=== PATIENT | female | born 2000 | race Caucasian/White ===

== ENCOUNTER 2022-02-21 13:29 | Emergency (ER) | payer MEDICAID, SELFPAY ==
[2022-02-21 13:38] VITALS: BP 136/75; PULSE 92; RESP 16; TEMP 36.8; O2SAT 99
[2022-02-21 14:15] LABS: Add Urine Microscopic? NO; Appearance Urine Clear (Clear); Bilirubin Urine Negative (Negative); Blood Urine Negative (Negative); Color Urine Yellow (Yellow); Glucose Urine UA Negative (Negative); Ketones Urine Negative (Negative); Leukocyte Esterase Ur Negative LEU/UL (Negative); Nitrate Urine Negative (Negative); Protein Urine Negative (Negative); Specific Grav Ur 1.011 (1.001-1.035); Urobilinogen Urine Negative mg/dL (<2.0)
--- NOTE | 2022-02-21 14:42 | ED.FEMALEGU ---
HPI - Female Genitourinary General Chief complaint: Urogenital-Female Stated complaint: UTI? Time Seen by Provider: 02/21/22 13:44 History of Present Illness HPI Narrative: 21-year-old female presents to the emergency room complaints of dysuria that has been present for 1 week. Denies any suprapubic pain or low back pain. Has not seen a body else for the symptoms. Denies fever. No nausea vomiting diarrhea or constipation. No concerns over STDs. Denies any vaginal discharge vaginal bleeding. Related Data Home Medications Medication Instructions Recorded Confirmed medroxyprogesterone 150 mg/mL mg IM 02/21/22 02/21/22 intramuscular suspension sumatriptan succinate 50 mg tablet mg PO 02/21/22 Allergies Allergy/AdvReac Type Severity Reaction Status Date / Time Penicillins Allergy Unknown Difficulty Verified 02/21/22 13:51 Breathing Review of Systems Review of Systems: CONSTITUTIONAL: Denies fever, chills, or sweats. EYES: Denies visual changes, redness, or discharge. ENT: Denies rhinorrhea, congestion, sore throat, or otalgia. CARDIOVASCULAR: Denies chest pain, palpitations, or edema. RESPIRATORY: Denies cough or dyspnea. GASTROINTESTINAL: Denies abdominal pain, nausea, vomiting, or diarrhea. GENITOURINARY: Reports dysuria SKIN: Denies rash or itching. MUSCULOSKELETAL: Denies back pain, joint pain, or myalgia. NEUROLOGIC: Denies headache, numbness, dizziness, or weakness. PSYCHIATRIC: Denies anxiety or depression. Exam Narrative: GENERAL: Well-appearing, well-nourished, no physical limitations, and in no acute distress. HEAD: Normocephalic, atraumatic. EYES: Conjunctivae normal, PERRLA and EOMI. CHEST: Clear to auscultation. No respiratory distress. No wheezes rales or rhonchi. No tenderness. HEART: Regular rate and rhythm. No murmur heard. Normal peripheral pulses. ABDOMEN: Soft, nontender, nondistended, normal active bowel sounds. BACK: No CVA tenderness EXTREMITIES: Normal range of motion. No edema. No clubbing or cyanosis SKIN: Warm, dry, no rash. No noted wounds NEURO: No focal deficits. Alert and oriented x3. MAEW. CN's II-XI intact bilaterally, normal gait PSYCH: Cooperative. Normal mood and affect. Course Vital Signs Vital signs: Vital Signs Temperature 36.8 C 02/21/22 13:38 Pulse Rate 92 02/21/22 13:38 Respiratory Rate 16 02/21/22 13:38 Blood Pressure 136/75 02/21/22 13:38 Pulse Oximetry 99 02/21/22 13:38 Temperature 36.8 C 02/21/22 13:38 Pulse Rate 92 02/21/22 13:38 Respiratory Rate 16 02/21/22 13:38 Blood Pressure 136/75 02/21/22 13:38 Pulse Oximetry 99 02/21/22 13:38 MDM - Female Genitourinary Lab Data Labs: Lab Results 02/21/22 Range/Units 13:51 Urine Color Yellow (Yellow) Urine Appearance Clear (Clear) Urine pH 5.0 (5.0-9.0) Ur Specific [place] 1.011 (1.001-1.035) Urine Protein Negative (Negative) mg/dL Urine Glucose (UA) Negative (Negative) mg/dL Urine Ketones Negative (Negative) mg/dL Ur Blood (Man) Negative (Negative) Urine Nitrate Negative (Negative) Urine Bilirubin Negative (Negative) Urine Urobilinogen Negative (<2.0) mg/dL Leukocyte Esterase Rfl Negative (Negative) NICK/UL UCG Bedside Result Negative Reference Range: Negative Urine Characteristics Cloudy Discharge Plan Discharge Clinical Impression: Dysuria Patient Disposition: Home, Self-Care Condition: Stable Instructions: Antibiotic Form, Dysuria (ED) Prescriptions: No Action sumatriptan succinate 50 mg tablet PO medroxyprogesterone 150 mg/mL suspension IM Follow-up/Referrals: Lan Valle MD [Primary Care Provider] - Stand Alone Forms: Work/School Release IP Time of Disposition: 14:44
== END 2022-02-21 15:02 | disposition home or self-care (01) ==
PROVIDERS: Emergency Provider Nurse Practitioner Family; PCP Pediatrics
DX: R30.0 Dysuria (principal)
CPT/HCPCS: 81003; 81025; 99283

== ENCOUNTER 2022-06-21 18:43 | Emergency (ER) | payer MEDICAID, SELFPAY ==
[2022-06-21 19:08] VITALS: BP 154/89; PULSE 90; RESP 18; TEMP 37.2; O2SAT 100
[2022-06-21 19:48] LABS: Beta HCG Quantitative < 2.39 mIU/ML
--- NOTE | 2022-06-21 19:51 | ED.GENADULT ---
HPI - General Adult General Chief complaint: Unspecified Stated complaint: requesting beta quant - positive pregnanct test Time Seen by Provider: 06/21/22 18:51 History of Present Illness HPI narrative: 21-year-old female presented the emergency room requesting blood work to confirm . Patient states that she took 5 tests at home earlier today and 2 of them showed a faint line and testing positive. Patient is concerned because she is scheduled to have Depo shot on Friday. Related Data Home Medications Medication Instructions Recorded Confirmed medroxyprogesterone 150 mg/mL mg IM 02/21/22 02/21/22 intramuscular suspension sumatriptan succinate 50 mg tablet mg PO 02/21/22 Allergies Allergy/AdvReac Type Severity Reaction Status Date / Time Penicillins Allergy Unknown Difficulty Verified 06/21/22 18:44 Breathing Review of Systems Review of Systems: CONSTITUTIONAL: Denies fever, chills, or sweats. EYES: Denies visual changes, redness, or discharge. ENT: Denies rhinorrhea, congestion, sore throat, or otalgia. CARDIOVASCULAR: Denies chest pain, palpitations, or edema. RESPIRATORY: Denies cough or dyspnea. GASTROINTESTINAL: Denies abdominal pain, nausea, vomiting, or diarrhea. GENITOURINARY: Denies dysuria or hematuria. SKIN: Denies rash or itching. MUSCULOSKELETAL: Denies back pain, joint pain, or myalgia. NEUROLOGIC: Denies headache, numbness, dizziness, or weakness. PSYCHIATRIC: Denies anxiety or depression. Exam Narrative: GENERAL: Well-appearing, well-nourished, no physical limitations, and in no acute distress. HEAD: Normocephalic, atraumatic. EYES: Conjunctivae normal, PERRLA and EOMI. CHEST: Clear to auscultation. No respiratory distress. No wheezes rales or rhonchi. HEART: Regular rate and rhythm. No murmur heard. Normal peripheral pulses. ABDOMEN: Soft, nontender, nondistended, normal active bowel sounds. EXTREMITIES: Normal range of motion. No edema. No clubbing or cyanosis SKIN: Warm, dry, no rash. No noted wounds NEURO: No focal deficits. Alert and oriented x3. MAEW. CN's II-XI intact bilaterally, normal gait PSYCH: Cooperative. Normal mood and affect. Course Vital Signs Vital signs: Vital Signs Temperature 37.2 C 06/21/22 19:08 Pulse Rate 90 06/21/22 19:08 Respiratory Rate 18 06/21/22 19:08 Blood Pressure 154/89 H 06/21/22 19:08 Pulse Oximetry 100 06/21/22 19:08 Oxygen Delivery Room Air 06/21/22 19:08 Temperature 37.2 C 06/21/22 19:08 Pulse Rate 90 06/21/22 19:08 Respiratory Rate 18 06/21/22 19:08 Blood Pressure 154/89 H 06/21/22 19:08 Pulse Oximetry 100 06/21/22 19:08 Oxygen Delivery Room Air 06/21/22 19:08 Medical Decision Making Vital Signs Vital Signs: Vital Signs Temperature 37.2 C 06/21/22 19:08 Pulse Rate 90 06/21/22 19:08 Respiratory Rate 18 06/21/22 19:08 Blood Pressure 154/89 H 06/21/22 19:08 Pulse Oximetry 100 06/21/22 19:08 Oxygen Delivery Room Air 06/21/22 19:08 Temperature 37.2 C 06/21/22 19:08 Pulse Rate 90 06/21/22 19:08 Respiratory Rate 18 06/21/22 19:08 Blood Pressure 154/89 H 06/21/22 19:08 Pulse Oximetry 100 06/21/22 19:08 Oxygen Delivery Room Air 06/21/22 19:08 Lab Data Labs: Lab Results 06/21/22 Range/Units 19:09 Beta HCG, Quant < 2.39 mIU/ML Discharge Plan Discharge Clinical Impression: Encounter for test with result negative Patient Disposition: Home, Self-Care Condition: Stable Instructions: Antibiotic Form Additional Instructions: Your beta-hCG level is 2.93, which indicates a negative test. Prescriptions: No Action sumatriptan succinate 50 mg tablet PO medroxyprogesterone 150 mg/mL suspension IM Follow-up/Referrals: Lan Valle MD [Primary Care Provider] - Time of Disposition: 19:51
== END 2022-06-21 19:59 | disposition home or self-care (01) ==
LOC: ANHED 19:56
PROVIDERS: Emergency Provider Nurse Practitioner Family
DX: Z32.02 Encounter for pregnancy test, result negative (principal)
CPT/HCPCS: 36415; 84702; 99283

== ENCOUNTER 2022-09-29 00:02 | Emergency (ER) | payer MEDICAID, SELFPAY ==
--- NOTE | ~2022-09-29 | CT_ITS ---
EXAMINATION: CT abdomen pelvis w con INDICATION: Nausea and vomiting TECHNIQUE: Computed tomographic images of the abdomen and pelvis were obtained after the administrati on of 100 cc of Omnipaque 350 intravenous contrast. The dose-length product (DLP) was 282.16 mGy-cm. Automated exposure control and iterative reconstruction technique were employed. COMPARISON: None available FINDINGS: Minimal dependent atelectasis is present in the lung bases. The heart size is normal. The g allbladder is surgically absent. The spleen, pancreas, liver, and adrenal glands are normal. The kidn eys are unremarkable. No pathologically enlarged abdominal or pelvic lymph nodes are identified. No f ree intraperitoneal gas or evidence of bowel obstruction. There is mild enlargement of the base of th e appendix with normal appearing mid and distal appendix. There is no surrounding fat stranding. IMPRESSION: 1. Mild enlargement of the base of the appendix with normal appearing mid and distal appendix and no associated fat stranding. Finding could reflect normal variant versus early appendicitis. Reviewed, dictated and finalized at location [facility]. IMPRESSION: 1. Mild enlargement of the base of the appendix with normal appearing mid and d istal appendix and no associated fat stranding. Finding could reflect normal va riant versus early appendicitis.
[2022-09-29 00:04] VITALS: BP 133/88; PULSE 87; RESP 19; TEMP 36.7; O2SAT 100
[2022-09-29 01:09] LABS: Basophils Percent Auto 0.4 % (0.2-1.2); Hematocrit 41.7 % (37.0-47.0); Hemoglobin 14.5 g/dL (12.0-15.0); Immature Granulocyte Absolute 0.04 K/mm3 (0.00-0.031); Immature Granulocyte Percent A 0.5 % (0-0.5); Lymphocytes Absolute Auto 0.83 K/mm3 (0.9-3.2); Mean Corpuscular HGB Conc 34.8 g/dl (32-36); Mean Corpuscular Hemoglobin 29.9 pg (26-34); Mean Platelet Volume 11.2 fl (7.4-10.4); Monocytes Absolute Auto 0.5 K/mm3 (0.1-0.6); Monocytes Percent Auto 6.5 % (2.6-8.5); Neutrophils Absolute Auto 6.8 K/mm3 (1.3-6.7); Neutrophils Percent Auto 82.6 % (45.5-73.1); Platelet Count Result 237 k/mm3 (150-375); Red Blood Count 4.85 M/mm3 (4.2-5.4); Red Cell Distribution Width 12.4 % (11.5-14.5); White Blood Count 8.3 K/mm3 (4.5-10.0)
--- NOTE | 2022-09-29 01:09 | PC.NURSE ---
Pt unable to provide urine sample at this time
[2022-09-29 01:24] LABS: Alanine Aminotransferase 58 U/L (6-35); Albumin Level 5.1 g/dL (3.5-5.1); Alkaline Phosphatase 107 U/L (38-126); Anion Gap 12 mmol/L (8-16); Aspartate Amino Transferase 38 U/L (14-36); Bilirubin,Total 1.7 mg/dL (0.2-1.3); Blood Urea Nitrogen 11 mg/dL (7-17); Calcium 9.7 mg/dL (8.4-10.2); Carbon Dioxide 20 mmol/L (22-30); Chloride 108 mmol/L (98-107); Estimated CRCL calculation 87 ml/min; Estimated Glomerular Filt Rate > 60; Glucose 149 mg/dL (65-110); Lipase 52 U/L (23-300); Sodium 140 mmol/L (137-145)
[2022-09-29] MEDS: ONDANSETRON INJ 4 MG/2 ML VIAL IV PUSH ×3 (01:42→06:47)
[2022-09-29] MEDS: MORPHINE SULFATE (*CRX) 4 MG/ML INJ IV PUSH ×2 (01:42→04:10)
[2022-09-29] MEDS: SODIUM CHLORIDE 0.9% IV 1,000 ML 999 ML IV CONT ×2 (01:42→02:58)
[2022-09-29] MEDS: PANTOPRAZOLE SODIUM IV 40 MG VIAL IV PUSH (01:42)
--- NOTE | 2022-09-29 02:04 | ED.NAVMDI ---
HPI - Nausea/Vomiting/Diarrhea General Chief complaint: Nausea/Vomiting/Diarrhea <NICOLETTE Drummond Last Filed: 09/29/22 03:49> Stated complaint: n/v <NICOLETTE Drummond Last Filed: 09/29/22 03:49> Time Seen by Provider: 09/29/22 00:53 <NICOLETTE Drummond Last Filed: 09/29/22 03:49> Source: patient <NICOLETTE Drummond Last Filed: 09/29/22 03:49> Mode of arrival: ambulatory <NICOLETTE Drummond Last Filed: 09/29/22 03:49> Limitations: no limitations <NICOLETTE Drummond Last Filed: 09/29/22 03:49> History of Present Illness HPI Narrative: Patient is a 21-year-old female who presents to the ED with report of nausea and vomiting. Patient reports she felt fine Friday and Friday morning, but became nauseous around noon on Friday. She developed vomiting and reported having numerous episodes of emesis. She also reports having diffuse abdominal pain, worse in her lower abdomen. She denies any bad food exposure, fevers, diarrhea, constipation, rectal bleeding, melena, hematemesis, urinary symptoms, cough or cold symptoms, family members with similar symptoms. Patient has not taken anything for symptoms. Unable to keep anything down. <NICOLETTE Drummond Last Filed: 09/29/22 03:49> Related Data Home medications: Home Medications Medication Instructions Recorded Confirmed medroxyprogesterone 150 mg/mL mg IM 02/21/22 02/21/22 intramuscular suspension sumatriptan succinate 50 mg tablet mg PO 02/21/22 <NICOLETTE Drummond Last Filed: 09/29/22 03:49> Allergies/Adverse reactions: Allergies Allergy/AdvReac Type Severity Reaction Status Date / Time Penicillins Allergy Unknown Difficulty Verified 09/29/22 00:02 Breathing <NICOLETTE Drummond Last Filed: 09/29/22 03:49> Review of Systems Review of Systems: CONSTITUTIONAL: Denies fever, chills, or sweats. ENT: Denies rhinorrhea, congestion, sore throat. CARDIOVASCULAR: Denies chest pain. RESPIRATORY: Denies cough or dyspnea. GASTROINTESTINAL: See HPI. GENITOURINARY: Denies dysuria or hematuria. <Ashleigh Da Silva PA-C - Last Filed: 09/29/22 03:49> All systems reviewed & are unremarkable except as noted in HPI and below <Ashleigh Da Silva PA-C - Last Filed: 09/29/22 03:49> PMFSH Past Medical History Medical History: Medical History (Updated 09/29/22 @ 03:29 by Ashleigh Da Silva PA-C) No pertinent past medical history <Ashleigh Da Silva PA-C - Last Filed: 09/29/22 03:49> Surgical History Surgical History: Surgical History (Updated 09/29/22 @ 02:07 by Ashleigh Da Silva PA-C) History of cholecystectomy <Ashleigh Da Silva PA-C - Last Filed: 09/29/22 03:49> Social History Social History: Social History (Updated 09/29/22 @ 02:07 by Ashleigh Da Silva PA-C) Smoking status: Never smoker <Ashleigh Da Silva PA-C - Last Filed: 09/29/22 03:49> Exam Narrative: GENERAL: Mildly ill appearing, well-nourished, non-toxic, in no acute distress. HEAD: Normocephalic, atraumatic. NECK: Supple. No adenopathy, no masses. RESPIRATORY: Airway patent, respirations nonlabored. Clear to auscultation bilaterally, no rales, rhonchi, wheezing. CARDIOVASCULAR: Regular rate and rhythm without murmurs, rubs, or gallops. Radial pulses 2+ and equal bilaterally. ABDOMINAL: Soft, diffuse tenderness throughout abdomen, worst in epigastric region and right lower quadrant, nondistended, no hepatosplenomegaly. Normoactive BS. MUSCULOSKELETAL: Moves all extremities. Strength/ROM intact without gross deformities. SKIN: Warm, dry, slightly pale appearing. No rashes. NEURO: A&O X3. Speech clear. Cranial nerves II-XII grossly intact. Steady gait. No ataxic movements. PSYCHIATRIC: Appropriate mood and affect. Normal interaction. <Ashleigh Da Silva PA-C - Last Filed: 09/29/22 03:49> Course [employer]
[2022-09-29 02:42] VITALS: BP 108/64; PULSE 81; RESP 14; O2SAT 100
[2022-09-29 03:07] LABS: Appearance Urine Clear (Clear); Bilirubin Urine Negative (Negative); Blood Urine Negative (Negative); Color Urine Yellow (Yellow); Glucose Urine UA Negative (Negative); Ketones Urine 2+ mg/dL (Negative); Leukocyte Esterase Ur Negative LEU/UL (Negative); Nitrate Urine Negative (Negative); Protein Urine Negative (Negative); Urobilinogen Urine 0.2 mg/dL (<2.0); pH Urine 7.5 (5.0-9.0)
[2022-09-29 03:33] LABS: Specific Grav Ur 1.094 (1.001-1.035)
[2022-09-29 03:34] LABS: Add Urine Microscopic? NO
[2022-09-29 04:15] VITALS: BP 131/80; PULSE 97; RESP 16; O2SAT 100
[2022-09-29 06:39] VITALS: BP 123/82; PULSE 99; RESP 18; O2SAT 100
== END 2022-09-29 07:30 | disposition home or self-care (01) ==
PROVIDERS: Emergency Provider Emergency Medicine
DX: R11.2 Nausea with vomiting, unspecified (principal)
CPT/HCPCS: 36415; 74177; 80053; 81003; 81025; 83690; 85025; 96361; 96374; 96375; 96376; 99284; C9113; J2270; J2405; J7030; Q9967

== ENCOUNTER 2022-10-02 10:00 | Emergency (ER) | payer MEDICAID, SELFPAY ==
--- NOTE | ~2022-10-02 | CT_ITS ---
EXAMINATION: CT abdomen pelvis w con DATE: 10/02/2022 13:24 INDICATION: Postoperative abdominal pain since appendectomy 2 days ago. Vomiting. TECHNIQUE: Computed tomography (CT) of the abdomen and pelvis was performed with 100 CC Omnipaque 350 intravenous contrast. Automated exposure control and iterative reconstruction technique were employe d. Exam dose: 296.68 mGy-cm total exam DLP. COMPARISON: September 29, 2022 CT abdomen pelvis FINDINGS: Slight dependent left lower lobe atelectasis. The lung bases are otherwise clear. Normal heart size. No pericardial or pleural effusion. Status post cholecystectomy. The common bile duct and intrahepatic bile ducts appear of normal calibe r postcholecystectomy. No hepatic, splenic, pancreatic, and adrenal or renal space-occupying mass lesion is detected. No urinary tract calculus or hydroureteronephrosis. The urinary bladder, uterus and ovaries appear un remarkable. There is mild free fluid in the posterior cul-de-sac and right adnexal area. Status post appendectomy. There are some nondilated fluid containing small bowel segments with occasi onal small bowel air-fluid levels, which may represent mild postoperative adynamic ileus. No bowel ob struction or intraperitoneal free air is evident. Normal caliber of the abdominal aorta. No intraperitoneal or retroperitoneal or pelvic mass lesion or adenopathy. Included skeletal structures are unremarkable. IMPRESSION: Probable mild postoperative adynamic ileus Status post cholecystectomy and appendectomy Mild free fluid in the right adnexal area and posterior cul-de-sac, possibly postoperative or physiol ogic Reviewed, dictated and finalized at [facility]. Reviewed, dictated and finalized at location [facility]. IMPRESSION: Probable mild postoperative adynamic ileus Status post cholecystectomy and appendectomy Mild free fluid in the right adnexal area and posterior cul-de-sac, possibly po stoperative or physiologic
--- NOTE | ~2022-10-02 | US_ITS ---
US pelvic complete DATE: 10/02/2022 13:45 INDICATION: Pelvic pain TECHNIQUE: Real-time imaging via transabdominal approach only. The patient declined transvaginal exam ination. COMPARISON: 10/02/2022 CT abdomen pelvis FINDINGS: The uterus measures approximately 5.6 cm height, 2.7 cm anteroposterior dimension. The cent ral endometrial echo complex measures approximately 3.6 mm AP dimension, normal. The adnexal areas are not visualized due to bowel. IMPRESSION: Limited examination. Normal appearing uterus Reviewed, dictated and finalized at [facility]. Reviewed, dictated and finalized at location [facility].
[2022-10-02 10:15] VITALS: BP 115/71; PULSE 55; RESP 18; TEMP 36.3; O2SAT 100
[2022-10-02 10:36] LABS: Basophils Percent Auto 0.4 % (0.2-1.2); Eosinophils Percent Auto 0.5 % (0-4.4); Hematocrit 38.3 % (37.0-47.0); Hemoglobin 13.1 g/dL (12.0-15.0); Immature Granulocyte Absolute 0.04 K/mm3 (0.00-0.031); Immature Granulocyte Percent A 0.5 % (0-0.5); Lymphocytes Absolute Auto 2.13 K/mm3 (0.9-3.2); Lymphocytes Percent Auto 27.1 % (18.3-44.2); Mean Corpuscular HGB Conc 34.2 g/dl (32-36); Mean Corpuscular Hemoglobin 30.7 pg (26-34); Mean Corpuscular Volume 89.7 fl (80-100); Monocytes Absolute Auto 0.6 K/mm3 (0.1-0.6); Monocytes Percent Auto 7.4 % (2.6-8.5); Neutrophils Percent Auto 64.1 % (45.5-73.1); Platelet Count Result 217 k/mm3 (150-375); Red Blood Count 4.27 M/mm3 (4.2-5.4); Red Cell Distribution Width 12.6 % (11.5-14.5); White Blood Count 7.9 K/mm3 (4.5-10.0)
[2022-10-02 10:59] LABS: Alanine Aminotransferase 138 U/L (6-35); Albumin Level 4.1 g/dL (3.5-5.1); Alkaline Phosphatase 77 U/L (38-126); Anion Gap 7 mmol/L (8-16); Aspartate Amino Transferase 58 U/L (14-36); Bilirubin,Total 0.8 mg/dL (0.2-1.3); Blood Urea Nitrogen 7 mg/dL (7-17); Calcium 8.2 mg/dL (8.4-10.2); Carbon Dioxide 25 mmol/L (22-30); Chloride 105 mmol/L (98-107); Estimated CRCL calculation 87 ml/min; Estimated Glomerular Filt Rate > 60; Glucose 116 mg/dL (65-110); Lipase 82 U/L (23-300); Potassium 3.2 mmol/L (3.4-5.0); Sodium 137 mmol/L (137-145)
[2022-10-02] MEDS: SODIUM CHLORIDE 0.9% IV 1,000 ML 999 ML IV CONT (11:43)
[2022-10-02] MEDS: PROMETHAZINE HCL 25 MG/ML AMPUL 12.5 MG IV PUSH (11:44)
[2022-10-02] MEDS: MORPHINE SULFATE (*CRX) 4 MG/ML INJ IV PUSH (11:45)
[2022-10-02 12:00] VITALS: BP 122/89; PULSE 61; RESP 18; TEMP 36.9; O2SAT 100
[2022-10-02 12:00] LABS: Appearance Urine Cloudy (Clear); Bacteria Urine None Seen /hpf; Bilirubin Urine Negative (Negative); Blood Urine Trace (Negative); Color Urine Yellow (Yellow); Glucose Urine UA Negative (Negative); Ketones Urine Negative (Negative); Leukocyte Esterase Ur 3+ LEU/UL (Negative); Need Manual Microscopic Reviewed; Nitrate Urine Negative (Negative); Non Pathogenic Casts 0-2; Protein Urine Negative (Negative); RBC Urine 0-2 /hpf (0-2); Squamous Epithelial Cell Urine Moderate /hpf (Few); Urobilinogen Urine 0.2 mg/dL (<2.0); WBC Urine 21-50 /hpf; pH Urine 6.5 (5.0-9.0)
[2022-10-02 12:04] LABS: Add Urine Microscopic? YES
[2022-10-02 12:27] VITALS: TEMP 36.9
[2022-10-02 13:56] VITALS: BP 127/78; PULSE 61; RESP 18; O2SAT 100
--- NOTE | 2022-10-02 14:30 | PC.NURSE ---
Dr. Villa made aware of pt emesis episode at this time. No verbal orders received.
[2022-10-02] MEDS: ONDANSETRON INJ 4 MG/2 ML VIAL IV PUSH (14:36)
--- NOTE | 2022-10-02 15:54 | ED.GENADULT ---
HPI - General Adult General Chief complaint: Abdominal Pain Stated complaint: vomiting Time Seen by Provider: 10/02/22 10:50 History of Present Illness HPI narrative: Patient is a 22-year-old female who presents ER with lower abdominal pain. Began this morning. Suprapubic. Worse with physical movement and with attempting to urinate. Patient underwent laparoscopic appendectomy 2 days ago. No fevers or chills or sweats. Was relatively pain-free yesterday. No dysuria fevers or chills or sweats. She is passing gas but has not had a bowel movement since before her surgery. Related Data Home Medications Medication Instructions Recorded Confirmed medroxyprogesterone 150 mg/mL mg IM 02/21/22 02/21/22 intramuscular suspension sumatriptan succinate 50 mg tablet mg PO 02/21/22 Allergies Allergy/AdvReac Type Severity Reaction Status Date / Time Penicillins Allergy Unknown Difficulty Verified 09/29/22 00:02 Breathing Review of Systems Review of Systems: All systems reviewed & are unremarkable except as noted in HPI and below Constitutional: Constitutional: Denies chills, Denies fatigue and Denies fever(s) ENT: Denies nasal congestion and Denies sore throat Cardiovascular: Cardiovascular: Denies chest pain, Denies rapid heart rate and Denies radiating jaw, neck or arm pain Gastrointestinal: Gastrointestinal: Reports abdominal pain, Denies nausea and Denies vomiting PMFSH Past Medical History Medical History (Updated 10/02/22 @ 15:59 by Shivam Villa MD) Migraine No pertinent past medical history Surgical History Surgical History History of cholecystectomy Family History Family History Other No pertinent family history Social History Social History Smoking status: Never smoker Alcohol intake: never Substance use: never Exam Narrative: GENERAL: Comfortable-appearing, well-nourished, and in no acute distress. HEAD: Normocephalic, atraumatic. ENT: Mucous membranes moist. CHEST: Clear to auscultation. No respiratory distress. HEART: Regular rate and rhythm. Normal peripheral pulses. ABDOMEN: Soft, nontender, nondistended, normal active bowel sounds. Well-healing surgical sites. EXTREMITIES: Normal range of motion. No edema. SKIN: Warm, dry, no rash. NEURO: Alert and oriented x3. PSYCH: Normal mood and affect. Course Course Emergency Course: Discussed case with Dr. Andrews. Recommends stool softeners as well as antibiotics for the urine. He will follow patient up in clinic. Patient requests oral antiemetics that are not Zofran and are not dissolvable. She will be prescribed promethazine. She is tolerating oral intake at this time. She will be discharged home. Vital Signs Vital signs: Vital Signs Temperature 97.3 F L 10/02/22 10:15 Pulse Rate 55 L 10/02/22 10:15 Respiratory Rate 18 10/02/22 10:15 Blood Pressure 115/71 10/02/22 10:15 Pulse Oximetry 100 10/02/22 10:15 Oxygen Delivery Room Air 10/02/22 10:15 Temperature 98.5 F 10/02/22 12:27 Pulse Rate 68 10/02/22 16:12 Respiratory Rate 18 10/02/22 16:12 Blood Pressure 117/71 10/02/22 16:12 Pulse Oximetry 99 10/02/22 16:12 Oxygen Delivery Room Air 10/02/22 10:15 Medical Decision Making Vital Signs Vital Signs: Vital Signs Temperature 97.3 F L 10/02/22 10:15 Pulse Rate 55 L 10/02/22 10:15 Respiratory Rate 18 10/02/22 10:15 Blood Pressure 115/71 10/02/22 10:15 Pulse Oximetry 100 10/02/22 10:15 Oxygen Delivery Room Air 10/02/22 10:15 Temperature 98.5 F 10/02/22 12:27 Pulse Rate 68 10/02/22 16:12 Respiratory Rate 18 10/02/22 16:12 Blood Pressure 117/71 10/02/22 16:12 Pulse Oximetry 99 10/02/22 16:12 Oxygen Delivery Room Air 10/02/22 10:15 Lab Data 10/02/22 10:3
[2022-10-02 16:12] VITALS: BP 117/71; PULSE 68; RESP 18; O2SAT 99
== END 2022-10-02 16:13 | disposition home or self-care (01) ==
PROVIDERS: Emergency Provider Emergency Medicine
DX: K91.89 Other postprocedural complications and disorders of digestive system (principal); K56.7 Ileus, unspecified; N39.0 Urinary tract infection, site not specified; Z90.49 Acquired absence of other specified parts of digestive tract
CPT/HCPCS: 36415; 74177; 76856; 80053; 81001; 83690; 85025; 87086; 87088; 96361; 96374; 96375; 99284; J2270; J2405; J2550; J7030; Q9967

== ENCOUNTER 2023-02-27 09:46 | Emergency (ER) | payer OTHER, SELFPAY ==
--- NOTE | 2023-02-27 09:56 | ED.URI ---
HPI - URI/Sore Throat General Chief Complaint: Upper Respiratory Infection Stated Complaint: Cough,Congestion,Bilateral Ear Irritation,Headache Time Seen by Provider: 02/27/23 10:01 Source: patient, RN notes reviewed and old records reviewed Mode of arrival: ambulatory Limitations: no limitations History of Present Illness HPI Narrative: 22 year old female who [facility] with complaints of nasal congestion and drainage, facial pressure,migraine headache, ear pain and feeling off balance for one week duration. Patient reports that she has also had some productive cough. Patient denies any known fevers, chills or body aches. Patient reports that she has been taking Benadryl and Bell for her symptoms.Patient reports that she did home COVID test which was negative and her work wants her to have strep and flu before returning to work. MD elicited complaint: cough, sore throat, rhinorrhea, nasal congestion and sinus pain Onset (ago): week(s) (7) Able to tolerate fluids by mouth: Yes Treatments prior to arrival: other (Bell and Benadryl) Related Data Allergies Allergy/AdvReac Type Severity Reaction Status Date / Time Penicillins Allergy Unknown Difficulty Verified 02/27/23 10:01 Breathing Review of Systems Review of Systems: CONSTITUTIONAL: Denies malaise, chills, sweats, or fever. EYES: Denies visual changes, redness, or discharge. ENT: Reports rhinorrhea, congestion, sinus pain, otalgia and sore throat. CARDIOVASCULAR: Denies chest pain, palpitations, or edema. RESPIRATORY: Reports cough.? Denies dyspnea. GASTROINTESTINAL: Denies abdominal pain, nausea, vomiting, diarrhea SKIN: Denies rash or itching. MUSCULOSKELETAL: Denies myalgia. NEUROLOGIC: Positive headache. All systems reviewed & are unremarkable except as noted in HPI and below PMFSH Past Medical History Medical History (Updated 02/27/23 @ 10:39 by Ifeoma Aguero NP) Migraine Surgical History Surgical History History of cholecystectomy History of laparoscopic appendectomy 09/30/2022 Family History Family History Other No pertinent family history Social History Social History (Updated 02/27/23 @ 10:40 by Ifeoma Aguero NP) Smoking status: Never smoker Alcohol intake: never Substance use: never Gender identity (if verbalized by the patient): Female Comments At time of signature, agree with nursing past medical, surgical, social and family history. There is no relevant family history pertinent to the presenting complaint Exam Narrative: GENERAL: Well-appearing, well-nourished, and in no acute distress. HEAD: Normocephalic EYES: PERRLA, conjunctivae clear ENT: Nares clear, turbinates edematous and erythematous, clear discharge.facial pressure and frontal headache. Mucous membranes moist. TM pearly woodard with dull light reflex bilaterally; no tragal tenderness. Oropharynx erythematous without lesions. Tonsils not enlarged and without exudate, no drooling, no hoarseness, no trismus, uvula midline. NECK: Supple. No lymphadenopathy CHEST: Clear to auscultation, breath sounds equal. No wheezing, rhonchi, rales, or stridor. No respiratory distress, speaks in full sentences.SAO2 100% on room air HEART: Regular rate and rhythm. No murmur heard. SKIN: Warm, dry, no rash. NEURO: Alert and oriented x3. PSYCH: Normal mood and affect Course Course Emergency Course: Patient is aware of diagnosis, understands and agrees to treatment plan.? Anticipatory guidance given.? Patient agrees to follow-up as directed and is aware of reasons to seek care at the emergency department. Portions of this record may have been created with voice recognition software Level of Care: Express Care Visit Vital Signs Vital signs: Vital Signs Oxygen Delivery Room Air 02/27/23 09:53 Te
[2023-02-27 10:00] VITALS: BP 122/74; PULSE 87; RESP 18; TEMP 36.5; O2SAT 100
[2023-02-27 10:02] VITALS: BP 122/74; PULSE 87; RESP 18; TEMP 36.5; O2SAT 100
== END 2023-02-27 10:25 | disposition home or self-care (01) ==
PROVIDERS: Emergency Provider Registered Nurse
DX: J32.9 Chronic sinusitis, unspecified (principal)
CPT/HCPCS: 87081; 87804; 87880; 99213; G0463

== ENCOUNTER 2023-09-17 12:11 | Emergency (ER) | payer OTHER, SELFPAY ==
--- NOTE | ~2023-09-17 | CT_ITS ---
EXAMINATION: CT abdomen pelvis w con DATE: 09/17/2023 13:47 INDICATION: Abdominal pain, nausea, vomiting, diarrhea. TECHNIQUE: Computed tomography (CT) of the abdomen and pelvis was performed with 100 cc Omnipaque 350 intravenous contrast. Automated exposure control and iterative reconstruction technique were employe d. Exam dose: 228.98 mGy-cm total exam DLP. COMPARISON: 10/02/2022 CT abdomen pelvis FINDINGS: The lung bases are clear. Normal heart size. No pericardial or pleural effusion. Status post cholecystectomy. No bile duct or pancreatic duct dilatation. The liver, spleen, pancreas, adrenal glands and kidneys are unremarkable. Normal caliber of the abdominal aorta. No intraperitoneal or retroperitoneal or pelvic mass lesion o r lymphadenopathy or ascites. No evidence of appendicitis. The colon is evacuated. There is mucosal enhancement of the distal smal l bowel and right colon suggesting infectious or inflammatory change. No bowel obstruction or intrap eritoneal free air. Uterus and adnexal areas are unremarkable. The urinary bladder is evacuated. Small fat containing umbilical hernia. Included skeletal structures are unremarkable. IMPRESSION: Status post cholecystectomy Mucosal enhancement at the distal small bowel and right colon suggesting infectious or inflammatory c hange No bowel obstruction or free air Reviewed, dictated and finalized at [facility]. Reviewed, dictated and finalized at [facility]. IMPRESSION: Status post cholecystectomy Mucosal enhancement at the distal small bowel and right colon suggesting infect ious or inflammatory change No bowel obstruction or free air
[2023-09-17 12:15] VITALS: BP 137/70; PULSE 74; RESP 20; TEMP 36.8; O2SAT 100
[2023-09-17 12:26] LABS: Basophils Percent Auto 0.2 % (0.2-1.2); Hematocrit 43.7 % (37.0-47.0); Hemoglobin 15.2 g/dL (12.0-15.0); Immature Granulocyte Percent A 0.5 % (0-0.5); Lymphocytes Absolute Auto 1.19 K/mm3 (0.9-3.2); Lymphocytes Percent Auto 6.2 % (18.3-44.2); Mean Corpuscular HGB Conc 34.8 g/dl (32-36); Mean Corpuscular Hemoglobin 30.1 pg (26-34); Mean Corpuscular Volume 86.5 fl (80-100); Mean Platelet Volume 11.1 fl (7.4-10.4); Neutrophils Absolute Auto 16.9 K/mm3 (1.3-6.7); Neutrophils Percent Auto 88.1 % (45.5-73.1); Platelet Count Result 264 k/mm3 (150-375); Red Blood Count 5.05 M/mm3 (4.2-5.4); Red Cell Distribution Width 11.8 % (11.5-14.5); White Blood Count 19.1 K/mm3 (4.5-10.0)
[2023-09-17 12:37] LABS: Alanine Aminotransferase 62 U/L (6-35); Albumin Level 4.9 g/dL (3.5-5.1); Alkaline Phosphatase 102 U/L (38-126); Anion Gap 9 mmol/L (4-12); Aspartate Amino Transferase 52 U/L (14-36); Bilirubin,Total 1.7 mg/dL (0.2-1.3); Blood Urea Nitrogen 11 mg/dL (7-17); Calcium 10.2 mg/dL (8.4-10.2); Carbon Dioxide 22 mmol/L (22-30); Chloride 109 mmol/L (98-107); Estimated CRCL calculation 100 ml/min; Estimated Glomerular Filt Rate > 60; Glucose 158 mg/dL (65-110); Lipase 46 U/L (23-300); Potassium 3.5 mmol/L (3.4-5.0); Sodium 140 mmol/L (137-145)
[2023-09-17] MEDS: ONDANSETRON INJ 4 MG/2 ML VIAL IV PUSH (13:21)
[2023-09-17] MEDS: KETOROLAC 30 MG/ML VIAL (*BKC) IV PUSH (13:21)
[2023-09-17] MEDS: DICYCLOMINE HCL INJ 20 MG/2 ML VIAL IM (13:21)
[2023-09-17] MEDS: SODIUM CHLORIDE 0.9% IV 1,000 ML 999 ML IV CONT ×2 (13:21→14:59)
[2023-09-17] MEDS: FAMOTIDINE 20 MG/2 ML VIAL IV PUSH (13:21)
--- NOTE | 2023-09-17 13:23 | ED.GENADULT ---
HPI - General Adult General Chief complaint: Nausea/Vomiting/Diarrhea Stated complaint: nausea/vomiting Time Seen by Provider: 09/17/23 12:23 History of Present Illness HPI narrative: Rosibel Tinajero is a 22 y/o female who presents today with reports of having nausea/vomiting / abdominal pain that started 2 days ago. She states that she also started to have diarrhea today. No known fevers States she hasn't kept anything down the past two days and has been vomiting bile Related Data Allergies Allergy/AdvReac Type Severity Reaction Status Date / Time Penicillins Allergy Unknown Difficulty Verified 09/17/23 13:20 Breathing Review of Systems Review of Systems: CONSTITUTIONAL: Denies fever, chills, or sweats. EYES: Denies visual changes, redness, or discharge. ENT: Denies rhinorrhea, congestion, sore throat, or otalgia. CARDIOVASCULAR: Denies chest pain, palpitations, or edema. RESPIRATORY: Denies cough or dyspnea. GASTROINTESTINAL: Reports abdominal pain, + nausea, vomiting, and diarrhea. GENITOURINARY: Denies dysuria or hematuria. SKIN: Denies rash or itching. MUSCULOSKELETAL: Denies back pain, joint pain, or myalgia. NEUROLOGIC: Denies headache, numbness, dizziness, or weakness. PSYCHIATRIC: Denies anxiety or depression. [facility] Past Medical History Medical History Migraine Surgical History Surgical History History of cholecystectomy History of laparoscopic appendectomy 09/30/2022 Family History Family History Other No pertinent family history Social History Social History Smoking status: Never smoker Alcohol intake: never Substance use: never Gender identity (if verbalized by the patient): Female Exam Narrative: GENERAL: Well-appearing, well-nourished, and in no acute distress. HEAD: Normocephalic, atraumatic. EYES: PERRLA and EOMI. ENT: Nares clear, no rhinorrhea or epistaxis. Mucous membranes moist. Oropharynx without tonsillar hypertrophy exudate or other lesions. Bilateral TMs pearly woodard non bulging NECK: Supple. No adenopathy or masses. No carotid bruits or JVD CHEST: Clear to auscultation. No respiratory distress. No wheezes rales or rhonchi HEART: Regular rate and rhythm. No murmur heard. Normal peripheral pulses. ABDOMEN: Soft, nondistended, normal active bowel sounds generalized abdominal pain with palpation EXTREMITIES: Normal range of motion. No edema. SKIN: Warm, dry, no rash. NEURO: No focal deficits. Alert and oriented x3. PSYCH: Normal mood and affect. Course Vital Signs Vital signs: Vital Signs Temperature 36.8 C 09/17/23 12:15 Pulse Rate 74 09/17/23 12:15 Respiratory Rate 20 09/17/23 12:15 Blood Pressure 137/70 09/17/23 12:15 Pulse Oximetry 100 09/17/23 12:15 Oxygen Delivery Room Air 09/17/23 12:15 Temperature 36.8 C 09/17/23 12:15 Pulse Rate 59 L 09/17/23 15:33 Respiratory Rate 16 09/17/23 15:33 Blood Pressure 101/65 09/17/23 15:33 Pulse Oximetry 100 09/17/23 15:33 Oxygen Delivery Room Air 09/17/23 12:15 Medical Decision Making MDM Narrative Medical decision making narrative: 22 y/o female who presents with two days of nausea/vomiting /abdominal cramping pain no fever/chills Reports she is on Depo and unsure LMP hx of cholecystectomy and appendectomy Denies changes to urine Last BM was today and diarrhea plan to check labs/ urine/ urine preg/ CT abdom/pelv while treating her with IV fluids/ Zofran/ famotidine/ and dicyclomine CBC + Leukocytosis of 19.1 CMP Ast 52, ALT 62 total bili 1.[address]- Status post cholecystectomy Mucosal enhancement at the distal small bowel and right colon suggesting infectious or inflammatory change No bowel obstruction or free air With the CT
[2023-09-17 13:48] LABS: Appearance Urine Clear (Clear); Bacteria Urine 1+ /hpf; Bilirubin Urine 1+ (Negative); Blood Urine Negative (Negative); Color Urine Dark Yellow (Yellow); Glucose Urine UA Trace mg/dL (Negative); Ketones Urine 4+ mg/dL (Negative); Leukocyte Esterase Ur Trace LEU/UL (Negative); Nitrate Urine Negative (Negative); Non Pathogenic Casts 0-2; Protein Urine 1+ mg/dL (Negative); RBC Urine 0-2 /hpf (0-2); Squamous Epithelial Cell Urine Few /hpf (Few); WBC Urine 0-5 /hpf (0-3)
[2023-09-17 13:51] LABS: Add Urine Microscopic? YES
[2023-09-17] MEDS: MORPHINE SULFATE (*CRX) 2 MG/ML INJ IV PUSH (14:25)
[2023-09-17] MEDS: diphenhydrAMINE HCl INJ 50 MG/ML VIAL 25 MG IV PUSH (14:59)
[2023-09-17] MEDS: PROCHLORPERAZINE EDISYLATE 10 MG/2 ML VIAL IV PUSH (14:59)
[2023-09-17] MEDS: METOCLOPRAMIDE HCL INJ 10 MG/2 ML VIAL IV PUSH (15:32)
[2023-09-17 15:33] VITALS: BP 101/65; PULSE 59; RESP 16; O2SAT 100
== END 2023-09-17 17:31 | disposition home or self-care (01) ==
PROVIDERS: Student in an Organized Health Care Education/Training Program; Emergency Provider Nurse Practitioner Family
DX: K52.9 Noninfective gastroenteritis and colitis, unspecified (principal)
CPT/HCPCS: 36415; 74177; 80053; 81001; 81025; 83690; 85025; 96361; 96372; 96374; 96375; 99284; J0500; J0780; J1200; J1885; J2270; J2405; J2765; J7030; Q9967

== ENCOUNTER 2023-09-18 10:22 | Emergency (ER) | payer OTHER, SELFPAY ==
[2023-09-18 10:27] VITALS: BP 138/80; PULSE 64; RESP 17; TEMP 36.7; O2SAT 98
[2023-09-18] MEDS: SODIUM CHLORIDE 0.9% IV 1,000 ML 999 ML IV CONT (11:19)
[2023-09-18] MEDS: ONDANSETRON INJ 4 MG/2 ML VIAL IV PUSH (11:19)
[2023-09-18 11:38] LABS: Basophils Percent Auto 0.3 % (0.2-1.2); Eosinophils Percent Auto 0.1 % (0-4.4); Hematocrit 38.8 % (37.0-47.0); Hemoglobin 13.1 g/dL (12.0-15.0); Immature Granulocyte Absolute 0.03 K/mm3 (0.00-0.031); Immature Granulocyte Percent A 0.3 % (0-0.5); Lymphocytes Absolute Auto 2.55 K/mm3 (0.9-3.2); Lymphocytes Percent Auto 24.5 % (18.3-44.2); Mean Corpuscular HGB Conc 33.8 g/dl (32-36); Mean Corpuscular Hemoglobin 29.4 pg (26-34); Mean Corpuscular Volume 87.2 fl (80-100); Mean Platelet Volume 11.6 fl (7.4-10.4); Monocytes Absolute Auto 0.9 K/mm3 (0.1-0.6); Monocytes Percent Auto 8.5 % (2.6-8.5); Neutrophils Absolute Auto 6.9 K/mm3 (1.3-6.7); Neutrophils Percent Auto 66.3 % (45.5-73.1); Platelet Count Result 229 k/mm3 (150-375); Red Blood Count 4.45 M/mm3 (4.2-5.4); Red Cell Distribution Width 11.8 % (11.5-14.5); White Blood Count 10.4 K/mm3 (4.5-10.0)
[2023-09-18 11:52] LABS: Alanine Aminotransferase 51 U/L (6-35); Albumin Level 4.4 g/dL (3.5-5.1); Alkaline Phosphatase 87 U/L (38-126); Anion Gap 10 mmol/L (4-12); Aspartate Amino Transferase 37 U/L (14-36); Bilirubin,Total 2.2 mg/dL (0.2-1.3); Blood Urea Nitrogen 8 mg/dL (7-17); Calcium 9.6 mg/dL (8.4-10.2); Carbon Dioxide 20 mmol/L (22-30); Chloride 109 mmol/L (98-107); Estimated CRCL calculation 100 ml/min; Estimated Glomerular Filt Rate > 60; Glucose 109 mg/dL (65-110); Lipase 84 U/L (23-300); Potassium 3.1 mmol/L (3.4-5.0); Sodium 139 mmol/L (137-145)
[2023-09-18] MEDS: METOCLOPRAMIDE HCL INJ 10 MG/2 ML VIAL IV PUSH (12:36)
--- NOTE | 2023-09-18 12:53 | ED.GENADULT ---
HPI - General Adult General Chief complaint: Nausea/Vomiting/Diarrhea Stated complaint: n/v Time Seen by Provider: 09/18/23 10:32 History of Present Illness HPI narrative: patient is a 22-year-old female who presents ER 1 day after being evaluated for abdominal pain and nausea vomiting. Yesterday she was diagnosed with colitis after having CT scan. The pharmacy has not yet filled her medications so she was unable to pick them up. She has continued to have vomiting and return here for treatment. Abdominal pain is cramping and worse with vomiting. No blood in stool. No loss of consciousness. Related Data Allergies Allergy/AdvReac Type Severity Reaction Status Date / Time Penicillins Allergy Unknown Difficulty Verified 09/18/23 10:30 Breathing Review of Systems Review of Systems: All systems reviewed & are unremarkable except as noted in HPI and below Constitutional: Constitutional: Reports fatigue and Reports weakness ENT: Reports system reviewed and no additional complaints, except as documented Cardiovascular: Cardiovascular: Reports no additional cardiovascular complaints Respiratory: Respiratory: Reports no additional respiratory complaints Gastrointestinal: Gastrointestinal: Reports abdominal pain, Reports nausea and Reports vomiting Genitourinary: Genitourinary: Reports no additional female genitourinary complaints [facility] Past Medical History Medical History Migraine Surgical History Surgical History History of cholecystectomy History of laparoscopic appendectomy 09/30/2022 Family History Family History Other No pertinent family history Social History Social History Smoking status: Never smoker Alcohol intake: never Substance use: never Gender identity (if verbalized by the patient): Female Exam Narrative: GENERAL: Fatigued-appearing, well-nourished, and in no acute distress. HEAD: Normocephalic, atraumatic. ENT: Mucous membranes moist. NECK: Supple. CHEST: Clear to auscultation. No respiratory distress. HEART: Regular rate and rhythm. Normal peripheral pulses. ABDOMEN: Soft, nontender, nondistended. EXTREMITIES: Normal range of motion. No edema. SKIN: Warm, dry, no rash. NEURO: Alert and oriented x3. PSYCH: Normal mood and affect. Course Course Emergency Course: Patient treated with Zofran and metoclopramide. She wanted some pain medication so I gave her Bentyl but she declined so we changed course and gave Toradol. white blood cell count improved from yesterday. Vital Signs Vital signs: Vital Signs Temperature 98.0 F 09/18/23 10:27 Pulse Rate 64 09/18/23 10:27 Respiratory Rate 17 09/18/23 10:27 Blood Pressure 138/80 09/18/23 10:27 Pulse Oximetry 98 09/18/23 10:27 Oxygen Delivery Room Air 09/18/23 10:27 Temperature 98.0 F 09/18/23 10:27 Pulse Rate 64 09/18/23 10:27 Respiratory Rate 17 09/18/23 10:27 Blood Pressure 138/80 09/18/23 10:27 Pulse Oximetry 98 09/18/23 10:27 Oxygen Delivery Room Air 09/18/23 10:27 Medical Decision Making Vital Signs Vital Signs: Vital Signs Temperature 98.0 F 09/18/23 10:27 Pulse Rate 64 09/18/23 10:27 Respiratory Rate 17 09/18/23 10:27 Blood Pressure 138/80 09/18/23 10:27 Pulse Oximetry 98 09/18/23 10:27 Oxygen Delivery Room Air 09/18/23 10:27 Temperature 98.0 F 09/18/23 10:27 Pulse Rate 64 09/18/23 10:27 Respiratory Rate 17 09/18/23 10:27 Blood Pressure 138/80 09/18/23 10:27 Pulse Oximetry 98 09/18/23 10:27 Oxygen Delivery Room Air 09/18/23 10:27 Lab Data 09/18/23 11:18 09/18/23 11:18 Labs: Lab Results 09/18/23 Range/Units 11:18 WBC 10.4 H (4.5-10.0) K/mm3 RBC 4.45
[2023-09-18] MEDS: KETOROLAC 30 MG/ML VIAL (*BKC) IV PUSH (13:10)
[2023-09-18 13:52] VITALS: BP 128/72; PULSE 75; RESP 16; O2SAT 98
== END 2023-09-18 13:53 | disposition home or self-care (01) ==
PROVIDERS: Emergency Provider Emergency Medicine
DX: K52.9 Noninfective gastroenteritis and colitis, unspecified (principal); Z90.49 Acquired absence of other specified parts of digestive tract
CPT/HCPCS: 36415; 80053; 83690; 85025; 96361; 96374; 96375; 99284; J1885; J2405; J2765; J7030

== ENCOUNTER 2023-09-18 23:57 | Emergency (ER) | payer OTHER, SELFPAY ==
[2023-09-19 00:04] VITALS: BP 136/79; PULSE 57; RESP 16; TEMP 36.6; O2SAT 98
[2023-09-19 00:31] LABS: Basophils Percent Auto 0.2 % (0.2-1.2); Eosinophils Percent Auto 0.1 % (0-4.4); Hematocrit 36.4 % (37.0-47.0); Hemoglobin 12.7 g/dL (12.0-15.0); Immature Granulocyte Absolute 0.04 K/mm3 (0.00-0.031); Immature Granulocyte Percent A 0.5 % (0-0.5); Lymphocytes Absolute Auto 2.51 K/mm3 (0.9-3.2); Lymphocytes Percent Auto 30.4 % (18.3-44.2); Mean Corpuscular HGB Conc 34.9 g/dl (32-36); Mean Corpuscular Hemoglobin 29.9 pg (26-34); Mean Corpuscular Volume 85.6 fl (80-100); Mean Platelet Volume 11.2 fl (7.4-10.4); Monocytes Absolute Auto 0.7 K/mm3 (0.1-0.6); Monocytes Percent Auto 8.1 % (2.6-8.5); Neutrophils Percent Auto 60.7 % (45.5-73.1); Platelet Count Result 215 k/mm3 (150-375); Red Blood Count 4.25 M/mm3 (4.2-5.4); Red Cell Distribution Width 11.9 % (11.5-14.5); White Blood Count 8.3 K/mm3 (4.5-10.0)
[2023-09-19 00:42] LABS: Alanine Aminotransferase 53 U/L (6-35); Albumin Level 4.3 g/dL (3.5-5.1); Alkaline Phosphatase 84 U/L (38-126); Anion Gap 9 mmol/L (4-12); Aspartate Amino Transferase 35 U/L (14-36); Bilirubin,Total 1.9 mg/dL (0.2-1.3); Blood Urea Nitrogen 8 mg/dL (7-17); Calcium 9.6 mg/dL (8.4-10.2); Carbon Dioxide 20 mmol/L (22-30); Chloride 108 mmol/L (98-107); Estimated CRCL calculation 100 ml/min; Estimated Glomerular Filt Rate > 60; Glucose 120 mg/dL (65-110); Lipase 89 U/L (23-300); Potassium 3.8 mmol/L (3.4-5.0); Sodium 137 mmol/L (137-145)
--- NOTE | 2023-09-19 00:50 | ED.ABDPAIN ---
HPI - Abdominal Pain General Chief Complaint: Abdominal Pain <NICOLETTE Judge Last Filed: 09/19/23 04:09> Stated Complaint: abd pain <NICOLETTE Judge Last Filed: 09/19/23 04:09> Time Seen by Provider: 09/19/23 00:43 <NICOLETTE Judge Last Filed: 09/19/23 04:09> Source: patient <NICOLETTE Judge Last Filed: 09/19/23 04:09> Mode of arrival: ambulatory <NICOLETTE Judge Last Filed: 09/19/23 04:09> Limitations: no limitations <NICOLETTE Judge Last Filed: 09/19/23 04:09> History of Present Illness HPI narrative: This is a 22-year-old female that presents to the emergency department for abdominal pain, nausea and vomiting. Reports several similar episodes. Reports this has been an ongoing problem for her for many years. She has seen GI doctors for this and was told it is in her head . Reports she will have episodes where she has intractable nausea and vomiting for several days in a row. She has been having trouble with nausea and vomiting for the last 4 days. Reports some associated epigastric discomfort. Denies fevers. <NICOLETTE Judge Last Filed: 09/19/23 04:09> Related Data Home Medications: Home Medications Medication Instructions Recorded Confirmed No Home Medications 09/19/23 09/19/23 <NICOLETTE Judge Last Filed: 09/19/23 04:09> Allergies/Adverse Reactions: Allergies Allergy/AdvReac Type Severity Reaction Status Date / Time Penicillins Allergy Unknown Difficulty Verified 09/18/23 10:30 Breathing <NICOLETTE Judge Last Filed: 09/19/23 04:09> Review of Systems Review of Systems: CONSTITUTIONAL: Denies fever GASTROINTESTINAL: Report abdominal pain, nausea, vomiting, and diarrhea. GENITOURINARY: Denies dysuria <NICOLETTE Judge Last Filed: 09/19/23 04:09> All systems reviewed & are unremarkable except as noted in HPI and below <Amy Chavez PA-C - Last Filed: 09/19/23 04:09> PMFSH Past Medical History Medical History: Medical History Migraine <NICOLETTE Judge Last Filed: 09/19/23 04:09> Surgical History Surgical History: Surgical History History of cholecystectomy History of laparoscopic appendectomy 09/30/2022 <Amy Chavez PA-C - Last Filed: 09/19/23 04:09> Family History Family History: Family History Other No pertinent family history <NICOLETTE Judge Last Filed: 09/19/23 04:09> Social History Social History: Social History Smoking status: Never smoker Alcohol intake: never Substance use: never Substance use type: marijuana Last use: 09/15/23 Do You Feel Safe in your Home?: Yes Lack of Transportation: No Lack of Food: Never True Current Housing: I Have Housing Concerned About Future Housing: No Difficulty Paying Gas/Electric Bills: No Difficulty Paying for Meds: No Currently Unemployed: No Education: Grade School Difficulty w/ Childcare or Family Care: No Gender identity (if verbalized by the patient): Female Spiritual care concerns: No <NICOLETTE Judge Last Filed: 09/19/23 04:09> Exam Narrative: GENERAL: Well-appearing, well-nourished, and in no acute distress. HEAD: Normocephalic, atraumatic. EYES: EOMI. CHEST: Clear to auscultation. No respiratory distress. No wheezes rales or rhonchi HEART: Regular rate and rhythm. No murmur heard. Normal peripheral pulses. ABDOMEN: Soft, nondistended, normal active bowel sounds. Mild tenderness to palpation in the epigastrium, without guarding EXTREMITIES: Normal range of motion. No edema. SKIN: Warm, dry, no rash. NEURO: No focal deficits. Alert and oriented x3. PSYCH: Normal mood and affect
[2023-09-19] MEDS: SODIUM CHLORIDE 0.9% IV 1,000 ML 999 ML IV CONT ×2 (00:57→02:40)
[2023-09-19] MEDS: KETOROLAC 15 MG/ML VIAL (*BKC) IV PUSH (00:57)
[2023-09-19] MEDS: PROMETHAZINE HCL 25 MG/ML AMPUL 12.5 MG IV PUSH (00:57)
[2023-09-19] MEDS: FAMOTIDINE 20 MG/2 ML VIAL IV PUSH (00:57)
[2023-09-19 02:00] VITALS: BP 136/84; PULSE 64; RESP 15; O2SAT 100
[2023-09-19] MEDS: HALOPERIDOL LACTATE 5 MG/ML VIAL IM (02:29)
[2023-09-19 02:31] LABS: Appearance Urine Clear (Clear); Bilirubin Urine Negative (Negative); Blood Urine Negative (Negative); Color Urine Yellow (Yellow); Glucose Urine UA Negative (Negative); Ketones Urine 1+ mg/dL (Negative); Leukocyte Esterase Ur Negative LEU/UL (Negative); Nitrate Urine Negative (Negative); Protein Urine Negative (Negative); Specific Grav Ur 1.007 (1.001-1.035); Urobilinogen Urine 0.2 mg/dL (<2.0)
[2023-09-19 02:32] LABS: Add Urine Microscopic? NO
[2023-09-19 04:10] VITALS: BP 120/69; PULSE 72; RESP 14; O2SAT 99
== END 2023-09-19 04:12 | disposition home or self-care (01) ==
PROVIDERS: Emergency Medicine; Emergency Provider Physician Assistant
DX: R11.2 Nausea with vomiting, unspecified (principal); Z90.49 Acquired absence of other specified parts of digestive tract
CPT/HCPCS: 36415; 80053; 81003; 81025; 83690; 85025; 96361; 96372; 96374; 96375; 99284; J1630; J1885; J2550; J7030

== ENCOUNTER 2023-09-19 04:32 | Inpatient (IN) | payer OTHER, SELFPAY ==
[2023-09-19] VITALS (8 sets, daily range): BP systolic 107–135; BP diastolic 59–81; PULSE 50–70; RESP 14–20; TEMP 36.7–37; O2SAT 96–100; BMI 25.6; BMI 25.8
--- NOTE | 2023-09-19 05:01 | ED.GENADULT ---
HPI - General Adult General Chief complaint: Nausea/Vomiting/Diarrhea Stated complaint: vomiting Time Seen by Provider: 09/19/23 04:46 History of Present Illness HPI narrative: Patient is a 22-year-old female who presents to the emergency department this morning for the 3rd time in the past 18 hours for intractable nausea vomiting. Patient was initially seen this morning by 1 of our providers and treated for nausea and vomiting. Blood work was obtained and revealed no acute process. Patient recently had a CT scan Friday which revealed colitis and patient is currently on antibiotics for this colitis. Patient states that she is unable to keep her antibiotics down and returned back to the emergency. She was treated and was tolerating p.o. at this time and discharge, however, patient return back to the emergency department 30 minutes after being discharged due to repeated nausea and vomiting. Patient is currently denying any abdominal pain and states that it does not feel any worse than he did on Friday when she got her CT scan and was diagnosed with colitis. She is currently denying any additional symptoms at this time. Related Data Allergies Allergy/AdvReac Type Severity Reaction Status Date / Time Penicillins Allergy Unknown Difficulty Verified 09/18/23 10:30 Breathing Review of Systems Review of Systems: All systems are reviewed and are negative unless stated otherwise in the HPI. [facility], [facility] Past Medical History Medical History Migraine Surgical History Surgical History History of cholecystectomy History of laparoscopic appendectomy 09/30/2022 Family History Family History Other No pertinent family history Social History Social History Smoking status: Never smoker Alcohol intake: never Substance use: never Gender identity (if verbalized by the patient): Female Exam Narrative: General: Alert, awake, afebrile, in no acute distress. HEENT: PERRL, no rhinorrhea, no post nasal drip, oropharynx clear. Neck: Trachea midline, no JVD, no lymphadenopathy. Cardiovascular: Regular rate and rhythm, no murmurs, rubs or gallops, no peripheral edema. Respiratory: Clear to auscultation bilaterally, no tachypnea, no wheezing, no rhonchi, no rubs, no respiratory distress. Abdomen: Soft, nontender, nondistended, no rebound, no guarding, no peritoneal signs. Musculoskeletal: No joint swelling or deformity, normal muscle tone. Skin: No rashes or petechia, no signs of infection. Psychiatric: Alert and oriented, normal behavior and judgment for situation. Neurological: Alert and oriented to person, place, and time. Follows all commands. No focal deficits, speech is clear and fluent. Course Vital Signs Vital signs: Vital Signs Temperature 98.6 F 09/19/23 04:35 Pulse Rate 63 09/19/23 04:35 Respiratory Rate 20 09/19/23 04:35 Blood Pressure 120/70 09/19/23 04:35 Pulse Oximetry 96 09/19/23 04:35 Oxygen Delivery Room Air 09/19/23 04:35 Temperature 98.6 F 09/19/23 04:35 Pulse Rate 70 09/19/23 04:58 Respiratory Rate 16 09/19/23 04:58 Blood Pressure 114/59 L 09/19/23 04:58 Pulse Oximetry 99 09/19/23 04:58 Oxygen Delivery Room Air 09/19/23 04:35 Medical Decision Making MDM Narrative Medical decision making narrative: The patient was evaluated by myself in the emergency department. History is obtained from patient who is an independent historian and physical exam was performed. External medical records were reviewed at this time. IV was established and pertinent tests were ordered. Patient was administered 10 mg IV Reglan and 50 mg of IV Benadryl and started on maintenance fluids at a rate of 150 cc per hour. Blood work from earlier today was revi
--- NOTE | 2023-09-19 05:02 | PM.IMHP ---
H&P: HPI History of Present Illness Date/Time: 09/19/23 05:02 Chief Complaint: Nausea vomiting Narrative: This is a 22-year-old female that presents to the emergency department for abdominal pain, nausea and vomiting.? Reports several similar episodes.? Reports this has been an ongoing problem for her for many years.? She has seen GI doctors for this and was told it is in her head .? Reports she will have episodes where she has intractable nausea and vomiting for several days in a row.? She has been having trouble with nausea and vomiting for the last 4 days. Patient denies any fever chills. Also has history of substance abuse Review of Systems Review of Systems: Has vomiting. No diarrhea No double vision no blurry vision. No difficulty hearing or sinus complaints. No chest pain shortness of breath fever palpitation dizziness ankle swelling. No coughing wheezing chills. No nausea constipation diarrhea abdominal pain reflux. No urgency frequency of urination. No hematuria. No skin rash eczema. No anxiety depression difficulty sleeping. No bleeding gums enlarged glands. No muscle ache back pain joint stiffness. No loss of strength numbness headache tremor or loss of memory. PMFSH Past Medical History Medical History Migraine Surgical History Surgical History History of cholecystectomy History of laparoscopic appendectomy 09/30/2022 Family History Family History Other No pertinent family history Social History Social History Smoking status: Never smoker Alcohol intake: never Substance use: never Gender identity (if verbalized by the patient): Female Meds Home Medications and Allergies Home Medications Medication Instructions Recorded Confirmed Type cephalexin 500 mg capsule 500 mg PO Q8H #21 caps 02/27/23 Rx ciprofloxacin HCl 500 mg tablet 500 mg PO Q12H #14 tabs 09/17/23 Rx dicyclomine 10 mg capsule 10 mg PO TID PRN abdominal pain 09/17/23 Rx #20 caps metronidazole 500 mg tablet 500 mg PO Q12H #14 tabs 09/17/23 Rx ondansetron 4 mg disintegrating 4 mg PO Q6H PRN nausea and 09/17/23 Rx tablet vomiting #14 tabs prochlorperazine maleate 10 mg 10 mg PO Q6H PRN nausea and 09/17/23 Rx tablet (Compazine) vomiting #14 tabs promethazine 12.5 mg tablet 12.5 mg PO Q6H PRN nausea and 09/19/23 Rx vomiting #10 tabs Allergies Allergy/AdvReac Type Severity Reaction Status Date / Time Penicillins Allergy Unknown Difficulty Verified 09/18/23 10:30 Breathing Vital Signs Vital Signs - 24 hr 09/19/23 04:35 09/19/23 04:58 Temperature 37.0 C Pulse Rate 63 70 Respiratory Rate 20 16 Blood Pressure 120/70 114/59 L Pulse Oximetry 96 99 Oxygen Delivery Room Air Exam Narrative: GENERAL: Well appearing, no acute distress. HEAD: Normocephalic, atraumatic. NECK: Supple. No adenopathy, no masses. RESPIRATORY: respirations nonlabored. , no rales, wheezing. CARDIOVASCULAR: Regular rate and rhythm without murmurs, . Peripheral pulses 2+ and equal bilaterally. ABDOMINAL: Soft, nontender, nondistended, no hepatosplenomegaly. Normoactive BS. MUSCULOSKELETAL: no Epigastric and no hypochondrial tenderness SKIN: Warm, dry, NEURO: A&O X3. Moves all extremities Assessment and Plan Assessment and plan (1) Nausea and vomiting: Qualifiers: Vomiting type: unspecified Qualified Code(s): R11.2 - Nausea with vomiting, unspecified Code(s): R11.2 - Nausea with vomiting, unspecified Status: Acute Assessment and Plan: Start with IV fluid resuscitation. Will start Zofran and start clear liquid diet. Recent use of antibiotics for colitis continue to monitor for any C diff. Monitor electrolyt
[2023-09-19] MEDS: diphenhydrAMINE HCl INJ 50 MG/ML VIAL IV PUSH (05:03)
[2023-09-19] MEDS: METOCLOPRAMIDE HCL INJ 10 MG/2 ML VIAL IV PUSH ×3 (05:03→23:35)
[2023-09-19] MEDS: SODIUM CHLORIDE 0.9% IV 1,000 ML 150 ML IV CONT (05:04)
[2023-09-19 05:05] LABS: Basophils Percent Auto 0.3 % (0.2-1.2); Hematocrit 34.7 % (37.0-47.0); Hemoglobin 11.6 g/dL (12.0-15.0); Immature Granulocyte Absolute 0.02 K/mm3 (0.00-0.031); Immature Granulocyte Percent A 0.3 % (0-0.5); Lymphocytes Absolute Auto 1.99 K/mm3 (0.9-3.2); Lymphocytes Percent Auto 26.7 % (18.3-44.2); Mean Corpuscular HGB Conc 33.4 g/dl (32-36); Mean Corpuscular Hemoglobin 29.4 pg (26-34); Mean Corpuscular Volume 87.8 fl (80-100); Mean Platelet Volume 11.5 fl (7.4-10.4); Monocytes Absolute Auto 0.6 K/mm3 (0.1-0.6); Monocytes Percent Auto 7.8 % (2.6-8.5); Neutrophils Absolute Auto 4.9 K/mm3 (1.3-6.7); Neutrophils Percent Auto 64.9 % (45.5-73.1); Platelet Count Result 182 k/mm3 (150-375); Red Blood Count 3.95 M/mm3 (4.2-5.4); Red Cell Distribution Width 11.5 % (11.5-14.5); White Blood Count 7.5 K/mm3 (4.5-10.0)
[2023-09-19] MEDS: DEXTROSE 5%/0.45% SOD CHL 1,000 ML 100 ML IV CONT (05:10)
[2023-09-19 05:19] LABS: Alanine Aminotransferase 49 U/L (6-35); Albumin Level 3.8 g/dL (3.5-5.1); Alkaline Phosphatase 75 U/L (38-126); Anion Gap 7 mmol/L (4-12); Aspartate Amino Transferase 30 U/L (14-36); Bilirubin,Total 1.5 mg/dL (0.2-1.3); Blood Urea Nitrogen 5 mg/dL (7-17); Calcium 8.5 mg/dL (8.4-10.2); Carbon Dioxide 19 mmol/L (22-30); Chloride 112 mmol/L (98-107); Estimated CRCL calculation 100 ml/min; Estimated Glomerular Filt Rate > 60; Glucose 120 mg/dL (65-110); Lipase 91 U/L (23-300); Potassium 3.4 mmol/L (3.4-5.0); Sodium 138 mmol/L (137-145)
--- NOTE | 2023-09-19 06:23 | ADMGEN ---
This patient, Rosibel Tinajero, was admitted to [facility] Surg Room 324-01. Patient/family oriented to hospital policies and general routines including ID bracelet, bed and alarms, visiting hours, pain management, procedures, bathroom and other care routines, personal items, smoking policy, room service/diet, and visiting hours. Information on how to activate the Rapid Response Team has been discussed. Patient/Family are encouraged to report perceived risks to care and to ask questions if they do not understand what they are told or what they should do.
[2023-09-19] MEDS: PANTOPRAZOLE SODIUM IV 40 MG VIAL IV PUSH ×2 (07:25→20:47)
--- NOTE | 2023-09-19 07:53 | P.PNIM_ITS ---
Subjective Date/time seen: 09/19/23 07:53 Interval history: Admission: Medical Record Objective Data Vital Signs Vital Signs: Vital Signs - 24 hr 09/19/23 04:35 09/19/23 04:58 09/19/23 05:05 Temperature 98.6 F Pulse Rate 63 70 50 L Respiratory Rate 20 16 16 Blood Pressure 120/70 114/59 L 115/81 Pulse Oximetry 96 99 99 Oxygen Delivery Room Air 09/19/23 06:05 Temperature 98.3 F Pulse Rate 54 L Respiratory Rate 16 Blood Pressure 135/80 Pulse Oximetry 100 Oxygen Delivery Intake/Output Intake/Output: Intake & Output 09/16/23 09/17/23 09/18/23 09/19/23 23:59 23:59 23:59 23:59 Intake Total 75 Balance 75 Meds/Results Medications: Active Medications Generic Name Dose Route Start Last Admin Trade Name Freq PRN Reason Stop Dose Admin Dextrose/Sodium Chloride 1,000 mls @ 100 mls/hr 09/19/23 07:35 Dextrose 5% Sodium Chloride 0.9% IV CONT .Q10H CECILE Metronidazole 500 mg in 100 mls @ 100 mls/hr 09/19/23 08:00 Flagyl 500 Mg/Iso Soln 100 Ml IVPB Q6HR CECILE Levofloxacin/Dextrose 750 mg in 150 mls @ 100 mls/hr 09/19/23 08:00 Levaquin 750 Mg/D5w 150 Ml IVPB Q24H CECILE Metoclopramide HCl 10 mg 09/19/23 12:00 Metoclopramide Hcl Inj 10 Mg/2 Ml Vial IV PUSH Q6HR CECILE Ondansetron HCl 4 mg 09/19/23 05:00 Ondansetron Inj 4 Mg/2 Ml Vial IV PUSH Q6H PRN Nausea And Vomiting Pantoprazole Sodium 40 mg 09/19/23 09:00 09/19/23 07:25 Pantoprazole Sodium Iv 40 Mg Vial IV PUSH 40 mg Q12HR CECILE Administration Labs Labs: Laboratory Results - last 24 hr 09/19/23 04:57 WBC 7.5 RBC 3.95 L Hgb 11.6 L Hct 34.7 L MCV 87.8 MCH 29.4 MCHC 33.4 RDW 11.5 Plt Count 182 MPV 11.5 H Immature Gran % (Auto) 0.3 Neut % (Auto) 64.9 Lymph % (Auto) 26.7 [place] % (Auto) 7.8 Eos % (Auto) 0.0 Baso % (Auto) 0.3 Lymph # (Auto) 1.99 [place] # (Auto) 0.6 Eos # (Auto) 0.0 Baso # (Auto) 0.0 Abs Immat Gran (auto) 0.02 Absolute Neuts (auto) 4.9 Absolute Nucleated RBC 0.000 Nucleated RBC % 0.0 Sodium 138 Potassium 3.4 Chloride 112 H Carbon Dioxide 19 L Anion Gap 7 BUN 5 L Creatinine 0.60 L Estim Creat Clear Calc 100 Estimated GFR > 60 Glucose 120 H Calcium 8.5 Total Bilirubin 1.5 H AST 30 ALT 49 H Alkaline Phosphatase 75 Total Protein 6.0 L Albumin 3.8 Lipase 91
[2023-09-19] MEDS: LORazepam INJ (*CRX) 2 MG/ML VIAL 1 MG IV PUSH ×3 (08:05→20:47)
[2023-09-19] MEDS: DEXTROSE 5%/0.9% SOD CHL 1,000 ML 100 ML IV CONT ×2 (08:08→23:35)
[2023-09-19] MEDS: metroNIDAZOLE 500 MG/ISO 100ML 500 MG/100 ML BAG 100 MG IVPB ×4 (08:12→23:35)
[2023-09-19] MEDS: levoFLOXacin 750 MG/D5W 150 ML 750 MG/150 ML BAG 100 MG IVPB (09:27)
[2023-09-19 09:58] LABS: Amphetamine Screen Urine Negative (Negative); Barbiturate Screen Urine Negative (Negative); Benzodiazepines Screen Urine Negative (Negative); Cannabinoid Screen Urine Positive (Negative); Cocaine Screen Urine Negative (Negative); Methadone Screen Urine Negative (Negative); Opiate Screen Urine Negative (Negative); Phencyclidine Screen Urine Negative (Negative)
[2023-09-19 11:10] LABS: Hemoglobin A1C 4.9 % (<5.7)
[2023-09-19] MEDS: ONDANSETRON INJ 4 MG/2 ML VIAL IV PUSH ×2 (11:35→17:10)
--- NOTE | 2023-09-19 13:01 | PC.NURSE ---
0800 Patient c/o nausea and sharp abd pain. Angela Jolly notified, new orders received.
--- NOTE | 2023-09-19 13:02 | PC.NURSE ---
Patient still c/o nausea after zofran and reglan give. Angela Jolly notified. No new orders
--- NOTE | 2023-09-19 15:03 | PM.IMPN ---
Progress Note: A&P Assessment and Plan (1) Cannabis hyperemesis syndrome concurrent with and due to cannabis abuse: Code(s): F12.188 - Cannabis abuse with other cannabis-induced disorder Status: Acute (2) Intractable nausea and vomiting: Code(s): R11.2 - Nausea with vomiting, unspecified Status: Acute (3) Cyclic vomiting syndrome: Code(s): R11.15 - Cyclical vomiting syndrome unrelated to migraine Status: Acute (4) Cannabis abuse: Code(s): F12.10 - Cannabis abuse, uncomplicated Status: Acute Plan Cyclic vomiting likely secondary to cannabis induced hyperemesis IV fluids GI consult Zofran and Reglan Ativan as needed Clear liquids as tolerated will advance diet PPI b.i.d. Encourage THC cessation Bentyl Colitis IV fluids Levofloxacin/Flagyl Antiemetics GI consult Patient likely needs EGD and possible gastroparesis testing once infectious processes cleared PPI BID Cannabis induced hyperemesis Encourage immediate cessation Code status: Full code per patient DVT prophylaxis: Lovenox Stress ulcer prophylaxis: Protonix 40 daily PT/OT notes: Ambulatory Disposition: Patient admitted for cyclic vomiting still unable to tolerate per orally and will continue admission on the medical unit with a consult to GI will need further testing outpatient once infectious process cleared. Time Spent With Patient Time with patient: 15 - 25 minutes Subjective Date/time seen: 09/19/23 15:03 Interval history: Admission: Medical Record Nausea vomiting Narrative: This is a 22-year-old female that presents to the emergency department for abdominal pain, nausea and vomiting.? Reports several similar episodes.? Reports this has been an ongoing problem for her for many years.? She has seen GI doctors for this and was told it is in her head .? Reports she will have episodes where she has intractable nausea and vomiting for several days in a row.? She has been having trouble with nausea and vomiting for the last 4 days.? Patient denies any fever chills.? Also has history of substance abuse 4/5: Patient continues to have severe to moderate N/V unrelieved with antiemtics patient did report she has history of episodes of intractable nausea and vomiting but has yet to see a GI physician. Patient was positive for THC so possibly this is cannabis induced hyperemesis however patient states she has had these episodes since she was 11. Patient's previous CT showed possible colitis right colon And distal small bowel. Patient was prescribed p.o. antibiotic therapy however return to the emergency department because she states she is unable to tolerate any oral intake. Patient likely needs further testing such as EGD possible gastroparesis testing once Infectious process resolved. Review of Systems Review of Systems: All systems reviewed & are unremarkable except as noted in HPI and below Exam Narrative: Physical Exam: GENERAL: Alert and oriented x 3. No acute distress. Well-nourished. EYES: EOMI. No scleral icterus. PERRLA. HEENT: Moist mucous membranes. LUNGS: Clear to auscultation bilaterally. No accessory muscle use. CARDIOVASCULAR: Regular rate and rhythm. No murmur. No JVD. S1-S2 ABDOMEN: Soft, mild tenderness and non-distended. No palpable masses. EXTREMITIES: No edema. Non-tender SKIN: No rashes or lesions. Skin warm, dry. NEUROLOGIC: No focal neurological deficits. CN II-XII grossly intact PSYCHIATRIC: Appropriate mood and affect. Good judgement and insight. No visual or auditory hallucinations. No suicidal or homicidal ideation. Objective Data Vital Signs Vital Signs: Vital Signs - 24 hr 09/19/23 04:35 09/19/23 04:58 09/19/23 05:05 Temperature 98.6 F Pulse Rate 63 70 50 L Respiratory Rate 20 16 16 Blood Pressure 120/70 114/59 L 115/81 Pulse Oximetry 96 99 99 Oxygen Delivery Room Air 09/19/23 06:05 09/19/23 08
[2023-09-19] MEDS: DICYCLOMINE HCL 10 MG CAPSULE 20 MG PO ×2 (17:10→20:46)
[2023-09-20 05:46] LABS: Alanine Aminotransferase 89 U/L (6-35); Albumin Level 3.8 g/dL (3.5-5.1); Alkaline Phosphatase 71 U/L (38-126); Anion Gap 5 mmol/L (4-12); Aspartate Amino Transferase 52 U/L (14-36); Bilirubin,Total 1.5 mg/dL (0.2-1.3); Calcium 8.8 mg/dL (8.4-10.2); Carbon Dioxide 23 mmol/L (22-30); Chloride 110 mmol/L (98-107); Estimated CRCL calculation 87 ml/min; Estimated Glomerular Filt Rate > 60; Glucose 104 mg/dL (65-110); Sodium 138 mmol/L (137-145)
[2023-09-20 05:53] LABS: Blood Urea Nitrogen < 2 mg/dL (7-17)
[2023-09-20 06:00] VITALS: BP 114/70; PULSE 88; RESP 14; TEMP 36.8; O2SAT 98
[2023-09-20] MEDS: metroNIDAZOLE 500 MG/ISO 100ML 500 MG/100 ML BAG 100 MG IVPB ×4 (06:12→23:16)
[2023-09-20] MEDS: METOCLOPRAMIDE HCL INJ 10 MG/2 ML VIAL IV PUSH ×4 (06:12→23:17)
[2023-09-20 08:30] VITALS: BP 123/76; PULSE 75; RESP 12; TEMP 36.6; O2SAT 99
[2023-09-20] MEDS: ONDANSETRON INJ 4 MG/2 ML VIAL IV PUSH ×2 (08:32→21:08)
[2023-09-20] MEDS: levoFLOXacin 750 MG/D5W 150 ML 750 MG/150 ML BAG 100 MG IVPB (08:36)
[2023-09-20] MEDS: PANTOPRAZOLE SODIUM IV 40 MG VIAL IV PUSH ×2 (08:36→20:38)
[2023-09-20] MEDS: LORazepam INJ (*CRX) 2 MG/ML VIAL 1 MG IV PUSH (08:54)
[2023-09-20] MEDS: DICYCLOMINE HCL 10 MG CAPSULE 20 MG PO ×4 (10:30→20:37)
[2023-09-20] MEDS: POTASSIUM CHLORIDE INJ 40 MEQ in SODIUM CHLORIDE 0.9% IV 500 ML 100 MEQ IVPB (10:30)
[2023-09-20 10:54] LABS: Hepatitis B Surface Antigen Negative (Negative)
[2023-09-20 10:59] LABS: HAV RESULT Negative (Negative); Hepatitis B Core IgM Result Negative (Negative)
[2023-09-20 11:11] LABS: Hepatitis C Virus Antibody Negative (Negative)
--- NOTE | 2023-09-20 12:54 | WPDGICN ---
Assessment and Plan Assessment and plan (1) Cyclic vomiting syndrome: Code(s): R11.15 - Cyclical vomiting syndrome unrelated to migraine Status: Acute Assessment and Plan: probably associated to cannabis use supportive care, fluids, antiemetics will add elavil as prophylaxis diet only as tolerated she had egd in the past, consider to repeat as outpatient (2) Cannabis abuse: Code(s): F12.10 - Cannabis abuse, uncomplicated Status: Acute Assessment and Plan: needs to stop using (3) Abdominal pain: Code(s): R10.9 - Unspecified abdominal pain Status: Acute (4) Colitis: Code(s): K52.9 - Noninfective gastroenteritis and colitis, unspecified Status: Acute Assessment and Plan: ? colitis on abx, probably can discontinue now no BM for 3 days (5) Leukocytosis: Code(s): D72.829 - Elevated white blood cell count, unspecified Status: Acute Assessment and Plan: resolved GI Consult Note Consult date/time: 09/20/23 12:54 Reason for consult: cyclic vomiting, abdominal pain HPI: Rosibel Tinajero is a 22 year old female who has been having spells of N/V since 8th grade, sometimes 2-4 times a year that will last several days. She has been smoking marijuana for last 5 years, whenever she gets sick she takes hot showers. In between episodes she is doing as usual, she normally does not take meds and is healthy. She had appy and cholecystectomy but those procedures did not help to stop her episodes. Had EGD in the past, never colonoscopy. This time with n/v since Friday, she came to ER and sent home with some meds but still unable to keep food. Initially had loose stools but no has not had any BM for 3 days, no fever or chills, also some abdominal pain. CT scan showed possible inflammation small bowel and right colon, started empirically on abx. WBC was 19k, back down to normal now. Review of Systems Constitutional: Constitutional: Denies chills Eyes: Eyes: Denies blurry vision ENT: Reports Normal hearing present Cardiovascular: Cardiovascular: Denies chest pain and Denies dyspnea Respiratory: Respiratory: Denies dyspnea Gastrointestinal: Gastrointestinal: Reports abdominal pain, Reports nausea and Reports vomiting Genitourinary: Genitourinary: Denies dysuria Musculoskeletal: Musculoskeletal: Denies neck pain Integumentary/Breasts: Skin/Breast: Denies dry skin Neurologic: Reports Normal hearing present, Denies headache(s) and Denies weakness Psychiatric: Psychiatric: Reports anxiety Endocrine: Endocrine: Denies change in body appearance Hematologic/Lymphatic: Hematologic/Lymphatic: Denies easy bleeding Allergic/Immunologic: Allergic/Immunologic: Denies urticaria PMFSH Past Medical History Medical History (Updated 09/20/23 @ 12:59 by Martínez Fernandez MD) Abdominal pain Leukocytosis Migraine Surgical History Surgical History History of cholecystectomy History of laparoscopic appendectomy 09/30/2022 Family History Family History Other No pertinent family history Social History Social History Smoking status: Never smoker Alcohol intake: never Substance use: never Substance use type: marijuana Last use: 09/15/23 Do You Feel Safe in your Home?: Yes Lack of Transportation: No Lack of Food: Never True Current Housing: I Have Housing Concerned About Future Housing: No Difficulty Paying Gas/Electric Bills: No Difficulty Paying for Meds: No Currently Unemployed: No Education: Grade School Difficulty w/ Childcare or Family Care: No Gender identity (if verbalized by the patient): Female Spiritual care concerns: No Meds Home Medications and Allergies Home Medications Medication Instructions Recorded Conf
--- NOTE | 2023-09-20 12:54 | PM.IMPN ---
Progress Note: A&P Assessment and Plan (1) Cannabis hyperemesis syndrome concurrent with and due to cannabis abuse: Code(s): F12.188 - Cannabis abuse with other cannabis-induced disorder Status: Acute (2) Intractable nausea and vomiting: Code(s): R11.2 - Nausea with vomiting, unspecified Status: Acute (3) Cyclic vomiting syndrome: Code(s): R11.15 - Cyclical vomiting syndrome unrelated to migraine Status: Acute (4) Cannabis abuse: Code(s): F12.10 - Cannabis abuse, uncomplicated Status: Acute (5) Hypokalemia: Code(s): E87.6 - Hypokalemia Status: Acute (6) Elevated liver enzymes: Code(s): R74.8 - Abnormal levels of other serum enzymes Status: Acute Plan Cyclic vomiting likely secondary to cannabis induced hyperemesis IV fluids GI consult Zofran and Reglan Ativan as needed Clear liquids as tolerated will advance diet PPI b.i.d. Encourage THC cessation Bentyl Colitis IV fluids Levofloxacin/Flagyl Antiemetics GI consult Patient likely needs EGD and possible gastroparesis testing once infectious processes cleared PPI BID Hypokalemia 3.0 replenished still vomiting monitor and replenish as needed Cannabis induced hyperemesis Encourage immediate cessation Antiemetics Ativan as needed Bentyl IV fluids Elevated liver enzymes Hepatitis panel negative Likely medication induced Continue to monitor Code status: Full code per patient DVT prophylaxis: Lovenox Stress ulcer prophylaxis: Protonix 40 BID PT/OT notes: Ambulatory Disposition: Patient admitted for cyclic vomiting still unable to tolerate per orally and will continue admission on the medical unit with a consult to GI will need further testing outpatient once infectious process cleared. Time Spent With Patient Time with patient: 15 - 25 minutes Subjective Date/time seen: 09/20/23 12:54 Interval history: Admission: Medical Record Nausea vomiting Narrative: This is a 22-year-old female that presents to the emergency department for abdominal pain, nausea and vomiting.? Reports several similar episodes.? Reports this has been an ongoing problem for her for many years.? She has seen GI doctors for this and was told it is in her head .? Reports she will have episodes where she has intractable nausea and vomiting for several days in a row.? She has been having trouble with nausea and vomiting for the last 4 days.? Patient denies any fever chills.? Also has history of substance abuse 09/18: Patient continues to have severe to moderate N/V unrelieved with antiemtics patient did report she has history of episodes of intractable nausea and vomiting but has yet to see a GI physician. Patient was positive for THC so possibly this is cannabis induced hyperemesis however patient states she has had these episodes since she was 11. Patient's previous CT showed possible colitis right colon And distal small bowel. Patient was prescribed p.o. antibiotic therapy however return to the emergency department because she states she is unable to tolerate any oral intake. Patient likely needs further testing such as EGD possible gastroparesis testing once Infectious process resolved. 09/19: Patient still reporting severe abdominal pain with continued nausea and vomiting still hypokalemic will replenish, liver enzymes are elevated hepatitis panel negative. Reinforce the need for immediate cannabis cessation . Review of Systems Review of Systems: All systems reviewed & are unremarkable except as noted in HPI and below Exam Narrative: Physical Exam: GENERAL: Alert and oriented x 3. No acute distress. Well-nourished. EYES: EOMI. No scleral icterus. PERRLA. HEENT: Moist mucous membranes. LUNGS: Clear to auscultation bilaterally. No accessory muscle use. CARDIOVASCULAR: Regular rate and rhythm. No murmur. No JVD. S1-S2 ABDOMEN: Soft, mild t
[2023-09-20 13:40] VITALS: BP 121/83; PULSE 54; RESP 12; TEMP 36.3; O2SAT 99
[2023-09-20 15:45] LABS: Influenza A QL RT-PCR Negative (Negative); Influenza B QL RT-PCR Negative (Negative); RSV RNA, RT-PCR Negative (Negative); SARS-CoV-2 RNA PCR Negative (Negative)
[2023-09-20] MEDS: DEXTROSE 5%/0.9% SOD CHL 1,000 ML 100 ML IV CONT (19:34)
[2023-09-20] MEDS: AMITRIPTYLINE HCL 10 MG TABLET PO (20:37)
[2023-09-20 21:15] VITALS: BP 125/80; PULSE 108; RESP 16; TEMP 37.2; O2SAT 99
[2023-09-20] MEDS: HYDROmorphone HCL INJ (*CRX) 1 MG/ML SYR 0.5 MG IV PUSH (23:29)
[2023-09-21 04:41] VITALS: BP 109/68; PULSE 82; RESP 16; TEMP 36.6; O2SAT 99
[2023-09-21] MEDS: METOCLOPRAMIDE HCL INJ 10 MG/2 ML VIAL IV PUSH ×3 (05:22→17:32)
[2023-09-21] MEDS: metroNIDAZOLE 500 MG/ISO 100ML 500 MG/100 ML BAG 100 MG IVPB ×3 (05:22→17:35)
[2023-09-21] MEDS: HYDROmorphone HCL INJ (*CRX) 1 MG/ML SYR 0.5 MG IV PUSH ×3 (06:03→20:41)
[2023-09-21 06:22] LABS: Hematocrit 41.6 % (37.0-47.0); Hemoglobin 14.4 g/dL (12.0-15.0); Mean Corpuscular HGB Conc 34.6 g/dl (32-36); Mean Corpuscular Hemoglobin 29.8 pg (26-34); Mean Platelet Volume 11.5 fl (7.4-10.4); Platelet Count Result 225 k/mm3 (150-375); Red Blood Count 4.84 M/mm3 (4.2-5.4); Red Cell Distribution Width 11.7 % (11.5-14.5); White Blood Count 8.9 K/mm3 (4.5-10.0)
[2023-09-21] MEDS: DEXTROSE 5%/0.9% SOD CHL 1,000 ML 100 ML IV CONT ×2 (06:26→20:33)
[2023-09-21 06:32] LABS: Alanine Aminotransferase 101 U/L (6-35); Albumin Level 4.3 g/dL (3.5-5.1); Alkaline Phosphatase 81 U/L (38-126); Anion Gap 7 mmol/L (4-12); Aspartate Amino Transferase 54 U/L (14-36); Bilirubin,Total 1.6 mg/dL (0.2-1.3); Blood Urea Nitrogen 3 mg/dL (7-17); Calcium 9.4 mg/dL (8.4-10.2); Carbon Dioxide 25 mmol/L (22-30); Chloride 106 mmol/L (98-107); Estimated CRCL calculation 77 ml/min; Estimated Glomerular Filt Rate > 60; Glucose 93 mg/dL (65-110); Magnesium 1.9 mg/dL (1.6-2.3); Sodium 138 mmol/L (137-145)
[2023-09-21] MEDS: LORazepam INJ (*CRX) 2 MG/ML VIAL 1 MG IV PUSH ×3 (06:33→20:41)
--- NOTE | 2023-09-21 08:09 | PM.IMPN ---
Progress Note: A&P Assessment and Plan (1) Cannabis hyperemesis syndrome concurrent with and due to cannabis abuse: Code(s): F12.188 - Cannabis abuse with other cannabis-induced disorder Status: Acute (2) Intractable nausea and vomiting: Code(s): R11.2 - Nausea with vomiting, unspecified Status: Acute (3) Cyclic vomiting syndrome: Code(s): R11.15 - Cyclical vomiting syndrome unrelated to migraine Status: Acute (4) Cannabis abuse: Code(s): F12.10 - Cannabis abuse, uncomplicated Status: Acute (5) Hypokalemia: Code(s): E87.6 - Hypokalemia Status: Acute (6) Elevated liver enzymes: Code(s): R74.8 - Abnormal levels of other serum enzymes Status: Acute Plan Cyclic vomiting likely secondary to cannabis induced hyperemesis IV fluids GI consult Zofran and Reglan Ativan as needed Clear liquids as tolerated will advance diet PPI b.i.d. Encourage THC cessation Bentyl Amitriptyline Colitis IV fluids Levofloxacin/Flagyl Antiemetics GI consult Patient likely needs EGD and possible gastroparesis testing once infectious processes cleared PPI BID Hypokalemia 3.0 replenished still vomiting monitor and replenish as needed Cannabis induced hyperemesis Encourage immediate cessation Antiemetics Ativan as needed Bentyl IV fluids Elevated liver enzymes Hepatitis panel negative Likely medication induced Continue to monitor Code status: Full code per patient DVT prophylaxis: Lovenox Stress ulcer prophylaxis: Protonix 40 BID PT/OT notes: Ambulatory Disposition: Patient admitted for cyclic vomiting still unable to tolerate per orally and will continue admission on the medical unit with a consult to GI will need further testing outpatient once infectious process cleared. Subjective Date/time seen: 09/21/23 08:09 Interval history: Admission: Medical Record Nausea vomiting Narrative: This is a 22-year-old female that presents to the emergency department for abdominal pain, nausea and vomiting.? Reports several similar episodes.? Reports this has been an ongoing problem for her for many years.? She has seen GI doctors for this and was told it is in her head .? Reports she will have episodes where she has intractable nausea and vomiting for several days in a row.? She has been having trouble with nausea and vomiting for the last 4 days.? Patient denies any fever chills.? Also has history of substance abuse 4/5: Patient continues to have severe to moderate N/V unrelieved with antiemtics patient did report she has history of episodes of intractable nausea and vomiting but has yet to see a GI physician. Patient was positive for THC so possibly this is cannabis induced hyperemesis however patient states she has had these episodes since she was 11. Patient's previous CT showed possible colitis right colon And distal small bowel. Patient was prescribed p.o. antibiotic therapy however return to the emergency department because she states she is unable to tolerate any oral intake. Patient likely needs further testing such as EGD possible gastroparesis testing once Infectious process resolved. 09/19: Patient still reporting severe abdominal pain with continued nausea and vomiting still hypokalemic will replenish, liver enzymes are elevated hepatitis panel negative. Reinforce the need for immediate cannabis cessation . 09/20: Patient reports N/V improving vomiting episodes x 2. GI added amitriptyline will advance diet as tolerated can hopefully discharge home tomorrow. Review of Systems Review of Systems: All systems reviewed & are unremarkable except as noted in HPI and below Exam Narrative: Physical Exam: GENERAL: Alert and oriented x 3. No acute distress. Well-nourished. EYES: EOMI. No scleral icterus. PERRLA. HEENT: Moist mucous membranes. LUNGS: Clear to auscultation bilaterally
[2023-09-21] MEDS: DICYCLOMINE HCL 10 MG CAPSULE 20 MG PO ×4 (08:49→20:33)
[2023-09-21] MEDS: ONDANSETRON INJ 4 MG/2 ML VIAL IV PUSH (08:49)
[2023-09-21] MEDS: PANTOPRAZOLE SODIUM IV 40 MG VIAL IV PUSH ×2 (08:49→20:33)
[2023-09-21] MEDS: levoFLOXacin 750 MG/D5W 150 ML 750 MG/150 ML BAG 100 MG IVPB (08:50)
[2023-09-21 13:52] VITALS: BP 133/78; PULSE 58; RESP 18; TEMP 36.2; O2SAT 100
--- NOTE | 2023-09-21 17:14 | WPDGIPROGNO ---
Progress Note: A&P Assessment and Plan (1) Cyclic vomiting syndrome: Code(s): R11.15 - Cyclical vomiting syndrome unrelated to migraine Status: Acute Assessment and Plan: still some nausea started on elavil as prophylaxis (2) Leukocytosis: Code(s): D72.829 - Elevated white blood cell count, unspecified Status: Acute Assessment and Plan: resolved on abx for possible colitis but no diarrhea, ok to discontinue (3) Abdominal pain: Code(s): R10.9 - Unspecified abdominal pain Status: Acute Assessment and Plan: probably egd as outpatient (4) Cannabis abuse: Code(s): F12.10 - Cannabis abuse, uncomplicated Status: Acute (5) Hypokalemia: Code(s): E87.6 - Hypokalemia Status: Acute Assessment and Plan: repleting (6) Elevated liver enzymes: Code(s): R74.8 - Abnormal levels of other serum enzymes Status: Acute Assessment and Plan: CT scan s/p jayde, normal bile duct size hepatitis panel negative (7) History of cholecystectomy: Code(s): Z90.49 - Acquired absence of other specified parts of digestive tract Status: Acute Subjective Date/time seen: 09/21/23 17:14 Interval history: still with nausea but no vomiting Review of Systems Review of Systems: All systems reviewed & are unremarkable except as noted in HPI and below Exam Const: General: comfortable and no acute distress HENMT: Face/Nose/Sinus: Normal nares present Eyes: General: appearance normal, both eyes and all related structures Neck: Neck: supple Resp: Auscultation: clear to auscultation bilaterally Cardio: Rate: regular rate Rhythm: regular rhythm GI: Inspection: non-distended GI Palp: Yes Soft to palpation and Yes Tenderness to palpation present (GI) (mild ttp, no rebound) Auscultation: normal bowel sounds Skin: General skin exam: normal color Neuro: Speech: normal speech Motor exam (neuro): 5/5 motor strength present throughout Extrem: General: normal to inspection Psych: Mental Status: mental status grossly normal Objective Data Vital Signs Vital Signs: Vital Signs - 24 hr 09/20/23 21:15 09/21/23 04:41 09/21/23 13:52 Temperature 99.0 F 97.9 F 97.2 F L Pulse Rate 108 H 82 58 L Respiratory Rate 16 16 18 Blood Pressure 125/80 109/68 133/78 Pulse Oximetry 99 99 100 Intake/Output Intake/Output: Intake & Output 09/18/23 09/19/23 09/20/23 09/21/23 23:59 23:59 23:59 23:59 Intake Total 1525 2007.1 2980 Output Total 1400 200 Balance 125 1807.1 2980 Meds/Results Medications: Active Medications Generic Name Dose Route Start Last Admin Trade Name Freq PRN Reason Stop Dose Admin Amitriptyline HCl 10 mg 09/20/23 21:00 09/20/23 20:37 Amitriptyline Hcl 10 Mg Tablet PO 10 mg HS CECILE Administration Dicyclomine HCl 20 mg 09/19/23 17:00 09/21/23 13:02 Dicyclomine Hcl 10 Mg Capsule PO 20 mg QID CECILE Administration Hydromorphone HCl 0.5 mg 09/20/23 12:54 09/21/23 06:03 Hydromorphone Hcl Inj (*Crx) 1 Mg/Ml Syr IV PUSH 0.5 mg Q3H PRN Administration Pain Rated 7-10 Dextrose/Sodium Chloride 1,000 mls @ 100 mls/hr 09/19/23 07:35 09/21/23 15:10 Dextrose 5% Sodium Chloride 0.9% IV CONT 100 mls/hr .Q10H CECILE Infusion Metronidazole 500 mg in 100 mls @ 100 mls/hr 09/19/23 08:00 09/21/23 13:48 Flagyl 500 Mg/Iso Soln 100 Ml IVPB Infused Q6HR CECILE Infusion Levofloxacin/Dextrose 750 mg in 150 mls @ 100 mls/hr 09/19/23 08:00 09/21/23 10:20 Levaquin 750 Mg/D5w 150 Ml IVPB Infused Q24H CECILE Infusion Lorazepam 1 mg 09/20/23 12:54 09/21/23 15:09 Lorazepam Inj (*Crx) 2 Mg/Ml Vial IV PUSH 1 mg Q4HR PRN Administration Nausea Metoclopramide HCl 10 mg 09/19/23 12:00 09/21/23 12:49 Metoclopramide Hcl Inj 10 Mg/2 Ml Vial IV PUSH 10 mg Q6HR CECILE Administration Ondansetron HCl 4 mg 09/19/23 05:00 09/21/23 08:49 Ondansetron
[2023-09-21 20:00] VITALS: PULSE 78; RESP 16; O2SAT 99
[2023-09-21 20:30] VITALS: BP 116/73; PULSE 78; RESP 16; TEMP 36.6; O2SAT 99
[2023-09-21] MEDS: AMITRIPTYLINE HCL 10 MG TABLET PO (20:33)
[2023-09-22] MEDS: metroNIDAZOLE 500 MG/ISO 100ML 500 MG/100 ML BAG 100 MG IVPB ×4 (00:55→23:31)
[2023-09-22] MEDS: METOCLOPRAMIDE HCL INJ 10 MG/2 ML VIAL IV PUSH ×5 (00:55→23:31)
[2023-09-22 04:27] VITALS: BP 114/73; PULSE 83; RESP 16; TEMP 36.6; O2SAT 99
[2023-09-22] MEDS: HYDROmorphone HCL INJ (*CRX) 1 MG/ML SYR 0.5 MG IV PUSH ×4 (05:41→21:06)
[2023-09-22] MEDS: DEXTROSE 5%/0.9% SOD CHL 1,000 ML 100 ML IV CONT (05:46)
[2023-09-22 06:27] LABS: Hematocrit 39.3 % (37.0-47.0); Hemoglobin 13.4 g/dL (12.0-15.0); Mean Corpuscular HGB Conc 34.1 g/dl (32-36); Mean Corpuscular Hemoglobin 29.3 pg (26-34); Mean Platelet Volume 11.8 fl (7.4-10.4); Platelet Count Result 219 k/mm3 (150-375); Red Blood Count 4.57 M/mm3 (4.2-5.4); Red Cell Distribution Width 11.9 % (11.5-14.5); White Blood Count 8.5 K/mm3 (4.5-10.0)
[2023-09-22] MEDS: LORazepam INJ (*CRX) 2 MG/ML VIAL 1 MG IV PUSH ×2 (06:30→21:06)
[2023-09-22 06:57] LABS: Alanine Aminotransferase 87 U/L (6-35); Albumin Level 3.7 g/dL (3.5-5.1); Alkaline Phosphatase 71 U/L (38-126); Anion Gap 5 mmol/L (4-12); Aspartate Amino Transferase 40 U/L (14-36); Blood Urea Nitrogen 2 mg/dL (7-17); Carbon Dioxide 24 mmol/L (22-30); Chloride 108 mmol/L (98-107); Estimated CRCL calculation 87 ml/min; Estimated Glomerular Filt Rate > 60; Glucose 100 mg/dL (65-110); Magnesium 1.8 mg/dL (1.6-2.3); Potassium 2.8 mmol/L (3.4-5.0); Sodium 137 mmol/L (137-145)
[2023-09-22 07:54] VITALS: PULSE 83; RESP 16; O2SAT 99
[2023-09-22] MEDS: DICYCLOMINE HCL 10 MG CAPSULE 20 MG PO ×4 (09:18→21:07)
[2023-09-22] MEDS: POTASSIUM CHLORIDE 20 MEQ ER TABLET 40 MEQ PO (09:18)
[2023-09-22] MEDS: PANTOPRAZOLE SODIUM IV 40 MG VIAL IV PUSH ×2 (09:23→21:06)
[2023-09-22] MEDS: levoFLOXacin 750 MG/D5W 150 ML 750 MG/150 ML BAG 100 MG IVPB (10:02)
[2023-09-22] MEDS: POTASSIUM CHLORIDE INJ 40 MEQ in SODIUM CHLORIDE 0.9% IV 500 ML 130 MEQ IVPB (11:38)
--- NOTE | 2023-09-22 13:42 | PM.IMPN ---
Progress Note: A&P Assessment and Plan (1) Cannabis hyperemesis syndrome concurrent with and due to cannabis abuse: Code(s): F12.188 - Cannabis abuse with other cannabis-induced disorder Status: Acute (2) Intractable nausea and vomiting: Code(s): R11.2 - Nausea with vomiting, unspecified Status: Acute (3) Cyclic vomiting syndrome: Code(s): R11.15 - Cyclical vomiting syndrome unrelated to migraine Status: Acute (4) Cannabis abuse: Code(s): F12.10 - Cannabis abuse, uncomplicated Status: Acute (5) Hypokalemia: Code(s): E87.6 - Hypokalemia Status: Acute (6) Elevated liver enzymes: Code(s): R74.8 - Abnormal levels of other serum enzymes Status: Acute Plan Cyclic vomiting likely secondary to cannabis induced hyperemesis IV fluids GI consult Zofran and Reglan Ativan as needed Clear liquids as tolerated will advance diet PPI b.i.d. Encourage THC cessation Bentyl Amitriptyline Colitis IV fluids Levofloxacin/Flagyl Antiemetics GI consult Patient likely needs EGD and possible gastroparesis testing once infectious processes cleared PPI BID Hypokalemia 3.0 replenished still vomiting monitor and replenish as needed 8: 2.8 replenished with 80 meq f/U bmp Cannabis induced hyperemesis Encourage immediate cessation Antiemetics Ativan as needed Bentyl IV fluids Elevated liver enzymes Hepatitis panel negative Likely medication induced Continue to monitor Code status: Full code per patient DVT prophylaxis: Lovenox Stress ulcer prophylaxis: Protonix 40 BID PT/OT notes: Ambulatory Disposition: Patient admitted for cyclic vomiting still unable to tolerate per orally and will continue admission on the medical unit with a consult to GI will need further testing outpatient once infectious process cleared. Time Spent With Patient Time with patient: 15 - 25 minutes Subjective Date/time seen: 09/22/23 13:42 Interval history: Admission: Medical Record Nausea vomiting Narrative: This is a 22-year-old female that presents to the emergency department for abdominal pain, nausea and vomiting.? Reports several similar episodes.? Reports this has been an ongoing problem for her for many years.? She has seen GI doctors for this and was told it is in her head .? Reports she will have episodes where she has intractable nausea and vomiting for several days in a row.? She has been having trouble with nausea and vomiting for the last 4 days.? Patient denies any fever chills.? Also has history of substance abuse 4: Patient continues to have severe to moderate N/V unrelieved with antiemtics patient did report she has history of episodes of intractable nausea and vomiting but has yet to see a GI physician. Patient was positive for THC so possibly this is cannabis induced hyperemesis however patient states she has had these episodes since she was 11. Patient's previous CT showed possible colitis right colon And distal small bowel. Patient was prescribed p.o. antibiotic therapy however return to the emergency department because she states she is unable to tolerate any oral intake. Patient likely needs further testing such as EGD possible gastroparesis testing once Infectious process resolved. 09/19: Patient still reporting severe abdominal pain with continued nausea and vomiting still hypokalemic will replenish, liver enzymes are elevated hepatitis panel negative. Reinforce the need for immediate cannabis cessation . 09/20: Patient reports N/V improving vomiting episodes x 2. GI added amitriptyline will advance diet as tolerated can hopefully discharge home tomorrow. 09/21: Patient still unable to tolerate oral intake was extremely tearful and anxious on assessment. K+ 2.8 today will replenish. Review of Systems Review of Systems: All systems reviewed & are unremarkable except as noted in H
[2023-09-22 14:00] VITALS: BP 109/81; PULSE 68; RESP 20; TEMP 36.2; O2SAT 100
[2023-09-22 14:05] LABS: Anion Gap 7 mmol/L (4-12); Calcium 9.2 mg/dL (8.4-10.2); Carbon Dioxide 25 mmol/L (22-30); Chloride 106 mmol/L (98-107); Estimated CRCL calculation 100 ml/min; Estimated Glomerular Filt Rate > 60; Glucose 95 mg/dL (65-110); Potassium 4.1 mmol/L (3.4-5.0); Sodium 138 mmol/L (137-145)
[2023-09-22 14:07] LABS: Blood Urea Nitrogen < 2 mg/dL (7-17)
[2023-09-22] MEDS: KETOROLAC 30 MG/ML VIAL (*BKC) IV PUSH (15:24)
--- NOTE | 2023-09-22 16:16 | WPDGIPROGNO ---
Progress Note: A&P Assessment and Plan (1) Cyclic vomiting syndrome: Code(s): R11.15 - Cyclical vomiting syndrome unrelated to migraine Status: Acute Assessment and Plan: still some nausea started on elavil as prophylaxis still poor appetite if no significant improvement we probably can do EGD during this hospitalization (had one about 2 years ago), also underwent cholecystectomy (2) Leukocytosis: Code(s): D72.829 - Elevated white blood cell count, unspecified Status: Acute Assessment and Plan: resolved on abx for possible colitis but no diarrhea (3) Abdominal pain: Code(s): R10.9 - Unspecified abdominal pain Status: Acute (4) Cannabis abuse: Code(s): F12.10 - Cannabis abuse, uncomplicated Status: Acute (5) Hypokalemia: Code(s): E87.6 - Hypokalemia Status: Acute Assessment and Plan: repleting (6) Elevated liver enzymes: Code(s): R74.8 - Abnormal levels of other serum enzymes Status: Acute Assessment and Plan: CT scan s/p jayde, normal bile duct size hepatitis panel negative normalization of bilirubin (7) History of cholecystectomy: Code(s): Z90.49 - Acquired absence of other specified parts of digestive tract Status: Acute Subjective Date/time seen: 09/22/23 16:16 Interval history: still with nausea and abdominal discomfort Review of Systems Review of Systems: All systems reviewed & are unremarkable except as noted in HPI and below Exam Const: General: comfortable and no acute distress HENMT: Face/Nose/Sinus: Normal nares present Eyes: General: appearance normal, both eyes and all related structures Neck: Neck: supple Resp: Auscultation: clear to auscultation bilaterally Cardio: Rate: regular rate Rhythm: regular rhythm GI: Inspection: non-distended GI Palp: Yes Soft to palpation and Yes Tenderness to palpation present (GI) (mild ttp, no rebound) Auscultation: normal bowel sounds Skin: General skin exam: normal color Neuro: Speech: normal speech Motor exam (neuro): 5/5 motor strength present throughout Extrem: General: normal to inspection Psych: Mental Status: mental status grossly normal Objective Data Vital Signs Vital Signs: Vital Signs - 24 hr 09/21/23 20:30 09/21/23 20:00 09/22/23 04:27 Temperature 97.8 F 97.9 F Pulse Rate 78 78 83 Respiratory Rate 16 16 16 Blood Pressure 116/73 114/73 Pulse Oximetry 99 99 99 Oxygen Delivery Room Air 09/22/23 07:54 09/22/23 14:00 Temperature 97.1 F L Pulse Rate 83 68 Respiratory Rate 16 20 Blood Pressure 109/81 Pulse Oximetry 99 100 Oxygen Delivery Room Air Intake/Output Intake/Output: Intake & Output 09/19/23 09/20/23 09/21/23 09/22/23 23:59 23:59 23:59 23:59 Intake Total 1525 2007.1 3660 1389.7 Output Total 1400 200 Balance 125 1807.1 3660 1389.7 Meds/Results Medications: Active Medications Generic Name Dose Route Start Last Admin Trade Name Freq PRN Reason Stop Dose Admin Amitriptyline HCl 10 mg 09/20/23 21:00 09/21/23 20:33 Amitriptyline Hcl 10 Mg Tablet PO 10 mg HS CECILE Administration Dicyclomine HCl 20 mg 09/19/23 17:00 09/22/23 12:58 Dicyclomine Hcl 10 Mg Capsule PO 20 mg QID CECILE Administration Hydromorphone HCl 0.5 mg 09/20/23 12:54 09/22/23 09:17 Hydromorphone Hcl Inj (*Crx) 1 Mg/Ml Syr IV PUSH 0.5 mg Q3H PRN Administration Pain Rated 7-10 Metronidazole 500 mg in 100 mls @ 100 mls/hr 09/19/23 08:00 09/22/23 15:25 Flagyl 500 Mg/Iso Soln 100 Ml IVPB 100 mls/hr Q6HR CECILE Administration Levofloxacin/Dextrose 750 mg in 150 mls @ 100 mls/hr 09/19/23 08:00 09/22/23 11:32 Levaquin 750 Mg/D5w 150 Ml IVPB Infused Q24H CECILE Infusion Lorazepam 1 mg 09/20/23 12:54 09/22/23 06:30 Lorazepam Inj (*Crx) 2 Mg/Ml Vial IV PUSH 1 mg Q4HR PRN Administration Nausea Metoclopramide HCl 10 mg 09/19/23 12:00 09/22/23
[2023-09-22] MEDS: ONDANSETRON INJ 4 MG/2 ML VIAL IV PUSH (21:06)
[2023-09-22] MEDS: AMITRIPTYLINE HCL 10 MG TABLET PO (21:07)
[2023-09-22 21:20] VITALS: BP 115/77; PULSE 85; RESP 16; TEMP 36.7; O2SAT 99
[2023-09-23] MEDS: metroNIDAZOLE 500 MG/ISO 100ML 500 MG/100 ML BAG 100 MG IVPB (05:57)
[2023-09-23] MEDS: METOCLOPRAMIDE HCL INJ 10 MG/2 ML VIAL IV PUSH (05:57)
[2023-09-23 06:00] VITALS: BP 123/66; PULSE 100; RESP 16; TEMP 36.3; O2SAT 98
[2023-09-23 06:29] LABS: Hematocrit 38.7 % (37.0-47.0); Hemoglobin 13.1 g/dL (12.0-15.0); Mean Corpuscular HGB Conc 33.9 g/dl (32-36); Mean Corpuscular Hemoglobin 29.4 pg (26-34); Mean Platelet Volume 11.5 fl (7.4-10.4); Platelet Count Result 206 k/mm3 (150-375); Red Blood Count 4.45 M/mm3 (4.2-5.4); Red Cell Distribution Width 11.9 % (11.5-14.5); White Blood Count 7.3 K/mm3 (4.5-10.0)
[2023-09-23 06:50] LABS: Alanine Aminotransferase 76 U/L (6-35); Albumin Level 3.9 g/dL (3.5-5.1); Alkaline Phosphatase 66 U/L (38-126); Anion Gap 8 mmol/L (4-12); Aspartate Amino Transferase 38 U/L (14-36); Bilirubin,Total 0.9 mg/dL (0.2-1.3); Blood Urea Nitrogen 4 mg/dL (7-17); Calcium 9.2 mg/dL (8.4-10.2); Carbon Dioxide 22 mmol/L (22-30); Chloride 108 mmol/L (98-107); Estimated CRCL calculation 87 ml/min; Estimated Glomerular Filt Rate > 60; Glucose 98 mg/dL (65-110); Magnesium 1.9 mg/dL (1.6-2.3); Potassium 3.3 mmol/L (3.4-5.0); Sodium 138 mmol/L (137-145)
[2023-09-23] MEDS: HYDROmorphone HCL INJ (*CRX) 1 MG/ML SYR 0.5 MG IV PUSH (08:34)
[2023-09-23] MEDS: DICYCLOMINE HCL 10 MG CAPSULE 20 MG PO (08:35)
[2023-09-23] MEDS: levoFLOXacin 750 MG/D5W 150 ML 750 MG/150 ML BAG 150 MG IVPB (08:35)
[2023-09-23] MEDS: ONDANSETRON INJ 4 MG/2 ML VIAL IV PUSH (08:35)
[2023-09-23] MEDS: PANTOPRAZOLE SODIUM IV 40 MG VIAL IV PUSH (08:35)
[2023-09-23] MEDS: HALOPERIDOL LACTATE 5 MG/ML VIAL IV PUSH (08:52)
--- NOTE | 2023-09-23 09:14 | PM.IMPN ---
Progress Note: A&P Assessment and Plan (1) Cannabis hyperemesis syndrome concurrent with and due to cannabis abuse: Code(s): F12.188 - Cannabis abuse with other cannabis-induced disorder Status: Acute (2) Intractable nausea and vomiting: Code(s): R11.2 - Nausea with vomiting, unspecified Status: Acute (3) Cyclic vomiting syndrome: Code(s): R11.15 - Cyclical vomiting syndrome unrelated to migraine Status: Acute (4) Cannabis abuse: Code(s): F12.10 - Cannabis abuse, uncomplicated Status: Acute (5) Hypokalemia: Code(s): E87.6 - Hypokalemia Status: Acute (6) Elevated liver enzymes: Code(s): R74.8 - Abnormal levels of other serum enzymes Status: Acute Plan Cyclic vomiting likely secondary to cannabis induced hyperemesis IV fluids GI consult Zofran and Reglan Ativan as needed Clear liquids as tolerated will advance diet PPI b.i.d. Encourage THC cessation Bentyl Amitriptyline Colitis IV fluids Levofloxacin/Flagyl Antiemetics GI consult Patient likely needs EGD and possible gastroparesis testing once infectious processes cleared PPI BID Hypokalemia 3.0 replenished still vomiting monitor and replenish as needed 09/21: 2.8 replenished with 80 meq f/U bmp Cannabis induced hyperemesis Encourage immediate cessation Antiemetics Ativan as needed Bentyl IV fluids 09/22: Still no real improvement will trial Haldol Elevated liver enzymes Hepatitis panel negative Likely medication induced Continue to monitor Code status: Full code per patient DVT prophylaxis: Lovenox Stress ulcer prophylaxis: Protonix 40 BID PT/OT notes: Ambulatory Disposition: Patient admitted for cyclic vomiting still unable to tolerate per orally and will continue admission on the medical unit with a consult to GI will need further testing outpatient once infectious process cleared. Time Spent With Patient Time with patient: 15 - 25 minutes Subjective Date/time seen: 09/23/23 09:14 Interval history: Admission: Medical Record Nausea vomiting Narrative: This is a 22-year-old female that presents to the emergency department for abdominal pain, nausea and vomiting.? Reports several similar episodes.? Reports this has been an ongoing problem for her for many years.? She has seen GI doctors for this and was told it is in her head .? Reports she will have episodes where she has intractable nausea and vomiting for several days in a row.? She has been having trouble with nausea and vomiting for the last 4 days.? Patient denies any fever chills.? Also has history of substance abuse 09/18: Patient continues to have severe to moderate N/V unrelieved with antiemtics patient did report she has history of episodes of intractable nausea and vomiting but has yet to see a GI physician. Patient was positive for THC so possibly this is cannabis induced hyperemesis however patient states she has had these episodes since she was 11. Patient's previous CT showed possible colitis right colon And distal small bowel. Patient was prescribed p.o. antibiotic therapy however return to the emergency department because she states she is unable to tolerate any oral intake. Patient likely needs further testing such as EGD possible gastroparesis testing once Infectious process resolved. 6: Patient still reporting severe abdominal pain with continued nausea and vomiting still hypokalemic will replenish, liver enzymes are elevated hepatitis panel negative. Reinforce the need for immediate cannabis cessation . 09/20: Patient reports N/V improving vomiting episodes x 2. GI added amitriptyline will advance diet as tolerated can hopefully discharge home tomorrow. 09/21: Patient still unable to tolerate oral intake was extremely tearful and anxious on assessment. K+ 2.8 today will replenish. 09/22: Patient continues with N/V with even with curren
--- NOTE | 2023-09-23 11:42 | PM.DS ---
DS: Admitting Diagnosis Discharge Date 09/23/2023 Admitting Diagnosis Cyclic vomiting syndrome DS: Discharge Diagnosis Discharge Diagnosis (1) Cannabis hyperemesis syndrome concurrent with and due to cannabis abuse: Code(s): F12.188 - Cannabis abuse with other cannabis-induced disorder Status: Acute (2) Intractable nausea and vomiting: Code(s): R11.2 - Nausea with vomiting, unspecified Status: Acute (3) Cyclic vomiting syndrome: Code(s): R11.15 - Cyclical vomiting syndrome unrelated to migraine Status: Acute (4) Cannabis abuse: Code(s): F12.10 - Cannabis abuse, uncomplicated Status: Acute (5) Hypokalemia: Code(s): E87.6 - Hypokalemia Status: Acute (6) Elevated liver enzymes: Code(s): R74.8 - Abnormal levels of other serum enzymes Status: Acute Plan Cyclic vomiting likely secondary to cannabis induced hyperemesis IV fluids GI consult Zofran and Reglan Ativan as needed Clear liquids as tolerated will advance diet PPI b.i.d. Encourage THC cessation Bentyl Amitriptyline Colitis IV fluids Levofloxacin/Flagyl Antiemetics GI consult Patient likely needs EGD and possible gastroparesis testing once infectious processes cleared PPI BID Hypokalemia 3.0 replenished still vomiting monitor and replenish as needed 09/21: 2.8 replenished with 80 meq f/U bmp Cannabis induced hyperemesis Encourage immediate cessation Antiemetics Ativan as needed Bentyl IV fluids 09/22: Still no real improvement will trial Haldol Elevated liver enzymes Hepatitis panel negative Likely medication induced Continue to monitor Disposition: Patient discharged to home with family will have follow-up with GI and primary once established DS: Summary Hospital Course Reason for hospitalization: Cyclic vomiting syndrome Hospital Course: Admission: Medical Record Nausea vomiting Narrative: This is a 22-year-old female that presents to the emergency department for abdominal pain, nausea and vomiting.? Reports several similar episodes.? Reports this has been an ongoing problem for her for many years.? She has seen GI doctors for this and was told it is in her head .? Reports she will have episodes where she has intractable nausea and vomiting for several days in a row.? She has been having trouble with nausea and vomiting for the last 4 days.? Patient denies any fever chills.? Also has history of substance abuse /5: Patient continues to have severe? to moderate N/V unrelieved with antiemtics patient did report she has history of episodes of intractable nausea and vomiting but has yet to see a GI physician.? Patient was positive for THC so possibly this is cannabis induced hyperemesis however patient states she has had these episodes since she was 11.? Patient's previous CT showed possible colitis right colon And distal small bowel.? Patient was prescribed p.o. antibiotic therapy however return to the emergency department because she states she is unable to tolerate any oral intake. Patient likely needs further testing such as EGD possible gastroparesis testing once Infectious process resolved. 09/19: Patient still reporting severe abdominal pain with continued nausea and vomiting still hypokalemic will replenish, liver enzymes are elevated hepatitis panel negative.? Reinforce the need for immediate cannabis cessation . 09/20: Patient reports N/V improving vomiting episodes x 2.? GI added amitriptyline will advance diet as tolerated can hopefully discharge home tomorrow. 09/21: Patient still unable to tolerate oral intake was extremely tearful and anxious on assessment.? K+ 2.8 today will replenish.? 09/22: DISCHARGED Gave one dose haldol with relief from symptoms was able to tolerate oral intake without N/V and reports overall improvement requesting to go home. Patient discharged home with family will need follow-up with GI a
== END 2023-09-23 11:53 | disposition home or self-care (01) | DRG 249 ==
LOC: ANHED 05:14 → ANH3MEDSUR 05:33
PROVIDERS: Admitting Provider Internal Medicine; Emergency Provider Emergency Medicine; Visit Provider Nurse Practitioner Family
DX: R11.2 Nausea with vomiting, unspecified (principal); F12.10 Cannabis abuse, uncomplicated; K52.9 Noninfective gastroenteritis and colitis, unspecified; E87.6 Hypokalemia; R74.8 Abnormal levels of other serum enzymes; D72.829 Elevated white blood cell count, unspecified; Z90.49 Acquired absence of other specified parts of digestive tract
CPT/HCPCS: 36415; 80048; 80053; 80074; 80307; 81003; 81025; 83036; 83690; 83735; 85025; 85027; 87637; 96361; 96372; 96374; 96375; 99285; A9270; C9113; G0378; J1170; J1200; J1630; J1836; J1885; J1956; J2060; J2405; J2550; J2765; J3480; J7030; J7040; J7042

== ENCOUNTER 2023-11-04 07:35 | Outpatient (CLI) | payer OTHER, SELFPAY ==
--- NOTE | ~2023-11-04 | NM_ITS ---
EXAM: NM gastric emptying study DATE: 11/04/2023 12:36 INDICATION: Gastroesophageal reflux disease. TECHNIQUE: A gastric emptying study was performed using the methodology of Maryann SOW, et al. J Nucl Med 2007; 48:568-572. The patient was given a meal consisting of 2 scrambled eggs labeled with 0.998 mCi Tc-99m sulfur colloid, 2 slices of toast, two packages of jam, and approximately 120 mL of water . Simultaneous anterior and posterior 1-min images of the abdomen were obtained with the patient supi ne at multiple time points over a total period of 4 hours. The geometric mean of anterior and posteri or views was determined, and the percentage retention was calculated for each time point. COMPARISON: CT abdomen and pelvis 09/17/2023 FINDINGS: Gastric retention of the radiotracer-labeled meal was 83%, 43%, and 2% at the 1-hour, 2-ho ur, and 4-hour time points, respectively. With this technique, apparent rapid gastric emptying is sug gested by <30% gastric retention at 1 hour. Delayed gastric emptying is defined by gastric retention of >90% at 1 hour, >60% retention at 2 hours, or >10% retention at 4 hours. IMPRESSION: 1. Normal gastric emptying. Reviewed, dictated and finalized at location A. IMPRESSION: 1. Normal gastric emptying.
== END 2023-11-04 07:36 | disposition home or self-care (01) ==
LOC: ANHIMG 07:36
PROVIDERS: PCP Nurse Practitioner Family; Visit Provider Nurse Practitioner Family
DX: K21.9 Gastro-esophageal reflux disease without esophagitis (principal)
CPT/HCPCS: 78264; A9541

== ENCOUNTER 2023-12-11 11:26 | Outpatient (CLI) | payer OTHER, SELFPAY ==
[2023-12-11 12:08] LABS: Alanine Aminotransferase 21 U/L (6-35); Albumin Level 4.7 g/dL (3.5-5.1); Alkaline Phosphatase 87 U/L (38-126); Aspartate Amino Transferase 29 U/L (14-36); Bilirubin,Total 1.1 mg/dL (0.2-1.3); CRP < 0.5 mg/dL (<1.0)
[2023-12-15 13:54] LABS: Immunoglobulin A 104 mg/dL (47-310); TTG IGA AB <1.0 U/mL
== END 2023-12-11 11:27 | disposition home or self-care (01) ==
LOC: ANHLAB 11:27
PROVIDERS: PCP Nurse Practitioner Family; Visit Provider Nurse Practitioner Family
DX: R79.89 Other specified abnormal findings of blood chemistry (principal); Z86.2 Personal history of diseases of the blood and blood-forming organs and certain disorders involving the immune mechanism
CPT/HCPCS: 36415; 80076; 82784; 86140; 86364

== ENCOUNTER 2024-08-15 18:31 | Emergency (ER) | payer OTHER, SELFPAY ==
[2024-08-15 18:42] VITALS: BP 107/73; PULSE 93; RESP 20; TEMP 36.4; O2SAT 100
[2024-08-15 19:11] LABS: Basophils Absolute Auto 0.1 K/mm3 (0.0-0.1); Basophils Percent Auto 0.3 % (0.2-1.2); Eosinophils Percent Auto 0.2 % (0-4.4); Hematocrit 43.7 % (37.0-47.0); Hemoglobin 15.4 g/dL (12.0-15.0); Immature Granulocyte Absolute 0.06 K/mm3 (0.00-0.031); Immature Granulocyte Percent A 0.4 % (0-0.5); Lymphocytes Absolute Auto 1.97 K/mm3 (0.9-3.2); Mean Corpuscular HGB Conc 35.2 g/dl (32-36); Mean Corpuscular Hemoglobin 29.8 pg (26-34); Mean Corpuscular Volume 84.7 fl (80-100); Mean Platelet Volume 11.5 fl (7.4-10.4); Monocytes Absolute Auto 0.8 K/mm3 (0.1-0.6); Monocytes Percent Auto 4.8 % (2.6-8.5); Neutrophils Absolute Auto 13.5 K/mm3 (1.3-6.7); Neutrophils Percent Auto 82.3 % (45.5-73.1); Platelet Count Result 264 k/mm3 (150-375); Red Blood Count 5.16 M/mm3 (4.2-5.4); Red Cell Distribution Width 12.1 % (11.5-14.5); White Blood Count 16.4 K/mm3 (4.5-10.0)
[2024-08-15 19:22] LABS: Alanine Aminotransferase 27 U/L (6-35); Alkaline Phosphatase 141 U/L (38-126); Anion Gap 15 mmol/L (4-12); Aspartate Amino Transferase 27 U/L (14-36); Bilirubin,Total 1.2 mg/dL (0.2-1.3); Blood Urea Nitrogen 7 mg/dL (7-17); Calcium 9.7 mg/dL (8.4-10.2); Carbon Dioxide 21 mmol/L (22-30); Chloride 105 mmol/L (98-107); Estimated CRCL calculation 107 ml/min; Estimated Glomerular Filt Rate > 60; Glucose 119 mg/dL (65-110); Lipase 58 U/L (23-300); Potassium 3.4 mmol/L (3.4-5.0); Sodium 141 mmol/L (137-145)
[2024-08-15] MEDS: PROCHLORPERAZINE EDISYLATE 10 MG/2 ML VIAL IV PUSH (19:51)
[2024-08-15] MEDS: SODIUM CHLORIDE 0.9% IV 1,000 ML 999 ML IV CONT (19:51)
[2024-08-15] MEDS: MORPHINE SULFATE (*CRX) 4 MG/ML INJ IV PUSH (19:51)
[2024-08-15] MEDS: diphenhydrAMINE HCl INJ 50 MG/ML VIAL 25 MG IV PUSH (19:52)
--- NOTE | 2024-08-15 20:33 | ED.GENADULT ---
HPI - General Adult General Chief complaint: Abdominal Pain Stated complaint: abd pain Time Seen by Provider: 08/15/24 19:26 History of Present Illness HPI narrative: Per patient 23-year-old female presents emergency department chief complaint of abdominal pain nausea vomiting and diarrhea. The patient has prior history of GI related symptoms reports no fever reports that she has had her gallbladder removed and her appendix removed. Patient states that she has had no fever reports that her abdomen is aching throughout Related Data Allergies Allergy/AdvReac Type Severity Reaction Status Date / Time Penicillins Allergy Unknown Difficulty Verified 08/15/24 18:44 Breathing Review of Systems Review of Systems: A 10 system review of systems was completed on the patient and is negative except for what is stated in the HPI. Nursing and ancillary documentation was reviewed. PMFSH Past Medical History Medical History Family history of bipolar disorder Anxiety Leukocytosis Abdominal pain Migraine Surgical History Surgical History History of laparoscopic appendectomy 09/30/2022 History of cholecystectomy Family History Family History Father Hypertension Depression Mother Depression Grandparent Cancer Hypertension Thyroid disorder Heart disease Other No pertinent family history Social History Social History Social History: Patient is very confident filling out medical forms. 05/07/24 Smoking status: Current every day smoker Tobacco type: e-cigarettes/vaping Alcohol intake: current Alcohol use details: Social Substance use: former Substance use type: marijuana Last use: 09/15/23 Do You Feel Safe in your Home?: Yes Lack of Transportation: No Lack of Food: Never True Current Housing: I Have Housing Concerned About Future Housing: No Difficulty Paying Gas/Electric Bills: No Difficulty Paying for Meds: No Currently Unemployed: No Education: Grade School Difficulty w/ Childcare or Family Care: No Living arrangements: with family Occupation/Education: occupation Additional occupation/education comments: [employer] Gender identity (if verbalized by the patient): Female Spiritual care concerns: No Exam Narrative: GENERAL: Well-appearing, well-nourished, and in mild acute distress. HEAD: Normocephalic, atraumatic. EYES: PERRLA and EOMI. ENT: Nares clear, no rhinorrhea or epistaxis. Mucous membranes moist. NECK: Supple. CHEST: Clear to auscultation. No respiratory distress. HEART: Regular rate and rhythm. No murmur heard. Normal peripheral pulses. ABDOMEN: Soft, diffusely tender to palpation, nondistended, normal active bowel sounds. EXTREMITIES: Normal range of motion. No edema. SKIN: Warm, dry, no rash. NEURO: No focal deficits. Alert and oriented x3. PSYCH: Normal mood and affect. Course Vital Signs Vital signs: Vital Signs Temperature 36.4 C L 08/15/24 18:42 Pulse Rate 93 08/15/24 18:42 Respiratory Rate 20 08/15/24 18:42 Blood Pressure 107/73 08/15/24 18:42 Pulse Oximetry 100 08/15/24 18:42 Temperature 36.5 C 08/15/24 20:52 Pulse Rate 66 08/15/24 20:52 Respiratory Rate 18 08/15/24 20:52 Blood Pressure 112/61 08/15/24 20:52 Pulse Oximetry 98 08/15/24 20:52 Medical Decision Making MDM Narrative Medical decision making narrative: Usual diagnosis intra-abdominal infection diverticulitis, colitis UTI pyelonephritis Laboratory studies were obtained on the patient white count of 16.4 electrolytes are within normal limits urinalysis showed 4+ ketones CT scan of the abdomen pelvis showed no acute abnormality Patient received IV fluids and antiemetics and is feeling better Vital Signs Vital Signs: Vital Signs Temperature 36.4 C L 08/15/24 18:42 Pulse Rate 93 08/15/24 18:42 Respiratory Rate 20 08/15/24 18:42 Blood Pressure 107/73 08/15/24 18:42 Pulse Oximetry 100 08/15/24 18:42 Temperature 36.5 C 08/15/24 20:52 Pulse Rate 66 08/15/24 20:52 Respiratory Rate 18 08/15/24 20:52 Blood Pressure 112/61 08/15/24 20:52 Pulse Oximetry 98 08/15/24 20:52 Lab Data 08/15/24 19:06 08/15/24 19:06 Labs: Lab Results 08/15/24 08/15/24 08/15/24 Range/Units 19:06 20:47 20:49 WBC 16.4 H (4.5-10.0) K/mm3 RBC 5.16 (4.2-5.4) M/mm3 Hgb 15.4 H (12.0-15.0) g/dL Hct 43.7 (37.0-47.0) % MCV 84.7 (80-100) fl MCH 29.8 (26-34) pg MCHC 35.2 (32-36) g/dl RDW 12.1 (11.5-14.5) % Plt Count 264 (150-375) k/mm3 MPV 11.5 H (7.4-10.4) fl Immature Gran % (Auto) 0.4 (0-0.5) % Neut % (Auto) 82.3 H (45.5-73.1) % Lymph % (Auto) 12.0 L (18.3-44.2) % [place] % (Auto) 4.8 (2.6-8.5) % Eos % (Auto) 0.2 (0-4.4) % Baso % (Auto) 0.3 (0.2-1.2) % Lymph # (Auto) 1.97 (0.9-3.2) K/mm3 [place] # (Auto) 0.8 H (0.1-0.6) K/mm3 Eos # (Auto) 0.0 (0-0.3) K/mm3 Baso # (Auto) 0.1 (0.0-0.1) K/mm3 Abs Immat Gran (auto) 0.06 H (0.00-0.031) K/mm3 Absolute Neuts (auto) 13.5 H (1.3-6.7) K/mm3 Absolute Nucleated RBC 0.000 (0.0-0.012) K/mm3 Nucleated RBC % 0.0 (0.0-0.2) % Sodium 141 (137-145) mmol/L Potassium 3.4 (3.4-5.0) mmol/L Chloride 105 (98-107) mmol/L Carbon Dioxide 21 L (22-30) mmol/L Anion Gap 15 H (4-12) mmol/L BUN 7 (7-17) mg/dL Creatinine 0.66 L (0.7-1.0) mg/dL Estim Creat Clear Calc 107 ml/min Estimated GFR > 60 (59 - ) Glucose 119 H (65-110) mg/dL Calcium 9.7 (8.4-10.2) mg/dL Total Bilirubin 1.2 (0.2-1.3) mg/dL AST 27 (14-36) U/L ALT 27 (6-35) U/L Alkaline Phosphatase 141 H (38-126) U/L Total Protein 8.0 (6.3-8.2) g/dL Albumin 5.0 (3.5-5.1) g/dL Lipase 58 (23-300) U/L Urine Color Yellow (Yellow) Urine Appearance Turbid H (Clear) Urine pH 8.0 (5.0-9.0) Ur Specific [place] 1.028 (1.001-1.035) Urine Protein Trace (Negative) mg/dL Urine Glucose (UA) Negative (Negative) mg/dL Urine Ketones 4+ H (Negative) mg/dL Ur Blood (Man) Negative (Negative) Urine Nitrate Negative (Negative) Urine Bilirubin Negative (Negative) Urine Urobilinogen 1.0 (<2.0) mg/dL Add Ur Microanalysis Reviewed Leukocyte Esterase Rfl Negative (Negative) NICK/UL Urine RBC 6-10 H (0-2) /hpf Urine WBC 0-5 (0-3) /hpf Ur Squamous Epith Cells Occasional (Few) /hpf Urine Bacteria 1+ H /hpf Urine Casts 0-2 POC Urine HCG, Qual Negative (Negative) Discharge Plan Discharge Clinical Impression: Abdominal pain, Nausea vomiting and diarrhea Patient Disposition: Home, Self-Care Condition: Stable Instructions: Antibiotic Form, Acute Nausea and Vomiting (ED), Abdominal Pain (ED) Patient Language: Tajik Prescriptions: New promethazine 25 mg suppository 25 mg RECTAL Q6H PRN (Reason: nausea and vomiting) Qty: 12 0RF No Action ondansetron 4 mg tablet,disintegrating 4 mg PO Q6H PRN (Reason: nausea and vomiting) Qty: 30 0RF sumatriptan succinate 50 mg tablet See Rx Instructions PO .COMPLEX Qty: 10 4RF Rx Instructions: take 1 tab at onset of headache; if no relief may repeat 1 tab after at least 2 hrs; max = 4 tabs/24 hr PO omeprazole 40 mg capsule,delayed release(DR/EC) See Rx Instructions .ROUTE .COMPLEX Qty: 30 0RF Dose Instruction: TAKE 1 CAPSULE BY MOUTH DAILY Rx Instructions: TAKE 1 CAPSULE BY MOUTH DAILY duloxetine [Cymbalta] 60 mg capsule,delayed release(DR/EC) 60 mg PO DAILY Qty: 90 1RF amitriptyline 10 mg tablet 10 mg PO QHS Qty: 90 0RF Follow-up/Referrals: Jaelyn Mccormack APRN [Primary Care Provider] - Time of Disposition: 23:00
[2024-08-15 20:51] LABS: BEDSIDEPREGUCG Negative (Negative)
[2024-08-15 20:52] VITALS: BP 112/61; PULSE 66; RESP 18; TEMP 36.5; O2SAT 98
[2024-08-15 21:10] LABS: Add Urine Microscopic? YES; Appearance Urine Turbid (Clear); Bacteria Urine 1+ /hpf; Bilirubin Urine Negative (Negative); Blood Urine Negative (Negative); Color Urine Yellow (Yellow); Glucose Urine UA Negative (Negative); Ketones Urine 4+ mg/dL (Negative); Leukocyte Esterase Ur Negative LEU/UL (Negative); Need Manual Microscopic Reviewed; Nitrate Urine Negative (Negative); Non Pathogenic Casts 0-2; Protein Urine Trace mg/dL (Negative); Specific Grav Ur 1.028 (1.001-1.035); Squamous Epithelial Cell Urine Occasional /hpf (Few); WBC Urine 0-5 /hpf (0-3)
[2024-08-15 23:07] VITALS: BP 121/61; PULSE 62; RESP 14; O2SAT 100
== END 2024-08-15 23:07 | disposition home or self-care (01) ==
PROVIDERS: Emergency Medicine; Emergency Provider Emergency Medicine; PCP Nurse Practitioner Family
DX: R11.2 Nausea with vomiting, unspecified (principal); R19.7 Diarrhea, unspecified; R10.9 Unspecified abdominal pain; F41.9 Anxiety disorder, unspecified; F17.290 Nicotine dependence, other tobacco product, uncomplicated; Z90.49 Acquired absence of other specified parts of digestive tract; Z79.899 Other long term (current) drug therapy
CPT/HCPCS: 36415; 74177; 80053; 81001; 81025; 83690; 85025; 96361; 96374; 96375; 99284; J0780; J1200; J2270; J7030; Q9967

== ENCOUNTER 2024-08-25 09:11 | Emergency (ER) | payer OTHER, SELFPAY ==
--- NOTE | 2024-08-25 09:17 | ED_ITS ---
HPI - URI/Sore Throat General Chief Complaint: Upper Respiratory Infection Stated Complaint: sore throat/vomited Time Seen by Provider: 08/25/24 09:40 Source: patient Mode of arrival: ambulatory Limitations: no limitations History of Present Illness HPI Narrative: Rosibel is a 23-year-old female patient presenting to the clinic today with complaints of sore throat, nasal congestion, cough, nausea, and vomiting x2. She reports symptoms started 2 days ago however she vomited twice this morning. No fevers, chills, or body aches. Denies any chest pain or shortness of breath. MD elicited complaint: sore throat and nasal congestion Related Data Allergies Allergy/AdvReac Type Severity Reaction Status Date / Time Penicillins AdvReac Intermediate Difficulty Verified 08/25/24 09:28 Breathing Review of Systems Review of Systems: Pertinent positives per HPI. Patient denies any fever, chills, rash, headache, visual changes, dizziness, shortness of breath, chest pain, palpitations, diarrhea, constipation, abdominal pain, or any urinary issues. PMFSH Past Medical History Medical History Family history of bipolar disorder Anxiety Leukocytosis Abdominal pain Migraine Surgical History Surgical History History of laparoscopic appendectomy 09/30/2022 History of cholecystectomy Family History Family History Father Hypertension Depression Mother Depression Grandparent Cancer Hypertension Thyroid disorder Heart disease Other No pertinent family history Social History Social History Social History: Patient is very confident filling out medical forms. 05/07/24 Smoking status: Current every day smoker Tobacco type: e-cigarettes/vaping Alcohol intake: current Alcohol use details: Social Substance use: former Substance use type: marijuana Last use: 09/15/23 Do You Feel Safe in your Home?: Yes Lack of Transportation: No Lack of Food: Never True Current Housing: I Have Housing Concerned About Future Housing: No Difficulty Paying Gas/Electric Bills: No Difficulty Paying for Meds: No Currently Unemployed: No Education: Grade School Difficulty w/ Childcare or Family Care: No Living arrangements: with family Occupation/Education: occupation Additional occupation/education comments: [employer] Gender identity (if verbalized by the patient): Female Spiritual care concerns: No Comments At the time of my signature, I reviewed and agree with the nursing past medical, surgical, social, and family history. There is no relevant family history pertinent to the patient complaint. Exam Narrative: General: Well-developed, well nourished, in no apparent distress Head: Normocephalic, atraumatic Eyes: Pupils equally round and reactive to light bilaterally, EOM intact, sclera and conjunctive clear, no discharge, lids normal Ears: TMs intact and clear, ear canals clear, no drainage, grossly hearing normal. Nose: Nares patent, clear nasal discharge, no inflammation, no sinus tenderness. Mouth: Oral pharynx without lesions or masses, good dentition, MMM. Neck: Supple, trachea midline, no enlargement of anterior or posterior cervical nodes, no thyroid masses or goiter palpable. Cardio: Regular rate and rhythm, s1 and s2 normal, no murmur appreciated. Resp: Clear to auscultation bilaterally, no rhonchi, rales, wheezing or rubs Course Course Emergency Course: Portions of this record may have been created with voice recognition software. Level of Care: Express Care Visit Vital Signs Vital signs: Vital Signs Temperature 36.4 C L 08/25/24 09:51 Pulse Rate 78 08/25/24 09:51 Respiratory Rate 17 08/25/24 09:51 Blood Pressure 115/62 08/25/24 09:51 Pulse Oximetry 100 08/25/24 09:51 Oxygen Delivery Room Air 08/25/24 09:51 Temperature 36.4 C L 08/25/24 09:51 Pulse Rate 78 08/25/24 09:51 Respiratory Rate 17 08/25/24 09:51 Blood Pressure 115/62 08/25/24 09:51 Pulse Oximetry 100 08/25/24 09:51 Oxygen Delivery Room Air 08/25/24 09:51 Vital signs reviewed MDM - URI/Sore Throat MDM Narrative Medical decision making narrative: At the time of visit patient is resting comfortably on the exam table. Patient appears to be nontoxic. Labs: COVID, influenza, and strep test were all performed. COVID and influenza testing was negative. Strep test was negative. We will send for culture. Plan: I suspect patient has URI with cough and pharyngitis. Supportive measures were discussed with the patient and they voiced understanding discharge instructions and agrees to treatment plan. Return precautions reviewed Differential Diagnosis Differential diagnosis: Likely upper respiratory infection, otitis media, sinusitis, viral infection, bronchitis, influenza, pharyngitis and other (COVID) Lab Data Labs: Lab Results 08/25/24 Range/Units 09:41 POC Grp A Strep Screen Negative (Negative) Discharge Plan Discharge Clinical Impression: Acute viral syndrome URI (upper respiratory infection) Qualifiers: URI type: unspecified URI Qualified Code(s): J06.9 - Acute upper respiratory infection, unspecified Pharyngitis Qualifiers: Pharyngitis/tonsillitis etiology: unspecified etiology Qualified Code(s): J02.9 - Acute pharyngitis, unspecified Patient Disposition: Home, Self-Care Condition: Stable Instructions: Antibiotic Form, Pharyngitis (ED), Viral Syndrome (ED), Cold Symptoms (ED) Additional Instructions: COVID, influenza, and strep test were all negative in the clinic today. Increase fluids and stay well hydrated Tylenol/motrin for pain/fever Flonase and OTC antihistamines as directed Vicks vapor rub to open sinuses Sinus rinses for congestion Cepacol spray, cough drops, throat lozenges, warm tea with honey/lemon, gargle salt water to soothe throat BRAT diet for diarrhea Clear liquids x 24 hours then advance as tolerated for nausea/vomiting Go to the ED if you develop a worsening in your condition- high fever not controlled by Tylenol or Motrin, dehydration, weakness, lethargy, shortness of breath, or chest pain. Follow up with your PCP in 3-5 days if symptoms persist. Patient Language: Citizen Of [place] Prescriptions: No Action ondansetron 4 mg tablet,disintegrating 4 mg PO Q6H PRN (Reason: nausea and vomiting) Qty: 30 0RF promethazine 25 mg suppository 25 mg RECTAL Q6H PRN (Reason: nausea and vomiting) Qty: 12 0RF sumatriptan succinate 50 mg tablet See Rx Instructions PO .COMPLEX Qty: 10 4RF Rx Instructions: take 1 tab at onset of headache; if no relief may repeat 1 tab after at least 2 hrs; max = 4 tabs/24 hr PO omeprazole 40 mg capsule,delayed release(DR/EC) See Rx Instructions .ROUTE .COMPLEX Qty: 30 0RF Dose Instruction: TAKE 1 CAPSULE BY MOUTH DAILY Rx Instructions: TAKE 1 CAPSULE BY MOUTH DAILY duloxetine [Cymbalta] 60 mg capsule,delayed release(DR/EC) 60 mg PO DAILY Qty: 90 1RF amitriptyline 10 mg tablet 10 mg PO QHS Qty: 90 0RF Follow-up/Referrals: Jaelyn Mccormack APRN [Primary Care Provider] - Stand Alone Forms: Work/School Release IP Time of Disposition: 09:55 Quality NIHSS Nursing Documentation ED NIHSS nursing documentation: reviewed/agree
[2024-08-25 09:42] LABS: EDSTREPNEGPOS1 Negative (Negative)
--- OUTSIDE RECORDS SUMMARY | 2024-08-25 09:49 | XMS_ITS | Data Portability ---
Author Organization [facility] [place] Address [address] [place] [address] [address] Assessment Encounter Date Assessment Date Assessment LastModified by Organization Details LastModified Time 07/15/2024 07/15/2024 Greater than 30 minutes was spent in total between discussion with the patient, examination, and coordination of care. [email or web address] Not available 07/19/2024 22:55:15 Plan of Treatment Reminders Order Date Submit Date Provider Last Modified By Organization Details Last Modified Time Details Appointments None recorded. Lab test, urine 2024 025 [email or web address] [place], [address], [address], [place], [address], 5 14:54:30 test, urine 2023 024 [email or web address] [place], [address], [address], [place], [address], 4 10:57:18 Referral None recorded. Procedures None recorded. Surgeries None recorded. Imaging None recorded. Medication Orders Depo-Cone Baker Machine a 150 mg/mL intramuscul ar syringe 2024 025 [email or web address] Not available 5 19:07:25 Depo-Cone Baker Machine a 150 mg/mL intramuscul ar syringe 2023 024 [email or web address] Not available 5 09:35:29 Depo-Cone Baker Machine a 150 mg/mL intramuscul ar syringe 2023 024 [email or web address] Not available 09:35:29 Depo-Cone Baker Machine a 150 mg/mL intramuscul ar suspension 2023 024 [email or web address] Not available 09:35:44 Patient TargetsNo targets recorded. Patient InstructionsNo instructions recorded. Reason for Referral None Reported. Results Created Date Observation Date Name Description Value Unit Range Abnormal Flag Note LastModifiedBy Organization Detail LastModifiedTime 08/13/19 24 08/13/2023 pregn brayan test, urine HCG negati ve Not Available [place] [address], [place], [address], 08/13/2023 10:56:58 08/13/19 24 08/13/2023 urina lysis , dipst ick Blood trace Not Available [place] [address], [place], [address], 08/13/2023 10:41:02 08/13/19 24 08/13/2023 urina lysis , dipst ick Appearance clear Not Available [facility] tushar [address], [place], [address], 08/13/2023 10:41:02 08/13/19 24 08/13/2023 urina lysis , dipst ick Color pale yellow Not Available [place] [address], [place], [address], 08/13/2023 10:41:02 08/13/19 24 08/13/2023 pregn brayan test, urine HCG negati ve Not Available [place] [address], [place], [address], 08/13/2023 10:40:35 Result Notes None recorded. Procedures Surgical History Date Name Laterality Status Provider Name and Address Organization Details Recorded Time 023 Date of Last Pap Smear completed Tita Skinner [facility] 07/15/2024 09:36:12 Appendectomy completed Martha Hernandez [facility] 03/11/2023 10:29:39 cholecystectomy completed Martha Hernandez [facility] 03/11/2023 10:29:52 Imaging Results None recorded. Procedure Notes None recorded. Medical Equipment None Reported. Allergies Allergen ID Allergen Name Allergen Category Reaction Reaction Severity Criticality Documentation Date Start Date Code Code System Note Provider Name and Address Organization Details Recorded Time Product containin g penicilli n (product) medicatio n Not available Not available Not available 03/11/2023 [id number] SNOMED Martha wu [facility] 10:27:27 Medications Name Sig Start Date Stop Date Status Note LastModified by Organization Details LastModified Time doxepin 25 mg capsule TAKE 1 CAPSULE BY MOUTH DAILY 07/15 completed Not Available Not Available Not Available promethazin e 12.5 mg tablet TAKE 1 TABLET BY MOUTH EVERY 6 HOURS NEEDED FOR NAUSEA OR VOMITING 07/15 completed Not Available Not Available Not Available sumatriptan 50 mg tablet 07/15 completed Not Available Not Available Not Available metronidazo le 500 mg tablet TAKE 1 TABLET BY MOUTH EVERY 12 HOURS 07/15 completed Not Available Not Available Not Available prochlorper azine maleate 10 mg tablet TAKE 1 TABLET BY MOUTH EVERY 6 HOURS NEEDED FOR NAUSEA OR VOMITING 07/15 completed Not Available Not Available Not Available ciprofloxac in 500 mg tablet TAKE 1 TABLET BY MOUTH EVERY 12 HOURS 07/15 completed Not Available Not Available Not Available omeprazole 40 mg capsule,del ayed release TAKE 1 CAPSULE BY MOUTH DAILY active Not Available Not Available No t Available amitriptyli ne 10 mg tablet TAKE 1 TABLET BY MOUTH EVERY DAY AT BEDTIME active Not Available Not Available No t Available cephalexin 500 mg capsule TAKE 1 CAPSULE BY MOUTH EVERY 8 HOURS 03/11 completed Not Available Not Available Not Available ondansetron 4 mg disintegrat ing tablet DISSOLVE 1 TABLET ON THE TONGUE EVERY 6 HOURS NEEDED FOR NAUSEA OR VOMITING 07/15 completed Not Available Not Available Not Available medroxyprog esterone 150 mg/mL intramuscul ar suspension ADMINISTE R 1 ML IN THE MUSCLE EVERY 3 MONTHS 07/15 completed Not Available Not Available Not Available dicyclomine 10 mg capsule TAKE 1 CAPSULE BY MOUTH THREE TIMES DAILY NEEDED FOR ABDOMINAL PAIN active Not Available Not Available No t Available medroxyprog esterone 150 mg/mL intramuscul ar syringe ADMINISTE R 1 ML IN THE MUSCLE EVERY 3 MONTHS active Not Available Not Available No t Available duloxetine 30 mg capsule,del ayed release TAKE 1 CAPSULE BY MOUTH DAILY 07/15 completed Not Available Not Available Not Available duloxetine 60 mg capsule,del ayed release TAKE 1 CAPSULE BY MOUTH DAILY 07/15 completed Not Available Not Available Not Available Vitals Date Recorded Body height Body mass index (BMI) Body weight Systolic blood pressure Diastolic blood pressure Provider Name and Address Organization Details Last Updated DateTime 08/13/2023 157.48 cm 25.6 kg/m2 83399.93 g 117 mm[Hg] 76 mm[Hg] Miri [facility] 4 10:31:14 Date Recorded Body height Provider Name an d Address Organization Details Last Updated DateTime 10/30/2023 157.48 cm [facility] 10/30/2023 09:29:51 Date Recorded Body height Body mass index (BMI) Body weight Systolic blood pressure Diastolic blood pressure Provider Name and Address Organization Details Last Updated DateTime 07/15/2024 157.48 cm 26.7 kg/m2 62465.49 g 128 mm[Hg] 81 mm[Hg] Tita Skinner [facility] 5 09:34:54 Date Recorded Body height Body mass index (BMI) Body weight Systolic blood pressure Diastolic blood pressure Provider Name and Address Organization Details Last Updated DateTime 08/13/2024 157.48 cm 26.5 kg/m2 98147.89 g 120 mm[Hg] 78 mm[Hg] Renetta Wetzel [facility] 5 14:49:40 Social History Question Answer Notes LastModified by Organizat ion Details LastModified Time Tobacco Smoking Status Never Smoker Martha Hernandez [facility] 03/11/2023 10:29:21 What Is Your Level Of Alcohol Consumption? Occasional Information not available 03/11/2023 How Many Years Have You Consumed Alcohol? 3 [email or web address] Information not available 07/15/2024 Are You Blind Or Do You Have Difficulty Seeing? No Information n ot available 03/11/2023 What Is Your Level Of Caffeine Consumption? Occasional [email or web address] Information not available 07/15/2024 How Much Tobacco Do You Chew? None [email or web address] Information not available 07/15/2024 In The 14 Days Before Symptom Onset, Have You Had Close Contact With A Laboratory-confirm ed COVID-19 While That Case Was Ill? No Information n ot available 07/15/2024 In The 14 Days Before Symptom Onset, Have You Had Close Contact With A Person Who Is Under Investigation For COVID-19 While That Person Was Ill? No [email or web address] Information not available 07/15/2024 Have You Been To An Area Known To Be High Risk For COVID-19? No [email or web address] Information not available 07/15/2024 Are You Deaf Or Do You Have Serious Difficulty Hearing? No Information not available 03/11/2023 Which Illicit Or Recreational Drugs Have You Used? Marijuana Information not available 03/11/2023 What Is The Highest Grade Or Level Of School You Have Completed Or The Highest Degree You Have Received? [id number] [email or web address] Information not available 07/15/2024 Are There Any Guns Present In Your Home? No [email or web address] Information not available 07/15/2024 Do You Use Protection During Sex? No Information not available 07/15/2024 Do You Use Your Seat Belt Or Car Seat Routinely? Yes [email or web address] Information not available 07/15/2024 Do You Have Smoke And Carbon Monoxide Detectors In Your Home? Yes [email or web address] Information not available 07/15/2024 How Much Tobacco Do You Smoke? No [email or web address] Information not available 07/15/2024 Do You Feel Stressed (tense, Restless, Nervous, Or Anxious, Or Unable To Sleep At Night)? [id number] [email or web address] Information not available 07/15/2024 Do You Use Any Illicit Or Recreational Drugs? Yes Information not available 03/11/2023 Do You Use Sunscreen Routinely? Yes [email or web address] Information not available 07/15/2024 Have You Used IV Drugs? No [email or web address] Information not available 07/15/2024 Sex: Unknown Functional Status Question Answer Note LastModified by Organizat ion Details LastModified Time Do you have difficulty walking or climbing stairs? No Information not available 03/11/2023 Are you able to walk? [email or web address] Information not available 03/11/2023 Are you able to care for yourself? Yes Information not available 03/11/2023 Do you have difficulty dressing or bathing? No Information not available 03/11/2023 What is your exercise level? Occasional [email or web address] Information not available 07/15/2024 Mental Status None recorded. Family History Relationship Description Onset Age of this Age Resolved Age Notes LastModified by Organization Details LastModified Time Maternal Grandmother Malignant tumor of breast [email or web address] Not available 02/15 10:28:37 Maternal Grandmother Malignant tumor of lung [email or web address] Not available 02/15 10:28:47 Maternal Aunt Malignant tumor of ovary [email or web address] Not available 02/15 10:28:58 Medical History Condition Response Allergies (Food, seasonal, environmental ) N Other N Drug/Latex Allergies/Reactions N Blood Transfusion N Breast Cancer N Dermatologic Disorders N Lung Disease N Defects or Inherited Disease N Breast Problem N Gestational Diabetes N Hematologic disorders N Anesthesia Complications N History of STI N Deep Vein Thrombosis N Polycystic ovary syndrome N Anxiety Disorder N Autoimmune disease N Arthritis N Polyps N Infertility N Acid Reflux (GERD) N History of abnormal pap N Cancer N Varicosities N Stroke N Neurologic/Epilepsy N Endometriosis N High Cholesterol N Fibromyalgia N Headaches N Kidney Disease N Heart Problems N Thyroid Problems N Kidney or Bladder Problems N GI Problems N Eating Disorder N Anemia N Art (IVF or FET) N Psychiatric Illness N Ovarian Cancer N Diabetes N Pulmonary (TB, Asthma) N Hepatitis/Liver Disease N No Past Medical History N Eczema N Urinary Tract Infection N Abuse/Domestic Violence N Asthma N Trauma/Violence N Depression/ depression N Heart Disease N Pre-Eclampsia N Hypertension N Osteoporosis N Thrombophilias N Gynecological History Statement/Question Response Abnormal Pap N Flow Light Date of LMP 06/21/2023 N Was last menstrual period normal N STIs/STDs N HPV Vaccine N Duration of Flow (days) 5 Current Control Method Depo-Cone Baker Machine a Are cycles usually normal N Sexually Active? Y Menses Monthly N Age of first menstrual cycle 13 Date of Last Pap Smear 03/11/2023 Sexual Problems? N Desired Control Method None LMP Approximate N Obstetrics History GPAL:G 0 P 0 0 0 0 Past Encounters Encounter ID Performer Location Encounter Start Date Encounter Closed Date Diagnosis/Indication Diagnosis SNOMED-CT Code Diagnosis ICD10 Code Diagnosis Note [id number] NELLIE Khoury [place] [address] [address] 03/11/2023 10:06:00 03/11/2023 10:55:35 Gynecologic examination [id number] Z01.419 Take Calcium with Vitamin D daily if not receiving in daily diet. It is strongly advised to have an annual flu shot and up can obtain at most pharmacies . If you have not had a TDap shot in the last 10 years you should obtain one as well. Discussed with patient & provided with informatio n regarding Gardisil vaccine to prevent the 4 strains for HPV that cause cervical cancer if under age 26. Encourage safe sexual practices, to use condoms and limit partners if not already in a monogamous relationsh ip. Do monthly self breast exams. Have mammogram yearly or every other year depending on family history. BRCA testing is now available for patients with strong genetic history of female cancer. If interested contact the office. Engage in daily exercise of low impact aerobic exercise 45-60 minutes 4-5 times weekly. Avoid tobacco and illicit drugs as well as using moderation with alcohol intake less than 1-2 8 oz beverages daily. This lifestyle behavior pattern will lead to less health conditions and longer life span. If BMI greater than 25 weight watchers or dietary consult advised. Patient received above instructio ns, and questions have been answered. If you have any questions please call or respond to this email. Patient was made aware of the patient portal and may obtain a paper copy of today's plan if desired. Juan Davide would like to restart DMPAr/b/a reviewed with ptrx sentprimar y pap collectedS TI testing declinedwi ll have bhcg collected today, RTC for injection tomorrow Contracept ion care management 219962452 Z30.9 Depo-Prove ra is a female hormonal method of control. It s very effective in preventing . Depo-Prove ra contains a synthetic (man-made) form of the hormone progestero ne, called depo medroxypro gesterone acetate (DMPA). The Depo-Prove ra injection gives 3 months protectio n against . You should get one injection every 3 months (13 weeks) to get the best protection against . It s safe to get your injection up to 3 weeks earlier if you can t get your next injection in exactly 13 weeks. Condoms or other secondary BC method is advised for at least the first 4wks.Possi ble SE's include: Mood changes, AUB, Dizziness, H/A's, bloating, loss of menstrual cycle, weight gain approx 5#'s every year for the first 3yrs.Does not prevent against STD's.Typi patito use only 6 out of every 100 women will become .P erfect use only 1 out of every 100 women will become .I t is recommende d for Depo to be initiated at least 2yrs after you have started your menstrual cycle to protect bone health as there is a risk of bone density loss. This is usually reversible once this medication is stopped.Wh ile on this medication recommend increasing calcium in diet & taking calcium 1300mg-180 0mg daily along with shannan D daily to prevent bone loss along with regular exercise. There is less of a risk of bone loss after age 18yo.After 3-5yrs use it may be recommende d to complete a dexa scan.This can be discussed with your healthcare provider. [id number] NELLIE Khoury [place] [address] [address] 03/12/2023 09:56:47 03/12/2023 10:28:22 Contraception care management [id number] Z30.9 Depo-Prove ra is a female hormonal method of control. It s very effective in preventing . Depo-Prove ra contains a synthetic (man-made) form of the hormone progestero ne, called depo medroxypro gesterone acetate (DMPA). The Depo-Prove ra injection gives 3 months protectio n against . You should get one injection every 3 months (13 weeks) to get the best protection against . It s safe to get your injection up to 3 weeks earlier if you can t get your next injection in exactly 13 weeks. Condoms or other secondary BC method is advised for at least the first 4wks.Possi ble SE's include: Mood changes, AUB, Dizziness, H/A's, bloating, loss of menstrual cycle, weight gain approx 5#'s every year for the first 3yrs.Does not prevent against STD's.Typi patito use only 6 out of every 100 women will become .P erfect use only 1 out of every 100 women will become .I t is recommende d for Depo to be initiated at least 2yrs after you have started your menstrual cycle to protect bone health as there is a risk of bone density loss. This is usually reversible once this medication is stopped.Wh ile on this medication recommend increasing calcium in diet & taking calcium 1300mg-180 0mg daily along with shannan D daily to prevent bone loss along with regular exercise. There is less of a risk of bone loss after age 18yo.After 3-5yrs use it may be recommende d to complete a dexa scan.This can be discussed with your healthcare provider. [id number] Hallie Reddy [place] [address] [address] 05/28/2023 09:15:05 05/28/2023 14:12:33 Contraception care management [id number] Z30.9 Depo-Prove ra is a female hormonal method of control. It s very effective in preventing . Depo-Prove ra contains a synthetic (man-made) form of the hormone progestero ne, called depo medroxypro gesterone acetate (DMPA). The Depo-Prove ra injection gives 3 months protectio n against . You should get one injection every 3 months (13 weeks) to get the best protection against . It s safe to get your injection up to 3 weeks earlier if you can t get your next injection in exactly 13 weeks. Condoms or other secondary BC method is advised for at least the first 4wks.Possi ble SE's include: Mood changes, AUB, Dizziness, H/A's, bloating, loss of menstrual cycle, weight gain approx 5#'s every year for the first 3yrs.Does not prevent against STD's.Typi patito use only 6 out of every 100 women will become .P erfect use only 1 out of every 100 women will become .I t is recommende d for Depo to be initiated at least 2yrs after you have started your menstrual cycle to protect bone health as there is a risk of bone density loss. This is usually reversible once this medication is stopped.[facility] on this medication recommend increasing calcium in diet & taking calcium 1300mg-180 0mg daily along with shannan D daily to prevent bone loss along with regular exercise. There is less of a risk of bone loss after age 18yo.After 3-5yrs use it may be recommende d to complete a dexa scan.This can be discussed with your healthcare provider. [id number] Miri Gonzalez [place] [address],[place] [address] 08/13/2023 10:20:30 08/13/2023 10:58:20 Contraception care management [id number] Z30.9 Discussed common SE of irregular/ unschedule d periods when starting DMPA, which should regulate out over time. She likes depo and desires to continue with this methodgc/c t/trich testing sentwe agreed for her to continue to monitor bleeding - if irregulari ties persist return to clinic for further evaluation , precaution s reviewed Time spent in visit is a total of 20mins with at least 50% of visit consisting of counseling and review of plan of care. [id number] Lynne Leal CARMEN [place] [address],[place] [address] 10/30/2023 09:14:37 10/30/2023 10:37:31 Contraception care management [id number] Z30.9 [id number] Tita Brody [place] [address],[place] [address] 01/15/2024 10:48:30 01/15/2024 10:59:12 Contraception care management [id number] Z30.9 [id number] JOCELYNN COSTA MD [place] [address] [address] 07/15/2024 09:13:36 07/20/2024 02:47:30 Upper abdominal pain [id number] R10.10 - patient reports constant upper abdominal pain across both quadrants and midline- no relation to menstrual cycles- has had workup with GI, no causes found- no improvemen t with depo menstrual suppressio n- discussed typical pathophysi ology of endometrio sis, as well as usual symptom profile- discussed that patient's pain is not typical endometrio sis pain, given upper abdominal symptoms without any pelvic symptoms or relation to menstrual cycle- discussed endometrio sis treatments including hormonal control, medication such as Orlissa or MyFembree, or diagnostic laparoscop y- would recommend further evaluation with GI given current symptoms- patients voices understand ing [id number] Renetta Wetzel [place] [address] [address] 08/13/2024 14:31:45 08/13/2024 14:55:57 Contraception care management [id number] Z30.9 Health Concerns Section Related Observation LastModified by Organization Detai ls LastModified Time None Recorded Concern Status LastModified by Organization Details LastModified Time None Recorded Advance Directives Directive None Recorded Payers Encounter Date Sequence Insurance Name Policy Number Policy Cortes Covered Member ID Cortes Member ID Guarantor Name 08/13/2023 1 [facility] ON OR AFTER 12/14/20 (MEDICAID REPLACEMENT - HMO) Rosibel Lior [id number] [place]ibel [place] 10/30/2023 1 [facility] - [facility] ON OR AFTER 20 (MEDICAID REPLACEMENT - HMO) [place]ibel [place] [id number] Rosibel Lior 01/15/2024 1 [facility] - DOS ON OR AFTER 20 (MEDICAID REPLACEMENT - HMO) [place]ibel [place] [id number] Rosibel Lior 07/15/2024 1 [facility] - DOS ON OR AFTER 20 (MEDICAID REPLACEMENT - HMO) [place]ibel [place] [id number] Rosibel [place] 08/13/2024 1 [facility] - DOS ON OR AFTER 20 (MEDICAID REPLACEMENT - HMO) Rosibel Tinajero [id number] Rosibel [place] Notes Date Note Type Note Provider Name and Address Organization Details Recorded Time 08/13/2023 text/html 22yo [id number] for f/u on DMPArestarted DMPA for BC on 03/11/23no bleeding with DMPA until recently, had 3 weeks of light bleeding. No bleeding todayno new partnersneg discharge, odors, itchingneg pelvic painneg n/v/fpap UTD - 03/11/2023, normal Miri Gonzalez [facility] [place] [facility] 08/13/2023 11:06:15 07/15/2024 text/html Patient presents for evaluation of abdominal pain. She reports the pain has been present since 7th grade. The pain is daily, in the upper abdomen. The pain is sometimes so severe that she vomits. It is usually in the morning, regardless of meals. She also has it sometimes at night. It gradually worsens and last for 30 min to all day. She was previously on depo, last injection in March. She has been seen by GI. She has had a CT scan, swallow study, barium XR, endoscopy. She has also had an appendectomy (2019) and cholecystectomy (2017) with no relief. No mention of endometriosis or other pelvic abnormalities on op note. She has a family hx of endometriosis and PCOS. Denies worsening pain during her menses or heavy menstrual bleeding prior to starting depo. Has not yet had resumption of menses after depo injection. No pelvic pain. No dyspareunia. JOCELYNN COSTA MD [address], [place], [address], [facility] 07/19/2024 22:55:24 OBGyn Episode No OBEpisode recorded.
[2024-08-25 09:51] VITALS: BP 115/62; PULSE 78; RESP 17; TEMP 36.4; O2SAT 100
[2024-08-25 10:08] LABS: EDCOVIDSCREEN Negative (Negative); EDINFLUASCREEN Negative (Negative); EDINFLUBSCREEN Negative (Negative)
== END 2024-08-25 10:00 | disposition home or self-care (01) ==
PROVIDERS: Emergency Provider Nurse Practitioner Family; PCP Nurse Practitioner Family
DX: B34.9 Viral infection, unspecified (principal); J06.9 Acute upper respiratory infection, unspecified; J02.9 Acute pharyngitis, unspecified; Z20.822 Contact with and (suspected) exposure to COVID-19; F17.290 Nicotine dependence, other tobacco product, uncomplicated; F41.9 Anxiety disorder, unspecified
CPT/HCPCS: 87081; 87426; 87804; 87880; 99213; G0463

== ENCOUNTER 2024-09-05 12:00 | Emergency (ER) | payer OTHER, SELFPAY ==
--- NOTE | ~2024-09-05 | CT_ITS ---
EXAMINATION: CT abdomen pelvis w con DATE: 09/05/2024 14:45 INDICATION: Diffuse abdominal pain TECHNIQUE: Computed tomography (CT) of the abdomen and pelvis was performed with 100 CC Omnipaque 350 intravenous contrast. Automated exposure control and iterative reconstruction technique were employe d. Exam dose: 225.40 mGy-cm total exam DLP. COMPARISON: 08/15/2024 CT abdomen pelvis 09/17/2023 CT abdomen pelvis 10/02/2022 CT abdomen pelvis FINDINGS: The lung bases are clear. Or consolidation. Normal heart size. No pericardial or pleural ef fusion. Status post cholecystectomy. No bile duct or pancreatic duct dilatation. Normal splenic size. No hepatic, splenic, pancreatic, adrenal or renal space occupying mass lesion. No urinary tract calculus or hydroureteronephrosis. Normal caliber of the abdominal aorta. No intraperitoneal or retroperitoneal or pelvic mass lesion or adenopathy or ascites. Status post appendectomy. No bowel obstruction, bowel wall thickening, pneumatosis or intraperitoneal free air. Included skeletal structures are unremarkable. IMPRESSION: Status post cholecystectomy and appendectomy No significant abnormality Reviewed, dictated and finalized at [facility]. Reviewed, dictated and finalized at [facility].
--- OUTSIDE RECORDS SUMMARY | 2024-09-05 12:02 | XMS_ITS | Data Portability ---
Author Organization [facility] [place] Address [address] [place] [place] [address] [place] [address] Assessment Encounter Date Assessment Date Assessment LastModified by Organization Details LastModified Time 07/15/2024 07/15/2024 Greater than 30 minutes was spent in total between discussion with the patient, examination, and coordination of care. [email or web address] Not available 07/19/2024 22:55:15 Plan of Treatment Reminders Order Date Submit Date Provider Last Modified By Organization Details Last Modified Time Details Appointments None recorded. Lab test, urine 2024 025 [email or web address] [place], [address], [address], [place], [address], 5 14:54:30 test, urine 2023 024 [email or web address] [place], [address], [address], [place], [address], 4 10:57:18 Referral None recorded. Procedures None recorded. Surgeries None recorded. Imaging None recorded. Medication Orders Depo-Audio Video Technician a 150 mg/mL intramuscul ar syringe 2024 025 [email or web address] Not available 5 19:07:25 Depo-Audio Video Technician a 150 mg/mL intramuscul ar syringe 2023 024 [email or web address] Not available 5 09:35:29 Depo-Audio Video Technician a 150 mg/mL intramuscul ar syringe 2023 024 [email or web address] Not available 09:35:29 Depo-Audio Video Technician a 150 mg/mL intramuscul ar suspension 2023 024 [email or web address] Not available 09:35:44 Patient TargetsNo targets recorded. Patient InstructionsNo instructions recorded. Reason for Referral None Reported. Results Created Date Observation Date Name Description Value Unit Range Abnormal Flag Note LastModifiedBy Organization Detail LastModifiedTime 08/13/19 24 08/13/2023 pregn brayan test, urine HCG negati ve Not Available [facility] [address], [place], [address], 08/13/2023 10:56:58 08/13/19 24 08/13/2023 urina lysis , dipst ick Blood trace Not Available [facility] [address], [place], [address], 08/13/2023 10:41:02 08/13/19 24 08/13/2023 urina lysis , dipst ick Appearance clear Not Available [facility] [email or web address] [address], [place], [address], 08/13/2023 10:41:02 08/13/19 24 08/13/2023 urina lysis , dipst ick Color pale yellow Not Available [facility] [place] [address], [place], [address], 08/13/2023 10:41:02 08/13/19 24 08/13/2023 pregn brayan test, urine HCG negati ve Not Available [facility] [address], [place], [address], 08/13/2023 10:40:35 Result Notes None recorded. Procedures Surgical History Date Name Laterality Status Provider Name and Address Organization Details Recorded Time 023 Date of Last Pap Smear completed Tita Skinner [facility] 07/15/2024 09:36:12 Appendectomy completed Martha Hernandez [facility] 03/11/2023 10:29:39 cholecystectomy completed Martha Hernandez [facility] 03/11/2023 10:29:52 Imaging Results None recorded. Procedure Notes None recorded. Medical Equipment None Reported. Allergies Allergen ID Allergen Name Allergen Category Reaction Reaction Severity Criticality Documentation Date Start Date Code Code System Note Provider Name and Address Organization Details Recorded Time Product containin g penicilli n (product) medicatio n Not available Not available Not available 03/11/2023 [id number] SNOMED Martha wu [facility] 10:27:27 Medications Name Sig Start Date [...] Updated DateTime 08/13/2023 157.48 cm 25.6 kg/m2 97860.93 g 117 mm[Hg] 76 mm[Hg] Miri [facility] 4 10:31:14 Date Recorded Body height Provider Name an d Address Organization Details Last Updated DateTime 10/30/2023 157.48 cm [facility] 10/30/2023 09:29:51 Date Recorded Body height Body mass index (BMI) Body weight Systolic blood pressure Diastolic blood pressure Provider Name and Address Organization Details Last Updated DateTime 07/15/2024 157.48 cm 26.7 kg/m2 48557.49 g 128 mm[Hg] 81 mm[Hg] Tita Skinner [facility] 5 09:34:54 Date Recorded Body height Body mass index (BMI) Body weight Systolic blood pressure Diastolic blood pressure Provider Name and Address Organization Details Last Updated DateTime 08/13/2024 157.48 cm 26.5 kg/m2 88654.89 g 120 mm[Hg] 78 mm[Hg] Renetta Wetzel [facility] 5 14:49:40 Social History Question Answer Notes LastModified by Organizat ion Details LastModified Time Tobacco Smoking Status Never Smoker Martha Hernandez [facility] 03/11/2023 10:29:21 What Is Your Level Of Alcohol Consumption? Occasional Information not available 03/11/2023 How Many Years Have You Consumed Alcohol? 3 [email or web address] Information not available 07/15/2024 Are You Blind Or Do You Have Difficulty Seeing? No Information n ot available 03/11/2023 What Is Your Level Of Caffeine Consumption? Occasional [email or web address] Information not available 07/15/2024 How Much Tobacco Do You Chew? None [email or web address] Information not available 07/15/2024 In The 14 Days Before Symptom Onset, Have You Had Close Contact With A Laboratory-confirm ed COVID-19 While That Case Was Ill? No [email or web address] Information n ot available 07/15/2024 In The 14 Days Before Symptom Onset, Have You Had Close Contact With A Person Who Is Under Investigation For COVID-19 While That Person Was Ill? No [email or web address] Information not available 07/15/2024 Have You Been To An Area Known To Be High Risk For COVID-19? No [email or web address] Information not available 07/15/2024 Are You Deaf Or Do You Have Serious Difficulty Hearing? No Information not available 03/11/2023 Which Illicit Or Recreational Drugs Have You Used? Marijuana Information not available 03/11/2023 What Is The Highest Grade Or Level Of School You Have Completed Or The Highest Degree You Have Received? [id number] Information not available 07/15/2024 Are There Any Guns Present In Your Home? No [email or web address] Information not available 07/15/2024 Do You Use Protection During Sex? No [email or web address] Information not available 07/15/2024 Do You Use Your Seat Belt Or Car Seat Routinely? Yes [email or web address] Information not available 07/15/2024 Do You Have Smoke And Carbon Monoxide Detectors In Your Home? Yes [email or web address] Information not available 07/15/2024 How Much Tobacco Do You Smoke? No [email or web address] Information not available 07/15/2024 Do You Feel Stressed (tense, Restless, Nervous, Or Anxious, Or Unable To Sleep At Night)? [id number] [email or web address] Information not available 07/15/2024 Do You Use Any Illicit Or Recreational Drugs? Yes Information not available 03/11/2023 Do You Use Sunscreen Routinely? Yes Information not available 07/15/2024 Have You Used IV Drugs? No [email or web address] Information not available 07/15/2024 Sex: Unknown Functional [...] 03/11/2023 What is your exercise level? Occasional [email or web address] Information not available 07/15/2024 Mental Status None [...] (Food, seasonal, environmental ) N Other N Breast Cancer N Drug/Latex Allergies/Reactions N Blood Transfusion N Dermatologic Disorders N Lung Disease N Defects or Inherited Disease N Breast Problem N Gestational Diabetes N Hematologic disorders N Anesthesia Complications N History of STI N Deep Vein Thrombosis N Polycystic ovary syndrome N Anxiety Disorder N Autoimmune disease N Arthritis N Infertility N Polyps N Acid Reflux (GERD) N History of abnormal pap N Cancer N Stroke N Varicosities N Neurologic/Epilepsy N Endometriosis N High Cholesterol N Headaches N Fibromyalgia N Kidney Disease N Heart Problems N Kidney or Bladder Problems N Thyroid Problems N GI Problems N Eating Disorder [...] of Flow (days) 5 Current Control Method Depo-Audio Video Technician a Are cycles usually normal N Sexually [...] SNOMED-CT Code Diagnosis ICD10 Code Diagnosis Note [id number] NELLIE Khoury [facility] [address] [address] 03/11/2023 10:06:00 03/11/2023 10:55:35 Gynecologic examination [id number] Z01.419 Take Calcium with Vitamin D daily [...] for injection tomorrow Contracept ion care management [id number] Z30.9 Depo-Prove ra is a female hormonal [...] can be discussed with your healthcare provider. [id number] NELLIE Khoury [facility] [address] [address] 03/12/2023 09:56:47 03/12/2023 10:28:22 Contraception care management [id number] Z30.9 Depo-Prove ra is a female hormonal [...] can be discussed with your healthcare provider. [id number] Hallie Reddy [facility] [address] [address] 05/28/2023 09:15:05 05/28/2023 14:12:33 Contraception care management [id number] Z30.9 Depo-Prove ra is a female hormonal [...] is usually reversible once this medication is stopped.[facility] on this medication recommend increasing calcium in diet & taking calcium 1300mg-180 0mg daily along with shannan D daily to prevent bone loss along with regular exercise. There is less of a risk of bone loss after age 18yo.After 3-5yrs use it may be recommende d to complete a dexa scan.This can be discussed with your healthcare provider. [id number] Miri Gonzalez [facility] [address],[place] [address] 08/13/2023 10:20:30 08/13/2023 10:58:20 Contraception care management [id number] Z30.9 Discussed common SE of irregular/ unschedule [...] counseling and review of plan of care. [id number] Lynne Leal CARMEN [facility] [address],[place] [address] 10/30/2023 09:14:37 10/30/2023 10:37:31 Contraception care management [id number] Z30.9 [id number] Tita Brody [facility] [address],[place] [address] 01/15/2024 10:48:30 01/15/2024 10:59:12 Contraception care management [id number] Z30.9 [id number] JOCELYNN COSTA MD [facility] [address] [address] 07/15/2024 09:13:36 07/20/2024 02:47:30 Upper abdominal pain [id number] R10.10 - patient reports constant upper abdominal [...] given current symptoms- patients voices understand ing [id number] Renetta Wetzel [facility] [place] [address] [address] 08/13/2024 14:31:45 08/13/2024 14:55:57 Contraception care management [id number] Z30.9 Health Concerns Section Related Observation LastModified by Organization Detai ls LastModified Time None Recorded Concern Status LastModified by Organization Details LastModified Time None Recorded Advance Directives Directive None Recorded Payers Encounter Date Sequence Insurance Name Policy Number Policy Cortes Covered Member ID Cortes Member ID Guarantor Name 08/13/2023 1 [facility] ON OR AFTER 12/14/20 (MEDICAID REPLACEMENT - HMO) Rosibel Lior [id number] Rosibel Petal 10/30/2023 1 [facility] - DOS ON OR AFTER 20 (MEDICAID REPLACEMENT - HMO) Rosibel Petal [id number] Rosibel Lior 01/15/2024 1 [facility] - DOS ON OR AFTER 20 (MEDICAID REPLACEMENT - HMO) Rosibel Petal [id number] Rosibel Lior 07/15/2024 1 [facility] - DOS ON OR AFTER 20 (MEDICAID REPLACEMENT - HMO) Rosibel Petal [id number] Rosibel Petal 08/13/2024 1 [facility] - DOS ON OR AFTER 20 (MEDICAID REPLACEMENT - HMO) Rosibel Tinajero [id number] Rosibel Tinajero Notes Date Note Type Note Provider Name and Address Organization Details Recorded Time 08/13/2023 text/html 22yo [id number] for f/u on DMPArestarted DMPA for BC on 03/11/23no bleeding with DMPA until recently, had 3 weeks of light bleeding. No bleeding todayno new partnersneg discharge, odors, itchingneg pelvic painneg n/v/fpap UTD - 03/11/2023, normal Miri Gonzalez [facility], [place] - [facility] 08/13/2023 11:06:15 07/15/2024 text/html Patient presents [...] dyspareunia. JOCELYNN COSTA MD [address], [place], [address], [facility] 07/19/2024 22:55:24 OBGyn Episode No OBEpisode recorded.
[2024-09-05 12:23] VITALS: BP 136/94; PULSE 75; RESP 20; TEMP 36.2; O2SAT 100
[2024-09-05 13:10] LABS: Basophils Absolute Auto 0.1 K/mm3 (0.0-0.1); Basophils Percent Auto 0.5 % (0.2-1.2); Eosinophils Absolute Auto 0.1 K/mm3 (0-0.3); Eosinophils Percent Auto 0.3 % (0-4.4); Hematocrit 42.7 % (37.0-47.0); Hemoglobin 15.1 g/dL (12.0-15.0); Immature Granulocyte Absolute 0.05 K/mm3 (0.00-0.031); Immature Granulocyte Percent A 0.3 % (0-0.5); Lymphocytes Absolute Auto 3.67 K/mm3 (0.9-3.2); Lymphocytes Percent Auto 20.8 % (18.3-44.2); Mean Corpuscular HGB Conc 35.4 g/dl (32-36); Mean Corpuscular Volume 84.7 fl (80-100); Monocytes Absolute Auto 1.1 K/mm3 (0.1-0.6); Neutrophils Absolute Auto 12.7 K/mm3 (1.3-6.7); Neutrophils Percent Auto 72.1 % (45.5-73.1); Platelet Count Result 273 k/mm3 (150-375); Red Blood Count 5.04 M/mm3 (4.2-5.4); Red Cell Distribution Width 12.3 % (11.5-14.5); White Blood Count 17.6 K/mm3 (4.5-10.0)
[2024-09-05 13:16] LABS: Alanine Aminotransferase 24 U/L (6-35); Albumin Level 4.9 g/dL (3.5-5.1); Alkaline Phosphatase 144 U/L (38-126); Anion Gap 14 mmol/L (4-12); Aspartate Amino Transferase 26 U/L (14-36); Bilirubin,Total 0.8 mg/dL (0.2-1.3); Blood Urea Nitrogen 7 mg/dL (7-17); Calcium 9.8 mg/dL (8.4-10.2); Carbon Dioxide 21 mmol/L (22-30); Chloride 106 mmol/L (98-107); Estimated CRCL calculation 83 ml/min; Estimated Glomerular Filt Rate > 60; Glucose 146 mg/dL (65-110); Lipase 68 U/L (23-300); Potassium 3.3 mmol/L (3.4-5.0); Sodium 141 mmol/L (137-145)
[2024-09-05 13:44] LABS: Influenza A QL RT-PCR Negative (Negative); Influenza B QL RT-PCR Negative (Negative); RSV RNA, RT-PCR Negative (Negative); SARS-CoV-2 RNA PCR Negative (Negative)
[2024-09-05 13:44] LABS: BEDSIDEPREGUCG Negative (Negative)
[2024-09-05 13:57] LABS: Add Urine Microscopic? YES; Appearance Urine Cloudy (Clear); Bacteria Urine 2+ /hpf; Bilirubin Urine Negative (Negative); Blood Urine Negative (Negative); Calcium Oxalate Crystals Urine Present /hpf; Color Urine Yellow (Yellow); Glucose Urine UA Negative (Negative); Ketones Urine 3+ mg/dL (Negative); Leukocyte Esterase Ur Negative LEU/UL (Negative); Mucus Urine Present /lpf; Nitrate Urine Negative (Negative); Non Pathogenic Casts 0-2; Protein Urine 1+ mg/dL (Negative); RBC Urine 0-2 /hpf (0-2); Squamous Epithelial Cell Urine Moderate /hpf (Few)
[2024-09-05] MEDS: SODIUM CHLORIDE 0.9% IV 1,000 ML 999 ML IV CONT (14:13)
[2024-09-05] MEDS: ONDANSETRON INJ 4 MG/2 ML VIAL IV PUSH (14:13)
--- NOTE | 2024-09-05 14:46 | ED_ITS ---
HPI - General Adult General Chief complaint: Nausea/Vomiting/Diarrhea Stated complaint: n/v since last night Time Seen by Provider: 09/05/24 13:48 History of Present Illness HPI narrative: 23-year-old female present to the emergency department for evaluation for nausea vomiting diarrhea and abdominal pain. Patient reports that the symptoms all started last night. Patient states that she is passing stool and flatus. Patient has prior history of cholecystectomy and appendectomy. Upon arrival emergency department patient is uncomfortable and distressed appearing. Related Data Allergies Allergy/AdvReac Type Severity Reaction Status Date / Time Penicillins AdvReac Intermediate Difficulty Verified 09/05/24 12:03 Breathing Review of Systems 2 Review of Systems: All systems reviewed & are unremarkable except as noted in HPI and below PMFSH Past Medical History Medical History Family history of bipolar disorder Anxiety Leukocytosis Abdominal pain Migraine Surgical History Surgical History History of laparoscopic appendectomy 09/30/2022 History of cholecystectomy Family History Family History Father Hypertension Depression Mother Depression Grandparent Cancer Hypertension Thyroid disorder Heart disease Other No pertinent family history Social History Social History Social History: Patient is very confident filling out medical forms. 05/07/24 Smoking status: Current every day smoker Tobacco type: e-cigarettes/vaping Alcohol intake: current Alcohol use details: Social Substance use: former Substance use type: marijuana Last use: 09/15/23 Do You Feel Safe in your Home?: Yes Lack of Transportation: No Lack of Food: Never True Current Housing: I Have Housing Concerned About Future Housing: No Difficulty Paying Gas/Electric Bills: No Difficulty Paying for Meds: No Currently Unemployed: No Education: Grade School Difficulty w/ Childcare or Family Care: No Living arrangements: with family Occupation/Education: occupation Additional occupation/education comments: [employer] Gender identity (if verbalized by the patient): Female Spiritual care concerns: No Exam 2 Narrative: APPEARANCE: Uncomfortable appearing HEAD: normocephalic, atraumatic. EYES: PERRLA/EOMI, conjunctivae clear. NOSE: Normal no drainage EARS:TMS clear with good light reflex. THROAT: Pharynx clear, no exudate. NECK: Supple. No adenopathy, no masses. RESPIRATORY: Airway patent, respirations nonlabored. Clear to auscultation bilaterally, no rales, rhonchi, wheezing. CARDIOVASCULAR: Regular rate and rhythm without murmurs rubs or gallops. ABDOMINAL: Soft, nontender, nondistended, normal bowel sounds MUSCULOSKELETAL: Moves all extremities. Strength/ROM intact, No edema, No calf tenderness. NEURO: Alert. Cranial nerves II through XII intact. SKIN: Warm, dry. Normal Color Course Vital Signs Vital signs: Vital Signs Temperature 97.1 F L 09/05/24 12:23 Pulse Rate 75 09/05/24 12:23 Respiratory Rate 20 09/05/24 12:23 Blood Pressure 136/94 H 09/05/24 12:23 Pulse Oximetry 100 09/05/24 12:23 Oxygen Delivery Room Air 09/05/24 12:23 Temperature 97.1 F L 09/05/24 12:23 Pulse Rate 53 L 09/05/24 16:05 Respiratory Rate 20 09/05/24 12:23 Blood Pressure 116/71 09/05/24 16:05 Pulse Oximetry 100 09/05/24 12:23 Oxygen Delivery Room Air 09/05/24 12:23 Medical Decision Making [facility] Narrative Medical decision making narrative: 23-year-old female presents emergency department for evaluation for nausea vomiting diarrhea. Patient does have history of cyclic nausea and vomiting has been going on since she was 12. Patient does have history of THC use. Patient states that she has attempted to quit marijuana for periods of time and does not feel that this is related to her marijuana use. Patient does have a leukocytosis of 17.6 but patient states that she often does have a reactive leukocytosis with her nausea and vomiting. Patient's hemoglobin is 15.1. No significant abnormalities on the patient's CMP patient's UA was concerning for urinary tract infection and patient was started on antibiotics. Patient was negative for influenza RSV and for COVID and CT scan showed no explanation for the patient's symptoms. On re-evaluation after IV Toradol, IM Bentyl, IV Phenergan and IV fluids patient states her symptoms have resolved. Patient was educated on the possibility that this is cannabinoid hyperemesis syndrome. Differential Diagnosis Differential Diagnosis: Cannabinoid hyperemesis syndrome, colitis, diverticulitis, urinary tract infection, enteritis, dehydration, nausea vomiting, COVID, RSV, influenza Vital Signs Vital Signs: Vital Signs Temperature 97.1 F L 09/05/24 12:23 Pulse Rate 75 09/05/24 12:23 Respiratory Rate 20 09/05/24 12:23 Blood Pressure 136/94 H 09/05/24 12:23 Pulse Oximetry 100 09/05/24 12:23 Oxygen Delivery Room Air 09/05/24 12:23 Temperature 97.1 F L 09/05/24 12:23 Pulse Rate 53 L 09/05/24 16:05 Respiratory Rate 20 09/05/24 12:23 Blood Pressure 116/71 09/05/24 16:05 Pulse Oximetry 100 09/05/24 12:23 Oxygen Delivery Room Air 09/05/24 12:23 Lab Data Lab results reviewed: Yes I reviewed the patient's lab results. 09/05/24 13:01 09/05/24 13:01 Labs: Lab Results 09/05/24 09/05/24 09/05/24 Range/Units 13:01 13:27 13:44 WBC 17.6 H (4.5-10.0) K/mm3 RBC 5.04 (4.2-5.4) M/mm3 Hgb 15.1 H (12.0-15.0) g/dL Hct 42.7 (37.0-47.0) % MCV 84.7 (80-100) fl MCH 30.0 (26-34) pg MCHC 35.4 (32-36) g/dl RDW 12.3 (11.5-14.5) % Plt Count 273 (150-375) k/mm3 MPV 11.0 H (7.4-10.4) fl Immature Gran % (Auto) 0.3 (0-0.5) % Neut % (Auto) 72.1 (45.5-73.1) % Lymph % (Auto) 20.8 (18.3-44.2) % [place] % (Auto) 6.0 (2.6-8.5) % Eos % (Auto) 0.3 (0-4.4) % Baso % (Auto) 0.5 (0.2-1.2) % Lymph # (Auto) 3.67 H (0.9-3.2) K/mm3 [place] # (Auto) 1.1 H (0.1-0.6) K/mm3 Eos # (Auto) 0.1 (0-0.3) K/mm3 Baso # (Auto) 0.1 (0.0-0.1) K/mm3 Abs Immat Gran (auto) 0.05 H (0.00-0.031) K/mm3 Absolute Neuts (auto) 12.7 H (1.3-6.7) K/mm3 Absolute Nucleated RBC 0.000 (0.0-0.012) K/mm3 Nucleated RBC % 0.0 (0.0-0.2) % Sodium 141 (137-145) mmol/L Potassium 3.3 L (3.4-5.0) mmol/L Chloride 106 (98-107) mmol/L Carbon Dioxide 21 L (22-30) mmol/L Anion Gap 14 H (4-12) mmol/L BUN 7 (7-17) mg/dL Creatinine 0.73 (0.7-1.0) mg/dL Estim Creat Clear Calc 83 ml/min Estimated GFR > 60 (59 - ) Glucose 146 H (65-110) mg/dL Calcium 9.8 (8.4-10.2) mg/dL Total Bilirubin 0.8 (0.2-1.3) mg/dL AST 26 (14-36) U/L ALT 24 (6-35) U/L Alkaline Phosphatase 144 H (38-126) U/L Total Protein 9.0 H (6.3-8.2) g/dL Albumin 4.9 (3.5-5.1) g/dL Lipase 68 (23-300) U/L Urine Color Yellow (Yellow) Urine Appearance Cloudy H (Clear) Urine pH 6.0 (5.0-9.0) Ur Specific [place] 1.030 (1.001-1.035) Urine Protein 1+ H (Negative) mg/dL Urine Glucose (UA) Negative (Negative) mg/dL Urine Ketones 3+ H (Negative) mg/dL Ur Blood (Man) Negative (Negative) Urine Nitrate Negative (Negative) Urine Bilirubin Negative (Negative) Urine Urobilinogen 1.0 (<2.0) mg/dL Leukocyte Esterase Rfl Negative (Negative) NICK/UL Urine RBC 0-2 (0-2) /hpf Urine WBC 6-10 H (0-3) /hpf Ur Squamous Epith Cells Moderate (Few) /hpf Calcium Oxalate Crystal Present (None) /hpf Urine Bacteria 2+ H /hpf Urine Casts 0-2 Urine Mucus Present /lpf POC Urine HCG, Qual Negative (Negative) Influenza A (RT-PCR) Negative (Negative) Influenza B (RT-PCR) Negative (Negative) RSV (RT-PCR) Negative (Negative) SARS-CoV-2 RNA (RT-PCR) Negative (Negative) Imaging Data Radiologist's impression: Impressions Abdomen/Pelvis CT 09/05/24 14:49 IMPRESSION: Status post cholecystectomy and appendectomy No significant abnormality Discharge Plan Discharge Clinical Impression: Cyclic vomiting syndrome, Urinary tract infection Patient Disposition: Home, Self-Care Condition: Stable Instructions: Antibiotic Form, Acute Nausea and Vomiting (ED), Abdominal Pain (ED) Additional Instructions: Phenergan as needed for nausea control. Antibiotic as directed until completed. Have close follow-up with your primary care physician. I do recommend to continue to educate yourself on cannabinoid hyperemesis syndrome. Patient Language: Ghanaian Prescriptions: New promethazine 25 mg tablet 25 mg PO TID PRN (Reason: nausea and vomiting) Qty: 30 0RF cephalexin 500 mg capsule 500 mg PO Q8H 7 Days Qty: 21 0RF No Action ondansetron 4 mg tablet,disintegrating 4 mg PO Q6H PRN (Reason: nausea and vomiting) Qty: 30 0RF promethazine 25 mg suppository 25 mg RECTAL Q6H PRN (Reason: nausea and vomiting) Qty: 12 0RF sumatriptan succinate 50 mg tablet See Rx Instructions PO .COMPLEX Qty: 10 4RF Rx Instructions: take 1 tab at onset of headache; if no relief may repeat 1 tab after at least 2 hrs; max = 4 tabs/24 hr PO omeprazole 40 mg capsule,delayed release(DR/EC) See Rx Instructions .ROUTE .COMPLEX Qty: 30 0RF Dose Instruction: TAKE 1 CAPSULE BY MOUTH DAILY Rx Instructions: TAKE 1 CAPSULE BY MOUTH DAILY duloxetine [Cymbalta] 60 mg capsule,delayed release(DR/EC) 60 mg PO DAILY Qty: 90 1RF amitriptyline 10 mg tablet 10 mg PO QHS Qty: 90 0RF Follow-up/Referrals: Jaelyn Mccormack APRN [Primary Care Provider] -
[2024-09-05] MEDS: HYDROmorphone HCL INJ (*CRX) 1 MG/ML SYR IV PUSH (15:11)
[2024-09-05] MEDS: PROMETHAZINE HCL 25 MG/ML AMPUL 12.5 MG IV PUSH (15:55)
[2024-09-05] MEDS: SODIUM CHLORIDE 0.9% IV 100 ML 250 ML (15:57)
[2024-09-05 16:01] VITALS: BP 112/67; PULSE 55
[2024-09-05 16:04] VITALS: BP 121/74; PULSE 52
[2024-09-05 16:05] VITALS: BP 116/71; PULSE 53
[2024-09-05] MEDS: KETOROLAC 15 MG/ML VIAL (*BKC) IV PUSH (16:28)
[2024-09-05] MEDS: DICYCLOMINE HCL INJ 20 MG/2 ML VIAL IM (16:31)
== END 2024-09-05 17:28 | disposition home or self-care (01) ==
PROVIDERS: Emergency Provider Emergency Medicine; PCP Nurse Practitioner Family
DX: R11.15 Cyclical vomiting syndrome unrelated to migraine (principal); N39.0 Urinary tract infection, site not specified; F17.290 Nicotine dependence, other tobacco product, uncomplicated; Z20.822 Contact with and (suspected) exposure to COVID-19
CPT/HCPCS: 36415; 74177; 80053; 81001; 81025; 83690; 85025; 87637; 96361; 96365; 96372; 96375; 99284; J0500; J0696; J1171; J1885; J2405; J2550; J7030; Q9967

== ENCOUNTER 2024-09-06 06:55 | Emergency (ER) | payer OTHER, SELFPAY ==
[2024-09-06 07:06] VITALS: BP 139/84; PULSE 74; RESP 17; TEMP 36.6; O2SAT 98
[2024-09-06 07:51] LABS: Basophils Absolute Auto 0.1 K/mm3 (0.0-0.1); Basophils Percent Auto 0.4 % (0.2-1.2); Eosinophils Absolute Auto 0.1 K/mm3 (0-0.3); Eosinophils Percent Auto 0.6 % (0-4.4); Hematocrit 39.1 % (37.0-47.0); Hemoglobin 13.4 g/dL (12.0-15.0); Immature Granulocyte Absolute 0.05 K/mm3 (0.00-0.031); Immature Granulocyte Percent A 0.4 % (0-0.5); Lymphocytes Absolute Auto 3.68 K/mm3 (0.9-3.2); Lymphocytes Percent Auto 32.8 % (18.3-44.2); Mean Corpuscular HGB Conc 34.3 g/dl (32-36); Mean Corpuscular Hemoglobin 29.8 pg (26-34); Mean Corpuscular Volume 87.1 fl (80-100); Mean Platelet Volume 11.1 fl (7.4-10.4); Monocytes Percent Auto 8.6 % (2.6-8.5); Neutrophils Absolute Auto 6.4 K/mm3 (1.3-6.7); Neutrophils Percent Auto 57.2 % (45.5-73.1); Platelet Count Result 223 k/mm3 (150-375); Red Blood Count 4.49 M/mm3 (4.2-5.4); Red Cell Distribution Width 12.5 % (11.5-14.5); White Blood Count 11.2 K/mm3 (4.5-10.0)
[2024-09-06 08:04] LABS: Alanine Aminotransferase 21 U/L (6-35); Albumin Level 4.2 g/dL (3.5-5.1); Alkaline Phosphatase 106 U/L (38-126); Anion Gap 10 mmol/L (4-12); Aspartate Amino Transferase 21 U/L (14-36); Bilirubin,Total 0.6 mg/dL (0.2-1.3); Blood Urea Nitrogen 7 mg/dL (7-17); Calcium 8.9 mg/dL (8.4-10.2); Carbon Dioxide 25 mmol/L (22-30); Chloride 106 mmol/L (98-107); Estimated CRCL calculation 72 ml/min; Estimated Glomerular Filt Rate > 60; Glucose 116 mg/dL (65-110); Lipase 147 U/L (23-300); Potassium 3.1 mmol/L (3.4-5.0); Sodium 141 mmol/L (137-145)
[2024-09-06 08:38] LABS: Influenza A QL RT-PCR Negative (Negative); Influenza B QL RT-PCR Negative (Negative); SARS-CoV-2 RNA PCR Negative (Negative)
--- NOTE | 2024-09-06 09:12 | ED_ITS ---
HPI - Nausea/Vomiting/Diarrhea General Chief complaint: Nausea/Vomiting/Diarrhea Stated complaint: vomiting past couple days Time Seen by Provider: 09/06/24 09:04 History of Present Illness HPI Narrative: Patient is a 23-year-old female who presents the ER with belly pain nausea vomiting. She reports she has been experiencing these symptoms for 2-3 days. The symptoms went away and started again this morning. Patient endorses marijuana use but she has not used in the last week or so. She was in this ER for approximately 8 hours yesterday with the same complaints. Patient denies any chest pain, shortness of breath, recent fevers, back pain. She reports her last bowel movement was this morning and it was normal for her. Patient's history includes appendicitis, colitis, and other GI issues. Related Data Allergies Allergy/AdvReac Type Severity Reaction Status Date / Time Penicillins AdvReac Intermediate Difficulty Verified 09/06/24 07:09 Breathing Review of Systems 2 Review of Systems: All systems reviewed & are unremarkable except as noted in HPI and below PMFSH Past Medical History Medical History Family history of bipolar disorder Anxiety Leukocytosis Abdominal pain Migraine Surgical History Surgical History History of laparoscopic appendectomy 09/30/2022 History of cholecystectomy Family History Family History Father Hypertension Depression Mother Depression Grandparent Cancer Hypertension Thyroid disorder Heart disease Other No pertinent family history Social History Social History Social History: Patient is very confident filling out medical forms. 05/07/24 Smoking status: Current every day smoker Tobacco type: e-cigarettes/vaping Alcohol intake: current Alcohol use details: Social Substance use: former Substance use type: marijuana Last use: 09/15/23 Do You Feel Safe in your Home?: Yes Lack of Transportation: No Lack of Food: Never True Current Housing: I Have Housing Concerned About Future Housing: No Difficulty Paying Gas/Electric Bills: No Difficulty Paying for Meds: No Currently Unemployed: No Education: Grade School Difficulty w/ Childcare or Family Care: No Living arrangements: with family Occupation/Education: occupation Additional occupation/education comments: [employer] Gender identity (if verbalized by the patient): Female Spiritual care concerns: No Exam 2 Narrative: GENERAL: Ill appearing, well-nourished, non-toxic, in acute distress (d/t pain). HEAD: Normocephalic, atraumatic. NECK: Supple. No adenopathy, no masses. RESPIRATORY: Airway patent, respirations nonlabored. Clear to auscultation bilaterally, no rales, rhonchi, wheezing. CARDIOVASCULAR: Regular rate and rhythm without murmurs, rubs, or gallops. Peripheral pulses 2+ and equal bilaterally. ABDOMINAL: Soft, tender all four quadrants, nondistended, no hepatosplenomegaly. Normoactive BS. MUSCULOSKELETAL: Moves all extremities. Strength/ROM intact without gross deformities. SKIN: Warm, dry, normal color. No rashes. NEURO: A&O X3. Speech clear. Cranial nerves II-XII intact. No ataxic movements. PSYCHIATRIC: Appropriate mood and affect. Normal interaction. Course Vital Signs Vital signs: Vital Signs Temperature 36.6 C 09/06/24 07:06 Pulse Rate 74 09/06/24 07:06 Respiratory Rate 17 09/06/24 07:06 Blood Pressure 139/84 09/06/24 07:06 Pulse Oximetry 98 09/06/24 07:06 Oxygen Delivery Room Air 09/06/24 07:06 Temperature 36.6 C 09/06/24 07:06 Pulse Rate 86 09/06/24 12:51 Respiratory Rate 18 09/06/24 12:51 Blood Pressure 109/67 09/06/24 12:51 Pulse Oximetry 98 09/06/24 12:51 Oxygen Delivery Room Air 09/06/24 07:06 MDM - Nausea/Vomiting/Diarrhea MDM Narrative Medical decision making narrative: Patient is a 23-year-old female who presents the ER with belly pain nausea vomiting. She reports she has been experiencing these symptoms for 2-3 days. The symptoms went away and started again this morning. Patient endorses marijuana use but she has not used in the last week or so. She was in this ER for approximately 8 hours yesterday with the same complaints. Patient denies any chest pain, shortness of breath, recent fevers, back pain. She reports her last bowel movement was this morning and it was normal for her. Patient's history includes appendicitis, colitis, and other GI issues. Labs Ordered: CMP, seen BC, lipase, COVID/flu/RSV Imaging Ordered: None necessary (patient had a CT scan yesterday) Medications Ordered: Haldol 5 mg IM x2 Diagnosis: Cannabinoid hyperemesis syndrome Patient Education/Shared MDM: Results of lab work shared with patient. She endorses significant improvement following medication administration. Patient strongly advised to maintain hydration status upon discharge and follow-up with her PCP as soon as possible. She will be discharged home with a prescription for capsaicin lotion. Patient strongly advised to refrain from marijuana use. Strict return precautions provided. Patient verbalized understanding is in agreement with plan. Vital signs stable at time of discharge. All questions answered. Differential Diagnosis Differential diagnosis: Likely gastroenteritis, drug-induced nausea and vomiting, dehydration and other (Cannabinoid hyperemesis) Lab Data Attestation: I reviewed the patient's lab results. 09/06/24 07:46 09/06/24 07:46 Labs: Lab Results 09/06/24 09/06/24 09/06/24 Range/Units 07:46 07:54 11:02 WBC 11.2 H (4.5-10.0) K/mm3 RBC 4.49 (4.2-5.4) M/mm3 Hgb 13.4 (12.0-15.0) g/dL Hct 39.1 (37.0-47.0) % MCV 87.1 (80-100) fl MCH 29.8 (26-34) pg MCHC 34.3 (32-36) g/dl RDW 12.5 (11.5-14.5) % Plt Count 223 (150-375) k/mm3 MPV 11.1 H (7.4-10.4) fl Immature Gran % (Auto) 0.4 (0-0.5) % Neut % (Auto) 57.2 (45.5-73.1) % Lymph % (Auto) 32.8 (18.3-44.2) % [place] % (Auto) 8.6 H (2.6-8.5) % Eos % (Auto) 0.6 (0-4.4) % Baso % (Auto) 0.4 (0.2-1.2) % Lymph # (Auto) 3.68 H (0.9-3.2) K/mm3 [place] # (Auto) 1.0 H (0.1-0.6) K/mm3 Eos # (Auto) 0.1 (0-0.3) K/mm3 Baso # (Auto) 0.1 (0.0-0.1) K/mm3 Abs Immat Gran (auto) 0.05 H (0.00-0.031) K/mm3 Absolute Neuts (auto) 6.4 (1.3-6.7) K/mm3 Absolute Nucleated RBC 0.000 (0.0-0.012) K/mm3 Nucleated RBC % 0.0 (0.0-0.2) % Sodium 141 (137-145) mmol/L Potassium 3.1 L (3.4-5.0) mmol/L Chloride 106 (98-107) mmol/L Carbon Dioxide 25 (22-30) mmol/L Anion Gap 10 (4-12) mmol/L BUN 7 (7-17) mg/dL Creatinine 0.85 (0.7-1.0) mg/dL Estim Creat Clear Calc 72 ml/min Estimated GFR > 60 (59 - ) Glucose 116 H (65-110) mg/dL Calcium 8.9 (8.4-10.2) mg/dL Total Bilirubin 0.6 (0.2-1.3) mg/dL AST 21 (14-36) U/L ALT 21 (6-35) U/L Alkaline Phosphatase 106 (38-126) U/L Total Protein 7.0 (6.3-8.2) g/dL Albumin 4.2 (3.5-5.1) g/dL Lipase 147 (23-300) U/L POC Urine HCG, Qual (Negative) Urine Opiates Screen Negative (Negative) Urine Methadone Screen Negative (Negative) Ur Barbiturates Screen Negative (Negative) Ur Phencyclidine Scrn Negative (Negative) Ur Amphetamine Screen Negative (Negative) U Benzodiazepines Scrn Negative (Negative) Urine Cocaine Screen Negative (Negative) U Cannabinoids Screen Positive A (Negative) Influenza A (RT-PCR) Negative (Negative) Influenza B (RT-PCR) Negative (Negative) SARS-CoV-2 RNA (RT-PCR) Negative (Negative) 09/06/24 Range/Units 11:06 WBC (4.5-10.0) K/mm3 RBC (4.2-5.4) M/mm3 Hgb (12.0-15.0) g/dL Hct (37.0-47.0) % MCV (80-100) fl MCH (26-34) pg MCHC (32-36) g/dl RDW (11.5-14.5) % Plt Count (150-375) k/mm3 MPV (7.4-10.4) fl Immature Gran % (Auto) (0-0.5) % Neut % (Auto) (45.5-73.1) % Lymph % (Auto) (18.3-44.2) % [place] % (Auto) (2.6-8.5) % Eos % (Auto) (0-4.4) % Baso % (Auto) (0.2-1.2) % Lymph # (Auto) (0.9-3.2) K/mm3 [place] # (Auto) (0.1-0.6) K/mm3 Eos # (Auto) (0-0.3) K/mm3 Baso # (Auto) (0.0-0.1) K/mm3 Abs Immat Gran (auto) (0.00-0.031) K/mm3 Absolute Neuts (auto) (1.3-6.7) K/mm3 Absolute Nucleated RBC (0.0-0.012) K/mm3 Nucleated RBC % (0.0-0.2) % Sodium (137-145) mmol/L Potassium (3.4-5.0) mmol/L Chloride (98-107) mmol/L Carbon Dioxide (22-30) mmol/L Anion Gap (4-12) mmol/L BUN (7-17) mg/dL Creatinine (0.7-1.0) mg/dL Estim Creat Clear Calc ml/min Estimated GFR (59 - ) Glucose (65-110) mg/dL Calcium (8.4-10.2) mg/dL Total Bilirubin (0.2-1.3) mg/dL AST (14-36) U/L ALT (6-35) U/L Alkaline Phosphatase (38-126) U/L Total Protein (6.3-8.2) g/dL Albumin (3.5-5.1) g/dL Lipase (23-300) U/L POC Urine HCG, Qual Negative (Negative) Urine Opiates Screen (Negative) Urine Methadone Screen (Negative) Ur Barbiturates Screen (Negative) Ur Phencyclidine Scrn (Negative) Ur Amphetamine Screen (Negative) U Benzodiazepines Scrn (Negative) Urine Cocaine Screen (Negative) U Cannabinoids Screen (Negative) Influenza A (RT-PCR) (Negative) Influenza B (RT-PCR) (Negative) SARS-CoV-2 RNA (RT-PCR) (Negative) Discharge Plan Discharge Clinical Impression: Cannabis hyperemesis syndrome concurrent with and due to cannabis abuse, Abdominal pain, Cyclic vomiting syndrome Patient Disposition: Home, Self-Care Condition: Stable Instructions: Antibiotic Form, Dehydration (ED), Acute Nausea and Vomiting (ED), Abdominal Pain (ED) Additional Instructions: Please return to the ER with any worsening symptoms. Follow-up with primary care provider as soon as possible. Take all medications as prescribed, including regularly scheduled medications. Patient Language: Urdu Prescriptions: New capsaicin 0.1 % cream 1 applic topical BID Qty: 56.6 0RF Rx Instructions: do not wash area for at least 30 min after application No Action ondansetron 4 mg tablet,disintegrating 4 mg PO Q6H PRN (Reason: nausea and vomiting) Qty: 30 0RF promethazine 25 mg suppository 25 mg RECTAL Q6H PRN (Reason: nausea and vomiting) Qty: 12 0RF promethazine 25 mg tablet 25 mg PO TID PRN (Reason: nausea and vomiting) Qty: 30 0RF cephalexin 500 mg capsule 500 mg PO Q8H 7 Days Qty: 21 0RF sumatriptan succinate 50 mg tablet See Rx Instructions PO .COMPLEX Qty: 10 4RF Rx Instructions: take 1 tab at onset of headache; if no relief may repeat 1 tab after at least 2 hrs; max = 4 tabs/24 hr PO omeprazole 40 mg capsule,delayed release(DR/EC) See Rx Instructions .ROUTE .COMPLEX Qty: 30 0RF Dose Instruction: TAKE 1 CAPSULE BY MOUTH DAILY Rx Instructions: TAKE 1 CAPSULE BY MOUTH DAILY duloxetine [Cymbalta] 60 mg capsule,delayed release(DR/EC) 60 mg PO DAILY Qty: 90 1RF amitriptyline 10 mg tablet 10 mg PO QHS Qty: 90 0RF Follow-up/Referrals: Jaelyn Mccormack APRN [Primary Care Provider] - Stand Alone Forms: Work/School Release IP Time of Disposition: 12:29
[2024-09-06] MEDS: HALOPERIDOL LACTATE 5 MG/ML VIAL IM ×2 (09:17→10:53)
[2024-09-06 09:22] VITALS: BP 151/100; PULSE 62; RESP 19; O2SAT 100
[2024-09-06 11:07] LABS: BEDSIDEPREGUCG Negative (Negative)
[2024-09-06 11:36] LABS: Amphetamine Screen Urine Negative (Negative); Barbiturate Screen Urine Negative (Negative); Benzodiazepines Screen Urine Negative (Negative); Cannabinoid Screen Urine Positive (Negative); Cocaine Screen Urine Negative (Negative); Methadone Screen Urine Negative (Negative); Opiate Screen Urine Negative (Negative); Phencyclidine Screen Urine Negative (Negative)
[2024-09-06 12:51] VITALS: BP 109/67; PULSE 86; RESP 18; O2SAT 98
== END 2024-09-06 12:52 | disposition home or self-care (01) ==
PROVIDERS: Emergency Medicine; Student in an Organized Health Care Education/Training Program; Emergency Provider Registered Nurse; PCP Nurse Practitioner Family
DX: R11.2 Nausea with vomiting, unspecified (principal); F12.10 Cannabis abuse, uncomplicated; R11.15 Cyclical vomiting syndrome unrelated to migraine; F17.290 Nicotine dependence, other tobacco product, uncomplicated; Z20.822 Contact with and (suspected) exposure to COVID-19
CPT/HCPCS: 36415; 80053; 80307; 81025; 83690; 85025; 87636; 96372; 99283; J1630

== ENCOUNTER 2024-09-07 16:37 | Emergency (ER) | payer OTHER, SELFPAY ==
--- NOTE | ~2024-09-07 | CT_ITS ---
EXAMINATION: CT soft tissue neck w con DATE: 09/07/2024 17:47 INDICATION: Difficulty swallowing, swollen throat TECHNIQUE: Computed tomography (CT) of the neck was performed with 75 mL Omnipaque-350 intravenous co ntrast. Automated exposure control and iterative reconstruction technique were employed. The dose-torres gth product was 428.88 mGy-cm. COMPARISON: None FINDINGS: The thyroid gland is unremarkable. The submandibular and parotid glands are symmetric. Mild bilat eral upper anterior cervical chain lymph node enlargement. There are no masses identified. The mitchell perior mediastinum is unremarkable. The airway is unremarkable. Parapharyngeal and pre-glottic fa t planes are preserved. Normal enhancing neck vessels. The orbits are unremarkable. Volume loss and mucosal thickening in the right maxillary sinus, the remaining aerated spaces are clear. Visual ized lung parenchyma is clear. There is reversal of the normal cervical lordosis. IMPRESSION: Mild bilateral upper anterior cervical chain lymphadenopathy. Reviewed, dictated and finalized at location K.
[2024-09-07 16:41] VITALS: BP 147/92; PULSE 90; RESP 20; TEMP 36.1; O2SAT 100
--- NOTE | 2024-09-07 16:44 | ED.GENADULT ---
HPI - General Adult General Chief complaint: Unspecified <Megan Miller PRE BILLING SPECIALIST - Last Filed: 09/07/24 17:11> Stated complaint: Trouble talking, swallowing-poss allergic reaction <Megan Miller PRE BILLING SPECIALIST - Last Filed: 09/07/24 17:11> Time Seen by Provider: 09/07/24 16:50 <Megan Miller PRE BILLING SPECIALIST - Last Filed: 09/07/24 17:11> Focused HPI: Patient is a 23-year-old female who presents to the ER with complaints of throat swelling and voice changes. She was here yesterday for evaluation for a different complaint. Patient reports she woke up this morning with these new symptoms. She denies any sore throat, recent fevers, abdominal pain or vomiting. Patient's medical history includes a cholecystectomy, appendectomy, and gastroenteritis. She reports she is not having any difficulty with swallowing secretions or difficulty breathing. GENERAL: Well-appearing, well-nourished, and in no acute distress. HEAD: Normocephalic, atraumatic. + palpable cervical lymph nodes, no posterior swollen lymph nodes CHEST: Clear to auscultation. ?No respiratory distress. HEART: Regular rate and rhythm.? NEURO: ?Alert and oriented x3. Patient screened in triage and initial orders placed.? ?Additional care and disposition to be based upon?diagnostic testing and treatment. <Megan Miller PRE BILLING SPECIALIST - Last Filed: 09/07/24 17:11> Focused HPI: Patient is a 23-year-old female who presents to the ER with complaints of jaw pain. She was here yesterday for evaluation for a different complaint. Patient reports she woke up this morning with these new symptoms. She denies any sore throat, recent fevers, abdominal pain or vomiting. Patient's medical history includes a cholecystectomy, appendectomy, and gastroenteritis. She reports she is not having any difficulty with swallowing secretions or difficulty breathing. GENERAL: Well-appearing, well-nourished, and in no acute distress. HEAD: Normocephalic, atraumatic. + palpable cervical lymph nodes, no posterior swollen lymph nodes CHEST: Clear to auscultation. ?No respiratory distress. HEART: Regular rate and rhythm.? NEURO: ?Alert and oriented x3. Patient screened in triage and initial orders placed.? ?Additional care and disposition to be based upon?diagnostic testing and treatment. <Mane Sorenson MD - Last Filed: 09/07/24 22:23> History of Present Illness HPI narrative: I agree with evaluation PI <Mane Sorenson MD - Last Filed: 09/07/24 22:23> Related Data Allergies/adverse reactions: Allergies Allergy/AdvReac Type Severity Reaction Status Date / Time Penicillins AdvReac Intermediate Difficulty Verified 09/06/24 07:09 Breathing <Megan Miller APRN - Last Filed: 09/07/24 17:11> Review of Systems Review of Systems: All systems reviewed & are unremarkable except as noted in HPI and below <Mane Sorenson MD - Last Filed: 09/07/24 22:23> PMFSH Past Medical History Medical History: Medical History Family history of bipolar disorder Anxiety Leukocytosis Abdominal pain Migraine <Megan Miller APRN - Last Filed: 09/07/24 17:11> Surgical History Surgical History: Surgical History History of laparoscopic appendectomy 09/30/2022 History of cholecystectomy <Megan Miller APRN - Last Filed: 09/07/24 17:11> Family History Family History: Family History Father Hypertension Depression Mother Depression Grandparent Cancer Hypertension Thyroid disorder Heart disease Other No pertinent family history <Megan Miller APRN - Last Filed: 09/07/24 17:11> Social History Social History: Social History Social History: Patient is very confident filling out medical forms. 05/07/24 Smoking status: Current every day smoker Tobacco type: e-cigarettes/vaping Alcohol intake: current Alcohol use details: Social Substance use: former Substance use type: marijuana Last use: 09/15/23 Do You Feel Safe in your Home?: Yes Lack of Transportation: No Lack of Food: Never True Current Housing: I Have Housing Concerned About Future Housing: No Difficulty Paying Gas/Electric Bills: No Difficulty Paying for Meds: No Currently Unemployed: No Education: Grade School Difficulty w/ Childcare or Family Care: No Living arrangements: with family Occupation/Education: occupation Additional occupation/education comments: [employer] Gender identity (if verbalized by the patient): Female Spiritual care concerns: No <Megan Miller APRN - Last Filed: 09/07/24 17:11> Exam Narrative: APPEARANCE: Well appearing, no pain, no distress, well-nourished. HEAD: normocephalic, atraumatic. EYES: PERRLA/EOMI, conjunctivae clear. NOSE: Normal no drainage EARS:TMS clear with good light reflex. THROAT: Pharynx clear, no exudate. NECK: Supple. No adenopathy, no masses. RESPIRATORY: Airway patent, respirations nonlabored. Clear to auscultation bilaterally, no rales, rhonchi, wheezing. CARDIOVASCULAR: Regular rate and rhythm without murmurs rubs or gallops. ABDOMINAL: Soft, nontender, nondistended, normal bowel sounds MUSCULOSKELETAL: Moves all extremities. Strength/ROM intact, No edema, No calf tenderness. NEURO: Alert. Cranial nerves II through XII intact. Good gait. Good coordination SKIN: Warm, dry. Normal Color <Mane Sorenson MD - Last Filed: 09/07/24 22:23> Course Vital Signs Vital signs: Vital Signs Temperature 97.0 F L 09/07/24 16:41 Pulse Rate 90 09/07/24 16:41 Respiratory Rate 20 09/07/24 16:41 Blood Pressure 147/92 H 09/07/24 16:41 Pulse Oximetry 100 09/07/24 16:41 Temperature 97.0 F L 09/07/24 16:41 Pulse Rate 84 09/07/24 19:42 Respiratory Rate 16 09/07/24 19:42 Blood Pressure 118/66 09/07/24 19:42 Pulse Oximetry 100 09/07/24 19:42 <Megan Miller APRN - Last Filed: 09/07/24 17:11> Vital Signs Temperature 97.0 F L 09/07/24 16:41 Pulse Rate 90 09/07/24 16:41 Respiratory Rate 20 09/07/24 16:41 Blood Pressure 147/92 H 09/07/24 16:41 Pulse Oximetry 100 09/07/24 16:41 Temperature 97.0 F L 09/07/24 16:41 Pulse Rate 84 09/07/24 19:42 Respiratory Rate 16 09/07/24 19:42 Blood Pressure 118/66 09/07/24 19:42 Pulse Oximetry 100 09/07/24 19:42 <Mane Sorenson MD - Last Filed: 09/07/24 22:23> Medical Decision Making MDM Narrative Medical decision making narrative: 23-year-old female presents emergency department for evaluation for jaw tightness. Patient was treated with IV Ativan and feels her symptoms are resolved. Patient is afebrile with no leukocytosis and hemoglobin of 13.6. Patient did have a low potassium at 3.1 this was replaced orally. Patient was negative for mono influenza COVID RSV and strep. CT soft tissue of the neck shows mild lymphadenopathy Patient does feel improved and is ready for discharge to home. Patient is moving her jaw without difficulty. <Mane Sorenson MD - Last Filed: 09/07/24 22:23> Differential Diagnosis Differential Diagnosis: COVID, RSV influenza, strep, mono, dehydration, anxiety, TMJ, masseter spasm, anxiety <Mane Sorenson MD - Last Filed: 09/07/24 22:23> Vital Signs Vital Signs: Vital Signs Temperature 97.0 F L 09/07/24 16:41 Pulse Rate 90 09/07/24 16:41 Respiratory Rate 20 09/07/24 16:41 Blood Pressure 147/92 H 09/07/24 16:41 Pulse Oximetry 100 09/07/24 16:41 Temperature 97.0 F L 09/07/24 16:41 Pulse Rate 84 09/07/24 19:42 Respiratory Rate 16 09/07/24 19:42 Blood Pressure 118/66 09/07/24 19:42 Pulse Oximetry 100 09/07/24 19:42 <Megan Miller APRN - Last Filed: 09/07/24 17:11> Vital Signs Temperature 97.0 F L 09/07/24 16:41 Pulse Rate 90 09/07/24 16:41 Respiratory Rate 20 09/07/24 16:41 Blood Pressure 147/92 H 09/07/24 16:41 Pulse Oximetry 100 09/07/24 16:41 Temperature 97.0 F L 09/07/24 16:41 Pulse Rate 84 09/07/24 19:42 Respiratory Rate 16 09/07/24 19:42 Blood Pressure 118/66 09/07/24 19:42 Pulse Oximetry 100 09/07/24 19:42 <Mane Sorenson MD - Last Filed: 09/07/24 22:23> Lab Data Lab results reviewed: Yes I reviewed the patient's lab results. <Mane Sorenson MD - Last Filed: 09/07/24 22:23> Result diagrams: 09/07/24 16:57 09/07/24 16:57 <Megan Miller APRN - Last Filed: 09/07/24 17:11> Labs: Lab Results 09/07/24 09/07/24 Range/Units 16:57 18:21 WBC 10.2 H (4.5-10.0) K/mm3 RBC 4.53 (4.2-5.4) M/mm3 Hgb 13.6 (12.0-15.0) g/dL Hct 39.4 (37.0-47.0) % MCV 87.0 (80-100) fl MCH 30.0 (26-34) pg MCHC 34.5 (32-36) g/dl RDW 12.3 (11.5-14.5) % Plt Count 237 (150-375) k/mm3 MPV 11.2 H (7.4-10.4) fl Immature Gran % (Auto) 0.3 (0-0.5) % Neut % (Auto) 55.9 (45.5-73.1) % Lymph % (Auto) 35.9 (18.3-44.2) % [place] % (Auto) 6.9 (2.6-8.5) % Eos % (Auto) 0.5 (0-4.4) % Baso % (Auto) 0.5 (0.2-1.2) % Lymph # (Auto) 3.64 H (0.9-3.2) K/mm3 [place] # (Auto) 0.7 H (0.1-0.6) K/mm3 Eos # (Auto) 0.1 (0-0.3) K/mm3 Baso # (Auto) 0.1 (0.0-0.1) K/mm3 Abs Immat Gran (auto) 0.03 (0.00-0.031) K/mm3 Absolute Neuts (auto) 5.7 (1.3-6.7) K/mm3 Absolute Nucleated RBC 0.000 (0.0-0.012) K/mm3 Nucleated RBC % 0.0 (0.0-0.2) % Sodium 142 (137-145) mmol/L Potassium 3.1 L (3.4-5.0) mmol/L Chloride 104 (98-107) mmol/L Carbon Dioxide 24 (22-30) mmol/L Anion Gap 14 H (4-12) mmol/L BUN 4 L (7-17) mg/dL Creatinine 0.68 L (0.7-1.0) mg/dL Estim Creat Clear Calc 88 ml/min Estimated GFR > 60 (59 - ) Glucose 127 H (65-110) mg/dL Calcium 9.0 (8.4-10.2) mg/dL Total Bilirubin 0.9 (0.2-1.3) mg/dL AST 61 H (14-36) U/L ALT 67 H (6-35) U/L Alkaline Phosphatase 93 (38-126) U/L Total Protein 7.0 (6.3-8.2) g/dL Albumin 4.4 (3.5-5.1) g/dL Monoscreen Negative (Negative) Influenza A (RT-PCR) Negative (Negative) Influenza B (RT-PCR) Negative (Negative) RSV (RT-PCR) Negative (Negative) SARS-CoV-2 RNA (RT-PCR) Negative (Negative) Group A Strep (PCR) Not detected (Negative) <Megan Miller, PRE BILLING SPECIALIST - Last Filed: 09/07/24 17:11> Lab Results 09/07/24 09/07/24 Range/Units 16:57 18:21 WBC 10.2 H (4.5-10.0) K/mm3 RBC 4.53 (4.2-5.4) M/mm3 Hgb 13.6 (12.0-15.0) g/dL Hct 39.4 (37.0-47.0) % MCV 87.0 (80-100) fl MCH 30.0 (26-34) pg MCHC 34.5 (32-36) g/dl RDW 12.3 (11.5-14.5) % Plt Count 237 (150-375) k/mm3 MPV 11.2 H (7.4-10.4) fl Immature Gran % (Auto) 0.3 (0-0.5) % Neut % (Auto) 55.9 (45.5-73.1) % Lymph % (Auto) 35.9 (18.3-44.2) % [place] % (Auto) 6.9 (2.6-8.5) % Eos % (Auto) 0.5 (0-4.4) % Baso % (Auto) 0.5 (0.2-1.2) % Lymph # (Auto) 3.64 H (0.9-3.2) K/mm3 [place] # (Auto) 0.7 H (0.1-0.6) K/mm3 Eos # (Auto) 0.1 (0-0.3) K/mm3 Baso # (Auto) 0.1 (0.0-0.1) K/mm3 Abs Immat Gran (auto) 0.03 (0.00-0.031) K/mm3 Absolute Neuts (auto) 5.7 (1.3-6.7) K/mm3 Absolute Nucleated RBC 0.000 (0.0-0.012) K/mm3 Nucleated RBC % 0.0 (0.0-0.2) % Sodium 142 (137-145) mmol/L Potassium 3.1 L (3.4-5.0) mmol/L Chloride 104 (98-107) mmol/L Carbon Dioxide 24 (22-30) mmol/L Anion Gap 14 H (4-12) mmol/L BUN 4 L (7-17) mg/dL Creatinine 0.68 L (0.7-1.0) mg/dL Estim Creat Clear Calc 88 ml/min Estimated GFR > 60 (59 - ) Glucose 127 H (65-110) mg/dL Calcium 9.0 (8.4-10.2) mg/dL Total Bilirubin 0.9 (0.2-1.3) mg/dL AST 61 H (14-36) U/L ALT 67 H (6-35) U/L Alkaline Phosphatase 93 (38-126) U/L Total Protein 7.0 (6.3-8.2) g/dL Albumin 4.4 (3.5-5.1) g/dL Monoscreen Negative (Negative) Influenza A (RT-PCR) Negative (Negative) Influenza B (RT-PCR) Negative (Negative) RSV (RT-PCR) Negative (Negative) SARS-CoV-2 RNA (RT-PCR) Negative (Negative) Group A Strep (PCR) Not detected (Negative) <Mane Sorenson MD - Last Filed: 09/07/24 22:23> Imaging Data Radiologist's impression: Impressions Soft Tissue Neck CT 09/07/24 17:49 IMPRESSION: Mild bilateral upper anterior cervical chain lymphadenopathy. <Mane Sorenson MD - Last Filed: 09/07/24 22:23> Discharge Plan Discharge Clinical Impression: Jaw pain <Megan Miller APRN - Last Filed: 09/07/24 17:11> Patient Disposition: Home, Self-Care <Megan Miller APRN - Last Filed: 09/07/24 17:11> Condition: Stable <Megan Miller APRN - Last Filed: 09/07/24 17:11> Instructions: Antibiotic Form, Temporomandibular Disorder (ED) <Megan Miller APRN - Last Filed: 09/07/24 17:11> Additional Instructions: Have close follow-up with your primary care physician. <Megan Miller APRN - Last Filed: 09/07/24 17:11> Patient Language: Latvian <Megan Miller APRN - Last Filed: 09/07/24 17:11> Prescriptions: No Action ondansetron 4 mg tablet,disintegrating 4 mg PO Q6H PRN (Reason: nausea and vomiting) Qty: 30 0RF capsaicin 0.1 % cream 1 applic topical BID Qty: 56.6 0RF Rx Instructions: do not wash area for at least 30 min after application promethazine 25 mg suppository 25 mg RECTAL Q6H PRN (Reason: nausea and vomiting) Qty: 12 0RF promethazine 25 mg tablet 25 mg PO TID PRN (Reason: nausea and vomiting) Qty: 30 0RF cephalexin 500 mg capsule 500 mg PO Q8H 7 Days Qty: 21 0RF sumatriptan succinate 50 mg tablet See Rx Instructions PO .COMPLEX Qty: 10 4RF Rx Instructions: take 1 tab at onset of headache; if no relief may repeat 1 tab after at least 2 hrs; max = 4 tabs/24 hr PO omeprazole 40 mg capsule,delayed release(DR/EC) See Rx Instructions .ROUTE .COMPLEX Qty: 30 0RF Dose Instruction: TAKE 1 CAPSULE BY MOUTH DAILY Rx Instructions: TAKE 1 CAPSULE BY MOUTH DAILY duloxetine [Cymbalta] 60 mg capsule,delayed release(DR/EC) 60 mg PO DAILY Qty: 90 1RF amitriptyline 10 mg tablet 10 mg PO QHS Qty: 90 0RF <Megan Miller APRN - Last Filed: 09/07/24 17:11> Follow-up/Referrals: Jaelyn Mccormack APRN [Primary Care Provider] - <Megan Miller APRN - Last Filed: 09/07/24 17:11> Stand Alone Forms: Work/School Release IP <Megan Miller APRN - Last Filed: 09/07/24 17:11>
[2024-09-07 17:05] LABS: Basophils Absolute Auto 0.1 K/mm3 (0.0-0.1); Basophils Percent Auto 0.5 % (0.2-1.2); Eosinophils Absolute Auto 0.1 K/mm3 (0-0.3); Eosinophils Percent Auto 0.5 % (0-4.4); Hematocrit 39.4 % (37.0-47.0); Hemoglobin 13.6 g/dL (12.0-15.0); Immature Granulocyte Absolute 0.03 K/mm3 (0.00-0.031); Immature Granulocyte Percent A 0.3 % (0-0.5); Lymphocytes Absolute Auto 3.64 K/mm3 (0.9-3.2); Lymphocytes Percent Auto 35.9 % (18.3-44.2); Mean Corpuscular HGB Conc 34.5 g/dl (32-36); Mean Platelet Volume 11.2 fl (7.4-10.4); Monocytes Absolute Auto 0.7 K/mm3 (0.1-0.6); Monocytes Percent Auto 6.9 % (2.6-8.5); Neutrophils Absolute Auto 5.7 K/mm3 (1.3-6.7); Neutrophils Percent Auto 55.9 % (45.5-73.1); Platelet Count Result 237 k/mm3 (150-375); Red Blood Count 4.53 M/mm3 (4.2-5.4); Red Cell Distribution Width 12.3 % (11.5-14.5); White Blood Count 10.2 K/mm3 (4.5-10.0)
[2024-09-07 17:10] VITALS: RESP 15; O2SAT 100
[2024-09-07] MEDS: dexAMETHasone SOD PHOS INJ 10 MG/ML 1 ML VIAL IV PUSH (17:12)
[2024-09-07 17:13] LABS: Monoscreen Negative (Negative); Negative Monotest Control Negative (Negative); Positive Monotest Control Positive (Positive)
[2024-09-07 17:14] LABS: Alanine Aminotransferase 67 U/L (6-35); Albumin Level 4.4 g/dL (3.5-5.1); Alkaline Phosphatase 93 U/L (38-126); Anion Gap 14 mmol/L (4-12); Aspartate Amino Transferase 61 U/L (14-36); Bilirubin,Total 0.9 mg/dL (0.2-1.3); Blood Urea Nitrogen 4 mg/dL (7-17); Carbon Dioxide 24 mmol/L (22-30); Chloride 104 mmol/L (98-107); Estimated CRCL calculation 88 ml/min; Estimated Glomerular Filt Rate > 60; Glucose 127 mg/dL (65-110); Potassium 3.1 mmol/L (3.4-5.0); Sodium 142 mmol/L (137-145)
[2024-09-07 17:29] LABS: Strep Group A RT-PCR NOT DETECTED (Negative)
--- NOTE | 2024-09-07 17:39 | PC.NURSE ---
Pt. to CT.
[2024-09-07] MEDS: POTASSIUM CHLORIDE 20 MEQ PACKET (FOR LIQUID) 40 MEQ PO (17:56)
[2024-09-07] MEDS: LORazepam INJ (*CRX) 2 MG/ML VIAL 1 MG IV PUSH (17:57)
--- NOTE | 2024-09-07 18:04 | PC.NURSE ---
Pt. denies any nausea. Pt. able to drink water and swallow with no difficulty. Pt. threw up liquid potassium. Pt. states this is d/t the taste.
--- NOTE | 2024-09-07 18:09 | PC.NURSE ---
Dr. Sorenson notified that liquid potassium was not completed. Verbal order given for potassium tablets.
[2024-09-07] MEDS: POTASSIUM CHLORIDE 20 MEQ ER TABLET 40 MEQ PO (18:16)
--- OUTSIDE RECORDS SUMMARY | 2024-09-07 18:42 | XMS_ITS | Data Portability ---
Author Organization [facility] [place] Address [address] [place] [address] [place] [address] Assessment Encounter Date Assessment Date Assessment LastModified by Organization Details LastModified Time 07/15/2024 07/15/2024 Greater than 30 minutes was spent in total between discussion with the patient, examination, and coordination of care. [email or web address] Not available 07/19/2024 22:55:15 Plan of Treatment Reminders Order Date Submit Date Provider Last Modified By Organization Details Last Modified Time Details Appointments None recorded. Lab test, urine 2024 025 [email or web address] [place], [address], [address], [place], [address], 5 14:54:30 test, urine 2023 024 [email or web address] [place], [address], [address], [place], [address], 4 10:57:18 Referral None recorded. Procedures None recorded. Surgeries None recorded. Imaging None recorded. Medication Orders Depo-Ham Doctor a 150 mg/mL intramuscul ar syringe 2024 025 [email or web address] Not available 5 19:07:25 Depo-Ham Doctor a 150 mg/mL intramuscul ar syringe 2023 024 Not available 5 09:35:29 Depo-Ham Doctor a 150 mg/mL intramuscul ar syringe 2023 024 [email or web address] Not available 09:35:29 Depo-Ham Doctor a 150 mg/mL intramuscul ar suspension 2023 024 [email or web address] Not available 09:35:44 Patient TargetsNo targets recorded. Patient InstructionsNo instructions recorded. Reason for Referral None Reported. Results Created Date Observation Date Name Description Value Unit Range Abnormal Flag Note LastModifiedBy Organization Detail LastModifiedTime 08/13/19 24 08/13/2023 pregn brayan test, urine HCG negati ve Not Available [place] [address], [place], [address], 08/13/2023 10:56:58 08/13/19 24 08/13/2023 urina lysis , dipst ick Blood trace Not Available [place] [address], [place], [address], 08/13/2023 10:41:02 08/13/19 24 08/13/2023 urina lysis , dipst ick Appearance clear Not Available [facility] tushar [address], [place], [address], 08/13/2023 10:41:02 08/13/19 24 08/13/2023 urina lysis , dipst ick Color pale yellow Not Available [place] [address], [place], [address], 08/13/2023 10:41:02 08/13/19 24 08/13/2023 pregn brayan test, urine HCG negati ve Not Available [place] [address], [place], [address], 08/13/2023 10:40:35 Result Notes None recorded. Procedures Surgical History Date Name Laterality Status Provider Name and Address Organization Details Recorded Time 023 Date of Last Pap Smear completed Tita Skinner [facility] 07/15/2024 09:36:12 Appendectomy completed Martha Hernandez [facility] 03/11/2023 10:29:39 cholecystectomy completed Martha Hernandez [facility] 03/11/2023 10:29:52 Imaging Results None recorded. Procedure Notes None recorded. Medical Equipment None Reported. Allergies Allergen ID Allergen Name Allergen Category Reaction Reaction Severity Criticality Documentation Date Start Date Code Code System Note Provider Name and Address Organization Details Recorded Time Product containin g penicilli n (product) medicatio n Not available Not available Not available 03/11/2023 28862 [id number] SNOMED Martha wu [facility] 10:27:27 Medications Name Sig Start Date [...] Updated DateTime 08/13/2023 157.48 cm 25.6 kg/m2 78739.93 g 117 mm[Hg] 76 mm[Hg] Miri [facility] 4 10:31:14 Date Recorded Body height Provider Name an d Address Organization Details Last Updated DateTime 10/30/[address] [facility] 10/30/2023 09:29:51 Date Recorded Body height Body mass index (BMI) Body weight Systolic blood pressure Diastolic blood pressure Provider Name and Address Organization Details Last Updated DateTime 07/15/2024 157.48 cm 26.7 kg/m2 28866.49 g 128 mm[Hg] 81 mm[Hg] Tita Skinner [facility] 5 09:34:54 Date Recorded Body height Body mass index (BMI) Body weight Systolic blood pressure Diastolic blood pressure Provider Name and Address Organization Details Last Updated DateTime 08/13/2024 157.48 cm 26.5 kg/m2 58424.89 g 120 mm[Hg] 78 mm[Hg] Renetta Wetzel [facility] 5 14:49:40 Social History Question Answer Notes LastModified by Organizat ion Details LastModified Time Tobacco Smoking Status Never Smoker Martha Hernandez [facility] 03/11/2023 10:29:21 What Is Your Level Of Alcohol Consumption? Occasional Information not available 03/11/2023 How Many Years Have You Consumed Alcohol? 3 [email or web address] Information not available 07/15/2024 Are You Blind Or Do You Have Difficulty Seeing? No Information n ot available 03/11/2023 What Is Your Level Of Caffeine Consumption? Occasional Information not available 07/15/2024 How Much Tobacco Do You Chew? None [email or web address] Information not available 07/15/2024 In The 14 Days Before Symptom Onset, Have You Had Close Contact With A Laboratory-confirm ed COVID-19 While That Case Was Ill? No [email or web address] Information n ot available 07/15/2024 In The 14 Days Before Symptom Onset, Have You Had Close Contact With A Person Who Is Under Investigation For COVID-19 While That Person Was Ill? No [email or web address] Information not available 07/15/2024 Have You Been To An Area Known To Be High Risk For COVID-19? No Information not available 07/15/2024 Are You Deaf Or Do You Have Serious Difficulty Hearing? No Information not available 03/11/2023 Which Illicit Or Recreational Drugs Have You Used? Marijuana Information not available 03/11/2023 What Is The Highest Grade Or Level Of School You Have Completed Or The Highest Degree You Have Received? [id number] [email or web address] Information not available 07/15/2024 Are There Any Guns Present In Your Home? No Information not available 07/15/2024 Do You Use Protection During Sex? No [email or web address] Information not available 07/15/2024 Do You Use Your Seat Belt Or Car Seat Routinely? Yes Information not available 07/15/2024 Do You Have Smoke And Carbon Monoxide Detectors In Your Home? Yes [email or web address] Information not available 07/15/2024 How Much Tobacco Do You Smoke? No Information not available 07/15/2024 Do You Feel Stressed (tense, Restless, Nervous, Or Anxious, Or Unable To Sleep At Night)? [id number] [email or web address] Information not available 07/15/2024 Do You Use Any Illicit Or Recreational Drugs? Yes Information not available 03/11/2023 Do You Use Sunscreen Routinely? Yes [email or web address] Information not available 07/15/2024 Have You Used IV Drugs? No [email or web address] Information not available 07/15/2024 Sex: Unknown Functional [...] 03/11/2023 What is your exercise level? Occasional [email or web address] Information not available 07/15/2024 Mental Status None [...] of Flow (days) 5 Current Control Method Depo-Ham Doctor a Are cycles usually normal N Sexually [...] SNOMED-CT Code Diagnosis ICD10 Code Diagnosis Note [id number] NELLIE Khoury [place] [address] [address] 03/11/2023 10:06:00 03/11/2023 10:55:35 Gynecologic examination [id number] Z01.419 Take Calcium with Vitamin D daily [...] for injection tomorrow Contracept ion care management [id number] Z30.9 Depo-Prove ra is a female hormonal [...] can be discussed with your healthcare provider. [id number] NELLIE Khoury [place] [address] [address] 03/12/2023 09:56:47 03/12/2023 10:28:22 Contraception care management [id number] Z30.9 Depo-Prove ra is a female hormonal [...] can be discussed with your healthcare provider. [id number] Hallie Reddy [place] [address] [address] 05/28/2023 09:15:05 05/28/2023 14:12:33 Contraception care management [id number] Z30.9 Depo-Prove ra is a female hormonal [...] is usually reversible once this medication is stopped.[facility] on this medication recommend increasing calcium in diet & taking calcium 1300mg-180 0mg daily along with shannan D daily to prevent bone loss along with regular exercise. There is less of a risk of bone loss after age 18yo.After 3-5yrs use it may be recommende d to complete a dexa scan.This can be discussed with your healthcare provider. [id number] Miri Gonzalez [place] [address],[place] [address] 08/13/2023 10:20:30 08/13/2023 10:58:20 Contraception care management [id number] Z30.9 Discussed common SE of irregular/ unschedule [...] counseling and review of plan of care. [id number] Lynne Leal CARMEN [place] [address],[place] [address] 10/30/2023 09:14:37 10/30/2023 10:37:31 Contraception care management 112429751 Z30.9 [id number] Tita Brody [place] [address],[place] [address] 01/15/2024 10:48:30 01/15/2024 10:59:12 Contraception care management [id number] Z30.9 [id number] JOCELYNN COSTA MD [place] [address] [address] 07/15/2024 09:13:36 07/20/2024 02:47:30 Upper abdominal pain [id number] R10.10 - patient reports constant upper abdominal [...] given current symptoms- patients voices understand ing [id number] Renetta Wetzel [place] [address] [address] 08/13/2024 14:31:45 08/13/2024 14:55:57 Contraception care management [id number] Z30.9 Health Concerns Section Related Observation LastModified by Organization Detai ls LastModified Time None Recorded Concern Status LastModified by Organization Details LastModified Time None Recorded Advance Directives Directive None Recorded Payers Encounter Date Sequence Insurance Name Policy Number Policy Cortes Covered Member ID Cortes Member ID Guarantor Name 08/13/2023 1 [facility] ON OR AFTER 12/14/20 (MEDICAID REPLACEMENT - HMO) Rosibel Lior [id number] Rosibel Britton 10/30/2023 1 [facility] - [facility] ON OR AFTER 20 (MEDICAID REPLACEMENT - HMO) Rosibel Britton [id number] Rosibel Lior 01/15/2024 1 [facility] - DOS ON OR AFTER 20 (MEDICAID REPLACEMENT - HMO) Rosibel Britton [id number] Rosibel Lior 07/15/2024 1 [facility] - DOS ON OR AFTER 20 (MEDICAID REPLACEMENT - HMO) Rosibel Britton [id number] Rosibel Britton 08/13/2024 1 [facility] - DOS ON OR AFTER 20 (MEDICAID REPLACEMENT - HMO) Rosibel Tinajero [id number] Rosibel Tinajero Notes Date Note Type Note Provider Name and Address Organization Details Recorded Time 08/13/2023 text/html 22yo [id number] for f/u on DMPArestarted DMPA for BC on 03/11/23no bleeding with DMPA until recently, had 3 weeks of light bleeding. No bleeding todayno new partnersneg discharge, odors, itchingneg pelvic painneg n/v/fpap UTD - 03/11/2023, normal Miri Gonzalez [facility], [place] - [facility] 08/13/2023 11:06:15 07/15/2024 text/html Patient [...] dyspareunia. JOCELYNN COSTA MD [address], [place], [address], [facility] 07/19/2024 22:55:24 OBGyn Episode No OBEpisode recorded.
--- NOTE | 2024-09-07 19:04 | PC.NURSE ---
Pt. requesting d/c. Dr. Sorenson notified.
--- NOTE | 2024-09-07 19:04 | PC.NURSE ---
Pt. states she is feeling a lot better. Full ROM of jaw without pain.
[2024-09-07 19:05] LABS: Influenza A QL RT-PCR Negative (Negative); Influenza B QL RT-PCR Negative (Negative); RSV RNA, RT-PCR Negative (Negative); SARS-CoV-2 RNA PCR Negative (Negative)
[2024-09-07 19:07] VITALS: BP 113/76; PULSE 86; RESP 16; O2SAT 97
[2024-09-07 19:42] VITALS: BP 118/66; PULSE 84; RESP 16; O2SAT 100
== END 2024-09-07 19:43 | disposition home or self-care (01) ==
PROVIDERS: Registered Nurse; Emergency Provider Emergency Medicine; PCP Nurse Practitioner Family
DX: R68.84 Jaw pain (principal); Z20.822 Contact with and (suspected) exposure to COVID-19; F17.290 Nicotine dependence, other tobacco product, uncomplicated; F41.9 Anxiety disorder, unspecified
CPT/HCPCS: 36415; 70491; 80053; 85025; 86308; 87637; 87651; 96374; 96375; 99284; A9270; J1100; J2060; Q9967

== ENCOUNTER 2025-03-26 16:01 | Emergency (ER) | payer OTHER, SELFPAY ==
[2025-03-26 16:04] VITALS: BP 111/92; PULSE 60; RESP 18; TEMP 36.3; O2SAT 100
--- NOTE | 2025-03-26 17:27 | ED.NAVMDI ---
HPI - Nausea/Vomiting/Diarrhea General Chief complaint: Nausea/Vomiting/Diarrhea Stated complaint: N/V since yesterday Time Seen by Provider: 03/26/25 17:09 History of Present Illness HPI Narrative: Patient with history of possible cannabinoid hyperemesis syndrome presents here with nausea vomiting, cannot keep anything down, since yesterday, has some abdominal muscle discomfort from throwing up. Related Data Allergies Allergy/AdvReac Type Severity Reaction Status Date / Time Penicillins AdvReac Intermediate Difficulty Verified 09/06/24 07:09 Breathing Review of Systems Review of Systems: All systems reviewed & are unremarkable except as noted in HPI and below PMFSH Past Medical History Medical History Family history of bipolar disorder Anxiety Leukocytosis Abdominal pain Migraine Surgical History Surgical History History of laparoscopic appendectomy 09/30/2022 History of cholecystectomy Family History Family History Father Hypertension Depression Mother Depression Grandparent Cancer Hypertension Thyroid disorder Heart disease Other No pertinent family history Social History Social History Social History: Patient is very confident filling out medical forms. 05/07/24 Smoking status: Current every day smoker Tobacco type: e-cigarettes/vaping Alcohol intake: current Alcohol use details: Social Substance use: former Substance use type: marijuana Last use: 09/15/23 Do You Feel Safe in your Home?: Yes Lack of Transportation: No Lack of Food: Never True Current Housing: I Have Housing Concerned About Future Housing: No Difficulty Paying Gas/Electric Bills: No Difficulty Paying for Meds: No Currently Unemployed: No Education: Grade School Difficulty w/ Childcare or Family Care: No Living arrangements: with family Occupation/Education: occupation Additional occupation/education comments: [employer] Gender identity (if verbalized by the patient): Female Spiritual care concerns: No Exam Narrative: EXAMINATION OF ORGAN SYSTEMS/BODY AREAS: Constitutional: Vital signs per nursing GENERAL: Tearful and holding emesis bag HEAD: Normal with no signs of head trauma. EYES: EOMI, conjunctiva normal ENT: Hearing grossly intact LUNGS: Nonlabored breathing. HEART: [Regular rate and rhythm] ABD: [Soft], [nontender to palpation] EXT: Normal range of motion SKIN: [No rashes or lesions.] NEURO: [Alert and oriented x 3. No gross focal sensory or strength deficits.] PSYCH: Anxious/tearful affect Course Vital Signs Vital signs: Vital Signs Temperature 97.3 F L 03/26/25 16:04 Pulse Rate 60 03/26/25 16:04 Respiratory Rate 18 03/26/25 16:04 Blood Pressure 111/92 H 03/26/25 16:04 Pulse Oximetry 100 03/26/25 16:04 Oxygen Delivery Room Air 03/26/25 16:04 Temperature 97.3 F L 03/26/25 16:04 Pulse Rate 64 03/26/25 17:37 Respiratory Rate 14 03/26/25 17:37 Blood Pressure 124/75 03/26/25 17:43 Pulse Oximetry 100 03/26/25 17:37 Oxygen Delivery Room Air 03/26/25 16:04 MDM - Nausea/Vomiting/Diarrhea MDM Narrative Medical decision making narrative: Patient with history of possible cannabinoid hyperemesis syndrome presents here with nausea vomiting, cannot keep anything down, since yesterday, has some abdominal muscle discomfort from throwing up. She is tearful and anxious here, abdomen soft nontender, she is very pleasant. Zofran does not work but Compazine does, she is given this and fluids and Protonix. Labs within acceptable limits other than slightly elevated white count I suspect from the throwing up, and ketones I suspect from not eating. On re-evaluation, she feels much better, no longer nauseous, symptoms resolved and she feels ready to go home. I will provide a prescription for Compazine with strict strict return precautions and follow-up her PCP, patient agreeable to this plan. Lab Data 03/26/25 18:03 03/26/25 18:03 Labs: Lab Results 03/26/25 03/26/25 03/26/25 Range/Units 18:03 18:42 18:43 WBC 10.6 H (4.5-10.0) K/mm3 RBC 4.44 (4.2-5.4) M/mm3 Hgb 13.0 (12.0-15.0) g/dL Hct 37.2 (37.0-47.0) % MCV 83.8 (80-100) fl MCH 29.3 (26-34) pg MCHC 34.9 (32-36) g/dl RDW 11.8 (11.5-14.5) % Plt Count 250 (150-375) k/mm3 MPV 11.2 H (7.4-10.4) fl Immature Gran % (Auto) 0.2 (0-0.5) % Neut % (Auto) 89.7 H (45.5-73.1) % Lymph % (Auto) 6.2 L (18.3-44.2) % Nelson % (Auto) 3.8 (2.6-8.5) % Eos % (Auto) 0.0 (0-4.4) % Baso % (Auto) 0.1 L (0.2-1.2) % Lymph # (Auto) 0.66 L (0.9-3.2) K/mm3 Nelson # (Auto) 0.4 (0.1-0.6) K/mm3 Eos # (Auto) 0.0 (0-0.3) K/mm3 Baso # (Auto) 0.0 (0.0-0.1) K/mm3 Abs Immat Gran (auto) 0.02 (0.00-0.031) K/mm3 Absolute Neuts (auto) 9.5 H (1.3-6.7) K/mm3 Absolute Nucleated RBC 0.000 (0.0-0.012) K/mm3 Nucleated RBC % 0.0 (0.0-0.2) % Sodium 136 L (137-145) mmol/L Potassium 3.4 (3.4-5.0) mmol/L Chloride 105 (98-107) mmol/L Carbon Dioxide 20 L (22-30) mmol/L Anion Gap 11 (4-12) mmol/L BUN 9 D (7-17) mg/dL Creatinine 0.62 L (0.7-1.0) mg/dL Estim Creat Clear Calc 95 ml/min Estimated GFR > 60 (59 - ) Glucose 172 H (65-110) mg/dL Calcium 9.5 (8.4-10.2) mg/dL Total Bilirubin 1.9 H (0.2-1.3) mg/dL AST 28 (14-36) U/L ALT 31 (6-35) U/L Alkaline Phosphatase 100 (38-126) U/L Total Protein 7.1 (6.3-8.2) g/dL Albumin 4.4 (3.5-5.1) g/dL Lipase 35 (23-300) U/L Urine Color Yellow (Yellow) Urine Appearance Clear (Clear) Urine pH 6.5 (5.0-9.0) Ur Specific [place] 1.030 (1.001-1.035) Urine Protein Trace (Negative) mg/dL Urine Glucose (UA) 1+ H (Negative) mg/dL Urine Ketones 4+ H (Negative) mg/dL Ur Blood (Man) Trace (Negative) Urine Nitrate Negative (Negative) Urine Bilirubin Negative (Negative) Urine Urobilinogen 1.0 (<2.0) mg/dL Leukocyte Esterase Rfl Negative (Negative) NICK/UL Urine RBC 0-2 (0-2) /hpf Urine WBC 0-5 (0-3) /hpf Ur Squamous Epith Cells Occasional (Few) /hpf Urine Bacteria None seen /hpf Urine Casts 0-2 POC Urine HCG, Qual Negative (Negative) Discharge Plan Discharge Clinical Impression: Nausea & vomiting Patient Disposition: Home Condition: Stable Instructions: Acute Nausea and Vomiting (ED) Additional Instructions: You can try the medications as prescribed, and follow-up with your doctor. If your symptoms return or worsen, you can always return to the emergency room. Patient Language: Telugu Prescriptions: New prochlorperazine maleate [Compazine] 5 mg tablet 5 mg PO Q8H PRN (Reason: nausea and vomiting) Qty: 14 0RF No Action ondansetron 4 mg tablet,disintegrating 4 mg PO Q6H PRN (Reason: nausea and vomiting) Qty: 30 0RF sumatriptan succinate 50 mg tablet See Rx Instructions PO .COMPLEX Qty: 10 4RF Rx Instructions: take 1 tab at onset of headache; if no relief may repeat 1 tab after at least 2 hrs; max = 4 tabs/24 hr PO omeprazole 40 mg capsule,delayed release(DR/EC) See Rx Instructions .ROUTE .COMPLEX Qty: 30 0RF Dose Instruction: TAKE 1 CAPSULE BY MOUTH DAILY Rx Instructions: TAKE 1 CAPSULE BY MOUTH DAILY amitriptyline 10 mg tablet 10 mg PO QHS Qty: 90 0RF Follow-up/Referrals: Jaelyn Mccormack APRN [Primary Care Provider, Family Practice] - 2 Days
[2025-03-26] MEDS: LACTATED RINGERS 1,000 ML 999 ML IV CONT (17:30)
[2025-03-26 17:37] VITALS: PULSE 64; RESP 14; O2SAT 100
[2025-03-26 17:43] VITALS: BP 124/75
[2025-03-26 18:13] LABS: Hematocrit 37.2 % (37.0-47.0); Hemoglobin 13.0 g/dL (12.0-15.0); Immature Granulocyte Percent A 0.2 % (0-0.5); Lymphocytes Absolute Auto 0.66 K/mm3 (0.9-3.2); Mean Corpuscular HGB Conc 34.9 g/dl (32-36); Mean Corpuscular Hemoglobin 29.3 pg (26-34); Mean Corpuscular Volume 83.8 fl (80-100); Nucleated Red Blood Cells Absolute Auto 0.000 K/mm3 (0.0-0.012); Nucleated Red Blood Cells Perc 0.0 % (0.0-0.2); Platelet Count Result 250 k/mm3 (150-375); Red Blood Count 4.44 M/mm3 (4.2-5.4); White Blood Count 10.6 K/mm3 (4.5-10.0)
[2025-03-26 18:25] LABS: Alanine Aminotransferase 31 U/L (6-35); Albumin Level 4.4 g/dL (3.5-5.1); Alkaline Phosphatase 100 U/L (38-126); Anion Gap 11 mmol/L (4-12); Aspartate Amino Transferase 28 U/L (14-36); Bilirubin,Total 1.9 mg/dL (0.2-1.3); Blood Urea Nitrogen 9 mg/dL (7-17); Calcium 9.5 mg/dL (8.4-10.2); Carbon Dioxide 20 mmol/L (22-30); Chloride 105 mmol/L (98-107); Estimated CRCL calculation 95 ml/min; Estimated Glomerular Filt Rate > 60; Glucose 172 mg/dL (65-110); Lipase 35 U/L (23-300); Potassium 3.4 mmol/L (3.4-5.0); Sodium 136 mmol/L (137-145); Total Protein 7.1 g/dL (6.3-8.2)
[2025-03-26] MEDS: PANTOPRAZOLE SODIUM IV 40 MG VIAL IV PUSH (18:32)
[2025-03-26] MEDS: PROCHLORPERAZINE EDISYLATE 10 MG/2 ML VIAL IV PUSH (18:32)
[2025-03-26 18:43] LABS: BEDSIDEPREGUCG Negative (Negative)
[2025-03-26 19:00] LABS: Add Urine Microscopic? YES; Appearance Urine Clear (Clear); Glucose Urine UA 1+ mg/dL (Negative); Leukocyte Esterase Ur Negative LEU/UL (Negative); Nitrate Urine Negative (Negative); Non Pathogenic Casts 0-2; Specific Grav Ur 1.030 (1.001-1.035)
--- NOTE | 2025-03-26 19:17 | PC.NURSE ---
Report received from OMID Glaser. Assumed care of patient at this time.
[2025-03-26 19:23] VITALS: BP 105/54; PULSE 70; RESP 16; O2SAT 100
== END 2025-03-26 19:25 | disposition home or self-care (01) ==
PROVIDERS: Emergency Provider Emergency Medicine; PCP Nurse Practitioner Family
DX: R11.2 Nausea with vomiting, unspecified (principal); F17.290 Nicotine dependence, other tobacco product, uncomplicated; Z90.49 Acquired absence of other specified parts of digestive tract
CPT/HCPCS: 36415; 80053; 81001; 81025; 83690; 85025; 96361; 96374; 96375; 99284; J0780; J2470; J7120

== ENCOUNTER 2025-03-28 06:54 | Emergency (ER) | payer OTHER, SELFPAY ==
--- OUTSIDE RECORDS SUMMARY | 2025-03-27 09:07 | XMS_ITS | Encounter Summary ---
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 Primary Care Provider + Reason for Visit * Reason Comments Abdominal Pain Encounter Details Date Type Department Care Team (Late st Contact Info) Description 03/27/2025 9:07 AM CDT - 03/27/2025 11:27 AM CDT Emergency [facility] Emergency Department [address] [place] [id number] Abdominal pain with vomiting (Primary Dx) Discharge Disposition: Discharge to home or self care Social History Tobacco Use Types Packs/Day Years Used Date Smoking Tobacco: Former E-cigarettes Smokeless Tobacco: Never Comments:Vapor Alcohol Use Standard Drinks/Week Comments Not Currently 0 (1 standard drink = 0.6 oz pur e alcohol) PHQ-2 Answer Date Recorded PHQ-2 Total Score (If total score is 3 or more points, staff should administer the PHQ-9) 0 09/09/2022 Personal Safety Answer Date Recorded Have you ever been in or are you currently in a harmful physical or emotional relationship or is someone making you feel afraid or unsafe? Denies 03/27/2025 Comments No Sex and Gender Information Value Date Recorded Sex Assigned at Not on file Legal Sex Female 8:37 AM CDT Gender Identity Female 01/28/2022 8:34 PM CDT Sexual Orientation Straight 01/28/2022 8: 34 PM CDT documented as of this encounter Last Filed Vital Signs Vital Sign Reading Time Taken Comments Blood Pressure 130/80 03/27/2025 10:30 AM CDT Pulse 59 03/27/2025 10:30 AM CDT Temperature 36.1 C (96.9 F) 03/27/2025 9:00 AM CDT Respiratory Rate 17 03/27/2025 10:30 AM CDT Oxygen Saturation 98% 03/27/2025 10:30 AM CDT Inhaled Oxygen Concentration - - Weight 63.5 kg (140 lb) 03/27/2025 9:00 AM CDT Height 157.5 cm (5' 2) 03/27/2025 9:00 AM CDT Body Mass Index 25.61 03/27/2025 9:00 AM CDT documented in this encounter Discharge Instructions * Discharge Instructions* Lan Mason PA - 03/27/2025 10:28 AM CDT No specific cause of your abdominal pain and vomiting has been determined. There is a link between marijuana use and your symptoms. Your blood tests yesterday and repeat tests today are stable. Cat scan today does not show any abnormal findings. Please call your primary care provider tomorrow to arrange a follow up appointment. * Attachments The following attachments cannot be sent through Care Everywhere. * Abdominal Pain, Unknown Cause, (Female) (Comoran) * Vomiting (Adult) (Comoran) documented in this encounter Medications at Time of Discharge dicyclomine (BENTYL) 20 mg tablet Take 1 tablet (20 mg total) by mouth every 6 (six) hours as needed (Abdominal pain) 12 tablet 03/27/2025 HYDROcodone-acet aminophen (NORCO) 5-325 mg per tabletIndication s:Pain Take 1 tablet by mouth every 6 (six) hours as needed for pain 8 tablet 03/27/2025 medroxyPROGESTER one (DEPO-PROVERA) 150 mg/mL injection Inject 1 mL (150 mg total) into the muscle as instructed every 3 (three) months 1 mL 3 10/16/2022 metoclopramide (REGLAN) 10 mg tablet Take 1 tablet (10 mg total) by mouth every 6 (six) hours as needed (Nausea or vomiting) 12 tablet 03/27/2025 prochlorperazine (COMPAZINE) 10 mg tablet Take 1 tablet (10 mg total) by mouth 2 (two) times a day as needed for nausea or vomiting 10 tablet 03/26/2025 SUMAtriptan (IMITREX) 50 mg tablet TAKE 1 TABLET(50 MG) BY MOUTH 1 TIME NEEDED FOR MIGRAINE HEADACHE. MAY REPEAT 1 TIME AFTER 2 HOURS NEEDED 9 tablet 5 11/06/2021 documented as of this encounter Ordered Prescriptions Prescription Sig Dispense Quantity Refills Last Filled Start Date End Date HYDROcodone-acetami nophen (NORCO) 5-325 mg per tabletIndications:P ain Take 1 tablet by mouth every 6 (six) hours as needed for pain 8 tablet 03/27/2025 dicyclomine (BENTYL) 20 mg tablet Take 1 tablet (20 mg total) by mouth every 6 (six) hours as needed (Abdominal pain) 12 tablet 03/27/2025 metoclopramide (REGLAN) 10 mg tablet Take 1 tablet (10 mg total) by mouth every 6 (six) hours as needed (Nausea or vomiting) 12 tablet 03/27/2025 documented in this encounter Discharge Disposition Disposition Code Departure Means Destination Comment s Discharge to home or self care documented in this encounter ED Notes * Lan Mason PA - 03/27/2025 11:02 AM CDT HPI Chief Complaint Patient presents with Abdominal Pain Patient is here for continued abdominal pain with nausea and vomiting. Pain is diffuse. No diarrhea, constipation, dysuria, fever. Seen here yesterday for same. Yesterday patient had negative hCG, urine with ketones/1+ blood/trace bacteria/no significant RBC or WBC, CMP with stable T bili elevation at 1.8/CO2 20/Ag 17, normal lipase. History provided by: Patient and medical records Patient History: Past Medical History: Diagnosis Date Allergic rhinitis GERD (gastroesophageal reflux disease) Ovarian cyst Review of Systems Review of Systems Gastrointestinal: Positive for abdominal pain, nausea and vomiting. Physical Exam ED Triage Vitals Temp Pulse Resp BP SpO2 03/27/2589903/27/2589903/27/2589903/27/2590103/27/25899 36.1 ??C (96.9 ??F) 84 24 138/90 96 % Temp src Heart Rate Source Patient Position BP Location FiO2 (%) 03/27/25899 -- -- -- -- Temporal Height Height Method Weight Weight Method 10/12/25 0900 10/12/25 0900 10/12/25 0900 10/12/25 0900 1.575 m (5' 2) Stated 63.5 kg (140 lb) Stated Physical Exam Vitals reviewed. Constitutional: Appearance: She is not ill-appearing or diaphoretic. Pulmonary: Effort: Pulmonary effort is normal. No respiratory distress. Abdominal: General: There is no distension. Tenderness: There is abdominal tenderness (Mild diffuse tenderness). There is no guarding. Skin: Coloration: Skin is not jaundiced. Neurological: Mental Status: She is alert and oriented to person, place, and time. MDM Medical Decision Making Broad differential including but not limited to cannabis hyperemesis syndrome or other sick with vomiting, gastric outlet obstruction, ileus, obstruction, pancreatitis, hepatitis, , urinary tract infection, nephrolithiasis, other Vitals unremarkable no fever. She appears in discomfort. She has mild diffuse abdominal tenderness. Labs: Repeat CBC today normal CT abdomen pelvis without acute findings Assessment: Unknown cause of reported symptoms. Between workup yesterday, stable CBC today, CT abdomen pelvis today there is low concern for a more emergent process as mentioned differential otherwise. Plan: - Will focus on symptomatic treatment - She reports no help with previously prescribed Compazine or Zofran in ED so will try Reglan; patient instructed to take only 1 of these antiemetic medications - Dicyclomine for abdominal pain and [place] for breakthrough pain - Highly recommend primary care follow up - ED return as needed Amount and/or Complexity of Data Reviewed Radiology: ordered. Risk Prescription drug management. Final diagnoses: Abdominal pain with vomiting Lan Mason PA 03/27/25 1108 * Krista Post RN - 03/27/2025 9:02 AM CDT Patient ambulatory to triage with complaint of generalized abd pain with nausea and vomiting since Friday. Denies difficulties with urination or bowel movements. documented in this encounter Plan of Treatment Not on file documented as of this encounter Procedures Procedure Name Priority Date/Time Associated Diagnosis Comments CT ABDOMEN PELVIS W CONTRAST ED 03/27/2025 9:44 AM CDT DIFFERENTIAL AUTO STAT 03/27/2025 9:0 9 AM CDT CBC WITH AUTO DIFFERENTIAL STAT 03/27/2025 9:09 AM CDT documented in this encounter Results * CT Abdomen Pelvis W Contrast (03/27/2025 9:44 AM CDT) Anatomical Region Laterality Modality Body N/A Computed Tomogra phy 03/27/2025 9:52 AM CDT Narrative 03/27/2025 9:53 AM CDT EXAM DESCRIPTION: CT ABDOMEN PELVIS W CONTRAST REASON FOR STUDY: Abdominal pain, acute, nonlocalized Patient ambulatory to triage with complaint of generalized abd pain with nausea and vomiting since Friday. Denies difficulties with urination or bowel movements. Gallbladder and appendix have both been removed TECHNIQUE: CT scan of the abdomen and pelvis performed with intravenous and without oral contrast using helical scanning technique with dynamic intravenous contrast injection. Reconstructed coronal and sagittal MPR images reviewed. All images stored on PACS. Automated exposure control was used as a dose optimization technique for this examination. CONTRAST TYPE/DOSE: 75mL of IOVERSOL 350 MG IODINE/ML INTRAVENOUS SYRINGE injected via intravenous COMPARISON: CT dated July 04, 2020 FINDINGS: LOWER CHEST: No significant pulmonary abnormalities. No effusion. LIVER: Normal size. No identified cystic or solid masses. GALLBLADDER: Surgically absent BILE DUCTS: No intrahepatic or extrahepatic ductal dilatation. SPLEEN: Normal size. No focal lesions. PANCREAS: No identified cystic or solid masses. No significant calcifications. No adjacent inflammation or peripancreatic fluid collections. Pancreatic duct not dilated. ADRENALS: Normal. KIDNEYS/URINARY TRACT: No identified significant cystic or solid masses. No visualized stones. No hydronephrosis or hydroureter. Symmetric enhancement. Urinary bladder is unremarkable. GI: No dilated bowel loops. No obvious wall thickening. The appendix is surgically absent.. No significant diverticular disease. PERITONEUM: No ascites or free air. RETROPERITONEUM: No mass or adenopathy. REPRODUCTIVE: No significant abnormality. VASCULATURE: No abdominal aortic aneurysm. MUSCULOSKELETAL: No significant abnormality. OTHER: No other abnormality. IMPRESSION: 1. No acute findings identified to suggest etiology of the patient's symptoms. 2. Cholecystectomy and appendectomy. THIS IS AN ELECTRONICALLY VERIFIED FINAL REPORT 03/27/2025 9:53 AM - Electronically signed by Teja VASQUEZ: PEDRO Report ID: [id number] Reading Location: [place] [address] Procedure Note Teja Fong MD - 03/27/2025 EXAM DESCRIPTION: CT ABDOMEN PELVIS W CONTRAST REASON FOR STUDY: Abdominal pain, acute, nonlocalized Patient ambulatory to triage with complaint of generalized abd pain with nausea and vomiting since Friday. Denies difficulties with urination orbowel movements. Gallbladder and appendix have both been removed TECHNIQUE: CT scan of the abdomen and pelvis performed with intravenousand without oral contrast using helical scanning technique with dynamic intravenous contrast injection. Reconstructed coronal and sagittal MPRimages reviewed. All images stored on PACS. Automated exposure control was usedas a dose optimization technique for this examination. CONTRAST TYPE/DOSE: 75mL of IOVERSOL 350 MG IODINE/ML INTRAVENOUSSYRINGE injected via intravenous COMPARISON: CT dated July 04, 2020 FINDINGS: LOWER CHEST: No significant pulmonary abnormalities. No effusion. LIVER: Normal size. No identified cystic or solid masses. GALLBLADDER: Surgically absent BILE DUCTS: No intrahepatic or extrahepatic ductal dilatation. SPLEEN: Normal size. No focal lesions. PANCREAS: No identified cystic or solid masses. No significant calcifications. No adjacent inflammation or peripancreatic fluidcollections. Pancreatic duct not dilated. ADRENALS: Normal. KIDNEYS/URINARY TRACT: No identified significant cystic or solid masses.No visualized stones. No hydronephrosis or hydroureter. Symmetricenhancement. Urinary bladder is unremarkable. GI: No dilated bowel loops. No obvious wall thickening. The appendix is surgically absent.. No significant diverticular disease. PERITONEUM: No ascites or free air. RETROPERITONEUM: No mass or adenopathy. REPRODUCTIVE: No significant abnormality. VASCULATURE: No abdominal aortic aneurysm. MUSCULOSKELETAL: No significant abnormality. OTHER: No other abnormality. IMPRESSION: 1. No acute findings identified to suggest etiology of the patient's symptoms. 2. Cholecystectomy and appendectomy. THIS IS AN ELECTRONICALLY VERIFIED FINAL REPORT 03/27/2025 9:53 AM - Electronically signed by Teja Hetal Fong M.D. JA: PEDRO Report ID: [id number] Reading Location: [id number] Lan PRATT IMG CT PROCEDURES Final Re sult * Differential, auto (03/27/2025 9:09 AM CDT) Neutrophil abs 5.36 1.50 - 6.50 K/cumm Imm gran abs 0.02 0.00 - 0.10 K/cumm [facility] ([facility]) Lymphocyte abs 1.99 0.80 - 3.30 K/cumm [facility] ([place]) Monocyte abs 0.63 0.20 - 0.80 K/cumm [facility] ([place]) Eosinophil abs 0.03 0.00 - 0.50 K/cumm [facility] ([place]) Basophil abs 0.03 0.00 - 0.10 K/cumm [facility] ([place]) Neutrophil pct 66.5 % [facility] ([place]) Comment: Interpretive Data Percent cell count reference ranges are not reported, since discordance with absolute values may lead to misinterpretation of CBC data. Current Interpretive Data was last revised on 2017. Imm gran pct 0.2 % [facility] ([place]) Comment: Interpretive Data Percent cell count reference ranges are not reported, since discordance with absolute values may lead to misinterpretation of CBC data. Current Interpretive Data was last revised on 2017. Lymphocyte pct 24.7 % [facility] ([place]) Comment: Interpretive Data Percent cell count reference ranges are not reported, since discordance with absolute values may lead to misinterpretation of CBC data. Current Interpretive Data was last revised on 2017. Monocyte pct 7.8 % [facility] ([place]) Comment: Interpretive Data Percent cell count reference ranges are not reported, since discordance with absolute values may lead to misinterpretation of CBC data. Current Interpretive Data was last revised on 2017. Eosinophil pct 0.4 % [facility] ([place] Comment: Interpretive Data Percent cell count reference ranges are not reported, since discordance with absolute values may lead to misinterpretation of CBC data. Current Interpretive Data was last revised on 2017. Basophil pct 0.4 % [facility] ([place]) Comment: Interpretive Data Percent cell count reference ranges are not reported, since discordance with absolute values may lead to misinterpretation of CBC data. Current Interpretive Data was last revised on 2017. Blood 03/27/2025 9:09 AM CDT 03/27/2025 9:13 AM CDT us Lan [facility] LAB BLOOD ORDERABLES Final Result [facility] ([place]) 1 [facility] Department [place] [address] * CBC with auto differential (03/27/2025 9:09 AM CDT) WBC 8.06 3.80 - 9.90 K/cumm Hgb 12.7 11.9 - 15.5 g/dL [facility] ([place]) Hct 36.0 35.6 - 45.5 % [facility] ([place]) Plt 230 150 - 400 K/cumm [facility] ([place]) MPV 11.2 9.1 - 12.3 fL [facility] ([place]) RBC 4.24 3.90 - 5.20 M/cumm [facility] ([place]) MCV 84.9 81.3 - 96.4 fL [facility]) MCH 30.0 27.1 - 33.3 pg [facility] ([place]) MCHC 35.3 32.3 - 35.7 g/dL [facility]) RDW CV 11.9 11.1 - 14.9 % [facility]) RDW SD 36.3 35.7 - 48.1 fL [facility] ([place]) NRBC abs 0.00 0.00 - 0.01 K/cumm [facility] ([place]) Blood 03/27/2025 9:09 AM CDT 03/27/2025 9:13 AM CDT Lan [facility] LAB BLOOD ORDERABLES Final Result [facility] [place] 1 [facility] Department [place] [address] documented in this encounter Visit Diagnoses Diagnosis Abdominal pain with vomiting- Primary documented in this encounter Administered Medications Inactive Administered Medications - up to 3 most recent administrations Medication Order MAR Action Action Date Dose Rate Site droPERidol (INAPSINE) injection 2.5 mg 2.5 mg, intravenous, Administer over 5 Minutes, Once as needed, nausea, vomiting, Starting on 03/27/25 at 0909, For 1 dose Given 03/27/2025 9:20 AM CDT 2.5 mg ioversoL (OPTIRAY 350) syringe 75 mL 75 mL, intravenous, Once in imaging, contrast, Starting on 03/27/25 at 0933, For 1 dose Contrast Given 03/27/2025 9:38 AM CDT 75 mL metoclopramide (REGLAN) 5 mg/mL injection 10 mg 10 mg, intravenous, Once, On 03/27/25 at 1028, For 1 dose Given 03/27/2025 10:43 AM CDT 10 mg morphine injection 4 mg 4 mg, intravenous, Administer over 4 Minutes, Once, On 03/27/25 at 0908, For 1 dose Given 03/27/2025 9:22 AM CDT 4 mg ondansetron (ZOFRAN) injection 4 mg 4 mg, intravenous, Administer over 2 Minutes, Once, On 03/27/25 at 0907, For 1 dose Given 03/27/2025 9:22 AM CDT 4 mg sodium chloride 0.9% bolus 1,000 mL 1,000 mL, intravenous, at 999 mL/hr, Administer over 1 Hours, Once, On 03/27/25 at 0910, For 1 dose Off Pump Infusion 03/27/2025 9:20 AM CDT 1,000 mL 999 mL/hr documented in this encounter Active and Recently Administered Medications Times are shown in CDT. Scheduled Medication Order 03/25/2025 03/26/2025 03/27/2025 metoclopramide (REGLAN) 5 mg/mL injection 10 mg (COMPLETED) 10 mg, intravenous, Once, On 03/27/25 at 1028, For 1 dose 1043 (Given - Provid er: Vik L. Alcazar, RN) morphine injection 4 mg (COMPLETED) 4 mg, intravenous, Administer over 4 Minutes, Once, On 03/27/25 at 0908, For 1 dose 0922 (Given - Provid er: Vik Horne RN) ondansetron (ZOFRAN) injection 4 mg (COMPLETED) 4 mg, intravenous, Administer over 2 Minutes, Once, On 03/27/25 at 0907, For 1 dose 0922 (Given - Provid er: Vik Horne RN) sodium chloride 0.9% bolus 1,000 mL (COMPLETED) 1,000 mL, intravenous, at 999 mL/hr, Administer over 1 Hours, Once, On 03/27/25 at 0910, For 1 dose 0920 (Off Pump Infus ion - Provider: Vik Horne RN) PRN Medication Order 03/25/2025 03/26/2025 03/27/2025 droPERidol (INAPSINE) injection 2.5 mg (COMPLETED) 2.5 mg, intravenous, Administer over 5 Minutes, Once as needed, nausea, vomiting, Starting on 03/27/25 at 0909, For 1 dose 0920 (Given - Provid er: Vik Horne RN) ioversoL (OPTIRAY 350) syringe 75 mL (COMPLETED) 75 mL, intravenous, Once in imaging, contrast, Starting on 03/27/25 at 0933, For 1 dose 0938 (Contrast Given - Provider: Aria Chavez, RT) documented in this encounter Care Teams Assembler Clip On Sunglasses Relationship Specialty Start Date End Date Jaelyn Mccormack NP [address] [place] [id number] PCP - General Nurse Practitioner 03/26/25 documented as of this encounter
--- OUTSIDE RECORDS SUMMARY | 2025-03-27 09:07 | XMS_ITS | Encounter Summary ---
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 * Abdominal Pain, Unknown Cause, (Female) ([place]ian) * Vomiting (Adult) (Gu[place]ian) documented in this encounter Medications at Time [...] medications - Dicyclomine for abdominal pain and [place] for breakthrough pain - Highly recommend primary [...] signed by Teja VASQUEZ: PEDRO Report ID: [id number] Reading Location: [place] [address] Procedure Note Teja Fong MD - 03/27/2025 [...] Hetal Fong M.D. JA: PEDRO Report ID: [id number] Reading Location: [id number] Lan [facility] IMG CT PROCEDURES Final Re [...] ORDERABLES Final Result [facility] ([place] 1 [facility] Department [place] [address] * CBC with auto differential (03/27/2025 9:09 AM CDT) WBC 8.06 3.80 - 9.90 K/cumm Hgb 12.7 11.9 - 15.5 g/dL [facility] ([place]) Hct 36.0 35.6 - 45.5 % [facility] ([place]) Plt 230 150 - 400 K/cumm [facility] ([place]) MPV 11.2 9.1 - 12.3 fL [facility] [...] Lan [facility] LAB BLOOD ORDERABLES Final Result [facility] [place] 1 [facility] Department [place] [address] documented in this encounter Visit Diagnoses Diagnosis [...] RT) documented in this encounter Care Teams Practice Specialist Relationship Specialty Start Date End Date Jaelyn Mccormack NP [address] [place] [id number] PCP - General Nurse Practitioner 03/26/25 documented as of this encounter
[2025-03-28] VITALS (23 sets, daily range): BP systolic 80–133; BP diastolic 13–103; PULSE 50–90; RESP 9–29; TEMP 36.6; O2SAT 96–100
--- NOTE | ~2025-03-28 | CT_ITS ---
CT abdomen pelvis w con Clinical History: b/l low abd pain, hypoK . Comparison: CT abdomen and pelvis 09/05/2024 Technique: Axial images lung bases to symphysis pubis IV contrast information not listed in PACS Coronal, sagittal reformats CT images acquired with automatic exposure control for dose reduction DLP: 266 mGy-cm Findings: Lung bases: Clear. Visualized heart and pericardium: Unremarkable. Liver: Mild steatosis. Gallbladder: Removed. Spleen: Unremarkable. Pancreas: Unremarkable. Adrenal glands: Unremarkable. Kidneys: Mildly full collecting systems and ureters, likely secondary to bladder distention. Right kidney- No hydronephrosis. No renal stones. Left kidney- No hydronephrosis. No renal stones. Distal esophagus/stomach: Unremarkable. Small bowel loops: Normal caliber and wall thickness. Colon: Diffuse wall thickening. Appendectomy. Focal minimal distention sigmoid with stool. Nodes: No enlarged nodes. Peritoneum: No ascites. No free air. Urinary bladder: Distended. Uterus: Unremarkable. Adnexa: No masses. Bones: No acute bony abnormality. Soft tissues: Unremarkable. Aorta: No aneurysm or dissection. IVC: Unremarkable. Main portal vein/SMV/splenic vein: Patent. IMPRESSION: 1. Pancolitis. 2. No other acute abnormality. 3. Additional findings as above. Reviewed, dictated and finalized at location R.
--- OUTSIDE RECORDS SUMMARY | 2025-03-28 06:56 | XMS_ITS | Clinical Summary ---
Author Organization [facility] Address [address] [place] [id number] Care Team Providers Care Burlap Spreader Name Role Phone Randy Mccormackelle Mellissa BOTTOMING ROOM SUPERVISOR Primary Care Provider + Allergies Active Allergy Reactions Criticality Noted Date Comments Penicillins Rash Medium 11/04/2018 Medications SUMAtriptan (IMITREX) 50 mg tablet TAKE 1 TABLET(50 MG) BY MOUTH 1 TIME NEEDED FOR MIGRAINE HEADACHE. OCTOBER REPEAT 1 TIME AFTER 2 HOURS NEEDED 9 tablet 5 2 Active medroxyPROGESTE Uday (DEPO-PROVERA) 150 mg/mL injection Inject 1 mL (150 mg total) into the muscle as instructed every 3 (three) months 1 mL 3 3 Active prochlorperazin e (COMPAZINE) 10 mg tablet Take 1 tablet (10 mg total) by mouth 2 (two) times a day as needed for nausea or vomiting 10 tablet 5 Active metoclopramide (REGLAN) 10 mg tablet Take 1 tablet (10 mg total) by mouth every 6 (six) hours as needed (Nausea or vomiting) 12 tablet 5 Active dicyclomine (BENTYL) 20 mg tablet Take 1 tablet (20 mg total) by mouth every 6 (six) hours as needed (Abdominal pain) 12 tablet 5 Active HYDROcodone-grace taminophen (NORCO) 5-325 mg per tabletIndicatio ns:Pain Take 1 tablet by mouth every 6 (six) hours as needed for pain 8 tablet 5 Active Active Problems Problem Noted Date Diagnosed Date Migraine with aura and witho ut status migrainosus, not intractable 10/16/2020 Gilbert syndrome 10/20/2019 Assessment & Plan (01/29/2020 8:28 AM CDT): Elevated total bilirubin, normal direct bili --H&H stable, monitor Assessment & Plan (01/28/2020 5:16 PM CDT): Elevated total bilirubin, normal direct bili --H&H stable, monitor Resolved Problems Problem Noted Date Diagnosed Date Resolved Date Body mass index (BMI) 23.0-23.9, adult 09/11/2021 06/24/2022 Assessment & Plan (09/11/2021 2:00 PM CDT): BMI Follow-up includes: education provided. Acute non-recurrent maxillary sinusitis 09/11/2021 06/24/2022 Assessment & Plan (09/11/2021 2:03 PM CDT): azithromycin ordered during this visit. Suggested the use of OTC medications for sinus sx. Discussed increase in fluid intake. Can take a steamy shower or increase humidity in your home or personal cool mist vaporizer. Can use Tylenol/Motrin for facial pain. Saline nasal drops/spray. Adequate rest, and sleep with head of bed elevated. Avoid cigarette smoke, dry air, and allergen triggers. Potential exposure to STD 05/21/2021 Assessment & Plan (05/21/2021 2:01 PM BOLTING MACHINE OPERATOR): UA ordered, will call with the result. Declines STD prophylaxis or other STD testing at this time. Went over safe sex practices. Follow up PRN Viral pharyngitis 05/21/2021 09/11/2021 Assessment & Plan (05/21/2021 2:09 PM BOLTING MACHINE OPERATOR): Rapid strep negative. Symptoms are most likely from a virus. Prednisone sent to pharmacy for symptom management Evidence based supportive measures: Increase fluids Take 650 mg of tylenol every 6 hours or ibuprofen 400 mg every 6 hours Use throat lozenges or hard candy and stay with soft foods Humidifier Warm salt water gargles Popsicles Honey lemon tea Cepacol throat lozenges Abdominal pain 01/28/2020 07/06/2020 Chronic headaches 01/28/2020 06/24/2022 Assessment & Plan (01/29/2020 8:28 AM CDT): Headache improved. Is sometimes light sensitive with severe headaches and nausea. Likely migraines --Outpatient follow up with neurology --Started amitriptyline 25mg hs for prevention -- Scheduled tylenol TID today --Toradol PRN --Hydration Assessment & Plan (01/28/2020 5:21 PM CDT): Has a headache but no light sensitivity currently. Is sometimes light sensitive with severe headaches and nausea. Likely migraines --Outpatient follow up with neurology --Start amitriptyline 25mg hs for prevention --Toradol/Aceteminophen PRN --Hydration Nausea & vomiting 12/27/2019 07/06/2020 Overview (12/27/2019): Added automatically from request for surgery [id number] Assessment & Plan (01/29/2020 8:28 AM CDT): Acute episode of nausea, vomiting, and abdominal pain. Labs reassuring. Emesis in basin at bedside. Differential includes marijuana hyperemesis, viral gastroenteritis, migraine --compazine, zofran, ativan PRN --Limit opiates --Clear liquids, advance as tolerated Assessment & Plan (01/28/2020 5:18 PM CDT): Acute episode of nausea, vomiting, and abdominal pain. Labs reassuring. Emesis in basin at bedside. Differential includes marijuana hyperemesis, viral gastroenteritis, migraine --compazine, zofran, ativan PRN --Limit opiates --Clear liquids, advance as tolerated Dysfunction of right eustachian tube 12/07/2019 07/06/2020 Assessment & Plan (12/07/2019 2:04 PM CDT): No evidence of infection to warrant antibiotics at this time; trial Sudafed, Flonase and Zyrtec. Recommend Motrin/Tylenol as needed for pain or fever. Call in 2-3 days if no improvement. Generalized abdominal pain 11/22/2019 0 07/06/2020 Assessment & Plan (01/29/2020 8:28 AM CDT): Acute on chronic. Differential includes abdominal migraine, musculoskeletal 2/2 vomiting, hyperalgesia 2/2 IBS --Minimize opiates --Started amitriptyline 25mg hs -- acetaminophen, toradol prn Assessment & Plan (01/28/2020 5:22 PM CDT): Acute on chronic. Differential includes abdominal migraine, musculoskeletal 2/2 vomiting, hyperalgesia 2/2 IBS --Minimize opiates --Start amitriptyline 25mg hs --Toradol, acetaminophen prn Assessment & Plan (11/22/2019 5:42 PM CDT): I had a lengthy discussion with Rosibel and her mother. It seemed excessive to do another round of testing today since she just had it two days ago, the symptoms are chronic and she has no fever. We did discuss the possibility of common bile duct obstruction from recent GB surgery and that given her ongoing sx she should be under the care of a gastroeneterologist. I will refer her as quickly as I can but if she had increase in pain, fever or intractable vomiting that she should go to the ER in [place] where the would have GI on staff. Gall bladder disease 10/20/2019 021 Cholecystitis 10/20/2019 07/06/2020 Overview (10/21/2019): Added automatically from request for surgery [id number] Viral gastroenteritis 05/14/20192019 Assessment & Plan (05/21/2019 1:17 PM BOLTING MACHINE OPERATOR): Has resolved nicely. Reassured that exam is normal and labs are likely to be as well. Will call with results Assessment & Plan (05/14/2019 7:15 PM BOLTING MACHINE OPERATOR): Encouraged family to give 1/2 strength Gatorade or pedialyte (for infants), Advance to bland foods. Reviewed signs or symptoms of dehydration or otherwise worsening condition. Gastroenteritis 05/13/2019 05/14/2019 Non-intractable vomiting 05/13/2019 Dehydration 05/13/2019 05/21/2019 Hyperbilirubinemia 05/13/2019 9 Encounter for routine child health examination without abnormal findings 03/09/2019 Assessment & Plan (03/09/2019 7:14 PM CDT): Reviewed healthy habits, safety and development. Expectations for coming months identified. Recommend Dentist visit every 6 months starting at age 1. Immunizations discussed. Timing of next wellness visit identified. Dysuria 03/09/2019 05/14/2019 Assessment & Plan (03/12/2019 10:01 AM CDT): Check UA/UC. Abdominal pain, epigastric 0 07/06/2020 Encounters Date Type Department Care Team Description 03/27/2025 9:07 AM CDT - 03/27/2025 11:27 AM CDT Emergency [facility] Emergency Department [address] [place] [address] Abdominal pain with vomiting (Primary Dx) Discharge Disposition: Discharge to home or self care 03/26/2025 8:36 AM CDT - 03/26/2025 9:59 AM CDT Emergency [facility] Emergency Department [address] [place] [address] Abdominal pain, unspecified abdominal location (Primary Dx); Nausea and vomiting, unspecified vomiting type Discharge Disposition: Discharge to home or self care from Last 3 Months Immunizations Immunization Administration Dates Next Due DTaP 5 Pertussis 02/03/2007, 5,01/03/2003,02/23,2001 HPV9 03/11/2019 Hep A, Unspecified 02/06/2011,02/03/2007 Hep B, Unspecified 02/23/2002,2001, 002 HiB 01/03/2003 IPV 02/03/2007, 5,02/23/2002,12/11 Influenza, Unspecified 05/21/2021(Deferr ed: Patient decision),07/06/2020(Deferred: Patient Refused),07/06/2020(Deferred: Patient Refused) MMR 02/03/2007,01/03/2003 Meningococcal ACWY, Unspecified 11/23/2014 Meningococcal B, OMV (Bexsero) 03/11/2019 Meningococcal Conjugate (Menveo) 03/11/2019 Moderna SARS-CoV-2 Monovalen t Vaccination (12+ YRS) 08/17/2021 Pneumococcal Conjugate, Unspecified 02/13/2005,0 01/03/2003,2001 Tdap 03/30/2013 Varicella 02/03/2007,01/03/2003 Surgical History Surgery Date Site/Laterality Comments CHOLECYSTECTOMY Medical History Medical History Date Comments Allergic rhinitis Ovarian cyst GERD (gastroesophageal reflux disease) Family History Medical History Relation Name Comments No Known Problems Father Migraines Father's Sister Allergy (severe) Maternal Grandmother Bipolar disorder Maternal Grandmother Hyperlipidemia Maternal Grandmother Liver disease Maternal Grandmother Throat cancer Maternal Grandmother No Known Problems Mother Hyperlipidemia Paternal Grandfather Hypertension Paternal Grandfather Skin cancer Paternal Grandfather Allergy (severe) Paternal Grandmother Breast cancer Paternal Grandmother Hyperlipidemia Paternal Grandmother Colon cancer Neg Hx Pancreatic cancer Neg Hx Relation Name Status Comments Father Alive Father's Sister Maternal Grandmother Mother Alive Paternal Grandfather Paternal Grandmother Social History Tobacco Use Types Packs/Day Years [...] Orientation Straight 01/28/2022 8: 34 PM CDT Obstetrics History Para Term AB IAB SAB Ectopic Multiple Livin g Live Births 0 0 0 0 0 0 0 0 0 0 0 Last Filed Vital Signs Vital Sign Reading [...] Mass Index 25.61 03/27/2025 9:00 AM CDT Plan of Treatment Health Maintenance Due Date Last Done Comments Cervical Cancer Screening 2001 HPV Vaccines (2 - 3-dose series) 04/08/2019 03/11/20 19 Meningococcal B Vaccine (2 o f 2 - Bexsero SCDM 2-dose series) 09/09/2019 03/11/2019 Regular Well Visit/Exam 18-64 08/17/2022 08/17/2021 DTaP/Tdap/Td Vaccine (7 - Td or Tdap) 03/30/2023 03/30/2013, 02/03/2007, 02/13/2005, Additional history exists Chlamydia and Gonorrhea (GC/ CT) Screening 09/10/2023 09/09/2022, 05/21/2021, 03/04/2019 Depression Screening 09/10/2023 09/09/2022, 06/24/2022, 08/17/2021, Additional history exists Covid-19 Vaccine (4 - 2024-2 6 season) 2025 08/17/2021, 10/30/2020, 09/28/2020 Influenza Vaccine (#1) 2025 05/06/2014, 2012 Hepatitis B Screening Completed 02/23/2002 , 2001, 2001 Pneumococcal vaccine <65 Completed 005, 01/03/2003, 2001 Varicella Vaccines Completed 02/03/2007, 01/03/2003 Hepatitis C Screening Completed 09/09/2022, 019 Procedures Procedure Name Priority Date/Time Associated Diagnosis Comments CT ABDOMEN PELVIS W CONTRAST ED 03/27/2025 9:44 AM CDT DIFFERENTIAL AUTO STAT 03/27/2025 9:0 9 AM CDT CBC WITH AUTO DIFFERENTIAL STAT 03/27/2025 9:09 AM CDT URINALYSIS, MICROSCOPIC ONLY STAT 03/26/2025 9:34 AM CDT URINALYSIS AND REFLEX TO MICROSCOPIC AND CULTURE STAT 03/26/2025 9:34 AM CDT INFLUENZA A/B, RSV, AND COVID-19 PCR STAT 03/26/2025 9:09 AM CDT EGFR STAT 03/26/2025 8:48 AM CDT DIFFERENTIAL AUTO STAT 03/26/2025 8:4 8 AM CDT HCG, BLOOD, QUANTITATIVE STAT 03/26/2025 8:48 AM CDT LIPASE STAT 03/26/2025 8:48 AM CDT COMPREHENSIVE METABOLIC PANEL STAT 03/26/2025 8:48 AM CDT CBC WITH AUTO DIFFERENTIAL STAT 03/26/2025 8:48 AM CDT N. GONORRHOEAE/C. TRACHOMATIS AMPLIFICATION Routine 09/09/2022 11:48 AM CDT High risk sexual behavior, unspecified type HEPATITIS C ANTIBODY Routine 09/09/2022 11:43 AM CDT High risk sexual behavior, unspecified type from Last 3 Months or Most Recently Relevant to Health Maintenance Results * CT Abdomen Pelvis W Contrast [...] 9:53 AM - Electronically signed by Teja Fong M.D. JA: PEDRO Report ID: [id number] Reading Location: [id number] Procedure Note Teja Fong MD - 03/27/2025 [...] signed by Teja VASQUEZ: PEDRO Report ID: [id number] Reading Location: [place] [address] Lan [facility] [place] [facility] PROCEDURES Final Re sult * Differential, [...] ORDERABLES Final Result [facility] ([place]) 1 [facility] [place] [address] * CBC with auto differential (03/27/2025 9:09 [...] ORDERABLES Final Result [facility] ([place]) 1 [facility] Department [place] [address] * (ABNORMAL) Urinalysis reflex to microscopic and culture Urine (03/26/2025 9:34 AM CDT) Color, ur Yellow Yellow Clarity, ur Clear Clear [facility] ([place]) Specific gravity, ur 1.023 1.003 - 1.030 [facility] ([place]) pH, urine 6.0 [facility] ([place]) Comment: Interpretive Data U rine pH is affected by diet, medications, systemic acid-base disturbances, and renal tubular function. pH may affect urinary stone formation. For example, urine pH below 6.0 may help reduce the tendency for calcium phosphate stones and pH greater than 6.0 may reduce the tendency for uric acid stone formation. Source: [facility] Current Interpretive Data was last revised on 2017 Protein, ur ql Trace Negative [facility] ([place]) Glucose, ur ql Negative Negative [facility] ([place]) Ketones, ur 2+(A) Negative [facility] ([place]) Bilirubin, ur Negative Negative [facility] ([place]) Blood, ur 1+(A) Negative [facility] ([place]) Urobilinogen, ur <2.0 <2.0 mg/dL [facility] ([place]) Nitrite, ur Negative Negative [facility] ([place]) Leukocyte esterase, ur Negative Negative [facility] ([place]) UA reflex comment Reflex to microscopic UA will be performed. [facility] ([place]) Urine 03/26/2025 9:34 AM CDT 03/26/2025 9:37 AM CDT Rosibel [facility] MICROBIOLOGY - GENERAL M[place] Final Result [facility] ([place]) 1 [facility] [place] [address] * (ABNORMAL) Urinalysis, microscopic only (03/26/2025 9:34 AM CDT) WBC, ur 0-5 0 - 5 /HPF RBC, ur 0-2 0 - 2 /HPF [facility] ([place]) Epithelial cells, squamous, ur 1-5 0 - 5 /HPF [facility] ([place]) Bacteria, ur Trace(A) [facility] ([place]) Mucous, ur Present(A) [facility] ([place]) Culture Reflex Comment Reflex conditions for urine culture (WBC >10) not met. [facility] ([place]) Urine 03/26/2025 9:34 AM CDT 03/26/2025 9:37 AM CDT Rosibel [facility] URINE ORDERABLES Final Resu lt [facility]) 1 [facility] [place] [address] * Influenza A/B, RSV, and COVID-19 PCR Nasopharyngeal (03/26/2025 9:09 AM CDT) [facility] COVID-19 RNA Negative Negative Influenza A RNA [facility] Negative [facility] Influenza B RNA [facility] Negative [facility] ([place]) RSV RNA Negative Negative [facility] ([place]) Comment: Interpretive data: Testing performed by [facility]. This test is performed using the [employer] Xpert Xpress CoV-2/Flu/RSV plus assay. This is a multiplex, real- time reverse transcriptase PCR assay intended for the qualitative detection of nucleic acid from SARS-CoV-2, influenza A, influenza B, and respiratory syncytial virus. This assay has been cleared by the [place] Food and Drug administration. The performance characteristics have been verified by the [facility]. Results must be considered in the clinical context, and a negative result does not rule out infection. Interpretive Data last revised 2023 Nasopharyngeal 03/26/2025 9: 09 AM CDT 03/26/2025 9:12 AM CDT Narrative [facility] ([place]) - 03/26/2025 9:51 AM CDT Is the Patient experiencing symptoms consistent with COVID?->Yes Rosibel [facility] MICROBIOLOGY - GENERAL ORDE RABLES Final Result [facility] ([place]) 1 [facility] [place] [address] * eGFR (03/26/2025 8:48 AM CDT) [facility] eGFR >90 >=60 mL/min/1. 73 m2 Comment: Interpretive Data Reference Interval Normal >/= 90 mL/min/1.73m2 Mildly decreased* 60 - 89 mL/min/1.73m2 Mildly to moderately decreased 45 - 59 mL/min/1.73m2 Moderately to severely decreased 30 - 44 mL/min/1.73m2 Severely decreased 15 - 29 mL/min/1.73m2 Kidney Failure < 15 mL/min/1.73m2 *Relative to young adult level Estimated glomerular filtration rate is determined by the 2020 CKD-EPI equation recommended by the National Kidney Foundation (A Unifying Approach to GFR Estimation: Recommendations of the NKF-ASK Task Force on Reassessing the Inclusion of Race in Diagnosing Kidney Disease, JASN 2020). The CKD-EPI equation should not be used for patients with unstable renal function and has not been validated in children and those over 70. Current interpretive data was last reviewed 2021. Blood 03/26/2025 8:48 AM CDT 03/26/2025 8:50 AM CDT Rosibel [facility] LAB BLOOD ORDERABLES Final Resu lt [facility] ([place]) 1 [facility] Department [place] [address] * (ABNORMAL) Differential, auto (03/26/2025 8:48 AM CDT) Neutrophil abs 8.43(H) 1.50 - 6.50 K/cumm Imm gran abs 0.05 0.00 - 0.10 K/cumm [facility]) Lymphocyte abs 2.41 0.80 - 3.30 K/cumm [facility]) Monocyte abs 0.77 0.20 - 0.80 K/cumm [facility]) Eosinophil abs 0.04 0.00 - 0.50 K/cumm [facility] ([place]) Basophil abs 0.05 0.00 - 0.10 K/cumm [facility]) Neutrophil pct 71.8 % [facility] ([place]) Comment: Interpretive Data Percent cell count reference ranges are not reported, since discordance with absolute values may lead to misinterpretation of CBC data. Current Interpretive Data was last revised on 2017. Imm gran pct 0.4 % [facility] ([place]) Comment: Interpretive Data Percent cell count reference ranges are not reported, since discordance with absolute values may lead to misinterpretation of CBC data. Current Interpretive Data was last revised on 2017. Lymphocyte pct 20.5 % [facility] ([place]) Comment: Interpretive Data Percent cell count reference ranges are not reported, since discordance with absolute values may lead to misinterpretation of CBC data. Current Interpretive Data was last revised on 2017. Monocyte pct 6.6 % [facility] ([place]) Comment: Interpretive Data Percent cell count reference ranges are not reported, since discordance with absolute values may lead to misinterpretation of CBC data. Current Interpretive Data was last revised on 2017. Eosinophil pct 0.3 % [facility] ([place]) Comment: Interpretive [...] Data was last revised on 2017. Blood 03/26/2025 8:48 AM CDT 03/26/2025 8:50 AM CDT us Rosibel [facility] BLOOD ORDERABLES Final Resu lt [facility] ([place]) 1 [facility] Department [place] [address] * (ABNORMAL) CBC with auto differential (03/26/2025 8:48 AM CDT) WBC 11.75(H) 3.80 - 9.90 K/cumm Hgb 14.2 11.9 - 15.5 g/dL [facility]) Hct 40.4 35.6 - 45.5 % [facility]) Plt 269 150 - 400 K/cumm [facility]) MPV 11.4 9.1 - 12.3 fL [facility] RBC 4.80 3.90 - 5.20 M/cumm [facility]) MCV 84.2 81.3 - 96.4 fL [facility]) MCH 29.6 27.1 - 33.3 pg [facility]) MCHC 35.1 32.3 - 35.7 g/dL [facility]) RDW CV 11.6 11.1 - 14.9 % [facility]) RDW SD 35.6(L) 35.7 - 48.1 fL [facility]) NRBC abs 0.00 0.00 - 0.01 K/cumm [facility]) Blood 03/26/2025 8:48 AM CDT 03/26/2025 8:50 AM CDT Rosibel [facility] BLOOD ORDERABLES Final Resu lt Performing Organization Address City/[facility] Co de Phone Number [facility] ([place]) 1 [facility] [place] [address] * hCG, blood, quantitative (03/26/2025 8:48 AM CDT) [facility] hCG, quant <5.0 0.0 - 5.0 IUnits/L Comment: Interpretive Data Male: < 5 IU/L Non- premenopausal Female: <5 IU/L The [employer] hCG Beta Quant assay procedure was used. Results from different manufacturers or methods may not be comparable. Serial testing should be performed using the same method. Interpretive Data was last revised on 2023 Blood 03/26/2025 8:48 AM CDT 03/26/2025 8:50 AM CDT Rosibel [facility] BLOOD ORDERABLES Final Resu lt [facility] ([place]) 1 [facility] [place] [address] * Lipase (03/26/2025 8:48 AM CDT) Lipase 24 10 - 99 Units/L Blood 03/26/2025 8:48 AM CDT 03/26/2025 8:50 AM CDT us Rosibel [facility] BLOOD ORDERABLES Final Resu lt [facility] ([place]) 1 [facility] Department [place] [address] * (ABNORMAL) Comprehensive metabolic panel (03/26/2025 8:48 AM CDT) Sodium 140 135 - 145 mmol/L Potassium, pl 3.9 3.3 - 4.9 mmol/L [facility] Chloride 103 97 - 110 mmol/L [facility] CO2 20(L) 22 - 32 mmol/L [facility]) Anion gap 17(H) 2 - 15 mmol/L [facility]) BUN 7 6 - 25 mg/dL [facility]) Creatinine 0.71 0.60 - 1.10 mg/dL [facility]) Glucose 139 70 - 199 mg/dL [facility]) Comment: Interpretive Data Fasting glucose >/= 126 mg/dl is diagnostic for diabetes. Fasting is defined as no caloric intake for at least 8 hours. Fasting glucose between 100 mg/dl to 125 mg/dl is diagnostic of prediabetes. In a patient with classic symptoms of hyperglycemia or hyperglycemic crisis, a random glucose >/= 200 mg/dl is diagnostic for diabetes. In the absence of unequivocal hyperglycemia, results should be confirmed by repeat testing. The classification and Diagnosis of Diabetes Diabetes Care 2021; 46: S19-S40. Current interpretive data was last revised 2022. Calcium 10.1 8.5 - 10.3 mg/dL [facility]) Bilirubin, total 1.8(H) 0.1 - 1.2 mg/dL [facility] ([place]) Protein, pl 7.4 6.5 - 8.5 g/dL [facility]) Albumin 4.9 3.5 - 5.0 g/dL [facility]) Alk phos 112 40 - 130 Units/L [facility]) ALT 28 7 - 45 Units/L [facility]) AST 30 10 - 45 Units/L [facility]) Blood 03/26/2025 8:48 AM CDT 03/26/2025 8:50 AM CDT us Rosibel [facility] BLOOD ORDERABLES Final Resu lt [facility] ([place]) [address] [place] [address] Department [place] [address] * N. gonorrhoeae/C. trachomatis Amplification Urine (09/09/2022 11:48 AM CDT) C. trachomatis Not Detected Not Detected [facility] Comment:Testing performed by : [facility], [address] [place] [address]., [id number] N. gonorrhoeae Not Detected Not Detected [facility] Comment: Interpretive Data Testing performed by the [facility] Laboratory. This assay detects Chlamydia trachomatis and Neisseria gonorrhoeae by nucleic acid amplification testing (NAAT). This test is approved by the [facility] Food and Drug Administration and the performance characteristics have been verified by the laboratory. The performance characteristics of this test have not been evaluated in individuals less than 14 years of age. Current Interpretive Data was last revised on 2018. Testing performed by: [facility], [address] [place] [address]., [id number] Urine (None) 09/09/2022 11:4 8 AM CDT 09/10/2022 1:02 AM CDT us Linnea Breaux BOTTOMING ROOM SUPERVISOR LAB MICROBIOLOGY - GENERAL ORD ERABLES Final Result [facility] [address] [facility] Department [place] [address] * Hepatitis C antibody (09/09/2022 11:43 AM CDT) Hep C Ab Nonreactive Nonreactive [facility] Comment: Antibodies to HCV not detected. Does NOT exclude the possibility of recent exposure to HCV. Current interpretive data was last revised on 22 Testing performed by: [facility], [address] [facility], [place]., [address] Blood 09/09/2022 11:4 3 AM CDT 09/09/2022 3:50 PM CDT us Linnea Breaux NP LAB MICROBIOLOGY - GENERAL ORD ERABLES Final Result [facility] [address] [facility] Department [place] [address] from Last 3 Months or Most Recently Relevant to Health Maintenance Insurance [facility] [employer] [facility] [address] [place] [address] Member Subscriber Plan / Payer (Ef fective 2024-Present) Name:Rosibel Tinajero Relation to Subscriber:Self Name:Rosibel Tinajero Payer ID:[id number] (NAIC) Group ID:Not on file Type:MEDICAID RISK OTHER Address: ATTN: CLAIMS DEPT [address] [place], [place] [address] STATE HEALTH PLAN [place] [employer] [facility] HE[facility] Advance Directives For more information, please contact: [phone] * Full Code (Latest Code Status on File) Date Activated Date Inactivated Comments 01/28/2020 10:29 AM 01/29/2020 8:26 PM * Full Code Date Activated Date Inactivated Comments 01/04/2020 7:49 AM 01/04/2020 1:10 PM * Full Code Date Activated Date Inactivated Comments 10/20/2019 8:46 PM 10/22/2019 12:28 AM Care Teams Burlap Spreader Relationship Specialty Start Date End Date Jaelyn Mccormack NP [address] [place] [id number] PCP - General Nurse Practitioner 03/26/25
--- NOTE | 2025-03-28 07:21 | PC.NURSE ---
Assumed care of pt from [place]. Pt in acute pain. Unable to sit still in bed
[2025-03-28 07:44] LABS: Hematocrit 36.4 % (37.0-47.0); Hemoglobin 12.9 g/dL (12.0-15.0); Immature Granulocyte Percent A 0.2 % (0-0.5); Lymphocytes Absolute Auto 3.52 K/mm3 (0.9-3.2); Mean Corpuscular HGB Conc 35.4 g/dl (32-36); Mean Corpuscular Hemoglobin 29.9 pg (26-34); Mean Corpuscular Volume 84.3 fl (80-100); Nucleated Red Blood Cells Absolute Auto 0.000 K/mm3 (0.0-0.012); Nucleated Red Blood Cells Perc 0.0 % (0.0-0.2); Platelet Count Result 242 k/mm3 (150-375); Red Blood Count 4.32 M/mm3 (4.2-5.4); White Blood Count 8.6 K/mm3 (4.5-10.0)
--- OUTSIDE RECORDS SUMMARY | 2025-03-28 07:52 | XMS_ITS | Clinical Summary ---
Author Organization [facility] Address [address] [place] [id number] Care Team Providers Care Vessel Slag Worker Name Role Phone Randy Mccormackelle Mellissa FIRE CONTROL OFFICER Primary Care Provider + Allergies Active Allergy [...] 05/21/2021 Assessment & Plan (05/21/2021 2:01 PM PROFESSIONAL BONDSMAN): UA ordered, will call with the result. Declines STD prophylaxis or other STD testing at this time. Went over safe sex practices. Follow up PRN Viral pharyngitis 05/21/2021 09/11/2021 Assessment & Plan (05/21/2021 2:09 PM PROFESSIONAL BONDSMAN): Rapid strep negative. Symptoms are most likely [...] (12/27/2019): Added automatically from request for surgery [id number] Assessment & Plan (01/29/2020 8:28 AM CDT): [...] she should go to the ER in [place] where the would have GI on staff. 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 Reassured that exam is normal and labs are likely to be as well. Will call with results Assessment & Plan (05/14/2019 7:15 PM PROFESSIONAL BONDSMAN): Encouraged family to give 1/2 strength Gatorade [...] CDT - 03/27/2025 11:27 AM CDT Emergency [facility] Emergency Department [address] [place] [address] Abdominal pain with vomiting (Primary Dx) Discharge Disposition: Discharge to home or self care 03/26/2025 8:36 AM CDT - 03/26/2025 9:59 AM CDT Emergency [facility] Emergency Department [address] [place] [address] Abdominal pain, unspecified abdominal location (Primary Dx); [...] Teja Fong M.D. JA: PEDRO Report ID: [id number] Reading Location: [id number] Procedure Note Teja Fong MD - 03/27/2025 [...] signed by Teja VASQUEZ: PEDRO Report ID: [id number] Reading Location: [place] [address] [address] [facility] PROCEDURES Final Re sult * Differential, [...] 9:09 AM CDT 03/27/2025 9:13 AM CDT aLn [facility] LAB BLOOD ORDERABLES Final Result [facility] ([place]) 1 [facility] [place] [address] * CBC with auto differential (03/27/2025 9:09 [...] ORDERABLES Final Result [facility] ([place]) 1 [facility] Department [place] [address] * (ABNORMAL) Urinalysis reflex to microscopic and [...] tendency for uric acid stone formation. Source: [facility] Current Interpretive Data was last revised [...] GALLOWAY Final Result [facility] ([place]) 1 [facility] Department [place] [address] * (ABNORMAL) Urinalysis, microscopic only (03/26/2025 9:34 [...] ORDERABLES Final Resu lt [facility]) 1 [facility] Department [place] [address] * Influenza A/B, RSV, and COVID-19 PCR Nasopharyngeal (03/26/2025 9:09 AM CDT) [facility] COVID-19 RNA Negative Negative Influenza A RNA Negative Negative [facility] ([place] Influenza B RNA Negative Negative [facility] ([place]) RSV RNA Negative Negative [facility] ([place]) Comment: Interpretive data: Testing performed by [facility]. This test is performed using the [employer] Xpert Xpress CoV-2/Flu/RSV plus assay. This is a multiplex, real- time reverse transcriptase PCR assay intended for the qualitative detection of nucleic acid from SARS-CoV-2, influenza A, influenza B, and respiratory syncytial virus. This assay has been cleared by the [place] Food and Drug administration. The performance characteristics have been verified by the [facility]. Results must be considered in the clinical context, and a negative result does not rule out infection. Interpretive Data last revised 2023 Nasopharyngeal 03/26/2025 9: 09 AM CDT 03/26/2025 9:12 AM CDT Narrative [facility] ([place]) - 03/26/2025 9:51 AM CDT Is the Patient experiencing symptoms consistent with COVID?->Yes Rosibel [facility] LAB MICROBIOLOGY - GENERAL ORDE RABLES Final Result [facility] ([place]) 1 [facility] [place] [address] * eGFR (03/26/2025 8:48 AM CDT) [facility] eGFR >90 >=60 mL/min/1. 73 m2 Comment: [...] [facility] LAB BLOOD ORDERABLES Final Resu lt [facility] ([place]) 1 [facility] Department [place] [address] * (ABNORMAL) Differential, auto (03/26/2025 8:48 AM [...] BLOOD ORDERABLES Final Resu lt [facility] ([place]) 1 [facility] Department [place] [address] * (ABNORMAL) CBC with auto differential (03/26/2025 [...] AM CDT 03/26/2025 8:50 AM CDT Rosibel [facility] LAB BLOOD ORDERABLES Final Resu lt Performing Organization Address City/[facility] Co de Phone Number [facility] ([place]) 1 [facility] [place] [address] * hCG, blood, quantitative (03/26/2025 8:48 AM CDT) [facility] hCG, quant <5.0 0.0 - 5.0 IUnits/L [...] BLOOD ORDERABLES Final Resu lt [facility] ([place]) 1 [facility] [place] [address] * Lipase (03/26/2025 8:48 AM CDT) Lipase 24 10 - 99 Units/L Blood 03/26/2025 8:48 AM CDT 03/26/2025 8:50 AM CDT us Rosibel [facility] LAB BLOOD ORDERABLES Final Resu lt [facility] ([place]) 1 [facility] Department [place] [address] * (ABNORMAL) Comprehensive metabolic panel (03/26/2025 8:48 [...] ORDERABLES Final Resu lt [facility] ([place]) [address] [place] [address] [place] [address] * N. gonorrhoeae/C. trachomatis Amplification Urine (09/09/2022 11:48 AM CDT) C. trachomatis Not Detected Not Detected [facility] Comment:Testing performed by : [facility], [address] [place] [address]., [id number] N. gonorrhoeae Not Detected Not Detected [facility] Comment: Interpretive Data Testing performed by the [facility]. This assay detects Chlamydia trachomatis and Neisseria gonorrhoeae by nucleic acid amplification testing (NAAT). This test is approved by the [facility] Food and Drug Administration and the performance characteristics have been verified by the laboratory. The performance characteristics of this test have not been evaluated in individuals less than 14 years of age. Current Interpretive Data was last revised on 2018. Testing performed by: [facility], [address] [place] [address]., [id number] Urine (None) 09/09/2022 11:4 8 AM CDT 09/10/2022 1:02 AM CDT us Linnea Breaux FIRE CONTROL OFFICER LAB MICROBIOLOGY - GENERAL ORD ERABLES Final Result [facility] [address] [facility] [address] [place] [address] * Hepatitis C antibody (09/09/2022 11:43 AM CDT) Hep C Ab Nonreactive Nonreactive [facility] Comment: Antibodies to HCV not detected. Does NOT exclude the possibility of recent exposure to HCV. Current interpretive data was last revised on 22 Testing performed by: [facility], [address] [facility], [place]., [address] Blood 09/09/2022 11:4 3 AM CDT 09/09/2022 3:50 PM CDT us Linnea Breaux NP LAB MICROBIOLOGY - GENERAL ORD ERABLES Final Result [facility] [address] [facility] [place] [address] from Last 3 Months or Most Recently Relevant to Health Maintenance Insurance [facility] HE[facility] PLAN [facility] [place] [address] Member Subscriber Plan / Payer (Ef fective 2024-Present) Name:Rosibel Tinajero Relation to Subscriber:Self Name:Rosibel Tinajero Payer ID:[id number] (NAIC) Group ID:Not on file Type:MEDICAID RISK OTHER Address: ATTN: CLAIMS DEPT [address] [place], [place] [address] STATE HEALTH PLAN [place] [employer] [facility] HE[facility] PLAN Advance Directives For more information, please contact: [phone] * Full Code (Latest Code Status on File) Date Activated Date Inactivated Comments 01/28/2020 10:29 AM 01/29/2020 8:26 PM * Full Code Date Activated Date Inactivated Comments 01/04/2020 7:49 AM 01/04/2020 1:10 PM * Full Code Date Activated Date Inactivated Comments 10/20/2019 8:46 PM 10/22/2019 12:28 AM Care Teams Vessel Slag Worker Relationship Specialty Start Date End Date Jaelyn Mccormack NP [address] [place] [address] PCP - General Nurse Practitioner 03/26/25
--- OUTSIDE RECORDS SUMMARY | 2025-03-28 07:52 | XMS_ITS | Data Portability ---
Author Organization [facility] Address [address] [place] [address] Assessment Encounter Date Assessment Date Assessment LastModified by Organization Details LastModified Time 07/15/2024 07/15/2024 Greater than 30 minutes was spent in total between discussion with the patient, examination, and coordination of care. Not available 07/19/2024 22:55:15 Plan of Treatment Reminders Order Date Submit Date Provider Last Modified By Organization Details Last Modified Time Details Appointments None recorded. Lab test, urine 2024 025 [email or web address] [facility], [address], [place], [address], 5 14:54:30 test, urine 2023 024 [email or web address] [facility], [address], [address], [place], [address], 4 10:57:18 Referral None recorded. Procedures None recorded. Surgeries None recorded. Imaging None recorded. Medication Orders Depo-Regional Agronomist a 150 mg/mL intramuscul ar syringe 2024 025 [email or web address] Not available 5 19:07:25 Depo-Regional Agronomist a 150 mg/mL intramuscul ar syringe 2023 024 [email or web address] Not available 5 09:35:29 Depo-Regional Agronomist a 150 mg/mL intramuscul ar syringe 2023 024 [email or web address] Not available 09:35:29 Depo-Regional Agronomist a 150 mg/mL intramuscul ar suspension 2023 024 [email or web address] Not available 09:35:44 Patient TargetsNo targets recorded. Patient InstructionsNo instructions recorded. Reason for Referral None Reported. Results Created Date Observation Date Name Description Value Unit Range Abnormal Flag Note LastModifiedBy Organization Detail LastModifiedTime 08/13/19 24 08/13/2023 pregn brayan test, urine HCG negati ve Not Available [facility] [address], [place], [address], 08/13/2023 10:56:58 08/13/19 24 08/13/2023 urina lysis , dipst ick Blood trace Not Available [facility] [address], [place], [address], 08/13/2023 10:41:02 08/13/19 24 08/13/2023 urina lysis , dipst ick Appearance clear Not Available [facility], [place], [address], 08/13/2023 10:41:02 08/13/19 24 08/13/2023 urina lysis , dipst ick Color pale yellow Not Available [facility] [address], [place], [address], 08/13/2023 10:41:02 08/13/19 24 08/13/2023 pregn brayan test, urine HCG negati ve Not Available [facility] [address], [place], [address], 08/13/2023 10:40:35 Result Notes None recorded. Procedures Surgical History Date Name Laterality Status Provider Name and Address Organization Details Recorded Time 023 Date of Last Pap Smear completed Tita FLORES - [facility] 07/15/2024 09:36:12 Appendectomy completed Martha Hernandez [facility] 03/11/2023 10:29:39 cholecystectomy completed Martha Hernandez [facility] 03/11/2023 10:29:52 Imaging Results None recorded. Procedure Notes None recorded. Medical Equipment None Reported. Allergies Allergen ID Allergen Name Allergen Category Reaction Reaction Severity Criticality Documentation Date Start Date Code Code System Note Provider Name and Address Organization Details Recorded Time Product containin g penicilli n (product) medicatio n Not available Not available Not available 03/11/2023 [id number] SNOMED Martha wu [facility] 10:27:27 Medications Name Sig Start [...] Available Not Available sumatriptan 50 mg tablet active Not Available Not Available Not Available metronidazo [...] 1 CAPSULE BY MOUTH EVERY 8 HOURS FOR 7 DAYS active Not Available Not Available No t Available promethazin e 25 mg tablet TAKE 1 TABLET BY MOUTH THREE TIMES DAILY NEEDED FOR NAUSEA OR VOMITING active Not Available Not Available No t Available ondansetron 4 mg disintegrat ing tablet [...] Not Available Not Available No t Available Depo-Regional Agronomist a 150 mg/mL intramuscul ar syringe Inject 1 mL every 3 months by intramusc ular route. (patient needs to schedule well women appointme nt) 2024 active Not Available Not Available Not Avai lable duloxetine 30 mg capsule,del ayed release TAKE 1 CAPSULE BY MOUTH DAILY 07/15 completed Not Available Not Available Not Available duloxetine 60 mg capsule,del ayed release TAKE 1 CAPSULE BY MOUTH DAILY active Not Available Not Available No t Available Vitals Date Recorded Body height Body mass index (BMI) Body weight Systolic And Diastolic Provider Name and Address Organization Details Last Updated DateTime 07/15/2024 157.48 cm 26.7 kg/m2 57340.49 g 128/81 mm[Hg] Tita Skinner [facility] 07/15/2024 09:34:54 Date Recorded Body height Body mass index (BMI) Body weight Systolic And Diastolic Provider Name and Address Organization Details Last Updated DateTime 08/13/2023 157.48 cm 25.6 kg/m2 36246.93 g 117/76 mm[Hg] Miri Gonzalez [facility] 08/13/2023 10:31:14 Date Recorded Body height Body mass index (BMI) Body weight Systolic And Diastolic Provider Name and Address Organization Details Last Updated DateTime 08/13/2024 157.48 cm 26.5 kg/m2 22211.89 g 120/78 mm[Hg] Renetta Wetzel [facility] 08/13/2024 14:49:40 Date Recorded Body height Provider Name an d Address Organization Details Last Updated DateTime 10/30/2023 157.48 cm Miri Gonzalez [facility] 10/30/2023 09:29:51 Social History Question Answer Notes LastModified by Organizat ion Details LastModified Time Tobacco Smoking Status Never Smoker [facility] 03/11/2023 10:29:21 How Many Years Have You Consumed Alcohol? 3 [email or web address] Information not available 07/15/2024 Are You Blind Or Do You Have Difficulty Seeing? No Information n ot available 03/11/2023 What Is Your Level Of Caffeine Consumption? Occasional [email or web address] Information not available 07/15/2024 How Much Tobacco Do You Chew? None [email or web address] Information not available 07/15/2024 In The 14 Days Before Symptom Onset, Have You Had Close Contact With A Laboratory-confirm ed COVID-19 While That Case Was Ill? No Information n ot available 07/15/2024 In The 14 Days Before Symptom Onset, Have You Had Close Contact With A Person Who Is Under Investigation For COVID-19 While That Person Was Ill? No [email or web address] Information not available 07/15/2024 Have You Been To An Area Known To Be High Risk For COVID-19? No [email or web address] Information not available 07/15/2024 Are You Deaf Or Do You Have Serious Difficulty Hearing? No Information not available 03/11/2023 Which Illicit Or Recreational Drugs Have You Used? Marijuana Information not available 03/11/2023 What Is The Highest Grade Or Level Of School You Have Completed Or The Highest Degree You Have Received? [id number] [email or web address] Information not available 07/15/2024 Are There Any Guns Present In Your Home? No [email or web address] Information not available 07/15/2024 Do You Use Protection During Sex? No [email or web address] Information not available 07/15/2024 Do You Use Your Seat Belt Or Car Seat Routinely? Yes [email or web address] Information not available 07/15/2024 Do You Have Smoke And Carbon Monoxide Detectors In Your Home? Yes [email or web address] Information not available 07/15/2024 How Much Tobacco Do You Smoke? No [email or web address] Information not available 07/15/2024 Do You Use Sunscreen Routinely? Yes [email or web address] Information not available 07/15/2024 Have You Used IV Drugs? No [email or web address] Information not available 07/15/2024 Do You Have Difficulty Walking Or Climbing Stairs? No Information not available 03/11/2023 Sex: Unknown Functional Status Question Answer Note LastModified by Organizat ion Details LastModified Time Do you use any illicit or recreational drugs? Yes Information not available 03/11/2023 What is your level of alcohol consumption? Occasional Information not available 03/11/2023 Are you able to walk independently without assistance or assistive devices? [email or web address] Information not available 03/11/2023 Are you able to care for yourself independently? Yes Information not available 03/11/2023 Do you have difficulty dressing, bathing, grooming, or toileting? No Information not available 03/11/2023 What is your exercise level? Occasional Information not available 07/15/2024 Mental Status Question Answer Note LastModified by Organization D etails LastModified Time Do you feel stressed (tense, restless, nervous, or anxious, or unable to sleep at night)? [id number] [email or web address] Information not available 07/15/2024 Family History Relationship Description Onset Age of this Age Resolved Age Notes LastModified by Organization Details LastModified Time Maternal Grandmother Malignant neoplasm of breast [email or web address] Not available 02/15 10:28:37 Maternal Grandmother Malignant neoplasm of lung vschroedter Not available 02/15 10:28:47 Maternal Aunt Malignant neoplasm of ovary vschroedter Not available 02/15 10:28:58 Medical History Condition Response Other N Blood Transfusion N Dermatologic Disorders N Gestational Diabetes N Anxiety Disorder N Autoimmune disease N Arthritis N Polyps N Infertility N Acid Reflux (GERD) N Cancer N Varicosities N Stroke N Neurologic/Epilepsy N Fibromyalgia N Headaches N Kidney Disease N Heart Problems N Kidney or Bladder Problems N Eating Disorder N Art (IVF or FET) N Hepatitis/Liver Disease N No Past Medical History N Urinary Tract Infection N Asthma N Trauma/Violence N Thrombophilias N Allergies (Food, seasonal, environmental ) N Breast Cancer N Drug/Latex Allergies/Reactions N Lung Disease N Defects or Inherited Disease N Breast Problem N Hematologic disorders N Anesthesia Complications N History of STI N Deep Vein Thrombosis N Polycystic ovary syndrome N History of abnormal pap N Endometriosis N High Cholesterol N Thyroid Problems N GI Problems N Anemia N Psychiatric Illness N Ovarian Cancer N Diabetes N Pulmonary (TB, Asthma) N Eczema N Abuse/Domestic Violence N Depression/ depression N Heart Disease N Pre-Eclampsia N Hypertension N Osteoporosis N Gynecological History Statement/Question Response Abnormal Pap N Flow Light Date of LMP 06/21/2023 N Was last menstrual period normal N STIs/STDs N HPV Vaccine N Duration of Flow (days) 5 Current Control Method Depo-Regional Agronomist a Are cycles usually normal N Sexually Active? Y Menses Monthly N Age of first menstrual cycle 13 Date of Last Pap Smear 03/11/2023 Sexual Problems? N Desired Control Method None LMP Approximate N Obstetrics History GPAL:G 0 P 0 0 0 0 Past Encounters Encounter ID Performer Location Encounter Start Date Encounter Closed Date Diagnosis/Indication Diagnosis SNOMED-CT Code Diagnosis ICD10 Code Diagnosis IMO Codes Diagnosis Note [id number] NELLIE Khoury [facility] [address] [address] 03/11/2023 10:06:00 03/11/2023 10:55:35 Gynecologic examination 23695688 Z01.419 Take Calcium with Vitamin D daily [...] paper copy of today's plan if desired. Freeman would like to restart DMPAr/b/a reviewed with ptrx sentprimar y pap collectedS TI testing declinedwi ll have bhcg collected today, RTC for injection tomorrow Contracept ion care management [id number] Z30.9 Depo-Prove ra is a female hormonal method of control. It s very effective in preventing . Depo-Prove ra contains a synthetic (man-made) form of the hormone progestero ne, called depo medroxypro gesterone acetate (DMPA). The Depo-Prove ra injection gives 3 months protection against . You should get one injection [...] can be discussed with your healthcare provider. [id number] NELLIE Khoury [facility] [address] [address] 03/12/2023 09:56:47 03/12/2023 10:28:22 Contraception care management 860182897 Z30.9 Depo-Prove ra is a female hormonal method of control. It s very effective in preventing . Depo-Prove ra contains a synthetic (man-made) form of the hormone progestero ne, called depo medroxypro gesterone acetate (DMPA). The Depo-Prove ra injection gives 3 months protection against . You should get one injection [...] can be discussed with your healthcare provider. [id number] NELLIE Khoury [facility] [address] [address] 05/28/2023 09:15:05 05/28/2023 14:12:33 Contraception care management 347550519 Z30.9 Depo-Prove ra is a female hormonal method of control. It s very effective in preventing . Depo-Prove ra contains a synthetic (man-made) form of the hormone progestero ne, called depo medroxypro gesterone acetate (DMPA). The Depo-Prove ra injection gives 3 months protection against . You should get one injection [...] can be discussed with your healthcare provider. [id number] NELLIE Khoury [facility] [address] [address] 08/13/2023 10:20:30 08/13/2023 10:58:20 Contraception care management [id number] Z30.9 Discussed common SE of irregular/ unschedule [...] counseling and review of plan of care. [id number] NELLIE Khoury [facility] [address] [address] 10/30/2023 09:14:37 10/30/2023 10:37:31 Contraception care management [id number] Z30.9 [id number] NELLIE Khoury [facility] [address] [address] 01/15/2024 10:48:30 01/15/2024 10:59:12 Contraception care management [id number] Z30.9 [id number] JOCELYNN COSTA MD [facility] [address] [address] 07/15/2024 09:13:36 07/20/2024 02:47:30 Upper abdominal pain [id number] R10.10 - patient reports constant upper abdominal [...] given current symptoms- patients voices understand ing [id number] Zenon Thompson MD [facility] [address] [address] 08/13/2024 14:31:45 08/13/2024 14:55:57 Contraception care management [id number] Z30.9 Health Concerns Section Related Observation LastModified by Organization Detai ls LastModified Time None Recorded Concern Status LastModified by Organization Details LastModified Time None Recorded Advance Directives Directive None Recorded Payers Insurance Date Sequence Insurance Name Policy Number Policy Cortes Covered Member ID Cortes Member ID Guarantor Name 11/04/2024 1 [facility] - DOS ON OR AFTER 20 (MEDICAID REPLACEMENT - HMO) Rosibel Tinajero [id number] Rosibel Tinajero Notes Date Note Type Note Provider Name and Address Organization Details Recorded Time 08/13/2023 text/html Jay - Abnormal BleedingReported by Patient 22yo [id number] for f/u on DMPArestarted DMPA for BC on 03/11/23no bleeding with DMPA until recently, had 3 weeks of light bleeding. No bleeding todayno new partnersneg discharge, odors, itchingneg pelvic painneg n/v/fpap UTD - 03/11/2023, normal Miri Gonzalez null, [facility] 08/13/2023 11:06:15 07/15/2024 text/html ROS as noted in the HPI Patient presents for evaluation of abdominal pain. [...] dyspareunia. JOCELYNN COSTA MD [address], [place], [address], [place] [facility] 07/19/2024 22:55:24 OBGyn Episode No OBEpisode recorded.
--- NOTE | 2025-03-28 07:53 | ED_ITS ---
HPI - Abdominal Pain General Chief Complaint: Abdominal Pain Stated Complaint: n/v, abd pain Time Seen by Provider: 03/28/25 07:33 Source: patient and other Mode of arrival: ambulatory Limitations: no limitations History of Present Illness HPI narrative: Patient presents with report of low abdominal pain. This abdominal pain is bilateral, not 1 side more so than the other. It started a few days ago and has progressed. Seen here in the emergency department recently for the same as well as several times previously. She reports nausea as well as multiple episodes of nonbloody emesis. She has never had a colonoscopy but she has had an EGD and follows with gastroenterology. She denies any dysuria, hematuria, urgency or frequency. No fevers. Last bowel movement was this morning and she denies any constipation, diarrhea blood. Last oral intake was last night. She is not on anticoagulation. Abdominal surgeries include previous cholecystectomy and appendectomy. Her last menstrual period started on Friday and she reports normal duration and flow. Denies any other vaginal discharge or bleeding. No sick contacts. She denies marijuana use. Related Data Allergies Allergy/AdvReac Type Severity Reaction Status Date / Time Penicillins AdvReac Intermediate Difficulty Verified 03/28/25 06:57 Breathing PMFSH Past Medical History Medical History (Updated 03/28/25 @ 11:41 by Yani Stovall MD) Family history of bipolar disorder Anxiety Leukocytosis Abdominal pain Migraine Surgical History Surgical History (Updated 03/28/25 @ 08:03 by Yani Stovall MD) History of esophagogastroduodenoscopy (EGD) History of laparoscopic appendectomy 09/30/2022 History of cholecystectomy Family History Family History Father Hypertension Depression Mother Depression Grandparent Cancer Hypertension Thyroid disorder Heart disease Other No pertinent family history Social History Social History Social History: Patient is very confident filling out medical forms. 05/07/24 Smoking status: Current every day smoker Tobacco type: e-cigarettes/vaping Alcohol intake: current Alcohol use details: Social Substance use: former Substance use type: marijuana Last use: 09/15/23 Do You Feel Safe in your Home?: Yes Lack of Transportation: No Lack of Food: Never True Current Housing: I Have Housing Concerned About Future Housing: No Difficulty Paying Gas/Electric Bills: No Difficulty Paying for Meds: No Currently Unemployed: No Education: Grade School Difficulty w/ Childcare or Family Care: No Living arrangements: with family Occupation/Education: occupation Additional occupation/education comments: [employer] Gender identity (if verbalized by the patient): Female Spiritual care concerns: No Exam 2 Narrative: GENERAL: Well-appearing, well-nourished, and in mild to moderate acute distress; moaning HEAD: Normocephalic, atraumatic. EYES: Non injected, non icteric ENT: Nares clear, no rhinorrhea or epistaxis. Gross auditory acuity intact. NECK: Supple. No meningismus. CHEST: Speaking in full sentences. No respiratory distress. HEART: Regular rate and rhythm. . ABDOMEN: Soft, nondistended. Mild TTP in bilateral lower quadrants but No rigidity or guarding. Not peritoneal EXTREMITIES: Normal range of motion. No lower extremity edema. SKIN: Warm, dry, no rash. NEURO: No focal deficits. Alert and oriented. Answering questions. Following commands. Normal speech without aphasia or dysarthria. PSYCH: Congruent mood and affect. Course Vital Signs Vital signs: Vital Signs Temperature 97.8 F 03/28/25 06:57 Pulse Rate 78 03/28/25 06:57 Respiratory Rate 18 03/28/25 06:57 Blood Pressure 133/103 H 03/28/25 06:57 Pulse Oximetry 100 03/28/25 06:57 Oxygen Delivery Room Air 03/28/25 06:57 Temperature 97.8 F 03/28/25 06:57 Pulse Rate 79 03/28/25 10:31 Respiratory Rate 19 03/28/25 10:31 Blood Pressure 109/73 03/28/25 10:31 Pulse Oximetry 98 03/28/25 10:31 Oxygen Delivery Room Air 03/28/25 06:57 MDM - Abdominal Pain MDM Narrative Medical decision making narrative: Patient presents with report of bilateral lower quadrant abdominal pain starting a few days ago and progressively worsening. This is associated with nausea and nonbloody emesis. In the emergency department she is afebrile with vital signs notable for hypertension. CBC with mild abnormalities on the differential but without anemia, leukocytosis, thrombocytopenia. She reports that Zofran does not work with her she has been unable to give a urine sample. IV fluids, Compazine (patient's preference/request), famotidine are ordered in addition to small dose of analgesic medication. Mild AST and ALT elevation, intermittently seen previously. Mild hyponatremia although stable from previous. She does have new hypokalemia, 2.8. Oral and IV repletion ordered. Magnesium lab ordered. Lipase within normal limits. Negative test (verbally reported by RN). Magnesium is low normal. Will replete this as well. Urinalysis unremarkable. UDS positive for cannabinoids. Patient still having pain and nausea on reassessment at 9:05am although she looks more comfortable. CT ordered in addition to Haldol and diphenhydramine. CT shows pancolitis. Bentyl ordered as is repeat BMP. Patient is reassessed at 11:15 a.m. and she reports her pain and nausea are better controlled. She is not supposed to work today but supposed to tomorrow so will be provided a work note. We discussed the indication use of Bentyl/dicyclomine given it works on the smooth muscle of the GI tract. Patient had previously been on it. Reasonable to defer giving antibiotics as she did not have a leukocytosis. Only mild hypokalemia persists. Will prescribe a few additional doses as Rx; also short course of compazine. Pharmacy did call and note that insurance doesn't cover the formulation of potassium prescribed but authorized an alternative using same NPI. Otherwise stable for DC with VS within normal limits. Differential Diagnosis Differential diagnosis: Likely abdominal pain, calculus of kidney, constipation, diverticulitis, endometriosis, small bowel obstruction and other (Urinary tract infection, cannabinoid hyperemesis syndrome cyclic vomiting, spectrum; ) Medical Records Attestation: I reviewed the patient's medical records. Medical records narrative: Recently seen in the emergency department. Questionable diagnosis possible cannabinoid hyperemesis syndrome although she does deny any use. Follows with gastroenterology and seen for similar previously. History of abdominal pain chronic listed on past medical history within EMR. Lab Data 03/28/25 07:27 03/28/25 10:54 Labs: Lab Results 03/28/25 03/28/25 03/28/25 Range/Units 07:27 08:20 08:37 WBC 8.6 (4.5-10.0) K/mm3 RBC 4.32 (4.2-5.4) M/mm3 Hgb 12.9 (12.0-15.0) g/dL Hct 36.4 L (37.0-47.0) % MCV 84.3 (80-100) fl MCH 29.9 (26-34) pg MCHC 35.4 (32-36) g/dl RDW 11.9 (11.5-14.5) % Plt Count 242 (150-375) k/mm3 MPV 11.6 H (7.4-10.4) fl Immature Gran % (Auto) 0.2 (0-0.5) % Neut % (Auto) 49.2 (45.5-73.1) % Lymph % (Auto) 40.9 (18.3-44.2) % [place] % (Auto) 8.9 H (2.6-8.5) % Eos % (Auto) 0.2 (0-4.4) % Baso % (Auto) 0.6 (0.2-1.2) % Lymph # (Auto) 3.52 H (0.9-3.2) K/mm3 [place] # (Auto) 0.8 H (0.1-0.6) K/mm3 Eos # (Auto) 0.0 (0-0.3) K/mm3 Baso # (Auto) 0.1 (0.0-0.1) K/mm3 Abs Immat Gran (auto) 0.02 (0.00-0.031) K/mm3 Absolute Neuts (auto) 4.2 (1.3-6.7) K/mm3 Absolute Nucleated RBC 0.000 (0.0-0.012) K/mm3 Nucleated RBC % 0.0 (0.0-0.2) % Sodium 136 L (137-145) mmol/L Potassium 2.8 L* (3.4-5.0) mmol/L Chloride 104 (98-107) mmol/L Carbon Dioxide 21 L (22-30) mmol/L Anion Gap 11 (4-12) mmol/L BUN 2 L D (7-17) mg/dL Creatinine 0.72 (0.7-1.0) mg/dL Estim Creat Clear Calc 83 ml/min Estimated GFR > 60 (59 - ) Glucose 123 H (65-110) mg/dL Calcium 8.9 (8.4-10.2) mg/dL Magnesium 1.7 (1.6-2.3) mg/dL Total Bilirubin 1.2 (0.2-1.3) mg/dL AST 44 H (14-36) U/L ALT 40 H (6-35) U/L Alkaline Phosphatase 99 (38-126) U/L Total Protein 6.7 (6.3-8.2) g/dL Albumin 4.2 (3.5-5.1) g/dL Lipase 118 (23-300) U/L Urine Color Yellow (Yellow) Urine Appearance Clear (Clear) Urine pH 7.0 (5.0-9.0) Ur Specific [place] 1.005 (1.001-1.035) Urine Protein Negative (Negative) mg/dL Urine Glucose (UA) Negative (Negative) mg/dL Urine Ketones Negative (Negative) mg/dL Ur Blood (Man) Negative (Negative) Urine Nitrate Negative (Negative) Urine Bilirubin Negative (Negative) Urine Urobilinogen 1.0 (<2.0) mg/dL Leukocyte Esterase Rfl Negative (Negative) NICK/UL POC Urine HCG, Qual Negative (Negative) Urine Opiates Screen Negative (Negative) Urine Methadone Screen Negative (Negative) Ur Barbiturates Screen Negative (Negative) Ur Phencyclidine Scrn Negative (Negative) Ur Amphetamine Screen Negative (Negative) U Benzodiazepines Scrn Negative (Negative) Urine Cocaine Screen Negative (Negative) U Cannabinoids Screen Positive A (Negative) 03/28/25 Range/Units 10:54 WBC (4.5-10.0) K/mm3 RBC (4.2-5.4) M/mm3 Hgb (12.0-15.0) g/dL Hct (37.0-47.0) % MCV (80-100) fl MCH (26-34) pg MCHC (32-36) g/dl RDW (11.5-14.5) % Plt Count (150-375) k/mm3 MPV (7.4-10.4) fl Immature Gran % (Auto) (0-0.5) % Neut % (Auto) (45.5-73.1) % Lymph % (Auto) (18.3-44.2) % [place] % (Auto) (2.6-8.5) % Eos % (Auto) (0-4.4) % Baso % (Auto) (0.2-1.2) % Lymph # (Auto) (0.9-3.2) K/mm3 [place] # (Auto) (0.1-0.6) K/mm3 Eos # (Auto) (0-0.3) K/mm3 Baso # (Auto) (0.0-0.1) K/mm3 Abs Immat Gran (auto) (0.00-0.031) K/mm3 Absolute Neuts (auto) (1.3-6.7) K/mm3 Absolute Nucleated RBC (0.0-0.012) K/mm3 Nucleated RBC % (0.0-0.2) % Sodium 138 (137-145) mmol/L Potassium 3.3 L (3.4-5.0) mmol/L Chloride 105 (98-107) mmol/L Carbon Dioxide 24 (22-30) mmol/L Anion Gap 9 (4-12) mmol/L BUN < 2 L (7-17) mg/dL Creatinine 0.61 L (0.7-1.0) mg/dL Estim Creat Clear Calc 97 ml/min Estimated GFR > 60 (59 - ) Glucose 148 H (65-110) mg/dL Calcium 8.1 L (8.4-10.2) mg/dL Magnesium (1.6-2.3) mg/dL Total Bilirubin (0.2-1.3) mg/dL AST (14-36) U/L ALT (6-35) U/L Alkaline Phosphatase (38-126) U/L Total Protein (6.3-8.2) g/dL Albumin (3.5-5.1) g/dL Lipase (23-300) U/L Urine Color (Yellow) Urine Appearance (Clear) Urine pH (5.0-9.0) Ur Specific [place] (1.001-1.035) Urine Protein (Negative) mg/dL Urine Glucose (UA) (Negative) mg/dL Urine Ketones (Negative) mg/dL Ur Blood (Man) (Negative) Urine Nitrate (Negative) Urine Bilirubin (Negative) Urine Urobilinogen (<2.0) mg/dL Leukocyte Esterase Rfl (Negative) NICK/UL POC Urine HCG, Qual (Negative) Urine Opiates Screen (Negative) Urine Methadone Screen (Negative) Ur Barbiturates Screen (Negative) Ur Phencyclidine Scrn (Negative) Ur Amphetamine Screen (Negative) U Benzodiazepines Scrn (Negative) Urine Cocaine Screen (Negative) U Cannabinoids Screen (Negative) Imaging Data Radiologist's impression: ITS Impressions Abdomen/Pelvis CT 03/28/25 09:36 IMPRESSION: 1. Pancolitis. 2. No other acute abnormality. 3. Additional findings as above. Discharge Plan Discharge Clinical Impression: Bilateral lower abdominal pain, Abnormal transaminases, Hypokalemia, Pancolitis, Nausea & vomiting Patient Disposition: Home Condition: Stable Instructions: Antibiotic Form, Hypokalemia (ED), Acute Nausea and Vomiting (ED), Abdominal Pain (ED), Colitis (ED), Transaminitis (ED) Additional Instructions: You can use the Compazine persistent nausea and vomiting. The dicyclomine/Bentyl works on the smooth muscle of the GI tract. Your potassium had improved although remained slightly low on repeat. Rest and maintain your hydration. Follow-up with your primary care provider. Given your persistent/longstanding history with chronic abdominal pain, recommend follow-up with gastroenterology. The name of the doctors listed below. Return to the emergency department with any new or worsening symptoms. Patient Language: [place] Prescriptions: New prochlorperazine maleate [Compazine] 5 mg tablet 5 mg PO Q8H PRN (Reason: nausea and vomiting) Qty: 7 0RF dicyclomine 10 mg capsule 10 mg PO BID PRN (Reason: abdominal pain) Qty: 20 0RF potassium chloride 20 mEq packet 20 meq PO DAILY 5 Days Qty: 5 0RF No Action ondansetron 4 mg tablet,disintegrating 4 mg PO Q6H PRN (Reason: nausea and vomiting) Qty: 30 0RF prochlorperazine maleate [Compazine] 5 mg tablet 5 mg PO Q8H PRN (Reason: nausea and vomiting) Qty: 14 0RF sumatriptan succinate 50 mg tablet See Rx Instructions PO .COMPLEX Qty: 10 4RF Rx Instructions: take 1 tab at onset of headache; if no relief may repeat 1 tab after at least 2 hrs; max = 4 tabs/24 hr PO omeprazole 40 mg capsule,delayed release(DR/EC) See Rx Instructions .ROUTE .COMPLEX Qty: 30 0RF Dose Instruction: TAKE 1 CAPSULE BY MOUTH DAILY Rx Instructions: TAKE 1 CAPSULE BY MOUTH DAILY amitriptyline 10 mg tablet 10 mg PO QHS Qty: 90 0RF Follow-up/Referrals: Jaelyn Mccormack APRN [Primary Care Provider, Family Practice] Martínez Fernandez MD [Physician, Gastroenterology] Stand Alone Forms: Work/School Release IP Time of Disposition: 11:45
[2025-03-28 08:03] LABS: Alanine Aminotransferase 40 U/L (6-35); Albumin Level 4.2 g/dL (3.5-5.1); Alkaline Phosphatase 99 U/L (38-126); Anion Gap 11 mmol/L (4-12); Aspartate Amino Transferase 44 U/L (14-36); Bilirubin,Total 1.2 mg/dL (0.2-1.3); Blood Urea Nitrogen 2 mg/dL (7-17); Calcium 8.9 mg/dL (8.4-10.2); Carbon Dioxide 21 mmol/L (22-30); Chloride 104 mmol/L (98-107); Estimated CRCL calculation 83 ml/min; Estimated Glomerular Filt Rate > 60; Glucose 123 mg/dL (65-110); Lipase 118 U/L (23-300); Potassium 2.8 mmol/L (3.4-5.0); Sodium 136 mmol/L (137-145); Total Protein 6.7 g/dL (6.3-8.2)
[2025-03-28] MEDS: SODIUM CHLORIDE 0.9% IV 1,000 ML 999 ML IV CONT (08:14)
[2025-03-28] MEDS: PROCHLORPERAZINE EDISYLATE 10 MG/2 ML VIAL 5 MG IV PUSH (08:15)
[2025-03-28] MEDS: FAMOTIDINE 20 MG/2 ML VIAL IV PUSH (08:17)
[2025-03-28] MEDS: MORPHINE SULFATE (*CRX) 4 MG/ML INJ 2 MG IV PUSH (08:28)
[2025-03-28 08:30] LABS: Add Urine Microscopic? NO; Appearance Urine Clear (Clear); Glucose Urine UA Negative (Negative); Leukocyte Esterase Ur Negative LEU/UL (Negative); Nitrate Urine Negative (Negative); Specific Grav Ur 1.005 (1.001-1.035)
[2025-03-28 08:32] LABS: Magnesium 1.7 mg/dL (1.6-2.3)
[2025-03-28 08:38] LABS: BEDSIDEPREGUCG Negative (Negative)
[2025-03-28] MEDS: KCL 20 MEQ/SW 100 ML 100 ML 50 MEQ IVPB (08:57)
[2025-03-28 09:03] LABS: Cannabinoid Screen Urine Positive (Negative)
[2025-03-28] MEDS: MAGNESIUM SULF 1 GM/D5W 100 ML 1 GM/100 ML BAG IVPB (09:37)
[2025-03-28] MEDS: HALOPERIDOL LACTATE 5 MG/ML VIAL 2.5 MG IV PUSH (09:45)
[2025-03-28] MEDS: DICYCLOMINE HCL 10 MG CAPSULE 20 MG PO (10:38)
[2025-03-28 11:21] LABS: Anion Gap 9 mmol/L (4-12); Calcium 8.1 mg/dL (8.4-10.2); Carbon Dioxide 24 mmol/L (22-30); Chloride 105 mmol/L (98-107); Estimated CRCL calculation 97 ml/min; Estimated Glomerular Filt Rate > 60; Glucose 148 mg/dL (65-110); Potassium 3.3 mmol/L (3.4-5.0); Sodium 138 mmol/L (137-145)
[2025-03-28 11:29] LABS: Blood Urea Nitrogen < 2 mg/dL (7-17)
== END 2025-03-28 12:05 | disposition home or self-care (01) ==
PROVIDERS: Emergency Provider Student in an Organized Health Care Education/Training Program; PCP Nurse Practitioner Family
DX: K52.9 Noninfective gastroenteritis and colitis, unspecified (principal); R74.01 Elevation of levels of liver transaminase levels; E87.6 Hypokalemia; R11.2 Nausea with vomiting, unspecified; F17.290 Nicotine dependence, other tobacco product, uncomplicated
CPT/HCPCS: 36415; 74177; 80048; 80053; 80307; 81003; 81025; 83690; 83735; 85025; 96365; 96366; 96367; 96375; 99284; A9270; J0780; J1200; J1630; J2270; J3475; J3480; J7030; Q9967

== ENCOUNTER 2025-03-29 06:51 | Emergency (ER) | payer OTHER, SELFPAY ==
[2025-03-29] VITALS (9 sets, daily range): BP systolic 117–137; BP diastolic 51–85; PULSE 60–79; RESP 16–20; TEMP 36.9; O2SAT 97–100
[2025-03-29] MEDS: LACTATED RINGERS 1,000 ML 999 ML IV CONT (09:23)
[2025-03-29] MEDS: PROCHLORPERAZINE EDISYLATE 10 MG/2 ML VIAL IV PUSH (09:24)
[2025-03-29] MEDS: FAMOTIDINE 20 MG/2 ML VIAL IV PUSH (09:28)
[2025-03-29 09:33] LABS: Hematocrit 37.7 % (37.0-47.0); Hemoglobin 13.2 g/dL (12.0-15.0); Immature Granulocyte Percent A 0.4 % (0-0.5); Lymphocytes Absolute Auto 2.52 K/mm3 (0.9-3.2); Mean Corpuscular HGB Conc 35.0 g/dl (32-36); Mean Corpuscular Hemoglobin 29.7 pg (26-34); Mean Corpuscular Volume 84.9 fl (80-100); Nucleated Red Blood Cells Absolute Auto 0.000 K/mm3 (0.0-0.012); Nucleated Red Blood Cells Perc 0.0 % (0.0-0.2); Platelet Count Result 252 k/mm3 (150-375); Red Blood Count 4.44 M/mm3 (4.2-5.4); White Blood Count 8.5 K/mm3 (4.5-10.0)
[2025-03-29 09:56] LABS: Alanine Aminotransferase 58 U/L (6-35); Albumin Level 4.4 g/dL (3.5-5.1); Alkaline Phosphatase 99 U/L (38-126); Anion Gap 14 mmol/L (4-12); Aspartate Amino Transferase 47 U/L (14-36); Bilirubin,Total 1.6 mg/dL (0.2-1.3); Calcium 9.0 mg/dL (8.4-10.2); Carbon Dioxide 23 mmol/L (22-30); Chloride 102 mmol/L (98-107); Estimated CRCL calculation 86 ml/min; Estimated Glomerular Filt Rate > 60; Glucose 98 mg/dL (65-110); Lipase 78 U/L (23-300); Magnesium 2.0 mg/dL (1.6-2.3); Potassium 2.8 mmol/L (3.4-5.0); Sodium 139 mmol/L (137-145); Total Protein 6.8 g/dL (6.3-8.2)
[2025-03-29] MEDS: POTASSIUM CHLORIDE INJ 40 MEQ in SODIUM CHLORIDE 0.9% IV 500 ML 130 MEQ IVPB (10:13)
--- NOTE | 2025-03-29 10:25 | ED.NAVMDI ---
HPI - Nausea/Vomiting/Diarrhea General Chief complaint: Nausea/Vomiting/Diarrhea Stated complaint: vomiting Time Seen by Provider: 03/29/25 09:12 Source: patient Mode of arrival: ambulatory Limitations: no limitations History of Present Illness HPI Narrative: This is a 24 year old female that presents to the ER for abdominal pain, nausea and vomiting. Ongoing over the last couple of days. She is evaluated for this yesterday and diagnosed with colitis. Reports continued abdominal pain, vomiting. Not able to keep much down. This prompted her to be seen again. Denies fevers. Related Data Allergies Allergy/AdvReac Type Severity Reaction Status Date / Time Penicillins AdvReac Intermediate Difficulty Verified 03/29/25 06:57 Breathing Review of Systems Review of Systems: All systems reviewed & are unremarkable except as noted in HPI and below PMFSH Past Medical History Medical History (Updated 03/29/25 @ 15:15 by Amy Chavez PA-C) Family history of bipolar disorder Anxiety Leukocytosis Abdominal pain Migraine Surgical History Surgical History (Updated 03/28/25 @ 08:03 by Yani Stovall MD) History of esophagogastroduodenoscopy (EGD) History of laparoscopic appendectomy 09/30/2022 History of cholecystectomy Family History Family History Father Hypertension Depression Mother Depression Grandparent Cancer Hypertension Thyroid disorder Heart disease Other No pertinent family history Social History Social History Social History: Patient is very confident filling out medical forms. 05/07/24 Smoking status: Current every day smoker Tobacco type: e-cigarettes/vaping Alcohol intake: current Alcohol use details: Social Substance use: former Substance use type: marijuana Last use: 09/15/23 Do You Feel Safe in your Home?: Yes Lack of Transportation: No Lack of Food: Never True Current Housing: I Have Housing Concerned About Future Housing: No Difficulty Paying Gas/Electric Bills: No Difficulty Paying for Meds: No Currently Unemployed: No Education: Grade School Difficulty w/ Childcare or Family Care: No Living arrangements: with family Occupation/Education: occupation Additional occupation/education comments: [employer] Gender identity (if verbalized by the patient): Female Spiritual care concerns: No Exam Narrative: GENERAL: Well-appearing, well-nourished, and in no acute distress. HEAD: Normocephalic, atraumatic. EYES: EOMI. CHEST: Clear to auscultation. No respiratory distress. No wheezes rales or rhonchi HEART: Regular rate and rhythm. No murmur heard. Normal peripheral pulses. ABDOMEN: Soft, nondistended, normal active bowel sounds. Mild tenderness to palpation in the lower abdomen, without guarding EXTREMITIES: Normal range of motion. No edema. SKIN: Warm, dry, no rash. NEURO: No focal deficits. Alert and oriented x3. PSYCH: Normal mood and affect Course Course Emergency Course: patient feeling improved on repeat evaluation. Tolerating oral intake. We spoke about admission versus close outpatient follow up. She does report she has follow up with GI on of this week. She would like to go home Vital Signs Vital signs: Vital Signs Temperature 98.4 F 03/29/25 06:54 Pulse Rate 60 03/29/25 06:54 Respiratory Rate 20 03/29/25 06:54 Blood Pressure 134/84 03/29/25 06:54 Pulse Oximetry 99 03/29/25 06:54 Temperature 98.4 F 03/29/25 14:45 Pulse Rate 62 03/29/25 15:40 Respiratory Rate 16 03/29/25 15:40 Blood Pressure 125/81 03/29/25 15:40 Pulse Oximetry 99 03/29/25 15:40 MDM - Nausea/Vomiting/Diarrhea MDM Narrative Medical decision making narrative: Patient presents the emergency department for abdominal pain, nausea and vomiting. Ongoing over the last couple of days. She is afebrile and nontoxic appearing. Her vitals are stable. Reports history of chronic GI issues, she follows with Gastroenterology. Cbc without leukocytosis. Metabolic panel with hypokalemia, this was replaced. Repeat showing normalization. Patient just had a UA yesterday which was negative for infection. test negative. She also had a CT scan yesterday which showed pancolitis. patient feeling improved on repeat evaluation. Tolerating oral intake. We spoke about admission versus close outpatient follow up. She does report she has follow up with GI on of this week. She would like to go home. instructed to return at any time Differential Diagnosis Differential diagnosis: Likely food poisoning, gastroenteritis, dehydration and other (Cannabinoid hyperemesis, colitis) Medical Records Attestation: I reviewed the patient's medical records. Lab Data Attestation: I reviewed the patient's lab results. 03/29/25 09:22 03/29/25 14:26 Labs: Lab Results 03/29/25 03/29/25 Range/Units 09:22 14:26 WBC 8.5 (4.5-10.0) K/mm3 RBC 4.44 (4.2-5.4) M/mm3 Hgb 13.2 (12.0-15.0) g/dL Hct 37.7 (37.0-47.0) % MCV 84.9 (80-100) fl MCH 29.7 (26-34) pg MCHC 35.0 (32-36) g/dl RDW 12.1 (11.5-14.5) % Plt Count 252 (150-375) k/mm3 MPV 11.9 H (7.4-10.4) fl Immature Gran % (Auto) 0.4 (0-0.5) % Neut % (Auto) 60.5 (45.5-73.1) % Lymph % (Auto) 29.8 (18.3-44.2) % [place] % (Auto) 8.4 (2.6-8.5) % Eos % (Auto) 0.4 (0-4.4) % Baso % (Auto) 0.5 (0.2-1.2) % Lymph # (Auto) 2.52 (0.9-3.2) K/mm3 [place] # (Auto) 0.7 H (0.1-0.6) K/mm3 Eos # (Auto) 0.0 (0-0.3) K/mm3 Baso # (Auto) 0.0 (0.0-0.1) K/mm3 Abs Immat Gran (auto) 0.03 (0.00-0.031) K/mm3 Absolute Neuts (auto) 5.1 (1.3-6.7) K/mm3 Absolute Nucleated RBC 0.000 (0.0-0.012) K/mm3 Nucleated RBC % 0.0 (0.0-0.2) % Sodium 139 139 (137-145) mmol/L Potassium 2.8 L* 4.2 (3.4-5.0) mmol/L Chloride 102 108 H (98-107) mmol/L Carbon Dioxide 23 25 (22-30) mmol/L Anion Gap 14 H 6 (4-12) mmol/L BUN < 2 L < 2 L (7-17) mg/dL Creatinine 0.69 L 0.61 L (0.7-1.0) mg/dL Estim Creat Clear Calc 86 97 ml/min Estimated GFR > 60 > 60 (59 - ) Glucose 98 117 H (65-110) mg/dL Calcium 9.0 8.5 (8.4-10.2) mg/dL Magnesium 2.0 (1.6-2.3) mg/dL Total Bilirubin 1.6 H (0.2-1.3) mg/dL AST 47 H (14-36) U/L ALT 58 H (6-35) U/L Alkaline Phosphatase 99 (38-126) U/L Total Protein 6.8 (6.3-8.2) g/dL Albumin 4.4 (3.5-5.1) g/dL Lipase 78 (23-300) U/L Critical Care Time Critical Care Time Critical Care Time: No Discharge Plan Discharge Clinical Impression: Acute hypokalemia Abdominal pain Qualifiers: Abdominal location: lower abdomen, unspecified Qualified Code(s): R10.30 - Lower abdominal pain, unspecified Patient Disposition: Home Condition: Improved Instructions: Acute Nausea and Vomiting (ED), Abdominal Pain (ED), Colitis (ED) Additional Instructions: Return to the ER if you experience fever, abdominal pain with nausea and vomiting, you are unable to keep down liquids or solids, or any other symptoms that are concerning to you Small, frequent meals. [place] diet. Remain well hydrated. 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 Patient Language: Mongolian Prescriptions: New metronidazole 500 mg tablet 500 mg PO Q12H 5 Days Qty: 10 0RF No Action ondansetron 4 mg tablet,disintegrating 4 mg PO Q6H PRN (Reason: nausea and vomiting) Qty: 30 0RF prochlorperazine maleate [Compazine] 5 mg tablet 5 mg PO Q8H PRN (Reason: nausea and vomiting) Qty: 14 0RF prochlorperazine maleate [Compazine] 5 mg tablet 5 mg PO Q8H PRN (Reason: nausea and vomiting) Qty: 7 0RF dicyclomine 10 mg capsule 10 mg PO BID PRN (Reason: abdominal pain) Qty: 20 0RF potassium chloride 20 mEq packet 20 meq PO DAILY 5 Days Qty: 5 0RF sumatriptan succinate 50 mg tablet See Rx Instructions PO .COMPLEX Qty: 10 4RF Rx Instructions: take 1 tab at onset of headache; if no relief may repeat 1 tab after at least 2 hrs; max = 4 tabs/24 hr PO omeprazole 40 mg capsule,delayed release(DR/EC) See Rx Instructions .ROUTE .COMPLEX Qty: 30 0RF Dose Instruction: TAKE 1 CAPSULE BY MOUTH DAILY Rx Instructions: TAKE 1 CAPSULE BY MOUTH DAILY amitriptyline 10 mg tablet 10 mg PO QHS Qty: 90 0RF Follow-up/Referrals: Jaelyn Mccormack APRN [Primary Care Provider, Family Practice] Stand Alone Forms: Work/School Release IP
--- OUTSIDE RECORDS SUMMARY | 2025-03-29 10:32 | XMS_ITS | Data Portability ---
Author Organization [facility] Address [address] [place] [address] [place] [address] Assessment Encounter Date Assessment Date Assessment LastModified by Organization Details LastModified Time 07/15/2024 07/15/2024 Greater than 30 minutes was spent in total between discussion with the patient, examination, and coordination of care. [email or web address] Not available 07/19/2024 22:55:15 Plan of Treatment Reminders Order Date Submit Date Provider Last Modified By Organization Details Last Modified Time Details Appointments None recorded. Lab test, urine 2024 025 [email or web address] [place], [address], [place], [address], 5 14:54:30 test, urine 2023 024 [email or web address] [place], [address], [address], [place], [address], 4 10:57:18 Referral None recorded. Procedures None recorded. Surgeries None recorded. Imaging None recorded. Medication Orders Depo-Environmental Services Assistant a 150 mg/mL intramuscul ar syringe 2024 025 [email or web address] 1 Not available 5 19:07:25 Depo-Environmental Services Assistant a 150 mg/mL intramuscul ar syringe 2023 024 [email or web address] Not available 5 09:35:29 Depo-Environmental Services Assistant a 150 mg/mL intramuscul ar syringe 2023 024 [email or web address] Not available 09:35:29 Depo-Environmental Services Assistant a 150 mg/mL intramuscul ar suspension 2023 024 [email or web address] Not available 09:35:44 Patient TargetsNo targets recorded. Patient InstructionsNo instructions recorded. Reason for Referral None Reported. Results Created Date Observation Date Name Description Value Unit Range Abnormal Flag Note LastModifiedBy Organization Detail LastModifiedTime 08/13/19 24 08/13/2023 pregn brayan test, urine HCG negati ve Not Available [place] [address], [place], [address], 08/13/2023 10:56:58 08/13/19 24 08/13/2023 urina lysis , dipst ick Blood trace Not Available [place] [address], [place], [address], 08/13/2023 10:41:02 08/13/19 24 08/13/2023 urina lysis , dipst ick Appearance clear Not Available [facility] tushar [address], [place], [address], 08/13/2023 10:41:02 08/13/19 24 08/13/2023 urina lysis , dipst ick Color pale yellow Not Available [place] [address], [place], [address], 08/13/2023 10:41:02 08/13/19 24 08/13/2023 pregn brayan test, urine HCG negati ve Not Available [place] [address], [place], [address], 08/13/2023 10:40:35 Result Notes None recorded. Procedures Surgical History Date Name Laterality Status Provider Name and Address Organization Details Recorded Time 023 Date of Last Pap Smear completed [facility] 07/15/2024 09:36:12 Appendectomy completed Martha Hernandez [facility] 03/11/2023 10:29:39 cholecystectomy completed Martha Hernandez [facility] 03/11/2023 10:29:52 Imaging Results None recorded. Procedure Notes None recorded. Medical Equipment None Reported. Allergies Allergen ID Allergen Name Allergen Category Reaction Reaction Severity Criticality Documentation Date Start Date Code Code System Note Provider Name and Address Organization Details Recorded Time Product containin g penicilli n (product) medicatio n Not available Not available Not available 03/11/2023 07688 [id number] SNOMED Martha wu [facility] 10:27:27 Medications Name Sig Start Date [...] Not Available Not Available No t Available Depo-Environmental Services Assistant a 150 mg/mL intramuscul ar syringe Inject [...] Updated DateTime 07/15/2024 157.48 cm 26.7 kg/m2 90053.49 g 128/81 mm[Hg] Tita Skinner [facility] 07/15/2024 09:34:54 Date Recorded Body height Body mass index (BMI) Body weight Systolic And Diastolic Provider Name and Address Organization Details Last Updated DateTime 08/13/2023 157.48 cm 25.6 kg/m2 69607.93 g 117/76 mm[Hg] Miri Gonzalez [facility] 08/13/2023 10:31:14 Date Recorded Body height Body mass index (BMI) Body weight Systolic And Diastolic Provider Name and Address Organization Details Last Updated DateTime 08/13/2024 157.48 cm 26.5 kg/m2 86494.89 g 120/78 mm[Hg] Renetta Wetzel [facility] 08/13/2024 14:49:40 Date Recorded Body height Provider Name an d Address Organization Details Last Updated DateTime 10/30/2023 157.48 cm Miri Gonzalez [facility] 10/30/2023 09:29:51 Social History Question Answer Notes LastModified by Organizat ion Details LastModified Time Tobacco Smoking Status Never Smoker Martha Mary [facility] 03/11/2023 10:29:21 How Many Years Have You Consumed Alcohol? 3 [email or web address] Information not available 07/15/2024 Are You Blind Or Do You Have Difficulty Seeing? No Information n ot available 03/11/2023 What Is Your Level Of Caffeine Consumption? Occasional [email or web address] Information not available 07/15/2024 How Much Tobacco Do You Chew? None [email or web address] Information not available 07/15/2024 In The 14 Days Before Symptom Onset, Have You Had Close Contact With A Laboratory-confirm ed COVID-19 While That Case Was Ill? No [email or web address] Information n ot available 07/15/2024 In The 14 Days Before Symptom Onset, Have You Had Close Contact With A Person Who Is Under Investigation For COVID-19 While That Person Was Ill? No [email or web address] Information not available 07/15/2024 Have You Been To An Area Known To Be High Risk For COVID-19? No [email or web address] Information not available 07/15/2024 Are You Deaf Or Do You Have Serious Difficulty Hearing? No Information not available 03/11/2023 Which Illicit Or Recreational Drugs Have You Used? Marijuana Information not available 03/11/2023 What Is The Highest Grade Or Level Of School You Have Completed Or The Highest Degree You Have Received? EG51481-1 [email or web address] Information not available 07/15/2024 Are There Any Guns Present In Your Home? No [email or web address] Information not available 07/15/2024 Do You Use Protection During Sex? No [email or web address] Information not available 07/15/2024 Do You Use Your Seat Belt Or Car Seat Routinely? Yes [email or web address] Information not available 07/15/2024 Do You Have Smoke And Carbon Monoxide Detectors In Your Home? Yes Information not available 07/15/2024 How Much Tobacco Do You Smoke? No [email or web address] Information not available 07/15/2024 Do You Use Sunscreen Routinely? Yes [email or web address] Information not available 07/15/2024 Have You Used IV Drugs? No [email or web address] Information not available 07/15/2024 Do You Have [...] 03/11/2023 What is your exercise level? Occasional [email or web address] Information not available 07/15/2024 Mental Status Question Answer Note LastModified by Organization D etails LastModified Time Do you feel stressed (tense, restless, nervous, or anxious, or unable to sleep at night)? [id number] Information not available 07/15/2024 Family History Relationship [...] of Flow (days) 5 Current Control Method Depo-Environmental Services Assistant a Are cycles usually normal N Sexually [...] ICD10 Code Diagnosis IMO Codes Diagnosis Note [id number] NELLIE Khoury [place] [address] [address] 03/11/2023 10:06:00 03/11/2023 10:55:35 Gynecologic examination [id number] Z01.419 Take Calcium with Vitamin D daily [...] for injection tomorrow Contracept ion care management [id number] Z30.9 Depo-Prove ra is a female hormonal [...] can be discussed with your healthcare provider. [id number] NELLIE Khoury [place] [address] [address] 03/12/2023 09:56:47 03/12/2023 10:28:22 Contraception care management [id number] Z30.9 Depo-Prove ra is a female hormonal [...] can be discussed with your healthcare provider. [id number] NELLIE Khoury [place] [address] [address] 05/28/2023 09:15:05 05/28/2023 14:12:33 Contraception care management [id number] Z30.9 Depo-Prove ra is a female hormonal [...] can be discussed with your healthcare provider. [id number] NELLIE Khoury [place] [address],[place] [address] 08/13/2023 10:20:30 08/13/2023 10:58:20 Contraception care management [id number] Z30.9 Discussed common SE of irregular/ unschedule [...] counseling and review of plan of care. [id number] NELLIE Khoury [place] [address],[place] [address] 10/30/2023 09:14:37 10/30/2023 10:37:31 Contraception care management [id number] Z30.9 [id number] NELLIE Khoury [place] [address] [address] 01/15/2024 10:48:30 01/15/2024 10:59:12 Contraception care management [id number] Z30.9 [id number] JOCELYNN COSTA MD [place] [address] [address] 07/15/2024 09:13:36 07/20/2024 02:47:30 Upper abdominal pain [id number] R10.10 - patient reports constant upper abdominal [...] given current symptoms- patients voices understand ing [id number] Zenon Thompson MD [place] [address] [address] 08/13/2024 14:31:45 08/13/2024 14:55:57 Contraception care management [id number] Z30.9 Health Concerns Section Related Observation LastModified by Organization Detai ls LastModified Time None Recorded Concern Status LastModified by Organization Details LastModified Time None Recorded Advance Directives Directive None Recorded Payers Insurance Date Sequence Insurance Name Policy Number Policy Cortes Covered Member ID Cortes Member ID Guarantor Name 11/04/2024 1 [facility] - DOS ON OR AFTER 20 (MEDICAID REPLACEMENT - HMO) Rosibel Tinajero [id number] Rosibel Tinajero Notes Date Note Type Note Provider Name and Address Organization Details Recorded Time 08/13/2023 text/html Jay - Abnormal BleedingReported by Patient 22yo [id number] for f/u on DMPArestarted DMPA for BC on 03/11/23no bleeding with DMPA until recently, had 3 weeks of light bleeding. No bleeding todayno new partnersneg discharge, odors, itchingneg pelvic painneg n/v/fpap UTD - 03/11/2023, normal Miri Gonzalez null, [facility] 08/13/2023 11:06:15 07/15/2024 text/html ROS as [...] dyspareunia. JOCELYNN COSTA MD [address], [place], [address], [place] [facility] 07/19/2024 22:55:24 OBGyn Episode No OBEpisode recorded.
--- OUTSIDE RECORDS SUMMARY | 2025-03-29 10:32 | XMS_ITS | Clinical Summary ---
Author Organization [facility] Address [address] [place] [address] Care Team Providers Care Manager Retail Name Role Phone Randy Mccormackelle Mellissa BIOINFORMATICS TECHNICIAN Primary Care Provider + Allergies Active Allergy [...] 05/21/2021 Assessment & Plan (05/21/2021 2:01 PM SLEEP MEDICINE PHYSICIAN): UA ordered, will call with the result. Declines STD prophylaxis or other STD testing at this time. Went over safe sex practices. Follow up PRN Viral pharyngitis 05/21/2021 09/11/2021 Assessment & Plan (05/21/2021 2:09 PM SLEEP MEDICINE PHYSICIAN): Rapid strep negative. Symptoms are most likely [...] (12/27/2019): Added automatically from request for surgery [id number] Assessment & Plan (01/29/2020 8:28 AM CDT): [...] CDT): I had a lengthy discussion with Rosiebl and her mother. It seemed excessive to [...] she should go to the ER in [place] where the would have GI on staff. 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 Reassured that exam is normal and labs are likely to be as well. Will call with results Assessment & Plan (05/14/2019 7:15 PM SLEEP MEDICINE PHYSICIAN): Encouraged family to give 1/2 strength Gatorade [...] CDT - 03/27/2025 11:27 AM CDT Emergency [facility] Emergency Department [address] [place] [address] Abdominal pain with vomiting (Primary Dx) Discharge Disposition: Discharge to home or self care 03/26/2025 8:36 AM CDT - 03/26/2025 9:59 AM CDT Emergency [facility] Emergency Department [address] [place] [address] Abdominal pain, unspecified abdominal location (Primary Dx); [...] Teja Fong M.D. JA: PEDRO Report ID: [id number] Reading Location: [id number] Procedure Note Teja Fong MD - 03/27/2025 [...] signed by Teja VASQUEZ: PEDRO Report ID: [id number] Reading Location: [place] [address] Lan PRATT [facility] CT PROCEDURES Final Re sult * Differential, [...] ORDERABLES Final Result [facility] ([place]) 1 [facility] [place] [address] * CBC with auto differential (03/27/2025 9:09 [...] Result [facility] ([place]) 1 [facility] Department [place] [address] * (ABNORMAL) Urinalysis reflex to microscopic and [...] tendency for uric acid stone formation. Source: [facility] Current Interpretive Data was last [...] GALLOWAY Final Result [facility] ([place]) 1 [facility] Department [place] [address] * (ABNORMAL) Urinalysis, microscopic only (03/26/2025 9:34 [...] ORDERABLES Final Resu lt [facility]ILL[facility]AL[facility]) 1 [facility] Department [place] [address] * Influenza A/B, RSV, and COVID-19 PCR Nasopharyngeal (03/26/2025 9:09 AM CDT) [facility] COVID-19 RNA Negative Negative Influenza A RNA Negative Negative [facility] Influenza B RNA Negative Negative [facility] ([place]) RSV RNA Negative Negative [facility] ([place]) Comment: Interpretive data: Testing performed by [facility]. This test is performed using the [employer] Xpert Xpress CoV-2/Flu/RSV plus assay. This is a multiplex, real- time reverse transcriptase PCR assay intended for the qualitative detection of nucleic acid from SARS-CoV-2, influenza A, influenza B, and respiratory syncytial virus. This assay has been cleared by the [place] Food and Drug administration. The performance characteristics have been verified by the [facility]. Results must be considered in the clinical context, and a negative result does not rule out infection. Interpretive Data last revised 2023 Nasopharyngeal 03/26/2025 9: 09 AM CDT 03/26/2025 9:12 AM CDT Narrative [facility] ([place]) - 03/26/2025 9:51 AM CDT Is the Patient experiencing symptoms consistent with COVID?->Yes Rosibel PRATT LAB MICROBIOLOGY - GENERAL ORDE RABLES Final Result [facility] ([place]) 1 [facility] [place] [address] * eGFR (03/26/2025 8:48 AM CDT) [facility] eGFR >90 >=60 mL/min/1. 73 m2 Comment: [...] PRATT LAB BLOOD ORDERABLES Final Resu lt [facility] ([place]) 1 [facility] Department [place] [address] * (ABNORMAL) Differential, auto (03/26/2025 8:48 AM [...] Lymphocyte pct 20.5 % [facility] ([place]) Comment: Interpretive Data Percent cell count reference [...] BLOOD ORDERABLES Final Resu lt [facility] ([place]) 1 [facility] Department [place] [address] * (ABNORMAL) CBC with auto differential (03/26/2025 [...] ORDERABLES Final Resu lt Performing Organization Address City/[facility] Co de Phone Number [facility] ([place]) 1 [facility] [place] [address] * hCG, blood, quantitative (03/26/2025 8:48 AM CDT) [facility] hCG, quant <5.0 0.0 - 5.0 IUnits/L [...] BLOOD ORDERABLES Final Resu lt [facility] ([place]) 1 [facility] [place] [address] * Lipase (03/26/2025 8:48 AM CDT) Lipase 24 10 - 99 Units/L Blood 03/26/2025 8:48 AM CDT 03/26/2025 8:50 AM CDT us Rosibel PRATT LAB BLOOD ORDERABLES Final Resu lt [facility] ([place]) 1 [facility] Department [place] [address] * (ABNORMAL) Comprehensive metabolic panel (03/26/2025 8:48 [...] 1.8(H) 0.1 - 1.2 mg/dL [facility] ([place]) Protein, pl 7.4 6.5 - 8.5 g/dL [...] ORDERABLES Final Resu lt [facility] ([place]) [address] [place] [address] Department [place] [address] * N. gonorrhoeae/C. trachomatis Amplification Urine (09/09/2022 11:48 AM CDT) C. trachomatis Not Detected Not Detected [facility] Comment:Testing performed by : [facility], [address] [place] [address]., [address] N. gonorrhoeae Not Detected Not Detected [facility] Comment: Interpretive Data Testing performed by the [facility] Laboratory. This assay detects Chlamydia trachomatis and Neisseria gonorrhoeae by nucleic acid amplification testing (NAAT). This test is approved by the [facility] Food and Drug Administration and the performance characteristics have been verified by the laboratory. The performance characteristics of this test have not been evaluated in individuals less than 14 years of age. Current Interpretive Data was last revised on 2018. Testing performed by: [facility], [address] [place] [address]., [id number] Urine (None) 09/09/2022 11:4 8 AM CDT 09/10/2022 1:02 AM CDT us Linnea Breaux BIOINFORMATICS TECHNICIAN LAB MICROBIOLOGY - GENERAL ORD ERABLES Final Result [facility] [address] [facility] Department [place] [address] * Hepatitis C antibody (09/09/2022 11:43 AM CDT) Hep C Ab Nonreactive Nonreactive [facility] Comment: Antibodies to HCV not detected. Does NOT exclude the possibility of recent exposure to HCV. Current interpretive data was last revised on 22 Testing performed by: [facility], [address] [facility], [place]., [address] Blood 09/09/2022 11:4 3 AM CDT 09/09/2022 3:50 PM CDT us Linnea Breaux NP LAB MICROBIOLOGY - GENERAL ORD ERABLES Final Result [facility] [address] [facility] Department [place] [address] from Last 3 Months or Most Recently Relevant to Health Maintenance Insurance [facility] [employer] [facility] [place] [address] Member Subscriber Plan / Payer (Ef fective 2024-Present) Name:Rosibel Tinajero Relation to Subscriber:Self Name:Rosibel Tinajero Payer ID:[id number] (NAIC) Group ID:Not on file Type:MEDICAID RISK OTHER Address: ATTN: CLAIMS DEPT [address] [place], [place] [address] [employer] [place] [employer] [facility] [employer] Advance Directives For more information, please contact: [phone] * Full Code (Latest Code Status on File) Date Activated Date Inactivated Comments 01/28/2020 10:29 AM 01/29/2020 8:26 PM * Full Code Date Activated Date Inactivated Comments 01/04/2020 7:49 AM 01/04/2020 1:10 PM * Full Code Date Activated Date Inactivated Comments 10/20/2019 8:46 PM 10/22/2019 12:28 AM Care Teams Manager Retail Relationship Specialty Start Date End Date Jaelyn Mccormack NP [address] [place] [id number] PCP - General Nurse Practitioner 03/26/25
[2025-03-29 11:19] LABS: Blood Urea Nitrogen < 2 mg/dL (7-17)
[2025-03-29] MEDS: KETOROLAC 15 MG/ML VIAL (*BKC) IV PUSH (11:42)
[2025-03-29] MEDS: POTASSIUM CHLORIDE 20 MEQ ER TABLET 40 MEQ PO (12:24)
[2025-03-29] MEDS: ONDANSETRON INJ 4 MG/2 ML VIAL IV PUSH (12:24)
[2025-03-29 14:49] LABS: Anion Gap 6 mmol/L (4-12); Calcium 8.5 mg/dL (8.4-10.2); Carbon Dioxide 25 mmol/L (22-30); Chloride 108 mmol/L (98-107); Estimated CRCL calculation 97 ml/min; Estimated Glomerular Filt Rate > 60; Glucose 117 mg/dL (65-110); Potassium 4.2 mmol/L (3.4-5.0); Sodium 139 mmol/L (137-145)
[2025-03-29 15:06] LABS: Blood Urea Nitrogen < 2 mg/dL (7-17)
--- NOTE | 2025-03-29 15:21 | PC.NURSE ---
BSR report completed with AR RN; patient stated that she was going to try to be discharged as she has PO challenged with Gatorade and feels improved.
== END 2025-03-29 15:45 | disposition home or self-care (01) ==
PROVIDERS: Emergency Provider Physician Assistant; PCP Nurse Practitioner Family
DX: E87.6 Hypokalemia (principal); R10.30 Lower abdominal pain, unspecified; F17.290 Nicotine dependence, other tobacco product, uncomplicated
CPT/HCPCS: 36415; 80048; 80053; 83690; 83735; 85025; 96361; 96365; 96366; 96375; 99284; A9270; J0780; J1200; J1885; J2405; J3480; J7040; J7120

== ENCOUNTER 2025-03-30 02:32 | Observation (INO) | payer OTHER, SELFPAY ==
--- OUTSIDE RECORDS SUMMARY | 2025-03-30 02:34 | XMS_ITS | Clinical Summary ---
Author Organization [facility] Address [address] [place] [id number] Care Team Providers Care Pharmacy Intake Coordinator Name Role Phone Randy Mccormackelle Mellissa GRADES 6 THROUGH 8 TEACHER Primary Care Provider + Allergies Active Allergy [...] 05/21/2021 Assessment & Plan (05/21/2021 2:01 PM SAT TUTOR): UA ordered, will call with the result. Declines STD prophylaxis or other STD testing at this time. Went over safe sex practices. Follow up PRN Viral pharyngitis 05/21/2021 09/11/2021 Assessment & Plan (05/21/2021 2:09 PM SAT TUTOR): Rapid strep negative. Symptoms are most likely [...] (12/27/2019): Added automatically from request for surgery [id number] Assessment & Plan (01/29/2020 8:28 AM CDT): [...] she should go to the ER in [place] where the would have GI on staff. 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 Reassured that exam is normal and labs are likely to be as well. Will call with results Assessment & Plan (05/14/2019 7:15 PM SAT TUTOR): Encouraged family to give 1/2 strength Gatorade [...] CDT - 03/27/2025 11:27 AM CDT Emergency [facility] Emergency Department 1 [place] [address] Abdominal pain with vomiting (Primary Dx) Discharge Disposition: Discharge to home or self care 03/26/2025 8:36 AM CDT - 03/26/2025 9:59 AM CDT Emergency [facility] Emergency Department 1 [place] [address] Abdominal pain, unspecified abdominal location (Primary Dx); [...] Teja Fong M.D. JA: PEDRO Report ID: [id number] Reading Location: [id number] Procedure Note Teja Fong MD - 03/27/2025 [...] signed by Teja VASQUEZ: PEDRO Report ID: [id number] Reading Location: [place] [address] [address] PRATT [facility] CT PROCEDURES Final Re sult * Differential, [...] ORDERABLES Final Result [facility] ([place]) 1 [facility] [place] [address] * CBC with auto differential (03/27/2025 9:09 [...] 1 [facility] Department [place] [address] * (ABNORMAL) Urinalysis reflex to microscopic and [...] tendency for uric acid stone formation. Source: [facility] Laboratories Current Interpretive Data was [...] 1 [facility] Department [place] [address] * (ABNORMAL) Urinalysis, microscopic only (03/26/2025 9:34 [...] 1 [facility] Department [place] [address] * Influenza A/B, RSV, and COVID-19 PCR Nasopharyngeal (03/26/2025 9:09 AM CDT) [facility] COVID-19 RNA Negative Negative Influenza A RNA Negative Negative [facility] ([place]) Influenza B RNA Negative Negative [facility] ([place]) RSV RNA Negative Negative [facility] ([place]) Comment: Interpretive data: Testing performed by [facility] Laboratory. This test is performed using the VeriTran Xpert Xpress CoV-2/Flu/RSV plus assay. This is a multiplex, real- time reverse transcriptase PCR assay intended for the qualitative detection of nucleic acid from SARS-CoV-2, influenza A, influenza B, and respiratory syncytial virus. This assay has been cleared by the [place] Food and Drug administration. The performance characteristics have been verified by the [facility]. Results must be considered in the clinical context, and a negative result does not rule out infection. Interpretive Data last revised 2023 Nasopharyngeal 03/26/2025 9: 09 AM CDT 03/26/2025 9:12 AM CDT Narrative [facility] ([place]) - 03/26/2025 9:51 AM CDT Is the Patient experiencing symptoms consistent with COVID?->Yes Rosibel PRATT LAB MICROBIOLOGY - GENERAL ORDE RABLES Final Result [facility] ([place]) 1 [facility] [place] [address] * eGFR (03/26/2025 8:48 AM CDT) [facility] eGFR >90 >=60 mL/min/1. 73 m2 [...] PRATT LAB BLOOD ORDERABLES Final Resu lt [facility] ([place]) 1 [facility] Department [place] [address] * (ABNORMAL) Differential, auto (03/26/2025 8:48 AM [...] BLOOD ORDERABLES Final Resu lt [facility] ([place]) 1 [facility] Department [place] [address] * (ABNORMAL) CBC with auto differential (03/26/2025 [...] ORDERABLES Final Resu lt Performing Organization Address City/[facility] Co de Phone Number [facility] ([place]) 1 [facility] [address] * hCG, blood, quantitative (03/26/2025 8:48 AM CDT) [facility] hCG, quant <5.0 0.0 - 5.0 [...] BLOOD ORDERABLES Final Resu lt [facility] ([place]) 1 [facility] [place] [address] * Lipase (03/26/2025 8:48 AM CDT) Lipase 24 10 - 99 Units/L Blood 03/26/2025 8:48 AM CDT 03/26/2025 8:50 AM CDT us Rosibel PRATT LAB BLOOD ORDERABLES Final Resu lt [facility] ([place]) 1 [facility] Department [place] [address] * (ABNORMAL) Comprehensive metabolic panel (03/26/2025 8:48 [...] ORDERABLES Final Resu lt [facility] ([place]) [address] [place] [address] Department [place] [address] * N. gonorrhoeae/C. trachomatis Amplification Urine (09/09/2022 11:48 AM CDT) C. trachomatis Not Detected Not Detected [facility] Comment:Testing performed by : [facility], [address] [place] [address]., [address] N. gonorrhoeae Not Detected Not Detected [facility] Comment: Interpretive Data Testing performed by the [facility] Laboratory. This assay detects Chlamydia trachomatis [...] last revised on 2018. Testing performed by: [facility], [address] [place] [address]., [address] Urine (None) 09/09/2022 11:4 8 AM CDT 09/10/2022 1:02 AM CDT us Linnea Breaux GRADES 6 THROUGH 8 TEACHER LAB MICROBIOLOGY - GENERAL ORD ERABLES Final Result [facility] [address] [facility] Department [place] [address] * Hepatitis C antibody (09/09/2022 11:43 AM CDT) Hep C Ab Nonreactive Nonreactive [facility] Comment: Antibodies to HCV not detected. Does NOT exclude the possibility of recent exposure to HCV. Current interpretive data was last revised on 22 Testing performed by: [facility], 1 [facility], [place]., [address] Blood 09/09/2022 11:4 3 AM CDT 09/09/2022 3:50 PM CDT us Linnea Breaux NP LAB MICROBIOLOGY - GENERAL ORD ERABLES Final Result [facility] [address] [facility] [place] [address] from Last 3 Months or Most Recently Relevant to Health Maintenance Insurance [facility] HEALTH PLAN [facility] [place] [address] [place] [address] Member Subscriber Plan / Payer (Ef fective 2024-Present) Name:Rosibel Tinajero Relation to Subscriber:Self Name:Rosibel Tinajero Payer ID:[id number] (NAIC) Group ID:Not on file Type:MEDICAID RISK OTHER Address: ATTN: CLAIMS DEPT [address] [place], [place] [id number] STATE HEALTH PLAN [place] [employer]AN [facility] HEALTH PLAN Advance Directives For more information, please contact: [phone] * Full Code (Latest Code Status on File) Date Activated Date Inactivated Comments 01/28/2020 10:29 AM 01/29/2020 8:26 PM * Full Code Date Activated Date Inactivated Comments 01/04/2020 7:49 AM 01/04/2020 1:10 PM * Full Code Date Activated Date Inactivated Comments 10/20/2019 8:46 PM 10/22/2019 12:28 AM Care Teams Pharmacy Intake Coordinator Relationship Specialty Start Date End Date Jaelyn Mccormack NP [address] [place] [id number] PCP - General Nurse Practitioner 03/26/25
[2025-03-30 02:37] VITALS: BP 123/81; PULSE 59; RESP 16; TEMP 36.8; O2SAT 100
[2025-03-30 02:50] LABS: Hematocrit 37.9 % (37.0-47.0); Hemoglobin 13.0 g/dL (12.0-15.0); Immature Granulocyte Percent A 0.4 % (0-0.5); Lymphocytes Absolute Auto 1.97 K/mm3 (0.9-3.2); Mean Corpuscular HGB Conc 34.3 g/dl (32-36); Mean Corpuscular Hemoglobin 29.7 pg (26-34); Mean Corpuscular Volume 86.5 fl (80-100); Nucleated Red Blood Cells Absolute Auto 0.000 K/mm3 (0.0-0.012); Nucleated Red Blood Cells Perc 0.0 % (0.0-0.2); Platelet Count Result 239 k/mm3 (150-375); Red Blood Count 4.38 M/mm3 (4.2-5.4); White Blood Count 11.0 K/mm3 (4.5-10.0)
[2025-03-30] MEDS: SODIUM CHLORIDE 0.9% IV 1,000 ML 999 ML IV CONT (03:04)
[2025-03-30] MEDS: ONDANSETRON INJ 4 MG/2 ML VIAL IV PUSH (03:04)
[2025-03-30 03:09] LABS: BEDSIDEPREGUCG Negative (Negative)
[2025-03-30 03:13] LABS: Add Urine Microscopic? NO; Appearance Urine Clear (Clear); Glucose Urine UA Negative (Negative); Leukocyte Esterase Ur Negative LEU/UL (Negative); Nitrate Urine Negative (Negative); Specific Grav Ur 1.014 (1.001-1.035)
--- OUTSIDE RECORDS SUMMARY | 2025-03-30 03:15 | XMS_ITS | Clinical Summary ---
Author Organization [facility] Address [address] [place] [phone] Care Team Providers Care Mri Ct Tech Name Role Phone Randy Mccormackelle Mellissa PIPE WASHER Primary Care Provider + Allergies Active Allergy [...] 05/21/2021 Assessment & Plan (05/21/2021 2:01 PM PLANT PATHOLOGY TEACHER): UA ordered, will call with the result. Declines STD prophylaxis or other STD testing at this time. Went over safe sex practices. Follow up PRN Viral pharyngitis 05/21/2021 09/11/2021 Assessment & Plan (05/21/2021 2:09 PM PLANT PATHOLOGY TEACHER): Rapid strep negative. Symptoms are most likely [...] (12/27/2019): Added automatically from request for surgery [id number] Assessment & Plan (01/29/2020 8:28 AM CDT): [...] she should go to the ER in [place] where the would have GI on staff. 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 Reassured that exam is normal and labs are likely to be as well. Will call with results Assessment & Plan (05/14/2019 7:15 PM PLANT PATHOLOGY TEACHER): Encouraged family to give 1/2 strength Gatorade [...] CDT - 03/27/2025 11:27 AM CDT Emergency [facility] Emergency Department 1 [place] [address] Abdominal pain with vomiting (Primary Dx) Discharge Disposition: Discharge to home or self care 03/26/2025 8:36 AM CDT - 03/26/2025 9:59 AM CDT Emergency [facility] Emergency Department 1 [place] [address] Abdominal pain, unspecified abdominal location (Primary Dx); [...] Teja Fong M.D. JA: PEDRO Report ID: [id number] Reading Location: [id number] Procedure Note Teja Fong MD - 03/27/2025 [...] signed by Teja VASQUEZ: PEDRO Report ID: [id number] Reading Location: [place] [address] Lan PRATT [facility] CT PROCEDURES Final Re sult * Differential, [...] ORDERABLES Final Result [facility] ([place]) 1 [facility] [place] [address] * CBC with auto differential (03/27/2025 9:09 [...] ORDERABLES Final Result [facility] ([place]) 1 [facility] Department [place] [address] * (ABNORMAL) Urinalysis reflex to microscopic and [...] uric acid stone formation. Source: [facility] Laboratories Current Interpretive Data was last revised [...] GALLOWAY Final Result [facility] ([place]) 1 [facility] Department [place] [address] * (ABNORMAL) Urinalysis, microscopic only (03/26/2025 9:34 [...] ORDERABLES Final Resu lt [facility]) 1 [facility] Department [place] [address] * Influenza A/B, RSV, and COVID-19 PCR Nasopharyngeal (03/26/2025 9:09 AM CDT) [facility] COVID-19 RNA Negative Negative Influenza A RNA Negative Negative [facility] ([place]) Influenza B RNA Negative Negative [facility] ([place]) RSV RNA Negative Negative [facility] ([place]) Comment: Interpretive data: Testing performed by [facility] Laboratory. This test is performed using the Zevia Xpert Xpress CoV-2/Flu/RSV plus assay. This is a multiplex, real- time reverse transcriptase PCR assay intended for the qualitative detection of nucleic acid from SARS-CoV-2, influenza A, influenza B, and respiratory syncytial virus. This assay has been cleared by the [place] Food and Drug administration. The performance characteristics have been verified by the [facility]. Results must be considered in the clinical context, and a negative result does not rule out infection. Interpretive Data last revised 2023 Nasopharyngeal 03/26/2025 9: 09 AM CDT 03/26/2025 9:12 AM CDT Narrative [facility] ([place]) - 03/26/2025 9:51 AM CDT Is the Patient experiencing symptoms consistent with COVID?->Yes Rosibel PRATT LAB MICROBIOLOGY - GENERAL ORDE RABLES Final Result [facility] ([place]) 1 [facility] [place] [address] * eGFR (03/26/2025 8:48 AM CDT) [facility] eGFR >90 >=60 mL/min/1. 73 m2 Comment: [...] PRATT LAB BLOOD ORDERABLES Final Resu lt [facility] ([place]) 1 [facility] Department [place] [address] * (ABNORMAL) Differential, auto (03/26/2025 8:48 AM CDT) Neutrophil abs 8.43(H) 1.50 - 6.50 K/cumm Imm gran abs 0.05 0.00 - 0.10 K/cumm [facility] ([place]) Lymphocyte abs 2.41 0.80 - 3.30 K/cumm [...] BLOOD ORDERABLES Final Resu lt [facility] ([place]) 1 [facility] Department [place] [address] * (ABNORMAL) CBC with auto differential (03/26/2025 [...] ORDERABLES Final Resu lt Performing Organization Address City/[facility] Co de Phone Number [facility] ([place]) 1 [facility] [place] [address] * hCG, blood, quantitative (03/26/2025 8:48 AM CDT) [facility] hCG, quant <5.0 0.0 - 5.0 IUnits/L [...] BLOOD ORDERABLES Final Resu lt [facility] ([place]) 1 [facility] of [place] [address] * Lipase (03/26/2025 8:48 AM CDT) Lipase 24 10 - 99 Units/L Blood 03/26/2025 8:48 AM CDT 03/26/2025 8:50 AM CDT us Rosibel PRATT LAB BLOOD ORDERABLES Final Resu lt [facility] ([place]) 1 [facility] Department [place] [address] * (ABNORMAL) Comprehensive metabolic panel (03/26/2025 8:48 [...] ORDERABLES Final Resu lt [facility] ([place]) [address] [place] [address] Department [place] [address] * N. gonorrhoeae/C. trachomatis Amplification Urine (09/09/2022 11:48 AM CDT) C. trachomatis Not Detected Not Detected [facility] Comment:Testing performed by : [facility], [address] [place] [address]., [address] N. gonorrhoeae Not Detected Not Detected [facility] Comment: Interpretive Data Testing performed by the [facility] Laboratory. This assay detects Chlamydia trachomatis and Neisseria gonorrhoeae by nucleic acid amplification testing (NAAT). This test is approved by the [facility] Food and Drug Administration and the performance characteristics have been verified by the laboratory. The performance characteristics of this test have not been evaluated in individuals less than 14 years of age. Current Interpretive Data was last revised on 2018. Testing performed by: [facility], [address] [place] [address]., [address] Urine (None) 09/09/2022 11:4 8 AM CDT 09/10/2022 1:02 AM CDT us Linnea Breaux PIPE WASHER LAB MICROBIOLOGY - GENERAL ORD ERABLES Final Result [facility] [address] [facility] Department [place] [address] * Hepatitis C antibody (09/09/2022 11:43 AM CDT) Hep C Ab Nonreactive Nonreactive [facility] Comment: Antibodies to HCV not detected. Does NOT exclude the possibility of recent exposure to HCV. Current interpretive data was last revised on 22 Testing performed by: [facility], [address] [facility], [place]., [address] Blood 09/09/2022 11:4 3 AM CDT 09/09/2022 3:50 PM CDT us Linnea Breaux NP LAB MICROBIOLOGY - GENERAL ORD ERABLES Final Result [facility] [address] [facility] [place] [address] from Last 3 Months or Most Recently Relevant to Health Maintenance Insurance [facility] HEALTH PLAN [facility] [place] [address] [place] [address] Member Subscriber Plan / Payer (Ef fective 2024-Present) Name:Rosibel Tinajero Relation to Subscriber:Self Name:Rosibel Tinajero Payer ID:[id number] (NAIC) Group ID:Not on file Type:MEDICAID RISK OTHER Address: ATTN: CLAIMS DEPT [address] [place], [place] [id number] STATE HEALTH PLAN [place] [employer] PLAN [facility] HEALTH PLAN [facility] Address: [address] [place] [phone] Advance Directives For more information, please contact: [phone] * Full Code (Latest Code Status on File) Date Activated Date Inactivated Comments 01/28/2020 10:29 AM 01/29/2020 8:26 PM * Full Code Date Activated Date Inactivated Comments 01/04/2020 7:49 AM 01/04/2020 1:10 PM * Full Code Date Activated Date Inactivated Comments 10/20/2019 8:46 PM 10/22/2019 12:28 AM Care Teams Mri Ct Tech Relationship Specialty Start Date End Date Jaelyn Mccormack NP [address] [place] [address] PCP - General Nurse Practitioner 03/26/25
[2025-03-30 03:30] LABS: Alanine Aminotransferase 82 U/L (6-35); Albumin Level 4.4 g/dL (3.5-5.1); Alkaline Phosphatase 94 U/L (38-126); Anion Gap 8 mmol/L (4-12); Aspartate Amino Transferase 56 U/L (14-36); Bilirubin,Total 1.2 mg/dL (0.2-1.3); Blood Urea Nitrogen 3 mg/dL (7-17); Calcium 8.9 mg/dL (8.4-10.2); Carbon Dioxide 28 mmol/L (22-30); Chloride 103 mmol/L (98-107); Estimated CRCL calculation 83 ml/min; Estimated Glomerular Filt Rate > 60; Glucose 120 mg/dL (65-110); Lipase 69 U/L (23-300); Magnesium 2.0 mg/dL (1.6-2.3); Potassium 3.7 mmol/L (3.4-5.0); Sodium 139 mmol/L (137-145); Total Protein 7.0 g/dL (6.3-8.2)
[2025-03-30] MEDS: SODIUM CHLORIDE 0.9% IV 200 ML (04:04)
[2025-03-30] MEDS: METOCLOPRAMIDE HCL INJ 10 MG/2 ML VIAL IV PUSH (04:04)
--- NOTE | 2025-03-30 04:19 | ED.GENADULT ---
HPI - General Adult General Chief complaint: Nausea/Vomiting/Diarrhea Stated complaint: n/v/d x 4 days Time Seen by Provider: 03/30/25 02:37 History of Present Illness HPI narrative: Patient is a 24-year-old female who presents to the emergency department this evening complaining of nausea, vomiting since Friday. Patient was seen at our facility earlier in the day for similar symptoms. She passed an oral fluid challenge after blood work, urinalysis and CT abdomen pelvis revealed hypokalemia and pancolitis otherwise unremarkable. Patient states that she went home and the nausea and vomiting persisted. She was prescribed Reglan since she cannot tolerate p.o. Zofran, stating that it does not work for her. States that she cannot keep the Reglan down. She was offered admission earlier today for intractable nausea vomiting, however, she refused, patient states that she is now willing to be admitted as she is unable to keep down any food or fluids at home. Related Data Allergies Allergy/AdvReac Type Severity Reaction Status Date / Time Penicillins AdvReac Intermediate Difficulty Verified 03/30/25 02:33 Breathing Review of Systems Review of Systems: All systems are reviewed and are negative unless stated otherwise in the HPI. [facility] Past Medical History Medical History Family history of bipolar disorder Anxiety Leukocytosis Abdominal pain Migraine Surgical History Surgical History History of esophagogastroduodenoscopy (EGD) History of laparoscopic appendectomy 09/30/2022 History of cholecystectomy Family History Family History Father Hypertension Depression Mother Depression Grandparent Cancer Hypertension Thyroid disorder Heart disease Other No pertinent family history Social History Social History Social History: Patient is very confident filling out medical forms. 05/07/24 Smoking status: Current every day smoker Tobacco type: e-cigarettes/vaping Alcohol intake: current Alcohol use details: Social Substance use: former Substance use type: marijuana Last use: 09/15/23 Do You Feel Safe in your Home?: Yes Lack of Transportation: No Lack of Food: Never True Current Housing: I Have Housing Concerned About Future Housing: No Difficulty Paying Gas/Electric Bills: No Difficulty Paying for Meds: No Currently Unemployed: No Education: Grade School Difficulty w/ Childcare or Family Care: No Living arrangements: with family Occupation/Education: occupation Additional occupation/education comments: [employer] Gender identity (if verbalized by the patient): Female Spiritual care concerns: No Exam Narrative: General: Alert, awake, afebrile, in no acute distress. HEENT: PERRL, no rhinorrhea, no post nasal drip, oropharynx clear. Neck: Trachea midline, no JVD, no lymphadenopathy. Cardiovascular: Regular rate and rhythm, no murmurs, rubs or gallops, no peripheral edema. Respiratory: Clear to auscultation bilaterally, no tachypnea, no wheezing, no rhonchi, no rubs, no respiratory distress. Abdomen: Soft, generalized nonspecific tenderness, nondistended, no rebound, no guarding, no peritoneal signs. Musculoskeletal: No joint swelling or deformity, normal muscle tone. Skin: No rashes or petechia, no signs of infection. Psychiatric: Alert and oriented, normal behavior and judgment for situation. Neurological: Alert and oriented to person, place, and time. Follows all commands. No focal deficits, speech is clear and fluent. Course Vital Signs Vital signs: Vital Signs Temperature 98.3 F 03/30/25 02:37 Pulse Rate 59 L 03/30/25 02:37 Respiratory Rate 16 03/30/25 02:37 Blood Pressure 123/81 03/30/25 02:37 Pulse Oximetry 100 03/30/25 02:37 Oxygen Delivery Room Air 03/30/25 02:37 Temperature 98.3 F 03/30/25 02:37 Pulse Rate 59 L 03/30/25 02:37 Respiratory Rate 16 03/30/25 02:37 Blood Pressure 123/81 03/30/25 02:37 Pulse Oximetry 100 03/30/25 02:37 Oxygen Delivery Room Air 03/30/25 02:37 Medical Decision Making MDM Narrative Medical decision making narrative: The patient was evaluated by myself in the emergency department. History is obtained from patient who is an independent historian and physical exam was performed. External medical records were reviewed at this time. IV was established and pertinent tests were ordered. Patient was administered 1 L IV fluid bolus with normal saline 4 mg IV Zofran. Continues to complain of nausea, at this time she was administered 10 mg of IV Reglan and 25 mg of IV Benadryl. Patient is also complaining of continued abdominal pain and at this time she was administered 2 mg of IV morphine. Laboratory results obtained revealing mild transaminitis with an AST of 56 and ALT of 82 otherwise unremarkable. Urinalysis unremarkable, UDS positive for cannabinoids. No CT imaging was obtained at this time as patient had a CT scan less than 48 hours ago revealing pancolitis. Differential diagnosis considerations include pancolitis, gastroenteritis, dehydration, electrolyte derangements, cyclical vomiting syndrome. Comorbidities impacting this visit include marijuana use. I have evaluated and discussed social determinants of health with the patient that could potentially impact subsequent diagnosis and treatment plans. On repeat assessment of the patient, reevaluation revealed that the patient is doing well and is in no acute distress. Patient symptoms have improved since she arrived to our emergency department. Repeat vital signs were all reviewed and noted to be stable. Differential diagnosis and treatment plan were discussed with the patient at bedside. Patient agrees with discussion and after shared medical decision making agrees with admission. All questions were answered to the patient's satisfaction. Case was discussed with the on-call hospitalist Dr. Nguyễn at 0530 and she accepted admission. Patient was started on IV antibiotics with Rocephin and Flagyl for her pancolitis. Continued on maintenance fluids at 100 cc/hour. Vital Signs Vital Signs: Vital Signs Temperature 98.3 F 03/30/25 02:37 Pulse Rate 59 L 03/30/25 02:37 Respiratory Rate 16 03/30/25 02:37 Blood Pressure 123/81 03/30/25 02:37 Pulse Oximetry 100 03/30/25 02:37 Oxygen Delivery Room Air 03/30/25 02:37 Temperature 98.3 F 03/30/25 02:37 Pulse Rate 59 L 03/30/25 02:37 Respiratory Rate 16 03/30/25 02:37 Blood Pressure 123/81 03/30/25 02:37 Pulse Oximetry 100 03/30/25 02:37 Oxygen Delivery Room Air 03/30/25 02:37 Lab Data 03/30/25 02:42 03/30/25 02:43 Labs: Lab Results 03/30/25 03/30/25 03/30/25 Range/Units 02:42 02:43 03:03 WBC 11.0 H (4.5-10.0) K/mm3 RBC 4.38 (4.2-5.4) M/mm3 Hgb 13.0 (12.0-15.0) g/dL Hct 37.9 (37.0-47.0) % MCV 86.5 (80-100) fl MCH 29.7 (26-34) pg MCHC 34.3 (32-36) g/dl RDW 12.1 (11.5-14.5) % Plt Count 239 (150-375) k/mm3 MPV 11.3 H (7.4-10.4) fl Immature Gran % (Auto) 0.4 (0-0.5) % Neut % (Auto) 76.0 H (45.5-73.1) % Lymph % (Auto) 17.9 L (18.3-44.2) % Bee % (Auto) 5.1 (2.6-8.5) % Eos % (Auto) 0.2 (0-4.4) % Baso % (Auto) 0.4 (0.2-1.2) % Lymph # (Auto) 1.97 (0.9-3.2) K/mm3 Bee # (Auto) 0.6 (0.1-0.6) K/mm3 Eos # (Auto) 0.0 (0-0.3) K/mm3 Baso # (Auto) 0.0 (0.0-0.1) K/mm3 Abs Immat Gran (auto) 0.04 H (0.00-0.031) K/mm3 Absolute Neuts (auto) 8.4 H (1.3-6.7) K/mm3 Absolute Nucleated RBC 0.000 (0.0-0.012) K/mm3 Nucleated RBC % 0.0 (0.0-0.2) % Sodium 139 (137-145) mmol/L Potassium 3.7 (3.4-5.0) mmol/L Chloride 103 (98-107) mmol/L Carbon Dioxide 28 (22-30) mmol/L Anion Gap 8 (4-12) mmol/L BUN 3 L (7-17) mg/dL Creatinine 0.72 (0.7-1.0) mg/dL Estim Creat Clear Calc 83 ml/min Estimated GFR > 60 (59 - ) Glucose 120 H (65-110) mg/dL Calcium 8.9 (8.4-10.2) mg/dL Magnesium 2.0 (1.6-2.3) mg/dL Total Bilirubin 1.2 (0.2-1.3) mg/dL AST 56 H (14-36) U/L ALT 82 H (6-35) U/L Alkaline Phosphatase 94 (38-126) U/L Total Protein 7.0 (6.3-8.2) g/dL Albumin 4.4 (3.5-5.1) g/dL Lipase 69 (23-300) U/L Urine Color Yellow (Yellow) Urine Appearance Clear (Clear) Urine pH 7.0 (5.0-9.0) Ur Specific [place] 1.014 (1.001-1.035) Urine Protein Negative (Negative) mg/dL Urine Glucose (UA) Negative (Negative) mg/dL Urine Ketones Negative (Negative) mg/dL Ur Blood (Man) Negative (Negative) Urine Nitrate Negative (Negative) Urine Bilirubin Negative (Negative) Urine Urobilinogen 1.0 (<2.0) mg/dL Leukocyte Esterase Rfl Negative (Negative) NICK/UL POC Urine HCG, Qual (Negative) Urine Opiates Screen Negative (Negative) Urine Methadone Screen Negative (Negative) Ur Barbiturates Screen Negative (Negative) Ur Phencyclidine Scrn Negative (Negative) Ur Amphetamine Screen Negative (Negative) U Benzodiazepines Scrn Negative (Negative) Urine Cocaine Screen Negative (Negative) U Cannabinoids Screen Positive A (Negative) 03/30/25 Range/Units 03:05 WBC (4.5-10.0) K/mm3 RBC (4.2-5.4) M/mm3 Hgb (12.0-15.0) g/dL Hct (37.0-47.0) % MCV (80-100) fl MCH (26-34) pg MCHC (32-36) g/dl RDW (11.5-14.5) % Plt Count (150-375) k/mm3 MPV (7.4-10.4) fl Immature Gran % (Auto) (0-0.5) % Neut % (Auto) (45.5-73.1) % Lymph % (Auto) (18.3-44.2) % Bee % (Auto) (2.6-8.5) % Eos % (Auto) (0-4.4) % Baso % (Auto) (0.2-1.2) % Lymph # (Auto) (0.9-3.2) K/mm3 Bee # (Auto) (0.1-0.6) K/mm3 Eos # (Auto) (0-0.3) K/mm3 Baso # (Auto) (0.0-0.1) K/mm3 Abs Immat Gran (auto) (0.00-0.031) K/mm3 Absolute Neuts (auto) (1.3-6.7) K/mm3 Absolute Nucleated RBC (0.0-0.012) K/mm3 Nucleated RBC % (0.0-0.2) % Sodium (137-145) mmol/L Potassium (3.4-5.0) mmol/L Chloride (98-107) mmol/L Carbon Dioxide (22-30) mmol/L Anion Gap (4-12) mmol/L BUN (7-17) mg/dL Creatinine (0.7-1.0) mg/dL Estim Creat Clear Calc ml/min Estimated GFR (59 - ) Glucose (65-110) mg/dL Calcium (8.4-10.2) mg/dL Magnesium (1.6-2.3) mg/dL Total Bilirubin (0.2-1.3) mg/dL AST (14-36) U/L ALT (6-35) U/L Alkaline Phosphatase (38-126) U/L Total Protein (6.3-8.2) g/dL Albumin (3.5-5.1) g/dL Lipase (23-300) U/L Urine Color (Yellow) Urine Appearance (Clear) Urine pH (5.0-9.0) Ur Specific [place] (1.001-1.035) Urine Protein (Negative) mg/dL Urine Glucose (UA) (Negative) mg/dL Urine Ketones (Negative) mg/dL Ur Blood (Man) (Negative) Urine Nitrate (Negative) Urine Bilirubin (Negative) Urine Urobilinogen (<2.0) mg/dL Leukocyte Esterase Rfl (Negative) NICK/UL POC Urine HCG, Qual Negative (Negative) Urine Opiates Screen (Negative) Urine Methadone Screen (Negative) Ur Barbiturates Screen (Negative) Ur Phencyclidine Scrn (Negative) Ur Amphetamine Screen (Negative) U Benzodiazepines Scrn (Negative) Urine Cocaine Screen (Negative) U Cannabinoids Screen (Negative) Discharge Plan Discharge Clinical Impression: Intractable nausea and vomiting, Pancolitis Patient Disposition: Still a Patient Condition: Improved Patient Language: Samoan Prescriptions: No Action ondansetron 4 mg tablet,disintegrating 4 mg PO Q6H PRN (Reason: nausea and vomiting) Qty: 30 0RF prochlorperazine maleate [Compazine] 5 mg tablet 5 mg PO Q8H PRN (Reason: nausea and vomiting) Qty: 14 0RF prochlorperazine maleate [Compazine] 5 mg tablet 5 mg PO Q8H PRN (Reason: nausea and vomiting) Qty: 7 0RF dicyclomine 10 mg capsule 10 mg PO BID PRN (Reason: abdominal pain) Qty: 20 0RF potassium chloride 20 mEq packet 20 meq PO DAILY 5 Days Qty: 5 0RF metronidazole 500 mg tablet 500 mg PO Q12H 5 Days Qty: 10 0RF sumatriptan succinate 50 mg tablet See Rx Instructions PO .COMPLEX Qty: 10 4RF Rx Instructions: take 1 tab at onset of headache; if no relief may repeat 1 tab after at least 2 hrs; max = 4 tabs/24 hr PO omeprazole 40 mg capsule,delayed release(DR/EC) See Rx Instructions .ROUTE .COMPLEX Qty: 30 0RF Dose Instruction: TAKE 1 CAPSULE BY MOUTH DAILY Rx Instructions: TAKE 1 CAPSULE BY MOUTH DAILY amitriptyline 10 mg tablet 10 mg PO QHS Qty: 90 0RF Follow-up/Referrals: Jaelyn Mccormack APRN [Primary Care Provider, [facility]] Time of Disposition: 05:06
[2025-03-30] MEDS: MORPHINE SULFATE (*CRX) 4 MG/ML INJ 2 MG IV PUSH (04:34)
[2025-03-30] MEDS: FAMOTIDINE 20 MG/2 ML VIAL IV PUSH (04:34)
[2025-03-30 04:46] LABS: Cannabinoid Screen Urine Positive (Negative)
--- NOTE | 2025-03-30 05:30 | ECG_ITS ---
Test Date: 2025-03-30 07:50:54 Measurements Intervals [place] Rate: 57 P: 33 ME: 162 QRS: 64 QRSD: 72 T: 48 QT: 420 QTc: 409 Interpretive Statements SINUS BRADYCARDIA WITH MARKED SINUS ARRHYTHMIA BASELINE ARTIFACT- II, III, AVF BORDERLINE ECG No previous ECG available for comparison Electronically Signed On 03-30-2025 08:17:45 CDT by Alo Baron D.O.
[2025-03-30 06:20] VITALS: BP 117/80; PULSE 58; RESP 20; O2SAT 97
[2025-03-30] MEDS: cefTRIAXone 1 GM in SODIUM CHLORIDE 0.9% IV 50 ML 100 ML IVPB (06:26)
[2025-03-30 06:48] VITALS: BMI 25.6
[2025-03-30 06:50] VITALS: BP 118/72; PULSE 52; RESP 16; TEMP 36.4; O2SAT 100
[2025-03-30] MEDS: metroNIDAZOLE 500 MG/ISO 100ML 500 MG/100 ML BAG 100 MG IVPB (07:04)
[2025-03-30] MEDS: SODIUM CHLORIDE 0.9% IV 1,000 ML 100 ML IV CONT (07:04)
--- NOTE | 2025-03-30 08:08 | ADMGEN ---
This patient, Rosibel Tinajero, was admitted to [facility] Surg Room 314-02. Patient/family oriented to hospital policies and general routines including ID bracelet, bed and alarms, visiting hours, pain management, procedures, bathroom and other care routines, personal items, smoking policy, room service/diet, and visiting hours. Information on how to activate the Rapid Response Team has been discussed. Patient/Family are encouraged to report perceived risks to care and to ask questions if they do not understand what they are told or what they should do.
[2025-03-30] MEDS: ENOXAPARIN 40 MG/0.4 ML SYRINGE SUB-Q (08:16)
[2025-03-30] MEDS: HALOPERIDOL LACTATE 5 MG/ML VIAL IV PUSH (08:17)
--- NOTE | 2025-03-30 09:34 | PM.IMHP ---
H&P: HPI History of Present Illness Date/Time: 03/30/25 1142 Chief Complaint: N/V abd pain Narrative: Pt to the ED on 03/30 c/o N/V and abd pain x 5 days (03/25). Denies diarrhea, constipation, or any urinary sx. Pt reports that she has been able to keep down apple juice and some bites of egg this AM. Pt reports occasional etoh and marijuiana use, last use x2 weeks ago. PMFSH Past Medical History Medical History Family history of bipolar disorder Anxiety Leukocytosis Abdominal pain Migraine Surgical History Surgical History History of esophagogastroduodenoscopy (EGD) History of laparoscopic appendectomy 09/30/2022 History of cholecystectomy Family History Family History Father Hypertension Depression Mother Depression Grandparent Cancer Hypertension Thyroid disorder Heart disease Other No pertinent family history Social History Social History Social History: Patient is very confident filling out medical forms. 05/07/24 Smoking status: Current every day smoker Tobacco type: e-cigarettes/vaping Alcohol intake: never Alcohol use details: Social Substance use: never Substance use type: does not use Last use: 09/15/23 Do You Feel Safe in your Home?: Yes Lack of Transportation: No Lack of Food: Never True Current Housing: I Have Housing Concerned About Future Housing: No Difficulty Paying Gas/Electric Bills: No Difficulty Paying for Meds: No Currently Unemployed: No Education: Grade School Difficulty w/ Childcare or Family Care: No Living arrangements: with family Occupation/Education: occupation Additional occupation/education comments: [employer] Gender identity (if verbalized by the patient): Female Spiritual care concerns: No Meds Home Medications and Allergies Home Medications ?Medication ?Instructions ?Recorded ?Confirmed ?Type ondansetron 4 mg disintegrating 4 mg PO Q6H PRN nausea and 09/23/23 03/30/25 Rx tablet vomiting #30 tabs sumatriptan succinate 50 mg tablet See Rx Instructions PO .COMPLEX 03/10/24 03/30/25 Rx #10 tabs omeprazole 40 mg capsule,delayed See Rx Instructions .Route 04/19/24 03/30/25 Rx release .COMPLEX #30 caps amitriptyline 10 mg tablet 10 mg PO QHS #90 tabs 06/30/24 03/30/25 Rx prochlorperazine maleate 5 mg 5 mg PO Q8H PRN nausea and 03/26/25 03/30/25 Rx tablet (Compazine) vomiting #14 tabs dicyclomine 10 mg capsule 10 mg PO BID PRN abdominal pain 03/28/25 03/30/25 Rx #20 caps potassium chloride 20 mEq oral 20 meq PO DAILY 5 days #5 packets 03/28/25 03/30/25 Rx packet prochlorperazine maleate 5 mg 5 mg PO Q8H PRN nausea and 03/28/25 03/30/25 Rx tablet (Compazine) vomiting #7 tabs metronidazole 500 mg tablet 500 mg PO Q12H 5 days #10 tabs 03/29/25 03/30/25 Rx Allergies Allergy/AdvReac Type Severity Reaction Status Date / Time Penicillins AdvReac Intermediate Difficulty Verified 03/30/25 08:15 Breathing Vital Signs Vital Signs - 24 hr 03/30/25 02:37 03/30/25 06:20 03/30/25 06:50 Temperature 98.3 F 97.6 F Pulse Rate 59 L 58 L 52 L Respiratory Rate 16 20 16 Blood Pressure 123/81 117/80 118/72 Pulse Oximetry 100 97 100 Oxygen Delivery Room Air Exam Const: General: comfortable and no acute distress HENMT: Face/Nose/Sinus: Normal nares present Mouth: Yes moist mucous membranes Eyes: General: appearance normal, both eyes and all related structures Sclera: sclerae normal Neck: Neck: supple Carotids: no bruits Resp: Effort & Inspection: normal respiratory effort Auscultation: clear to auscultation bilaterally Cardio: Rate: regular rate Rhythm: regular rhythm GI: Inspection: non-distended GI Palp: Yes Tenderness to palpation present (GI) Other: Periumbilical TTP Skin: General skin exam: normal color and no rashes or lesions noted Neuro: Speech: normal speech Motor exam (neuro): Normal motor muscle tone present throughout Sensory Exam: normal sensation Extrem: General: normal to inspection Psych: Mental Status: mental status grossly normal Affect: normal affect H&P: Results Labs Labs: Short CBC 03/30/25 Range/Units 02:42 WBC 11.0 H (4.5-10.0) K/mm3 Hgb 13.0 (12.0-15.0) g/dL Hct 37.9 (37.0-47.0) % Plt Count 239 (150-375) k/mm3 BMP 03/30/25 02:43 Sodium 139 Potassium 3.7 Chloride 103 Carbon Dioxide 28 BUN 3 L Creatinine 0.72 Glucose 120 H Calcium 8.9 Liver Function 03/30/25 Range/Units 02:43 Total Bilirubin 1.2 (0.2-1.3) mg/dL AST 56 H (14-36) U/L ALT 82 H (6-35) U/L Alkaline Phosphatase 94 (38-126) U/L Albumin 4.4 (3.5-5.1) g/dL Urine 03/30/25 Range/Units 03:03 Urine Color Yellow (Yellow) Urine Appearance Clear (Clear) Urine pH 7.0 (5.0-9.0) Ur Specific [place] 1.014 (1.001-1.035) Urine Protein Negative (Negative) mg/dL Urine Glucose (UA) Negative (Negative) mg/dL Assessment and Plan Assessment and plan (1) Intractable nausea and vomiting: Code(s): R11.2 - Nausea with vomiting, unspecified Status: Acute Assessment and Plan: Pt to the ED c/o intermittent episodes of N/V x 5 days (03/25) 03/30: Pt reporting today that her sx have been better and that she has been keeping down water and apple juice, but has only held down a few bites of egg and then started to get nauseous. -Labs remain stable, x1 more draw tomorrow before discharge -Pt has better luck with Compazine to help with her nausea vs Zofran, will continue to give PRN (2) Abdominal pain: Code(s): R10.9 - Unspecified abdominal pain Status: Acute Assessment and Plan: Periumbilical TTP upon exam -A/P CT: IMPRESSION: 1. Pancolitis. 2. No other acute abnormality. 3. Additional findings as above. -Pt with established GI provider, next appt is tomorrow at 1530 Plan Repeat labs x1 more day, D/C pending PO intake tomorrow Quality VTE Prophylaxis VTE prophylaxis: pharmacologic ordered Hospitalist [facility] Advance Care Plan I have confirmed that the patient's Advanced Care Plan is present, code status is documented, or surrogate decision maker is listed in patient medical record.: Yes Medication Reconciliation I have utilized all available resources to obtain, update and review the patients current medications (includes all prescriptions, OTC, herbals, cannabis, and nutritional supplements).: Yes The patient is not eligible for med reconciliation; the patient is in a emergent medical situation where delaying treatment would jeopardize the patients health.: No
--- NOTE | 2025-03-30 14:03 | P.SS_ITS ---
Same Day Admit/Disch: HPI History of Present Illness Chief complaint: Intractable nausea vomiting abdominal pain Narrative: Rosibel Tinajero is a 24 year old female PMF Past Medical History Medical History Family history of bipolar disorder Anxiety Leukocytosis Abdominal pain Migraine Surgical History Surgical History History of esophagogastroduodenoscopy (EGD) History of laparoscopic appendectomy 09/30/2022 History of cholecystectomy Family History Family History Father Hypertension Depression Mother Depression Grandparent Cancer Hypertension Thyroid disorder Heart disease Other No pertinent family history Social History Social History Social History: Patient is very confident filling out medical forms. 05/07/24 Smoking status: Current every day smoker Tobacco type: e-cigarettes/vaping Alcohol intake: never Alcohol use details: Social Substance use: never Substance use type: does not use Last use: 09/15/23 Do You Feel Safe in your Home?: Yes Lack of Transportation: No Lack of Food: Never True Current Housing: I Have Housing Concerned About Future Housing: No Difficulty Paying Gas/Electric Bills: No Difficulty Paying for Meds: No Currently Unemployed: No Education: Grade School Difficulty w/ Childcare or Family Care: No Living arrangements: with family Occupation/Education: occupation Additional occupation/education comments: [employer] Gender identity (if verbalized by the patient): Female Spiritual care concerns: No Same Day Admit/Disch: Med Pre-admit Medications Home Medications ?Medication ?Instructions ?Recorded ?Confirmed ?Type ondansetron 4 mg disintegrating 4 mg PO Q6H PRN nausea and 09/23/23 03/30/25 Rx tablet vomiting #30 tabs sumatriptan succinate 50 mg tablet See Rx Instructions PO .COMPLEX 03/10/24 03/30/25 Rx #10 tabs omeprazole 40 mg capsule,delayed See Rx Instructions . Route 04/19/24 03/30/25 Rx release .COMPLEX #30 caps amitriptyline 10 mg tablet 10 mg PO QHS #90 tabs 06/3003/30/25 Rx prochlorperazine maleate 5 mg 5 mg PO Q8H PRN nausea a nd 03/26/25 03/30/25 Rx tablet (Compazine) vomiting #14 tabs dicyclomine 10 mg capsule 10 mg PO BID PRN abdominal p ain 03/28/25 03/30/25 Rx #20 caps potassium chloride 20 mEq oral 20 meq PO DAILY 5 days #5 packets 03/28/25 03/30/25 Rx packet prochlorperazine maleate 5 mg 5 mg PO Q8H PRN nausea a nd 03/28/25 03/30/25 Rx tablet (Compazine) vomiting #7 tabs metronidazole 500 mg tablet 500 mg PO Q12H 5 days #10 tabs 03/29/25 03/30/25 Rx Exam Const: General: comfortable and no acute distress HENMT: Face/Nose/Sinus: Normal nares present Mouth: Yes moist mucous membranes Eyes: General: appearance normal, both eyes and all related structures Sclera: sclerae normal Neck: Neck: supple Carotids: no bruits Resp: Effort & Inspection: normal respiratory effort Auscultation: clear to auscultation bilaterally Cardio: Rate: regular rate Rhythm: regular rhythm GI: Inspection: non-distended Other: Periumbilical TTP Skin: General skin exam: normal color and no rashes or lesions noted Neuro: Speech: normal speech Motor exam (neuro): Normal motor muscle tone present throughout Sensory Exam: normal sensation Extrem: General: normal to inspection Psych: Mental Status: mental status grossly normal Affect: normal affect DS: Data Data Completed and Pending Labs on day of discharge: Labs from last 24 hours 03/30/25 03/30/25 03/30/25 03:05 03:03 02:43 WBC RBC Hgb Hct MCV MCH MCHC RDW Plt Count MPV Immature Gran % (Auto) Neut % (Auto) Lymph % (Auto) [place] % (Auto) Eos % (Auto) Baso % (Auto) Lymph # (Auto) [place] # (Auto) Eos # (Auto) Baso # (Auto) Abs Immat Gran (auto) Absolute Neuts (auto) Absolute Nucleated RBC Nucleated RBC % Sodium 139 Potassium 3.7 Chloride 103 Carbon Dioxide 28 Anion Gap 8 BUN 3 L Creatinine 0.72 Estim Creat Clear Calc 83 Estimated GFR > 60 Glucose 120 H Calcium 8.9 Magnesium 2.0 Total Bilirubin 1.2 AST 56 H ALT 82 H Alkaline Phosphatase 94 Total Protein 7.0 Albumin 4.4 Lipase 69 Urine Color Yellow Urine Appearance Clear Urine pH 7.0 Ur Specific [place] 1.014 Urine Protein Negative Urine Glucose (UA) Negative Urine Ketones Negative Ur Blood (Man) Negative Urine Nitrate Negative Urine Bilirubin Negative Urine Urobilinogen 1.0 Leukocyte Esterase Rfl Negative POC Urine HCG, Qual Negative Urine Opiates Screen Negative Urine Methadone Screen Negative Ur Barbiturates Screen Negative Ur Phencyclidine Scrn Negative Ur Amphetamine Screen Negative U Benzodiazepines Scrn Negative Urine Cocaine Screen Negative U Cannabinoids Screen Positive A 03/30/25 02:42 WBC 11.0 H RBC 4.38 Hgb 13.0 Hct 37.9 MCV 86.5 MCH 29.7 MCHC 34.3 RDW 12.1 Plt Count 239 MPV 11.3 H Immature Gran % (Auto) 0.4 Neut % (Auto) 76.0 H Lymph % (Auto) 17.9 L [place] % (Auto) 5.1 Eos % (Auto) 0.2 Baso % (Auto) 0.4 Lymph # (Auto) 1.97 [place] # (Auto) 0.6 Eos # (Auto) 0.0 Baso # (Auto) 0.0 Abs Immat Gran (auto) 0.04 H Absolute Neuts (auto) 8.4 H Absolute Nucleated RBC 0.000 Nucleated RBC % 0.0 Sodium Potassium Chloride Carbon Dioxide Anion Gap BUN Creatinine Estim Creat Clear Calc Estimated GFR Glucose Calcium Magnesium Total Bilirubin AST ALT Alkaline Phosphatase Total Protein Albumin Lipase Urine Color Urine Appearance Urine pH Ur Specific [place] Urine Protein Urine Glucose (UA) Urine Ketones Ur Blood (Man) Urine Nitrate Urine Bilirubin Urine Urobilinogen Leukocyte Esterase Rfl POC Urine HCG, Qual Urine Opiates Screen Urine Methadone Screen Ur Barbiturates Screen Ur Phencyclidine Scrn Ur Amphetamine Screen U Benzodiazepines Scrn Urine Cocaine Screen U Cannabinoids Screen DS: Summary Time Spent with Patient Time attestation: Total time spent providing and/or coordinating discharge services: DS: Discharge Diagnosis Discharge Diagnosis (1) Intractable nausea and vomiting: Code(s): R11.2 - Nausea with vomiting, unspecified Status: Acute Assessment and Plan: Pt to the ED c/o intermittent episodes of N/V x 5 days (03/25) 10/15: Pt reporting today that her sx have been better and that she has been keeping down water and apple juice, but has only held down a few bites of egg and then started to get nauseous. -Labs remain stable, x1 more draw tomorrow before discharge -Pt has better luck with Compazine to help with her nausea vs Zofran, will continue to give PRN (2) Abdominal pain: Code(s): R10.9 - Unspecified abdominal pain Status: Acute Assessment and Plan: Periumbilical TTP upon exam -A/P CT: IMPRESSION: 1. Pancolitis. 2. No other acute abnormality. 3. Additional findings as above. -Pt with established GI provider, next appt is tomorrow at 1530 Plan Repeat labs x1 more day, D/C pending PO intake tomorrow Discharge Plan Discharge Consulting providers: Flakita Serrato; Alo Baron; Milton Barlow Patient Disposition: Left Against Medical Advice Patient Language: Citizen Of [place] Discharge Medications: No Action ondansetron 4 mg tablet,disintegrating 4 mg PO Q6H PRN (Reason: nausea and vomiting) Qty: 30 0RF prochlorperazine maleate [Compazine] 5 mg tablet 5 mg PO Q8H PRN (Reason: nausea and vomiting) Qty: 14 0RF prochlorperazine maleate [Compazine] 5 mg tablet 5 mg PO Q8H PRN (Reason: nausea and vomiting) Qty: 7 0RF dicyclomine 10 mg capsule 10 mg PO BID PRN (Reason: abdominal pain) Qty: 20 0RF potassium chloride 20 mEq packet 20 meq PO DAILY 5 Days Qty: 5 0RF metronidazole 500 mg tablet 500 mg PO Q12H 5 Days Qty: 10 0RF sumatriptan succinate 50 mg tablet See Rx Instructions PO .COMPLEX Qty: 10 4RF Rx Instructions: take 1 tab at onset of headache; if no relief may repeat 1 tab after at least 2 hrs; max = 4 tabs/24 hr PO omeprazole 40 mg capsule,delayed release(DR/EC) See Rx Instructions .ROUTE .COMPLEX Qty: 30 0RF Dose Instruction: TAKE 1 CAPSULE BY MOUTH DAILY Patient Comments: Pt. takes PRN Rx Instructions: TAKE 1 CAPSULE BY MOUTH DAILY amitriptyline 10 mg tablet 10 mg PO QHS Qty: 90 0RF Date of admission: 03/30/25 05:32 Primary Care Provider: Jaelyn Mccormack Admitting Provider: Sierra Nguyễn Attending physician on admission: Sierra Nguyễn Condition: Improved Quality VTE Prophylaxis VTE prophylaxis: pharmacologic ordered
--- NOTE | 2025-03-30 14:55 | P.HP_ITS ---
H&P: HPI History of Present Illness Date/Time: 03/30/25 1123 Chief Complaint: Intactable N/V Narrative: Pt to the ED on 03/30 for intractable N/V and mild abd pain x5 days (03/25). Pt states that she intermittently has these stomach episodes and the last time she had an episode was months ago. Review of Systems Review of Systems: All systems reviewed & are unremarkable except as noted in HPI and below PMFSH Past Medical History Medical History Family history of bipolar disorder Anxiety Leukocytosis Abdominal pain Migraine Surgical History Surgical History History of esophagogastroduodenoscopy (EGD) History of laparoscopic appendectomy 09/30/2022 History of cholecystectomy Family History Family History Father Hypertension Depression Mother Depression Grandparent Cancer Hypertension Thyroid disorder Heart disease Other No pertinent family history Social History Social History Social History: Patient is very confident filling out medical forms. 05/07/24 Smoking status: Current every day smoker Tobacco type: e-cigarettes/vaping Alcohol intake: never Alcohol use details: Social Substance use: never Substance use type: does not use Last use: 09/15/23 Do You Feel Safe in your Home?: Yes Lack of Transportation: No Lack of Food: Never True Current Housing: I Have Housing Concerned About Future Housing: No Difficulty Paying Gas/Electric Bills: No Difficulty Paying for Meds: No Currently Unemployed: No Education: Grade School Difficulty w/ Childcare or Family Care: No Living arrangements: with family Occupation/Education: occupation Additional occupation/education comments: [employer] Gender identity (if verbalized by the patient): Female Spiritual care concerns: No Meds Home Medications and Allergies Home Medications ?Medication ?Instructions ?Recorded ?Confirmed ?Type ondansetron 4 mg disintegrating 4 mg PO Q6H PRN nausea and 09/23/23 03/30/25 Rx tablet vomiting #30 tabs sumatriptan succinate 50 mg tablet See Rx Instructions PO .COMPLEX 03/10/24 03/30/25 Rx #10 tabs omeprazole 40 mg capsule,delayed See Rx Instructions . Route 04/19/24 03/30/25 Rx release .COMPLEX #30 caps amitriptyline 10 mg tablet 10 mg PO QHS #90 tabs 06/3003/30/25 Rx prochlorperazine maleate 5 mg 5 mg PO Q8H PRN nausea a nd 03/26/25 03/30/25 Rx tablet (Compazine) vomiting #14 tabs dicyclomine 10 mg capsule 10 mg PO BID PRN abdominal p ain 03/28/25 03/30/25 Rx #20 caps potassium chloride 20 mEq oral 20 meq PO DAILY 5 days #5 packets 03/28/25 03/30/25 Rx packet prochlorperazine maleate 5 mg 5 mg PO Q8H PRN nausea a nd 03/28/25 03/30/25 Rx tablet (Compazine) vomiting #7 tabs metronidazole 500 mg tablet 500 mg PO Q12H 5 days #10 tabs 03/29/25 03/30/25 Rx Allergies Allergy/AdvReac Type Severity Reaction Status Date / Time Penicillins AdvReac Intermediate Difficulty Verified 03/30/25 08:15 Breathing Vital Signs Vital Signs - 24 hr 03/30/25 02:37 03/30/25 06:20 03/30/25 06:50 Temperature 98.3 F 97.6 F Pulse Rate 59 L 58 L 52 L Respiratory Rate 16 20 16 Blood Pressure 123/81 117/80 118/72 Pulse Oximetry 100 97 100 Oxygen Delivery Room Air Exam Const: General: comfortable and no acute distress HENMT: Face/Nose/Sinus: Normal nares present Mouth: Yes moist mucous membranes Eyes: General: appearance normal, both eyes and all related structures Sclera: sclerae normal Pupils: Equal, round and reactive pupils present Neck: Neck: supple Carotids: no bruits Resp: Effort & Inspection: normal respiratory effort Auscultation: clear to auscultation bilaterally Cardio: Rate: regular rate Rhythm: regular rhythm GI: Inspection: non-distended GI Palp: Yes Soft to palpation Auscultation: normal bowel sounds Other: Periumbilical TTP : General: Yes bladder normal to palpation Skin: General skin exam: normal color and no rashes or lesions noted Neuro: Speech: normal speech Motor exam (neuro): 10/18 motor strength present throughout and Normal motor muscle tone present throughout Sensory Exam: normal sensation Extrem: General: normal to inspection, no edema and no pedal edema Psych: Mental Status: mental status grossly normal Affect: normal affect H&P: Results Labs Labs: Short CBC 03/30/25 Range/Units 02:42 WBC 11.0 H (4.5-10.0) K/mm3 Hgb 13.0 (12.0-15.0) g/dL Hct 37.9 (37.0-47.0) % Plt Count 239 (150-375) k/mm3 BMP 03/30/25 02:43 Sodium 139 Potassium 3.7 Chloride 103 Carbon Dioxide 28 BUN 3 L Creatinine 0.72 Glucose 120 H Calcium 8.9 Liver Function 03/30/25 Range/Units 02:43 Total Bilirubin 1.2 (0.2-1.3) mg/dL AST 56 H (14-36) U/L ALT 82 H (6-35) U/L Alkaline Phosphatase 94 (38-126) U/L Albumin 4.4 (3.5-5.1) g/dL Urine 03/30/25 Range/Units 03:03 Urine Color Yellow (Yellow) Urine Appearance Clear (Clear) Urine pH 7.0 (5.0-9.0) Ur Specific [place] 1.014 (1.001-1.035) Urine Protein Negative (Negative) mg/dL Urine Glucose (UA) Negative (Negative) mg/dL Assessment and Plan Assessment and plan (1) Intractable nausea and vomiting: Code(s): R11.2 - Nausea with vomiting, unspecified Status: Acute Assessment and Plan: Pt to the ED c/o intermittent episodes of N/V x 5 days (03/25) 03/30: Pt reporting today that her sx have been better and that she has been keeping down water and apple juice, but has only held down a few bites of egg and then started to get nauseous. -Labs remain stable, x1 more draw tomorrow before discharge -Pt has better luck with Compazine to help with her nausea vs Zofran, will continue to give PRN (2) Abdominal pain: Code(s): R10.9 - Unspecified abdominal pain Status: Acute Assessment and Plan: Periumbilical TTP upon exam -A/P CT: IMPRESSION: 1. Pancolitis. 2. No other acute abnormality. 3. Additional findings as above. -Pt with established GI provider, next appt is tomorrow at 1530 Plan Repeat labs x1 more day, D/C pending PO intake tomorrow Quality VTE Prophylaxis VTE prophylaxis: pharmacologic ordered Hospitalist MIPS Advance Care Plan I have confirmed that the patient's Advanced Care Plan is present, code status is documented, or surrogate decision maker is listed in patient medical record.: Yes The patient's Advanced Care plan is not present because:: Patient doesn't want to name surrogate or provider advance care plan Medication Reconciliation I have utilized all available resources to obtain, update and review the patients current medications (includes all prescriptions, OTC, herbals, cannabis, and nutritional supplements).: Yes The patient is not eligible for med reconciliation; the patient is in a emergent medical situation where delaying treatment would jeopardize the patients health.: No
== END 2025-03-30 14:30 | disposition left against medical advice (07) ==
LOC: ANHED 05:06 → ANH3MEDSUR 06:02
PROVIDERS: Admitting Provider Internal Medicine; Emergency Provider Emergency Medicine; PCP Nurse Practitioner Family; Visit Provider Internal Medicine
DX: K52.9 Noninfective gastroenteritis and colitis, unspecified (principal); R74.01 Elevation of levels of liver transaminase levels; E87.6 Hypokalemia; F17.290 Nicotine dependence, other tobacco product, uncomplicated; F12.90 Cannabis use, unspecified, uncomplicated; F41.9 Anxiety disorder, unspecified; R00.1 Bradycardia, unspecified; I49.8 Other specified cardiac arrhythmias; Z53.29 Procedure and treatment not carried out because of patient's decision for other reasons; Z90.49 Acquired absence of other specified parts of digestive tract; Z81.8 Family history of other mental and behavioral disorders; Z82.49 Family history of ischemic heart disease and other diseases of the circulatory system; Z80.9 Family history of malignant neoplasm, unspecified; Z83.49 Family history of other endocrine, nutritional and metabolic diseases
CPT/HCPCS: 36415; 80053; 80307; 81003; 81025; 83690; 83735; 85025; 93005; 96361; 96372; 96374; 96375; 99285; G0378; G0379; J0696; J1200; J1630; J1650; J1836; J2270; J2405; J2765; J7030

== ENCOUNTER 2025-06-06 06:52 | Outpatient (CLI) | payer OTHER, SELFPAY ==
--- OUTSIDE RECORDS SUMMARY | 2025-06-06 06:57 | XMS_ITS | Clinical Summary ---
Author Organization [facility] Address [address] [place] [id number] Care Team Providers Care Class 1 Owner Operator Name Role Phone Randy Mccormackelle Mellissa CASH SHORTAGE INVESTIGATOR Primary Care Provider + Allergies Active Allergy [...] 05/21/2021 Assessment & Plan (05/21/2021 2:01 PM LOAN SECRETARY): UA ordered, will call with the result. Declines STD prophylaxis or other STD testing at this time. Went over safe sex practices. Follow up PRN Viral pharyngitis 05/21/2021 09/11/2021 Assessment & Plan (05/21/2021 2:09 PM LOAN SECRETARY): Rapid strep negative. Symptoms are most likely [...] (12/27/2019): Added automatically from request for surgery [id number] Assessment & Plan (01/29/2020 8:28 AM CDT): [...] she should go to the ER in [place] where the would have GI on staff. Gall bladder disease 10/20/2019 021 Cholecystitis 10/20/2019 07/06/2020 Overview (10/21/2019): Added automatically from request for surgery [id number] Viral gastroenteritis 05/14/20192019 Assessment & Plan (05/21/2019 1:17 PM LOAN SECRETARY): Has resolved nicely. Reassured that exam is normal and labs are likely to be as well. Will call with results Assessment & Plan (05/14/2019 7:15 PM LOAN SECRETARY): Encouraged family to give 1/2 strength Gatorade [...] CDT - 03/27/2025 11:27 AM CDT Emergency [facility] [address] [place] [address] Abdominal pain with vomiting (Primary Dx) Discharge Disposition: Discharge to home or self care 03/26/2025 8:36 AM CDT - 03/26/2025 9:59 AM CDT Emergency [facility] [address] [place] [address] Abdominal pain, unspecified abdominal location (Primary Dx); [...] Teja Fong M.D. JA: PEDRO Report ID: [id number] Reading Location: [id number] Procedure Note Teja Fong MD - 03/27/2025 [...] signed by Teja VASQUEZ: PEDRO Report ID: [id number] Reading Location: [place] [address] [address] [facility] CT PROCEDURES Final Re sult * Differential, [...] ORDERABLES Final Result [facility] ([place]) 1 [facility] [place] [address] * CBC with auto differential (03/27/2025 9:09 [...] ORDERABLES Final Result [facility] 1 [facility] Department [place] [address] * (ABNORMAL) Urinalysis reflex to microscopic and [...] tendency for uric acid stone formation. Source: [facility] Current Interpretive Data was last revised [...] GALLOWAY Final Result [facility] ([place]) 1 [facility] Department [place] [address] * (ABNORMAL) Urinalysis, microscopic only (03/26/2025 9:34 [...] ORDERABLES Final Resu lt [facility]) 1 [facility] Department [place] [address] * Influenza A/B, RSV, and COVID-19 PCR Nasopharyngeal (03/26/2025 9:09 AM CDT) [facility] COVID-19 RNA Negative Negative Influenza A RNA Negative Negative [facility] Influenza B RNA Negative Negative [facility] ([place]) RSV RNA Negative Negative [facility] ([place]) Comment: Interpretive data: Testing performed by [facility]. This test is performed using the [employer] Xpert Xpress CoV-2/Flu/RSV plus assay. This is a multiplex, real- time reverse transcriptase PCR assay intended for the qualitative detection of nucleic acid from SARS-CoV-2, influenza A, influenza B, and respiratory syncytial virus. This assay has been cleared by the [place] Food and Drug administration. The performance characteristics have been verified by the [facility]. Results must be considered in the clinical context, and a negative result does not rule out infection. Interpretive Data last revised 2023 Nasopharyngeal 03/26/2025 9: 09 AM CDT 03/26/2025 9:12 AM CDT Narrative [facility] ([place]) - 03/26/2025 9:51 AM CDT Is the Patient experiencing symptoms consistent with COVID?->Yes Rosibel [facility] LAB MICROBIOLOGY - GENERAL ORDE RABLES Final Result [facility] ([place]) 1 [facility] [place] [address] * eGFR (03/26/2025 8:48 AM CDT) [facility] eGFR >90 >=60 mL/min/1. 73 m2 Comment: [...] 8:48 AM CDT 03/26/2025 8:50 AM CDT Roisbel [facility] LAB BLOOD ORDERABLES Final Resu lt [facility] ([place]) 1 [facility] Department [place] [address] * (ABNORMAL) Differential, auto (03/26/2025 8:48 AM CDT) Neutrophil abs 8.43(H) 1.50 - 6.50 K/cumm Imm gran abs 0.05 0.00 - 0.10 K/cumm [facility] ([place]) Lymphocyte abs 2.41 0.80 - 3.30 K/cumm [...] BLOOD ORDERABLES Final Resu lt [facility] ([place]) 1 [facility] Department [place] [address] * (ABNORMAL) CBC with auto differential (03/26/2025 [...] ORDERABLES Final Resu lt Performing Organization Address City/[facility] Co de Phone Number [facility] ([place]) 1 [facility] [place] [address] * hCG, blood, quantitative (03/26/2025 8:48 AM CDT) [facility] hCG, quant <5.0 0.0 - 5.0 IUnits/L [...] BLOOD ORDERABLES Final Resu lt [facility] ([place]) 1 [facility] [place] [address] * Lipase (03/26/2025 8:48 AM CDT) Lipase 24 10 - 99 Units/L Blood 03/26/2025 8:48 AM CDT 03/26/2025 8:50 AM CDT us Rosibel [facility] LAB BLOOD ORDERABLES Final Resu lt [facility] ([place]) 1 [facility] Department [place] [address] * (ABNORMAL) Comprehensive metabolic panel (03/26/2025 8:48 [...] ORDERABLES Final Resu lt [facility] ([place]) [address] [place] [address] Department [place] [address] * N. gonorrhoeae/C. trachomatis Amplification Urine (09/09/2022 11:48 AM CDT) C. trachomatis Not Detected Not Detected [facility] Comment:Testing performed by : [facility], [address] [place] [address]., [address] N. gonorrhoeae Not Detected Not Detected [facility] Comment: Interpretive Data Testing performed by the [facility] Laboratory. This assay detects Chlamydia trachomatis and Neisseria gonorrhoeae by nucleic acid amplification testing (NAAT). This test is approved by the [facility] Food and Drug Administration and the performance characteristics have been verified by the laboratory. The performance characteristics of this test have not been evaluated in individuals less than 14 years of age. Current Interpretive Data was last revised on 2018. Testing performed by: [facility], [address] [place] [address]., [address] Urine (None) 09/09/2022 11:4 8 AM CDT 09/10/2022 1:02 AM CDT us Linnea Breaux CASH SHORTAGE INVESTIGATOR LAB MICROBIOLOGY - GENERAL ORD ERABLES Final Result [facility] [address] [facility] Department [place] [address] * Hepatitis C antibody (09/09/2022 11:43 AM CDT) Hep C Ab Nonreactive Nonreactive [facility] Comment: Antibodies to HCV not detected. Does NOT exclude the possibility of recent exposure to HCV. Current interpretive data was last revised on 22 Testing performed by: [facility], [address] [facility], [place]., [address] Blood 09/09/2022 11:4 3 AM CDT 09/09/2022 3:50 PM CDT us Linnea Breaux NP LAB MICROBIOLOGY - GENERAL ORD ERABLES Final Result [facility] [address] [facility] [place] [address] from Last 3 Months or Most Recently Relevant to Health Maintenance Insurance [facility] [employer] [facility] [place] [address] [address] Member Subscriber Plan / Payer (Ef fective 2024-Present) Name:Rosibel Tinajero Relation to Subscriber:Self Name:Rosibel Tinajero Payer ID:[id number] (NAIC) Group ID:Not on file Type:MEDICAID RISK OTHER Address: ATTN: CLAIMS DEPT [address] [place], [place] [address] STATE HEALTH PLAN [place] [employer] [facility] [employer] Advance Directives For more information, please contact: [phone] * Full Code (Latest Code Status on File) Date Activated Date Inactivated Comments 01/28/2020 10:29 AM 01/29/2020 8:26 PM * Full Code Date Activated Date Inactivated Comments 01/04/2020 7:49 AM 01/04/2020 1:10 PM * Full Code Date Activated Date Inactivated Comments 10/20/2019 8:46 PM 10/22/2019 12:28 AM Care Teams Class 1 Owner Operator Relationship Specialty Start Date End Date Jaelyn Mccormack NP [address] [place] [id number] PCP - General Nurse Practitioner 03/26/25
== END 2025-06-06 06:53 | disposition home or self-care (01) ==
PROVIDERS: PCP Nurse Practitioner Family; Visit Provider Obstetrics & Gynecology
DX: R10.20 Pelvic and perineal pain unspecified side (principal); Z01.818 Encounter for other preprocedural examination
CPT/HCPCS: 36415; 86850; 86900; 86901

== ENCOUNTER 2025-06-10 00:16 | Day surgery (SDC) | payer OTHER, SELFPAY ==
[2025-06-03 12:27] VITALS: BMI 25.6
--- NOTE | 2025-06-03 12:35 | PC.NURSE ---
[facility] has started construction of its new state of the art ER which will open Spring 2026. With this, we anticipate parking may be a challenge for some our surgical patients and families. Parking spaces are limited but are available for all Surgical, obstetrics, and ER patients sharing this lot. If you arrive and find you are having a hard time finding a parking space, please note that we understand the challenges, please drive around the hospital and park near Hospital Entrance 1. When you enter this entrance, you can ask a volunteer to direct or take you back to the surgical waiting area to check in. We appreciate everyone?s understanding of these expected challenges while we build for your future. Report to the Outpatient Waiting Room, entrance under the green pavilion located off [address], at time _0615_ on date _[id number]_. Planned Procedure Time: _0815_.? Time changes happen often and if your time is changed the preop area will call you the afternoon before. - You and your visitor will be asked to self-screen and do not enter if you have any COVID symptoms. Please call surgeon if you need to reschedule. - A mask is optional within the hospital at this time. Patients may have clear liquids (water, carbonated beverages, clear teas, apple juice) until 3 hours prior to surgery with a maximum of 20 ounces. - No food from midnight until time of surgery and no smoking, or chewing tobacco (or any form of nicotine). No chewing gum, candy or mints. Take only the following medications with a SIP of water on the morning of surgery: ___Zofran or Compazine if needed. DO NOT STOP ANY OF YOUR OTHER PRESCRIPTION MEDICATIONS PRIOR TO SURGERY EXCEPT THE FOLLOWING Hold all vitamins and supplements for 3 days per anesthesiologist. Medications to discontinue per physician Date to take last dose Please no make-up, nail iraqi, hairspray, perfume, deodorant, or body powder the day of surgery.? No jewelry (including any body piercings) or valuables the day of surgery, leave them at home.? Please take a shower or bath the night before, or the morning of, surgery with an antibacterial soap.? Wear comfortable, loose fitting clothing.? - Jewelry must be removed prior to entering the operating room.? Rings and piercings that are not removed may be cut off. - The hospital will not accept responsibility for valuables.? - Please leave all valuables, including medications, at home the day of surgery. If you are going home after surgery, a licensed furniture mover driver must drive you home.? - NO public transportation without another adult if you receive anesthesia. - We recommend that an adult stay with you for 24 hours following discharge. - We also recommend that you do not drive, make important decision, drink alcoholic beverages, or take any drugs that were not prescribed by your health care provider for at least 24 hours after your discharge time. Follow any additional instructions given to you from your surgeon. Telephone instructions given to __Rosibel___and asked if any additional questions and then verbalized understanding. Patient advised to call surgeon office or pre surgery nurse liaison [phone] if any additional questions.
--- NOTE | 2025-06-06 06:58 | PM.IMHP2 ---
H&P: HPI History of Present Illness Date/Time: 06/06/25 06:58 Chief Complaint: Pelvic pain with suspected endometriosis Narrative: A 24-year-old 0 status post cholecystectomy and appendectomy with pelvic pain she has Depo-Provera which helped she does not want to be on that anymore she would like a definitive diagnosis and will undergo diagnostic laparoscopy was suspected destruction of endometriosis risks and benefits reviewed including not exclusive of , aspiration pneumonia, bleeding, transfusion, perforation injury to bowel, bladder, ureters, or other internal organs with need for open laparotomy. She received the [facility] handout entitled laparoscopy. She had all questions answered to her satisfaction. She asked to proceed Review of Systems Review of Systems: All systems reviewed & are unremarkable except as noted in HPI and below PMFSH Past Medical History Medical History Family history of bipolar disorder Anxiety Leukocytosis Abdominal pain Migraine Surgical History Surgical History History of esophagogastroduodenoscopy (EGD) History of laparoscopic appendectomy 09/30/2022 History of cholecystectomy Family History Family History Father Hypertension Depression Mother Depression Grandparent Cancer Hypertension Thyroid disorder Heart disease Other No pertinent family history Social History Social History Social History: Patient is very confident filling out medical forms. 05/07/24 Smoking status: Current every day smoker Tobacco type: e-cigarettes/vaping Alcohol intake: never Alcohol use details: Social Substance use: never Substance use type: does not use Last use: 09/15/23 Lack of Transportation: No Lack of Food: Never True Current Housing: I Have Housing Concerned About Future Housing: No Difficulty Paying Gas/Electric Bills: No Difficulty Paying for Meds: No Currently Unemployed: No Education: Grade School Difficulty w/ Childcare or Family Care: No Living arrangements: with family Occupation/Education: occupation Additional occupation/education comments: [employer] Gender identity (if verbalized by the patient): Female Spiritual care concerns: No Meds Home Medications and Allergies Home Medications ?Medication ?Instructions ?Recorded ?Confirmed ?Type ondansetron 4 mg disintegrating 4 mg PO Q6H PRN nausea and 09/23/23 06/03/25 Rx tablet vomiting #30 tabs sumatriptan succinate 50 mg tablet See Rx Instructions PO .COMPLEX 03/10/24 06/03/25 Rx #10 tabs omeprazole 40 mg capsule,delayed See Rx Instructions .Route 04/19/24 06/03/25 Rx release .COMPLEX #30 caps amitriptyline 10 mg tablet 10 mg PO QHS #90 tabs 06/30/24 06/03/25 Rx prochlorperazine maleate 5 mg 5 mg PO Q8H PRN nausea and 03/26/25 06/03/25 Rx tablet (Compazine) vomiting #14 tabs dicyclomine 10 mg capsule 10 mg PO BID PRN abdominal pain 03/28/25 06/03/25 Rx #20 caps potassium chloride 20 mEq oral 20 meq PO DAILY 5 days #5 packets 03/28/25 06/03/25 Rx packet Allergies Allergy/AdvReac Type Severity Reaction Status Date / Time Penicillins AdvReac Intermediate Difficulty Verified 06/03/25 12:25 Breathing Exam Const: General: cooperative, healthy appearing, comfortable and overweight Orientation/consciousness: oriented to person, oriented to place and oriented to time HENMT: Head: normal to inspection Resp: Effort & Inspection: normal respiratory effort Cardio: Rate: regular rate Rhythm: regular rhythm Heart sounds: S1 normal heart sound present and S2 normal heart sound present GI: Inspection: normal to inspection : Speculum Exam - Vagina: normal appearance of the vagina Speculum Exam - Cervix: normal appearance of the cervix Bimanual exam- vagina & uterus: Uterine tenderness Bimanual Exam- Adnexa, other: tender bilaterally Assessment and Plan Assessment and plan (1) Pelvic pain: Code(s): R10.20 - Pelvic and perineal pain unspecified side Status: Acute Plan Proceed with laparoscopy and destruction of endometriosis
[2025-06-10] VITALS (8 sets, daily range): BP systolic 102–120; BP diastolic 64–79; PULSE 54–92; RESP 12–18; TEMP 36.1–36.4; O2SAT 100
--- OUTSIDE RECORDS SUMMARY | 2025-06-10 00:18 | XMS_ITS | Data Portability ---
Author Organization [facility] Address [address] [place] [address] [address] Assessment Encounter Date Assessment Date Assessment LastModified by Organization Details LastModified Time 07/15/2024 07/15/2024 Greater than 30 minutes was spent in total between discussion with the patient, examination, and coordination of care. [email or web address] Not available 07/19/2024 22:55:15 Plan of Treatment Reminders Order Date Submit Date Provider Last Modified By Organization Details Last Modified Time Details Appointments None recorded. Lab test, urine 2024 025 [email or web address] [facility], [address], [place], [address], 5 14:54:30 test, urine 2023 024 [email or web address] [facility], [address], [address], [place], [address], 4 10:57:18 Referral None recorded. Procedures None recorded. Surgeries None recorded. Imaging None recorded. Medication Orders Depo-Roller Hand a 150 mg/mL intramuscul ar syringe 2024 025 [email or web address] Not available 5 19:07:25 Depo-Roller Hand a 150 mg/mL intramuscul ar syringe 2023 024 [email or web address] Not available 5 09:35:29 Depo-Roller Hand a 150 mg/mL intramuscul ar syringe 2023 024 [email or web address] Not available 09:35:29 Depo-Roller Hand a 150 mg/mL intramuscul ar suspension 2023 024 [email or web address] Not available 09:35:44 Patient TargetsNo targets recorded. Patient InstructionsNo instructions recorded. Reason for Referral None Reported. Results Created Date Observation Date Name Description Value Unit Range Abnormal Flag Note LastModifiedBy Organization Detail LastModifiedTime 08/13/19 24 08/13/2023 pregn brayan test, urine HCG negati ve Not Available [facility] [address], [place], [address], 08/13/2023 10:56:58 08/13/19 24 08/13/2023 urina lysis , dipst ick Blood trace Not Available [facility] [address], [place], [address], 08/13/2023 10:41:02 08/13/19 24 08/13/2023 urina lysis , dipst ick Appearance clear Not Available [facility] [address], [place], [address], 08/13/2023 10:41:02 08/13/19 24 08/13/2023 urina lysis , dipst ick Color pale yellow Not Available [facility] [address], [place], [address], 08/13/2023 10:41:02 08/13/19 24 08/13/2023 pregn brayan test, urine HCG negati ve Not Available [facility] [address], [place], [address], 08/13/2023 10:40:35 Result Notes None recorded. Procedures Surgical History Date Name Laterality Status Provider Name and Address Organization Details Recorded Time 023 Date of Last Pap Smear completed Tita FLORES - [facility] 07/15/2024 09:36:12 Appendectomy completed Martha Hernandez [facility] 03/11/2023 10:29:39 cholecystectomy completed Martha Hernandez [facility] 03/11/2023 10:29:52 Imaging Results None recorded. Procedure Notes None recorded. Medical Equipment None Reported. Allergies Allergen ID Allergen Name Allergen Category Reaction Reaction Severity Criticality Documentation Date Start Date Code Code System Note Provider Name and Address Organization Details Recorded Time Product containin g penicilli n (product) medicatio n Not available Not available Not available 03/11/2023 [id number] SNOMED Martha wu [facility] 10:27:27 Medications Name Sig Start Date [...] Not Available Not Available No t Available Depo-Roller Hand a 150 mg/mL intramuscul ar syringe Inject [...] Updated DateTime 07/15/2024 157.48 cm 26.7 kg/m2 40920.49 g 128/81 mm[Hg] Tita Skinner [facility] 07/15/2024 09:34:54 Date Recorded Body height Body mass index (BMI) Body weight Systolic And Diastolic Provider Name and Address Organization Details Last Updated DateTime 08/13/2023 157.48 cm 25.6 kg/m2 50489.93 g 117/76 mm[Hg] Miri Gonzalez [facility] 08/13/2023 10:31:14 Date Recorded Body height Body mass index (BMI) Body weight Systolic And Diastolic Provider Name and Address Organization Details Last Updated DateTime 08/13/2024 157.48 cm 26.5 kg/m2 66355.89 g 120/78 mm[Hg] Renteta Wetzel [facility] 08/13/2024 14:49:40 Date Recorded Body height Provider Name an d Address Organization Details Last Updated DateTime 10/30/2023 157.48 cm Miri Gonzalez [facility] 10/30/2023 09:29:51 Social History Question Answer Notes LastModified by Organizat ion Details LastModified Time Tobacco Smoking Status Never Smoker Martha Mary [facility] 03/11/2023 10:29:21 How Many Years Have You Consumed Alcohol? 3 [email or web address] Information not available 07/15/2024 Are You Blind Or Do You Have Difficulty Seeing? No Information n ot available 03/11/2023 What Is Your Level Of Caffeine Consumption? Occasional Information not available 07/15/2024 How Much Tobacco Do You Chew? None [email or web address] Information not available 07/15/2024 In The 14 Days Before Symptom Onset, Have You Had Close Contact With A Laboratory-confirm ed COVID-19 While That Case Was Ill? No [email or web address] Information n ot available 07/15/2024 In The 14 Days Before Symptom Onset, Have You Had Close Contact With A Person Who Is Under Investigation For COVID-19 While That Person Was Ill? No [email or web address] Information not available 07/15/2024 Have You Been To An Area Known To Be High Risk For COVID-19? No [email or web address] Information not available 07/15/2024 Are You Deaf Or Do You Have Serious Difficulty Hearing? No Information not available 03/11/2023 Which Illicit Or Recreational Drugs Have You Used? Marijuana Information not available 03/11/2023 What Is The Highest Grade Or Level Of School You Have Completed Or The Highest Degree You Have Received? [id number] Information not available 07/15/2024 Are There Any Guns Present In Your Home? No [email or web address] Information not available 07/15/2024 Do You Use Protection During Sex? No [email or web address] Information not available 07/15/2024 Do You Use Your Seat Belt Or Car Seat Routinely? Yes [email or web address] Information not available 07/15/2024 Do You Have Smoke And Carbon Monoxide Detectors In Your Home? Yes [email or web address] Information not available 07/15/2024 How Much Tobacco Do You Smoke? No [email or web address] Information not available 07/15/2024 Do You Use Sunscreen Routinely? Yes [email or web address] Information not available 07/15/2024 Have You Used IV Drugs? No [email or web address] Information not available 07/15/2024 Do You Have [...] 03/11/2023 What is your exercise level? Occasional [email or web address] Information not available 07/15/2024 Mental Status Question Answer Note LastModified by Organization D etails LastModified Time Do you feel stressed (tense, restless, nervous, or anxious, or unable to sleep at night)? [id number] [email or web address] Information not available 07/15/2024 Family History Relationship [...] of Flow (days) 5 Current Control Method Depo-Roller Hand a Are cycles usually normal N Sexually [...] ICD10 Code Diagnosis IMO Codes Diagnosis Note [id number] NELLIE Khoury [facility] [address] [address] 03/11/2023 10:06:00 03/11/2023 10:55:35 Gynecologic examination [id number] Z01.419 Take Calcium with Vitamin D daily [...] for injection tomorrow Contracept ion care management [id number] Z30.9 Depo-Prove ra is a female hormonal [...] can be discussed with your healthcare provider. [id number] NELLIE Khoury [facility] [address] [address] 03/12/2023 09:56:47 03/12/2023 10:28:22 Contraception care management [id number] Z30.9 Depo-Prove ra is a female hormonal [...] can be discussed with your healthcare provider. [id number] NELLIE Khoury [facility] [address] [address] 05/28/2023 09:15:05 05/28/2023 14:12:33 Contraception care management [id number] Z30.9 Depo-Prove ra is a female hormonal [...] can be discussed with your healthcare provider. [id number] NELLIE Khoury [facility] [address],[place] [address] 08/13/2023 10:20:30 08/13/2023 10:58:20 Contraception care management [id number] Z30.9 Discussed common SE of irregular/ unschedule [...] counseling and review of plan of care. [id number] NELLIE Khoury [facility] [address],[place] [address] 10/30/2023 09:14:37 10/30/2023 10:37:31 Contraception care management [id number] Z30.9 [id number] NELLIE Khoury [facility] [address] [address] 01/15/2024 10:48:30 01/15/2024 10:59:12 Contraception care management [id number] Z30.9 [id number] JOCELYNN COSTA MD [facility] [address] [address] 07/15/2024 09:13:36 07/20/2024 02:47:30 Upper abdominal pain [id number] R10.10 - patient reports constant upper abdominal [...] given current symptoms- patients voices understand ing [id number] Zenon Thompson MD [facility] [address] [address] 08/13/2024 14:31:45 08/13/2024 14:55:57 Contraception care management [id number] Z30.9 Health Concerns Section Related Observation LastModified by Organization Detai ls LastModified Time None Recorded Concern Status LastModified by Organization Details LastModified Time None Recorded Advance Directives Directive None Recorded Payers Insurance Date Sequence Insurance Name Policy Number Policy Cortes Covered Member ID Cortes Member ID Guarantor Name 11/04/2024 1 [facility] - DOS ON OR AFTER 20 (MEDICAID REPLACEMENT - HMO) Rosibel Tinajero [id number] Rosibel Tinajero Notes Date Note Type Note Provider Name and Address Organization Details Recorded Time 08/13/2023 text/html Jay - Abnormal BleedingReported by Patient 22yo [id number] for f/u on DMPArestarted DMPA for BC on 03/11/23no bleeding with DMPA until recently, had 3 weeks of light bleeding. No bleeding todayno new partnersneg discharge, odors, itchingneg pelvic painneg n/v/fpap UTD - 03/11/2023, normal Miri Gonzalez null, [facility] 08/13/2023 11:06:15 07/15/2024 text/html ROS as [...] dyspareunia. JOCELYNN COSTA MD [address], [place], [address], [place] [facility] 07/19/2024 22:55:24 OBGyn Episode No OBEpisode recorded.
--- OUTSIDE RECORDS SUMMARY | 2025-06-10 00:19 | XMS_ITS | Clinical Summary ---
Author Organization [facility] Address [address] [place] [id number] Care Team Providers Care Assembler [employer] Name Role Phone Randy Mccormackelle Mellissa ACRYLIC FABRICATOR Primary Care Provider + Allergies Active Allergy [...] 05/21/2021 Assessment & Plan (05/21/2021 2:01 PM FLIGHT MECHANIC): UA ordered, will call with the result. Declines STD prophylaxis or other STD testing at this time. Went over safe sex practices. Follow up PRN Viral pharyngitis 05/21/2021 09/11/2021 Assessment & Plan (05/21/2021 2:09 PM FLIGHT MECHANIC): Rapid strep negative. Symptoms are most likely [...] (12/27/2019): Added automatically from request for surgery [id number] Assessment & Plan (01/29/2020 8:28 AM CDT): [...] she should go to the ER in [place] where the would have GI on staff. Gall bladder disease 10/20/2019 021 Cholecystitis 10/20/2019 07/06/2020 Overview (10/21/2019): Added automatically from request for surgery [id number] Viral gastroenteritis 05/14/20192019 Assessment & Plan (05/21/2019 1:17 PM FLIGHT MECHANIC): Has resolved nicely. Reassured that exam is normal and labs are likely to be as well. Will call with results Assessment & Plan (05/14/2019 7:15 PM FLIGHT MECHANIC): Encouraged family to give 1/2 strength Gatorade [...] CDT - 03/27/2025 11:27 AM CDT Emergency [facility] Emergency Department [address] [place] [address] Abdominal pain with vomiting (Primary Dx) Discharge Disposition: Discharge to home or self care 03/26/2025 8:36 AM CDT - 03/26/2025 9:59 AM CDT Emergency [facility] Emergency Department [address] [place] [address] Abdominal pain, unspecified abdominal location (Primary Dx); [...] Teja Fong M.D. JA: PEDRO Report ID: [id number] Reading Location: [id number] Procedure Note Teja Fong MD - 03/27/2025 [...] signed by Teja VASQUEZ: PEDRO Report ID: [id number] Reading Location: [place] [address] Lan [facility] CT PROCEDURES Final Re sult * Differential, [...] ORDERABLES Final Result [facility] 1 [facility] [place] [address] * CBC with auto differential (03/27/2025 9:09 [...] ORDERABLES Final Result [facility] ([place] 1 [facility] [place] [address] * (ABNORMAL) Urinalysis reflex to microscopic and [...] tendency for uric acid stone formation. Source: [facility] Current Interpretive Data was last [...] GALLOWAY Final Result [facility] ([place] 1 [facility] [place] [address] * (ABNORMAL) Urinalysis, microscopic only (03/26/2025 9:34 [...] ORDERABLES Final Resu lt [facility]) 1 [facility] [place] [address] * Influenza A/B, RSV, and COVID-19 PCR Nasopharyngeal (03/26/2025 9:09 AM CDT) [facility] COVID-19 RNA Negative Negative Influenza A RNA Negative Negative [facility] Influenza B RNA Negative Negative [facility] RSV RNA Negative Negative [facility] Comment: Interpretive data: Testing performed by [facility]. This test is performed using the [employer]et Xpert Xpress CoV-2/Flu/RSV plus assay. This is a multiplex, real- time reverse transcriptase PCR assay intended for the qualitative detection of nucleic acid from SARS-CoV-2, influenza A, influenza B, and respiratory syncytial virus. This assay has been cleared by the [place] Food and Drug administration. The performance characteristics have been verified by the [facility]. Results must be considered in the clinical context, and a negative result does not rule out infection. Interpretive Data last revised 2023 Nasopharyngeal 03/26/2025 9: 09 AM CDT 03/26/2025 9:12 AM CDT Narrative [facility] ([place]) - 03/26/2025 9:51 AM CDT Is the Patient experiencing symptoms consistent with COVID?->Yes Rosibel [facility] LAB MICROBIOLOGY - GENERAL ORDE RABLES Final Result [facility] 1 [facility] [place] [address] * eGFR (03/26/2025 8:48 AM CDT) [facility] eGFR >90 >=60 mL/min/1. 73 m2 Comment: [...] [facility] LAB BLOOD ORDERABLES Final Resu lt [facility] ([place] 1 [facility] [place] [address] * (ABNORMAL) Differential, auto (03/26/2025 8:48 AM [...] BLOOD ORDERABLES Final Resu lt [facility] ([place] 1 [facility] [place] [address] * (ABNORMAL) CBC with auto differential (03/26/2025 8:48 AM CDT) WBC 11.75(H) 3.80 - 9.90 K/cumm Hgb 14.2 11.9 - 15.5 g/dL [facility]) Hct 40.4 35.6 - 45.5 [...] ORDERABLES Final Resu lt Performing Organization Address City/[facility] Co de Phone Number [facility] ([place] 1 [facility] [place] [address] * hCG, blood, quantitative (03/26/2025 8:48 AM CDT) [facility] hCG, quant <5.0 0.0 - 5.0 IUnits/L [...] BLOOD ORDERABLES Final Resu lt [facility] ([place] 1 [facility] [place] [address] * Lipase (03/26/2025 8:48 AM CDT) Lipase 24 10 - 99 Units/L Blood 03/26/2025 8:48 AM CDT 03/26/2025 8:50 AM CDT us Rosibel [facility] LAB BLOOD ORDERABLES Final Resu lt [facility] ([place]) 1 [facility] [place] [address] * (ABNORMAL) Comprehensive metabolic panel (03/26/2025 8:48 [...] ORDERABLES Final Resu lt [facility] ([place]) [address] [place] [address] Department [place] [address] * N. gonorrhoeae/C. trachomatis Amplification Urine (09/09/2022 11:48 AM CDT) C. trachomatis Not Detected Not Detected [facility] Comment:Testing performed by : [facility], [address] [place] [address]., [id number] N. gonorrhoeae Not Detected Not Detected [facility] Comment: Interpretive Data Testing performed by the [facility]. This assay detects Chlamydia trachomatis and Neisseria gonorrhoeae by nucleic acid amplification testing (NAAT). This test is approved by the [facility] Food and Drug Administration and the performance characteristics have been verified by the laboratory. The performance characteristics of this test have not been evaluated in individuals less than 14 years of age. Current Interpretive Data was last revised on 2018. Testing performed by: [facility], [address] [place] [address]., [id number] Urine (None) 09/09/2022 11:4 8 AM CDT 09/10/2022 1:02 AM CDT us Linnea Breaux ACRYLIC FABRICATOR LAB MICROBIOLOGY - GENERAL ORD ERABLES Final Result [facility] [address] [facility] [place] [address] * Hepatitis C antibody (09/09/2022 11:43 AM CDT) Hep C Ab Nonreactive Nonreactive [facility] Comment: Antibodies to HCV not detected. Does NOT exclude the possibility of recent exposure to HCV. Current interpretive data was last revised on 22 Testing performed by: [facility], [address], [place]., [address] Blood 09/09/2022 11:4 3 AM CDT 09/09/2022 3:50 PM CDT us Linnea Breaux NP LAB MICROBIOLOGY - GENERAL ORD ERABLES Final Result [facility] [address] [facility] [place] [address] from Last 3 Months or Most Recently Relevant to Health Maintenance Insurance [facility] [employer] [address] [place] [place] [address] [address] Member Subscriber Plan / Payer (Ef fective 2024-Present) Name:Rosibel Tinajero Relation to Subscriber:Self Name:Rosibel Tinajero Payer ID:[id number] (NAIC) Group ID:Not on file Type:MEDICAID RISK OTHER Address: ATTN: CLAIMS DEPT [address] [place], [place] [address] [employer] [facility] [place] [employer] [facility] [employer] [facility] Advance Directives For more information, please contact: [phone] * Full Code (Latest Code Status on File) Date Activated Date Inactivated Comments 01/28/2020 10:29 AM 01/29/2020 8:26 PM * Full Code Date Activated Date Inactivated Comments 01/04/2020 7:49 AM 01/04/2020 1:10 PM * Full Code Date Activated Date Inactivated Comments 10/20/2019 8:46 PM 10/22/2019 12:28 AM Care Teams Assembler [employer] Relationship Specialty Start Date End Date Jaelyn Mccormack NP [address] [place] [id number] PCP - General Nurse Practitioner 03/26/25
--- NOTE | 2025-06-10 06:40 | WPDHPUPDATE1 ---
History and Physical Update Update Date/Time: 06/10/25 06:40 History and Physical has been reviewed, including an updated exam of the patient. There are NO changes in the patient's condition. Risks, benefits, and alternatives have been discussed and questions answered. Patient agrees to proceed with procedure.
[2025-06-10] MEDS: ACETAMINOPHEN 500 MG TABLET 1000 MG PO (06:47)
[2025-06-10] MEDS: KETOROLAC 15 MG/ML VIAL (*BKC) IV PUSH (06:52)
[2025-06-10] MEDS: LACTATED RINGERS 1,000 ML 30 ML IV CONT ×2 (07:00→08:45)
[2025-06-10 07:21] LABS: BEDSIDEPREGUCG Negative (Negative)
--- NOTE | 2025-06-10 07:49 | P.PNAN_ITS ---
Anes - Initial Pre Proc Eval Procedure: Operation Date: 06/10/25 08:15 Proposed Procedures p Diagnostic Laparoscopy, Cautery of Endometriosis - Nick Espino MD Date/Time: 06/10/25 07:49 Surgeon: Nick Espino MD Pre Op Diagnosis: Pelvic Pain, Irg bleed, Endometrosis Patient Data Age: 24 Gender: F Height: 1.57 m Weight: 61.4 kg Last Vital Signs Temp 36.1 C L 06/10/25 06:15 Pulse 90 06/10/25 06:15 Resp 18 06/10/25 06:15 BP 105/69 06/10/25 06:15 Pulse Ox 100 06/10/25 06:15 O2 Del Method Room Air 06/10/25 06:15 Allergies Allergy/AdvReac Type Severity Reaction Status Date / Time Penicillins AdvReac Intermediate Difficulty Verified 06/10/25 07:13 Breathing Home Medications ?Medication ?Instructions ?Recorded ?Confirmed ?Type ondansetron 4 mg disintegrating 4 mg PO Q6H PRN nausea and 09/23/23 06/03/25 Rx tablet vomiting #30 tabs sumatriptan succinate 50 mg tablet See Rx Instructions PO .COMPLEX 03/10/24 06/03/25 Rx #10 tabs omeprazole 40 mg capsule,delayed See Rx Instructions . Route 04/19/24 06/03/25 Rx release .COMPLEX #30 caps amitriptyline 10 mg tablet 10 mg PO QHS #90 tabs 06/3006/10/25 Rx prochlorperazine maleate 5 mg 5 mg PO Q8H PRN nausea a nd 03/26/25 06/03/25 Rx tablet (Compazine) vomiting #14 tabs dicyclomine 10 mg capsule 10 mg PO BID PRN abdominal p ain 03/28/25 06/03/25 Rx #20 caps potassium chloride 20 mEq oral 20 meq PO DAILY 5 days #5 packets 03/28/25 06/10/25 Rx packet hydrocodone 5 mg-acetaminophen 325 1 tablet PO Q4H PRN pain #20 tabs 06/10/25 Rx mg tablet Laboratory Tests 06/10/25 06:25 POC Urine HCG, Qual Negative (Negative) HCG: negative Patient hx anesthesia problems: none Family hx anesthesia problems: none Results Review: All pre-operative results and documents have been reviewed as part of the pre- operative evaluation. [facility] Past Medical History Medical History Family history of bipolar disorder Anxiety Leukocytosis Abdominal pain Migraine Surgical History Surgical History History of esophagogastroduodenoscopy (EGD) History of laparoscopic appendectomy 09/30/2022 History of cholecystectomy Family History Family History Father Hypertension Depression Mother Depression Grandparent Cancer Hypertension Thyroid disorder Heart disease Other No pertinent family history Social History Social History Social History: Patient is very confident filling out medical forms. 05/07/24 Smoking status: Current every day smoker Tobacco type: e-cigarettes/vaping Alcohol intake: never Alcohol use details: Social Substance use: never Substance use type: does not use Last use: 09/15/23 Lack of Transportation: No Lack of Food: Never True Current Housing: I Have Housing Concerned About Future Housing: No Difficulty Paying Gas/Electric Bills: No Difficulty Paying for Meds: No Currently Unemployed: No Education: Grade School Difficulty w/ Childcare or Family Care: No Living arrangements: with family Occupation/Education: occupation Additional occupation/education comments: [employer] Gender identity (if verbalized by the patient): Female Spiritual care concerns: No Anes - Eval Final PreProcedure Day of Procedure 06/10/25 07:49 Patient weight: normal Heart: regular rate and rhythm Lungs: clear to auscultation Airway: Mallampati scale class II Neurological: alert and oriented Last oral intake: >/= 8 hours ASA classification: II Emergent: no Anesthetic plan: proceed Anesthesia type and monitoring: general ETT and standard monitoring Results Review: All pre-operative results and documents have been reviewed as part of the pre- operative evaluation. Informed Consent: The patient's anesthetic plan and its attendant risks and benefits were discussed with the patient/family/POA. Questions were solicited and answers provided to the satisfaction of the patient/family/POA.
--- NOTE | 2025-06-10 08:39 | W.PM.PROC2 ---
Procedure Note - Detailed Date of Procedure 06/10/25 Pre-op Diagnosis Pelvic Pain, Irg bleed, Endometrosis Post-op Diagnosis Same Procedure Performed Laparoscopy with destruction of endometriosis and destruction of right ovarian cyst Surgeon Nick Espino MD Anesthesia General Indications 24-year-old female with pelvic pain dyspareunia irregular periods Findings Endometriosis along the uterosacral ligaments bilaterally in the form of powder burn blisters. Right ovarian cyst. Endometriosis along in the right gutter. Description of Procedure Patient was prepped draped in the normal sterile fashion placed in the dorsal lithotomy position. Under excellent general trach anesthesia weighted speculum placed posterior fornix vagina. Anterior lip of the cervix grasped with a single-tooth tenaculum. Abraham's cannula inserted the cervix attached to the single-tooth. This would be used later for uterine manipulation. After emptying the bladder of clear urine the weighted speculum was removed and the gloves were changed. An infraumbilical incision made the Veress needle passed in the abdomen. Abdomen filled with CO2 gas [id number]. The 5mm trocar advanced under direct visualization assuring no injury. Patient placed in Trendelenburg and a suprapubic incision made. The 5mm trocar advanced under direct visualization assuring no injury. The areas of endometriosis were seen and there was a fair amount of serosanguineous fluid this was irrigated. Small areas of endometriosis were seen along the uterosacral ligaments and these were cauterized at 35 w per 2nd. There were some endometriotic implants form a chocolate powder burn areas along and the gutter and these were sharply ice removed with Ciara clamp. Irrigation undertaken until clear right ovarian cyst was noted this was opened in linear fashion and drained of no other abnormalities were seen. The lower site the. The upper site removed incisions closed with 4 Monocryl and glue all the patient was awakened after her recovery all sponge, needle, instrument counts were correct. There were no immediate complications Estimated Blood Loss 5 Drains No Packing No Pathology None sent Complications No immediate complications Condition Stable Disposition PACU
[2025-06-10] MEDS: fentaNYL CITRATE INJ (*CRX) 100 MCG/2 ML VIAL 25 MCG IV PUSH ×4 (09:06→09:31)
[2025-06-10] MEDS: oxyCODONE HCL (*CRX) 5 MG TAB IR PO (10:18)
== END 2025-06-10 10:43 | disposition home or self-care (01) ==
PROVIDERS: PCP Nurse Practitioner Family; Visit Provider Obstetrics & Gynecology
PROC: (CPT 49320; principal; 2025-06-10 08:15)
DX: N80.3C3 Endometriosis of bilateral uterosacral ligament(s), unspecified depth (principal); N80.399 Endometriosis of the pelvic peritoneum, other specified sites, unspecified depth; N83.201 Unspecified ovarian cyst, right side; F17.290 Nicotine dependence, other tobacco product, uncomplicated
CPT/HCPCS: 58662; A9270; J0330; J1100; J1885; J2250; J2405; J2704; J3010; J7120